=== PATIENT | female | born 1935 | race Caucasian/White ===

== ENCOUNTER → 2016-12-10 | Outpatient (REF) | payer MEDICARE ==
[2016-12-10 21:13] LABS: BACTERIA, URINE LARGE AMOUNT
[2016-12-10 21:14] LABS: RBC, URINE 0-1 /hpf (0-3); SQUAMOUS EPITHELIAL CELL URINE LARGE AMOUNT /hpf (SMALL AMT); TRANSITIONAL EPI CELLS, URINE SMALL AMOUNT /hpf
[2016-12-10 21:16] LABS: HYALINE CAST, URINE NONE SEEN /lpf (0-1); MICROSCOPIC EXAM PERFORMED
== END ==
LOC: M LAB REF 17:11
PROVIDERS: ATTEND Internal Medicine Nephrology
DX: N39.0 Urinary tract infection, site not specified (principal)

== ENCOUNTER 2018-12-02 11:07 | Emergency (ER) | payer MEDICARE ==
[~2018-12-02] VITALS: Ht 149.9 cm; Wt 66.4 kg
[2018-12-02] MEDS ORDERED: CENT1TAB PO (12:32)
[2018-12-02] MEDS ORDERED: FURO40TA2 PO (12:32)
[2018-12-02] MEDS ORDERED: PRESCAP PO (12:32)
[2018-12-02] MEDS ORDERED: ATEN100T PO (12:32)
[2018-12-02] MEDS ORDERED: AMLO10TA PO (12:32)
[2018-12-02] MEDS ORDERED: SIMV10TA2 PO (12:32)
[2018-12-02] MEDS ORDERED: WARF05TA PO (12:32)
[2018-12-02] MEDS ORDERED: WARF-58 PO (12:32)
[2018-12-02] MEDS ORDERED: ALEN35TA37 PO (12:32)
[2018-12-02] MEDS ORDERED: OMEP40CA2 PO (12:32)
[2018-12-02] MEDS ORDERED: ENAL20TA PO (12:32)
[2018-12-02] MEDS ORDERED: DIGO0.127 PO (12:32)
[2018-12-02] MEDS ORDERED: OMEG10002 PO (12:32)
[2018-12-02] MEDS ORDERED: VITA200028 PO (12:32)
[2018-12-02] MEDS ORDERED: GLIP10TA PO (12:32)
[2018-12-02] MEDS ORDERED: OXYB5TAB2 PO (12:32)
[2018-12-02 13:39] LABS: BASO % 0.6 % (0.0-1.0); EOS # 0.1 10^3/uL (0.0-0.50); EOS % 2.1 % (0.0-3.0); HEMATOCRIT 37.1 % (36.0-47.0); HEMOGLOBIN 12.2 g/dl (12.0-15.5); LYMPH # 1.5 10^3/uL (1.5-4.5); LYMPH % 23.1 % (24.0-44.0); MEAN CORPUSCULAR HEMOGLOBIN 29.9 pg (27.0-33.0); MEAN CORPUSCULAR HGB CONC 32.9 g/dl (32.0-36.5); MEAN CORPUSCULAR VOLUME 90.9 fl (80.0-96.0); MONO # 0.6 10^3/uL (0.0-0.8); MONO % 8.2 % (0.0-5.0); NEUTROPHILS # 4.4 10^3/uL (1.8-7.7); NEUTROPHILS % 65.6 % (36.0-66.0); PLATELET COUNT, AUTOMATED 245 10^3/uL (150-450); RED BLOOD COUNT 4.08 10^6/uL (4.00-5.40); WHITE BLOOD COUNT 6.7 10^3/uL (4.0-10.0)
[2018-12-02 14:20] VITALS: BP 152/70
--- NOTE | 2018-12-02 15:03 | REP ---
LUMBOSACRAL SPINE: Five views of the lumbosacral spine are performed. There is minor loss of height of L1 which is of indeterminate age. Remaining lumbar vertebral bodies are normal in height and are well aligned. There is mild to moderate diffuse spurring. There is mild to moderate diffuse disc space narrowing with subchondral sclerosis and vacuum phenomenon. Sclerosis and spurring is seen at the posterior facet joints. The posterior elements are intact. There is slight curvature of the lumbar spine convex to the left. IMPRESSION: Diffuse degenerative changes. Slight anterior loss of height of the L1 vertebral body is of indeterminate age. Electronically Signed by Domingo Das MD 12/02/2018 03:22 P
--- NOTE | 2018-12-02 15:04 | REP ---
LEFT KNEE SERIES: Five views of the left knee performed. There is no fracture or dislocation. There is moderate patellofemoral compartment narrowing with subchondral sclerosis and spurring. There is mild medial joint space narrowing with subchondral sclerosis and spurring. IMPRESSION: Degenerative changes without evidence of acute fracture or dislocation. Electronically Signed by Domingo Das MD 12/02/2018 03:23 P
== END 2018-12-02 15:00 | disposition home or self-care (01) ==
LOC: M ED 11:07
DX: M51.37 Other intervertebral disc degeneration, lumbosacral region (principal); S39.012A Strain of muscle, fascia and tendon of lower back, initial encounter; X58.XXXA Exposure to other specified factors, initial encounter; Y92.89 Other specified places as the place of occurrence of the external cause; M17.12 Unilateral primary osteoarthritis, left knee; E11.9 Type 2 diabetes mellitus without complications; I48.91 Unspecified atrial fibrillation; I10 Essential (primary) hypertension; E78.5 Hyperlipidemia, unspecified; H40.9 Unspecified glaucoma; M54.9 Dorsalgia, unspecified

== ENCOUNTER → 2019-10-04 | Outpatient (CLI) | payer MEDICARE ==
[~2019-10-04] MED LIST: ALEN35TA6 PO; AMLO10TA PO; ATEN100T PO; CENT1TAB PO; DIGO0.127 PO; ENAL20TA PO; FURO40TA2 PO; GLIP10TA PO; OMEG10002 PO; OMEP40CA97 PO; OXYB-54 PO; PRESCAP PO; SIMV10TA21 PO; VITA200028 PO; WARF-58 PO; WARF05TA PO
[2019-10-04 11:04] LABS: HEMATOCRIT 32.4 % (36.0-47.0); HEMOGLOBIN 10.2 g/dl (12.0-15.5); MEAN CORPUSCULAR HEMOGLOBIN 29.6 pg (27.0-33.0); MEAN CORPUSCULAR HGB CONC 31.5 g/dl (32.0-36.5); MEAN CORPUSCULAR VOLUME 93.9 fl (80.0-96.0); PLATELET COUNT, AUTOMATED 235 10^3/uL (150-450); RED BLOOD COUNT 3.45 10^6/uL (4.00-5.40); WHITE BLOOD COUNT 4.5 10^3/uL (4.0-10.0)
[2019-10-04 11:29] LABS: ALBUMIN 3.6 GM/DL (3.2-5.2); CALCIUM LEVEL 9.5 MG/DL (8.8-10.2); CREATININE FOR GFR 1.41 MG/DL (0.55-1.30); GLOMERULAR FILTRATION RATE 37.6 (>32); MAGNESIUM LEVEL 2.3 MG/DL (1.8-2.4); PHOSPHORUS LEVEL 3.3 MG/DL (2.5-4.9); POTASSIUM SERUM 4.3 MEQ/L (3.5-5.1); URIC ACID 8.8 MG/DL (2.6-6.0)
[2019-10-04 11:39] LABS: PTH INTACT 59.3 PG/ML (18.5-88.0)
[2019-10-05 13:53] LABS: PERCENT SATURATION 13.9 % (13.2-45.0)
== END ==
LOC: M WUC 08:34
PROVIDERS: ATTEND Nurse Practitioner Family
DX: N18.3 Chronic kidney disease, stage 3 (moderate) (principal); D63.1 Anemia in chronic kidney disease; N25.81 Secondary hyperparathyroidism of renal origin; M10.9 Gout, unspecified; E83.42 Hypomagnesemia

== ENCOUNTER → 2019-10-05 | Outpatient (REF) | payer MEDICARE ==
[2019-10-06 10:28] LABS: BACTERIA, URINE AUTO 3+ (NEGATIVE); BILIRUBIN, URINE AUTO NEGATIVE (NEGATIVE); BLOOD, URINE BLOOD NEGATIVE (NEGATIVE); COLOR, URINE YELLOW (YELLOW); GLUCOSE, URINE (UA) AUTO NEGATIVE (NEGATIVE); KETONE, URINE AUTO NEGATIVE (NEGATIVE); LEUKOCYTE ESTERASE, URINE AUTO 1+ (NEGATIVE); NITRITE, URINE AUTO NEGATIVE (NEGATIVE); PROTEIN, URINE AUTO NEGATIVE (NEGATIVE); RBC, URINE AUTO 1 /HPF (0-3); SPECIFIC GRAVITY URINE AUTO 1.012 (1.002-1.035); SQUAMOUS EPITHELIAL CELL UR AU 4 /HPF (0-6); UROBILINOGEN, URINE AUTO 0.2 mg/dL (0.0-2.0); WBC, URINE AUTO 10 /HPF (0-3)
[2019-10-07 06:36] LABS: APPEARANCE, URINE HAZY (CLEAR)
== END ==
LOC: M LAB REF 10:04
PROVIDERS: ATTEND Nurse Practitioner Family
DX: N39.0 Urinary tract infection, site not specified (principal)

== ENCOUNTER → 2019-11-11 | Outpatient (REF) | payer MEDICARE ==
[~2019-11-11] MED LIST changes: +ALEN35TA54 PO; -ALEN35TA6 PO; -ENAL20TA PO; +ENAL20TA11 PO
[2019-11-11 17:57] LABS: PERCENT SATURATION 17.3 % (13.2-45.0)
== END ==
LOC: M LAB REF 16:47
PROVIDERS: ATTEND Nurse Practitioner Family
DX: D50.9 Iron deficiency anemia, unspecified (principal)

== ENCOUNTER 2020-06-22 14:42 | Inpatient (IN) | payer MEDICARE ==
[~2020-06-22] VITALS: Ht 149.9 cm; Wt 60.0 kg
[2020-06-22 15:47] LABS: VENOUS BASE EXCESS -0.2 (-2.0-2.0); VENOUS HCO3 25.5 MEQ/L (23.0-27.0); VENOUS O2 SATURATION 87.6 % (60.0-80.0); VENOUS PARTIAL PRESSURE O2 55.9 mmHg (30.0-50.0); VENOUS PH 7.362 UNITS (7.330-7.430); VENOUS STANDARD HCO3 24.2 MEQ/L; VENOUS TOTAL CO2 26.9 MEQ/L (24.0-28.0)
[2020-06-22 15:53] LABS: BASO # 0.1 10^3/uL (0.0-0.2); BASO % 0.9 % (0.0-1.0); EOS # 0.1 10^3/uL (0.0-0.5); EOS % 1.3 % (0.0-3.0); HEMATOCRIT 33.5 % (36.0-47.0); HEMOGLOBIN 10.4 g/dl (12.0-15.5); LYMPH # 1.5 10^3/uL (1.5-5.0); LYMPH % 19.4 % (24.0-44.0); MEAN CORPUSCULAR HEMOGLOBIN 28.7 pg (27.0-33.0); MEAN CORPUSCULAR VOLUME 92.3 fl (80.0-96.0); MONO % 13.3 % (2.0-8.0); NEUTROPHILS # 4.8 10^3/uL (1.5-8.5); NEUTROPHILS % 63.8 % (36.0-66.0); PLATELET COUNT, AUTOMATED 350 10^3/uL (150-450); RED BLOOD COUNT 3.63 10^6/uL (4.00-5.40); WHITE BLOOD COUNT 7.5 10^3/uL (4.0-10.0)
--- OUTSIDE RECORDS SUMMARY | 2020-06-22 16:10 | CCD ---
Author Author [facility] Organization [facility] Address Unknown Phone Unavailable Care Team Providers Care Environmental Technology Professor Name Role Phone Belle Proctor MD Unavailable Unavailable Belle Proctor MD Unavailable Unavailable Belle Proctor MD Unavailable Unavailable Belle Proctor MD Unavailable Unavailable Belle Proctor MD Unavailable Unavailable Veronica Rosado Unavailable Unavailable BROWN, BLADIMIR KEVIN AUTOMOTIVE SERVICE TECHNICIAN Unavailable Unavailable BROWN, BLADIMIR KEVIN AUTOMOTIVE SERVICE TECHNICIAN Unavailable Unavailable BROWN, BLADIMIR KEVIN AUTOMOTIVE SERVICE TECHNICIAN Unavailable Unavailable BROWN, BLADIMIR KEVIN AUTOMOTIVE SERVICE TECHNICIAN Unavailable Unavailable BROWN, BLADIMIR KEVIN AUTOMOTIVE SERVICE TECHNICIAN Unavailable Unavailable BROWN, BLADIMIR KEVIN AUTOMOTIVE SERVICE TECHNICIAN Unavailable Unavailable BROWN, BLADIMIR KEVIN AUTOMOTIVE SERVICE TECHNICIAN Unavailable Unavailable BROWN, BLADIMIR KEVIN AUTOMOTIVE SERVICE TECHNICIAN Unavailable Unavailable BROWN, BLADIMIR KEVIN AUTOMOTIVE SERVICE TECHNICIAN Unavailable Unavailable BROWN, BLADIMIR KEVIN AUTOMOTIVE SERVICE TECHNICIAN Unavailable Unavailable BROWN, BLADIMIR KEVIN AUTOMOTIVE SERVICE TECHNICIAN Unavailable Unavailable BROWN, BLADIMIR KEVIN AUTOMOTIVE SERVICE TECHNICIAN Unavailable Unavailable BROWN, BLADIMIR KEVIN AUTOMOTIVE SERVICE TECHNICIAN Unavailable Unavailable BROWN, BLADIMIR KEVIN AUTOMOTIVE SERVICE TECHNICIAN Unavailable Unavailable BROWN, BLADIMIR KEVIN AUTOMOTIVE SERVICE TECHNICIAN Unavailable Unavailable BROWN, BLADIMIR KEVIN AUTOMOTIVE SERVICE TECHNICIAN Unavailable Unavailable BROWN, BLADIMIR KEVIN AUTOMOTIVE SERVICE TECHNICIAN Unavailable Unavailable BROWN, BLADIMIR KEVIN AUTOMOTIVE SERVICE TECHNICIAN Unavailable Unavailable BROWN, BLADIMIR KEVIN AUTOMOTIVE SERVICE TECHNICIAN Unavailable Unavailable BROWN, BLADIMIR KEVIN AUTOMOTIVE SERVICE TECHNICIAN Unavailable Unavailable BROWN, BLADIMIR KEVIN AUTOMOTIVE SERVICE TECHNICIAN Unavailable Unavailable BROWN, BLADIMIR KEVIN AUTOMOTIVE SERVICE TECHNICIAN Unavailable Unavailable BROWN, BLADIMIR KEVIN AUTOMOTIVE SERVICE TECHNICIAN Unavailable Unavailable BROWN, BLADIMIR KEVIN AUTOMOTIVE SERVICE TECHNICIAN Unavailable Unavailable BROWN, BLADIMIR KEVIN AUTOMOTIVE SERVICE TECHNICIAN Unavailable Unavailable BROWN, BLADIMIR KEVIN AUTOMOTIVE SERVICE TECHNICIAN Unavailable Unavailable BROWN, BLADIMIR KEVIN AUTOMOTIVE SERVICE TECHNICIAN Unavailable Unavailable BROWN, BLADIMIR KEVIN AUTOMOTIVE SERVICE TECHNICIAN Unavailable Unavailable BROWN, BLADIMIR KEVIN AUTOMOTIVE SERVICE TECHNICIAN Unavailable Unavailable BROWN, BLADIMIR KEVIN AUTOMOTIVE SERVICE TECHNICIAN Unavailable Unavailable BROWN, BLADIMIR KEVIN AUTOMOTIVE SERVICE TECHNICIAN Unavailable Unavailable BROWN, BLADIMIR KEVIN AUTOMOTIVE SERVICE TECHNICIAN Unavailable Unavailable BROWN, BLADIMIR KEVIN AUTOMOTIVE SERVICE TECHNICIAN Unavailable Unavailable BROWN, BLADIMIR KEVIN AUTOMOTIVE SERVICE TECHNICIAN Unavailable Unavailable BROWN, BLADIMIR KEVIN AUTOMOTIVE SERVICE TECHNICIAN Unavailable Unavailable BROWN, BLADIMIR KEVIN AUTOMOTIVE SERVICE TECHNICIAN Unavailable Unavailable BROWN, BLADIMIR KEVIN AUTOMOTIVE SERVICE TECHNICIAN Unavailable Unavailable BROWN, BLADIMIR KEVIN AUTOMOTIVE SERVICE TECHNICIAN Unavailable Unavailable BROWN, BLADIMIR KEVIN AUTOMOTIVE SERVICE TECHNICIAN Unavailable Unavailable YUDY, VERONICA PA Unavailable Unavailable YUDY, VERONICA PA Unavailable Unavailable YUDY, VERONICA PA Unavailable Unavailable YUDY, VERONICA PA Unavailable Unavailable YUDY, VERONICA PA Unavailable Unavailable YUDY, VERONICA PA Unavailable Unavailable YUDY, VERONICA PA Unavailable Unavailable Hadian, Ayo Unavailable Unavailable Hadian, Ayo Unavailable Unavailable Hadian, Ayo Unavailable Unavailable Hadian, Ayo Unavailable Unavailable Hadian, Ayo Unavailable Unavailable Hadian, Ayo Unavailable Unavailable Hadian, Ayo Unavailable Unavailable Hadian, Ayo Unavailable Unavailable Hadian, Ayo Unavailable Unavailable Hadian, Ayo Unavailable Unavailable Hadian, Ayo Unavailable Unavailable Hadian, Ayo Unavailable Unavailable Hadian, Ayo Unavailable Unavailable Hadian, Ayo Unavailable Unavailable Hadian, Ayo Unavailable Unavailable Hadian, Ayo Unavailable Unavailable Hadian, Ayo Unavailable Unavailable Hadian, Ayo Unavailable Unavailable Hadian, Ayo Unavailable Unavailable Hadian, Ayo Unavailable Unavailable Hadian, Ayo Unavailable Unavailable Hadian, Ayo Unavailable Unavailable Hadian, Ayo Unavailable Unavailable Hadian, Ayo Unavailable Unavailable Hadian, Ayo Unavailable Unavailable Hadian, Ayo Unavailable Unavailable Hadian, Ayo Unavailable Unavailable Hadian, Ayo Unavailable Unavailable Hadian, Ayo Unavailable Unavailable Hadian, Ayo Unavailable Unavailable Hadian, Ayo Unavailable Unavailable Hadian, Ayo Unavailable Unavailable Hadian, Ayo Unavailable Unavailable RYLEE, M MERARI PA Unavailable Unavailable RYLEE, M MERARI PA Unavailable Unavailable RYLEE, M MERARI PA Unavailable Unavailable RYLEE, M MERARI PA Unavailable Unavailable RYLEE, M MERARI PA Unavailable Unavailable RYLEE, M MERARI PA Unavailable Unavailable RYLEE, M MERARI PA Unavailable Unavailable RYLEE, M MERARI PA Unavailable Unavailable RYLEE, M MERARI PA Unavailable Unavailable RYLEE, M MERARI PA Unavailable Unavailable RYLEE, M MERARI PA Unavailable Unavailable RYLEE, M MERARI PA Unavailable Unavailable RYLEE, M MERARI PA Unavailable Unavailable RYLEE, M MERARI PA Unavailable Unavailable RYLEE, M MERARI PA Unavailable Unavailable RYLEE, M MERARI PA Unavailable Unavailable RYLEE, M MERARI PA Unavailable Unavailable RYLEE, M MERARI PA Unavailable Unavailable RYLEE, M MERARI PA Unavailable Unavailable RYLEE, M MERARI PA Unavailable Unavailable RYLEE, M MERARI PA Unavailable Unavailable RYLEE, M MERARI PA Unavailable Unavailable RYLEE, M MERARI PA Unavailable Unavailable RYLEE, M MERARI PA Unavailable Unavailable Birchenough, L Krupa SPECIAL EDUCATION TEACHER Unavailable Unavailable Birchenough, L Krupa SPECIAL EDUCATION TEACHER Unavailable Unavailable Birchenough, L Krupa SPECIAL EDUCATION TEACHER Unavailable Unavailable Birchenough, L Krupa SPECIAL EDUCATION TEACHER Unavailable Unavailable Birchenough, L Krupa SPECIAL EDUCATION TEACHER Unavailable Unavailable Birchenough, L Krupa SPECIAL EDUCATION TEACHER Unavailable Unavailable Birchenough, L Krupa SPECIAL EDUCATION TEACHER Unavailable Unavailable Birchenough, L Krupa SPECIAL EDUCATION TEACHER Unavailable Unavailable Birchenough, L Krupa SPECIAL EDUCATION TEACHER Unavailable Unavailable Birchenough, L Krupa SPECIAL EDUCATION TEACHER Unavailable Unavailable Birchenough, L Krupa SPECIAL EDUCATION TEACHER Unavailable Unavailable Birchenough, L Krupa SPECIAL EDUCATION TEACHER Unavailable Unavailable Birchenough, L Krupa SPECIAL EDUCATION TEACHER Unavailable Unavailable Birchenough, L Krupa SPECIAL EDUCATION TEACHER Unavailable Unavailable Birchenough, L Krupa SPECIAL EDUCATION TEACHER Unavailable Unavailable Birchenough, L Krupa SPECIAL EDUCATION TEACHER Unavailable Unavailable Birchenough, L Krupa SPECIAL EDUCATION TEACHER Unavailable Unavailable Birchenough, L Krupa SPECIAL EDUCATION TEACHER Unavailable Unavailable Birchenough, L Krupa SPECIAL EDUCATION TEACHER Unavailable Unavailable Birchenough, L Krupa SPECIAL EDUCATION TEACHER Unavailable Unavailable Birchenough, L Krupa SPECIAL EDUCATION TEACHER Unavailable Unavailable Birchenough, L Krupa SPECIAL EDUCATION TEACHER Unavailable Unavailable Birchenough, L Krupa SPECIAL EDUCATION TEACHER Unavailable Unavailable Birchenough, L Krupa SPECIAL EDUCATION TEACHER Unavailable Unavailable Birchenough, L Krupa SPECIAL EDUCATION TEACHER Unavailable Unavailable Birchenough, L Krupa SPECIAL EDUCATION TEACHER Unavailable Unavailable Birchenough, L Krupa SPECIAL EDUCATION TEACHER Unavailable Unavailable Birchenough, L Krupa SPECIAL EDUCATION TEACHER Unavailable Unavailable Birchenough, L Krupa SPECIAL EDUCATION TEACHER Unavailable Unavailable Birchenough, L Krupa SPECIAL EDUCATION TEACHER Unavailable Unavailable Birchenough, L Krupa SPECIAL EDUCATION TEACHER Unavailable Unavailable Birchenough, L Krupa SPECIAL EDUCATION TEACHER Unavailable Unavailable Birchenough, L Krupa SPECIAL EDUCATION TEACHER Unavailable Unavailable Birchenough, L Krupa SPECIAL EDUCATION TEACHER Unavailable Unavailable Belle Proctor MD Unavailable Unavailable KANDY, A JAGUAR PA Unavailable Unavailable KANDY, A JAGUAR PA Unavailable Unavailable KANDY, A JAGUAR PA Unavailable Unavailable KANDY, A JAGUAR PA Unavailable Unavailable KANDY, A JAGUAR PA Unavailable Unavailable KANDY, A JAGUAR PA Unavailable Unavailable KANDY, A JAGUAR PA Unavailable Unavailable KANDY, A JAGUAR PA Unavailable Unavailable KANDY, A JAGUAR PA Unavailable Unavailable KANDY, A JAGUAR PA Unavailable Unavailable KANDY, A JAGUAR PA Unavailable Unavailable KANDY, A JAGUAR PA Unavailable Unavailable KANDY, A JAGUAR PA Unavailable Unavailable COUCH, CAROLINE PA Unavailable Unavailable COUCH, CAROLINE PA Unavailable Unavailable COUCH, CAROLINE PA Unavailable Unavailable COUCH, CAROLINE PA Unavailable Unavailable MALGORZATA, RON ALCANTARA Unavailable Unavailable MALGORZATA, RON ALCANTARA Unavailable Unavailable MALGORZATA, RON ALCANTARA Unavailable Unavailable MALGORZATA, RON ALCANTARA Unavailable Unavailable MALGORZATA, RON ALCANTARA Unavailable Unavailable MALGORZATA, RON ALCANTARA Unavailable Unavailable MALGORZATA, RON ALCANTARA Unavailable Unavailable MALGORZATA, RON ALCANTARA Unavailable Unavailable MALGORZATA, RON ALCANTARA Unavailable Unavailable MALGORZATA, RON ALCANTARA Unavailable Unavailable MALGORZATA, RON ALCANTARA Unavailable Unavailable MALGORZATA, RON ALCANTARA Unavailable Unavailable MALGORZATA, RON ALCANTARA Unavailable Unavailable MALGORZATA, RON ALCANTARA Unavailable Unavailable MALGORZATA, RON ALCANTARA Unavailable Unavailable MALGORZATA, RON ALCANTARA Unavailable Unavailable MALGORZATA, RON ALCANTARA Unavailable Unavailable MALGORZATA, RON ALCANTARA Unavailable Unavailable MALGORZATA, RON ALCANTARA Unavailable Unavailable MALGORZATA, RON ALCANTARA Unavailable Unavailable MALGORZATA, RON ALCANTARA Unavailable Unavailable MALGORZATA, RON ALCANTARA Unavailable Unavailable MALGORZATA, RON ALCANTARA Unavailable Unavailable MALGORZATA, RON ALCANTARA Unavailable Unavailable MALGORZATA, RON ALCANTARA Unavailable Unavailable MALGORZATA, RON ALCANTARA Unavailable Unavailable MALGORZATA, RON ALCANTARA Unavailable Unavailable MALGORZATA, RON ALCANTARA Unavailable Unavailable MALGORZATA, RON ALCANTARA Unavailable Unavailable MALGORZATA, RON ALCANTARA Unavailable Unavailable MALGORZATA, RON ALCANTARA Unavailable Unavailable MALGORZATA, RON ALCANTARA Unavailable Unavailable MALGORZATA, RON ALCANTARA Unavailable Unavailable MALGORZATA, RON ALCANTARA Unavailable Unavailable MALGORZATA, RON ALCANTARA Unavailable Unavailable MALGORZATA, RON ALCANTARA Unavailable Unavailable MALGORZATA, RON ALCANTARA Unavailable Unavailable MALGORZATA, RON ALCANTARA Unavailable Unavailable MALGORZATA, RON ALCANTARA Unavailable Unavailable MALGORZATA, RON ALCANTARA Unavailable Unavailable MALGORZATA, RON ALCANTARA Unavailable Unavailable MALGORZATA, RON ALCANTARA Unavailable Unavailable MALGORZATA, RON ALCANTARA Unavailable Unavailable MALGORZATA, RON ALCANTARA Unavailable Unavailable MALGORZATA, RON ALCANTARA Unavailable Unavailable MALGORZATA, RON ALCANTARA Unavailable Unavailable MALGORZATA, RON ALCANTARA Unavailable Unavailable MALGORZATA, RON ALCANTARA Unavailable Unavailable MALGORZATA, RON ALCANTARA Unavailable Unavailable MALGORZATA, RON ALCANTARA Unavailable Unavailable MALGORZATA, RON ALCANTARA Unavailable Unavailable MALGORZATA, RON ALCANTARA Unavailable Unavailable MALGORZATA, RON ALCANTARA Unavailable Unavailable MALGORZATA, RON ALCANTARA Unavailable Unavailable WINSOME IV, L ARMEN HELPDESK MANAGER Unavailable Unavailable WINSOME IV, L ARMEN HELPDESK MANAGER Unavailable Unavailable WINSOME IV, L ARMEN HELPDESK MANAGER Unavailable Unavailable WINSOME IV, L ARMEN HELPDESK MANAGER Unavailable Unavailable WINSOME IV, L ARMEN HELPDESK MANAGER Unavailable Unavailable WINSOME IV, L ARMEN HELPDESK MANAGER Unavailable Unavailable WINSOME IV, L ARMEN HELPDESK MANAGER Unavailable Unavailable WINSOME IV, L ARMEN HELPDESK MANAGER Unavailable Unavailable WINSOME IV, L ARMEN HELPDESK MANAGER Unavailable Unavailable WINSOME IV, L ARMEN HELPDESK MANAGER Unavailable Unavailable WINSOME IV, L ARMEN HELPDESK MANAGER Unavailable Unavailable WINSOME IV, L ARMEN HELPDESK MANAGER Unavailable Unavailable WINSOME IV, L ARMEN HELPDESK MANAGER Unavailable Unavailable WINSOME IV, L ARMEN HELPDESK MANAGER Unavailable Unavailable WINSOME IV, L ARMEN HELPDESK MANAGER Unavailable Unavailable WINSOME IV, L ARMEN HELPDESK MANAGER Unavailable Unavailable WINSOME IV, L ARMEN HELPDESK MANAGER Unavailable Unavailable WINSOME IV, L ARMEN HELPDESK MANAGER Unavailable Unavailable WINSOME IV, L ARMEN HELPDESK MANAGER Unavailable Unavailable WINSOME IV, L ARMEN HELPDESK MANAGER Unavailable Unavailable WINSOME IV, L ARMEN HELPDESK MANAGER Unavailable Unavailable WINSOME IV, L ARMEN HELPDESK MANAGER Unavailable Unavailable WINSOME IV, L ARMEN HELPDESK MANAGER Unavailable Unavailable WINSOME IV, L ARMEN HELPDESK MANAGER Unavailable Unavailable WINSOME IV, L ARMEN HELPDESK MANAGER Unavailable Unavailable WINSOME IV, L ARMEN HELPDESK MANAGER Unavailable Unavailable WINSOME IV, L ARMEN HELPDESK MANAGER Unavailable Unavailable WINSOME IV, L ARMEN HELPDESK MANAGER Unavailable Unavailable WINSOME IV, L ARMEN HELPDESK MANAGER Unavailable Unavailable WINSOME IV, L ARMEN HELPDESK MANAGER Unavailable Unavailable WINSOME IV, L ARMEN HELPDESK MANAGER Unavailable Unavailable WINSOME IV, L ARMEN HELPDESK MANAGER Unavailable Unavailable BROUGHAL, C ENA PA Unavailable Unavailable BROUGHAL, C ENA PA Unavailable Unavailable BROUGHAL, C ENA PA Unavailable Unavailable BROUGHAL, C ENA PA Unavailable Unavailable BROUGHAL, C ENA PA Unavailable Unavailable BROUGHAL, C ENA PA Unavailable Unavailable Jes Paige MD Unavailable Unavailable Jes Paige MD Unavailable Unavailable Jes Paige MD Unavailable Unavailable Armen L Winsome, IV SPECIAL EDUCATION TEACHER Unavailable Unavailable Re-disclosure Warning The records that you are about to access may contain information from federally-assisted alcohol or drug abuse programs. If such information is present, then the following federally mandated warning applies: This information has been disclosed to you from records protected by federal confidentiality rules (42 CFR part 2). The federal rules prohibit you from making any further disclosure of this information unless further disclosure is expressly permitted by the written consent of the person to whom it pertains or as otherwise permitted by 42 CFR part 2. A general authorization for the release of medical or other information is NOT sufficient for this purpose. The Federal rules restrict any use of the information to criminally investigate or prosecute any alcohol or drug abuse patient.The records that you are about to access may contain highly sensitive health information, the redisclosure of which is protected by Article 27-F of the [facility] Public Health law. If you continue you may have access to information: Regarding HIV / AIDS; Provided by facilities licensed or operated by the [facility] Office of Mental Health; or Provided by the [facility] Office for People With Developmental Disabilities. If such information is present, then the following [facility] mandated warning applies: This information has been disclosed to you from confidential records which are protected by state law. State law prohibits you from making any further disclosure of this information without the specific written consent of the person to whom it pertains, or as otherwise permitted by law. Any unauthorized further disclosure in violation of state law may result in a fine or usp sentence or both. A general authorization for the release of medical or other information is NOT sufficient authorization for further disc losure. Allergies and Adverse Reactions Type Description Substance Reaction Status Data Source(s ) Drug allergy Drug allergy No Known Allergies [facility] Drug allergy Drug allergy nut - unspecified [facility] Drug allergy Drug allergy iodine [place] [facility] Drug allergy Drug allergy Iodinated Contrast Media (IVP DYE) [facility] Encounters Encounter Providers Location Date Indications Data Source(s ) Outpatient Attender: Krupa Echols [facility] ED-IMAG 06/22/2020 08:57:00 AM EST [id number] [facility] J069 Outpatient Attender: ARMEN MERAZ IV ED-HCCEDWPCP 2020 11:32:00 AM EST - 05/29/2020 11:33:00 AM [facility] Patient discharged. Inpatient Attender: Twila Proctor MDAttender: Twila Proctor MDAttender: Thee Paige MDAdmitter: Twila Proctor MDConsultant: CAROLINE COUCH PAConsultant: ENA CERVANTES CPSCAORT-MSU2 05/10/2020 05:4 6:00 PM EST - 05/22/2020 12:19:00 PM EST COVID [facility] COVID Patient discharged. Outpatient Attender: RON MCGARRY MD [email or web address].GVR 05/10/2020 12:00:00 AM EST [facility] Outpatient Attender: Ayo Horne ED-LABPNP 10:45:00 AM EST - 05/09/2020 10:46:00 AM EST WORRIED WELL [facility] WORRIED WELL Patient discharged. [facility]2020 02:53:00 PM EST [facility] Emergency Attender: JAGUAR CERVANTES ED-ED 05/03 11:13:00 AM EST - 05/03/2020 01:24:00 PM EST ABDOMINAL AND BACK PAIN [facility] ABDOMINAL AND BACK PAIN Patient discharged. Outpatient Attender: RHIANNON Meraz RNPAttender: ARMEN MCDOWELL ED-LABEDW 04/30/2020 08:32:00 AM EST - 04/30/2020 08:33:00 AM [facility] Patient discharged. Outpatient Attender: ARMEN MERAZ IVAttender: RHIANNON lizama [facility] ED-LABEDW 03/21/2020 07:00:00 AM EST - 03/21/2020 07:01:00 AM [facility] Patient discharged. Outpatient Attender: RHIANNON Meraz RNPAttender: ARMEN MCDOWELL ED-LABEDW 03/15/2020 10:54:00 AM EST - 03/15/2020 10:55:00 AM [facility] Patient discharged. Outpatient Attender: ARMEN MERAZ IV ED-HCCEDWPCP 2019 01:23:00 PM EST - 03/09/2020 01:24:00 PM [facility] Patient discharged. Outpatient Attender: ARMEN MERAZ IV ED-LABEDW 02/20/2020 10:45:00 A M [facility] Outpatient Attender: IV Armen Meraz RNPAttender: ARMEN MCDOWELL IV ED-LABEDW 02/20/2020 10:43:00 AM EDT - 02/20/2020 10:44:00 AM EDT [facility] Patient discharged. Outpatient Attender: ARMEN MERAZ IV ED-HCCEDWPCP 2019 10:48:00 AM EDT - 02/17/2020 10:49:00 AM EDT [facility] Patient discharged. Outpatient Attender: IV Armen Meraz RNPAttender: ARMEN MCDOWELL IV ED-LABEDW 02/07/2020 08:01:00 AM EDT - 02/07/2020 08:02:00 AM EDT [facility] Patient discharged. Outpatient Attender: IV Armen Meraz RNPAttender: ARMEN MCDOWELL IV ED-LABEDW 01/03/2020 09:46:00 AM EDT - 01/03/2020 09:47:00 AM EDT [facility] Patient [facility]/08/2019 03:17:00 PM EDT [facility] Outpatient Attender: IV Armen Meraz RNPAttender: ARMEN MERAZ IV ED-HCCEDWPCP 11/08/2019 09:35:00 AM EDT - 11/08/2019 09:36:00 AM EDT [facility] Patient discharged. Outpatient Attender: RON MCGARRY MD [email or web address].[id number] 0 12:00:00 AM EDT - 10/27/2019 12:06:15 PM EDT [facility] Outpatient Attender: ARMEN MERAZ IV ED-HCCEDWPCP 2019 08:50:00 AM EDT - 09/13/2019 08:51:00 AM EDT [facility] Patient discharged. Outpatient Attender: IV Armen Meraz RNPAttender: ARMEN MCDOWELL IV ED-LAB 09/08/2019 08:21:00 AM EDT - 09/08/2019 08:22:00 AM EDT [id number] [facility] [id number] Patient discharged. Outpatient Attender: IV Armen Meraz RNPAttender: ARMEN MCDOWELL IV ED-LABEDW 07/12/2019 07:15:00 AM EDT - 07/12/2019 07:16:00 AM EDT [facility] Patient discharged. Outpatient Attender: MERARI CERVANTES Physical Therapy 06/2019 12:00:00 PM EST [facility] ([facility]) Outpatient CPSCAORT-LABEJN 06/21/2019 07:11:00 PM EST [facility] Outpatient Attender: RHIANNON Meraz RNPAttender: ARMEN MERAZ ED-HCCEDWPC 06/21/2019 06:44:00 AM EST - 06/21/2019 06:45:00 AM EST [facility] Patient discharged. Outpatient Attender: ARMEN MERAZ IV ED-IMAGH 2019 09:50:00 AM EST - 06/17/2019 09:51:00 AM EST [id number] [facility] [id number] Patient discharged. Outpatient Attender: ARMEN MERAZ ED-HCCEDWPC 2019 08:03:00 AM EST - 06/17/2019 08:04:00 AM EST [facility] Patient discharged. Emergency Attender: JAGUAR Moe tender: Veronica Ponceender: VERONICA CERVANTES ED-ED 06/13/2019 06:23:00 AM EST - 06/13/2019 09:07:00 AM EST fall [facility] fall Patient discharged. Outpatient Attender: KEVIN STOCKTON NP ED-IMAGH 2019 09:32:00 AM EST - 06/10/2019 09:33:00 AM EST RT BREAST MAMMO [facility] RT BREAST MAMMO Patient discharged. Outpatient Attender: KEVIN STOCKTON NP CPSCAORT-CPSGNOBG 05/28 09:19:00 AM EST - [facility] Attender: RHIANNON Meraz RNPAttender: ARMEN MCDOWELL IV ED-LABEDW 06/06/2019 08:28:00 AM EST - 06/06/2019 08:29:00 AM EST [facility] Patient discharged. Outpatient Attender: ARMEN MERAZ IV ED-HCCEDWPCP 2019 07:00:00 AM EST - 05/19/2019 07:01:00 AM [facility] Patient discharged. Outpatient Attender: IV Armen Meraz RNPAttender: ARMEN MCDOWELL IV ED-LABEDW 05/05/2019 08:01:00 AM EST - 05/05/2019 08:02:00 AM [facility] Patient discharged. Outpatient Attender: IV Armen Meraz RNPAttender: ARMEN MCDOWELL IV ED-LABEDW 03/22/2019 07:57:00 AM EST - 03/22/2019 07:58:00 AM [facility] Patient discharged. Outpatient Attender: IV Armen Meraz RNPAttender: ARMEN MCDOWELL IV ED-LABEDW 03/18/2019 07:49:00 AM EST - 03/18/2019 07:50:00 AM [facility] Patient discharged. Medications Medication Brand Name Start Date Product Form Dose Route Admi nistrative Instructions Pharmacy Instructions Status Indications Reaction Description Data Source(s) 10 mg 05/09/2020 12:00:00 AM EST tablet 90 TAKE ONE TABLET BY MOUTH EVERY DAY TAKE ONE TABLET BY MOUTH EVERY DAY SOLD: 05/09/2020 [facility] 100 mg 05/09/2020 12:00:00 AM EST tablet 30 TAKE ONE TABLET BY MOUTH EVERY DAY TAKE ONE TABLET BY MOUTH EVERY DAY SOLD: 05/09/2020 [facility] 100 mg 05/03/2020 12:00:00 AM EST capsule 14 TAKE ONE CAPSULE BY MOUTH TWICE A DAY TAKE ONE CAPSULE BY MOUTH TWICE A DAY SOLD: 05/03/2020 [facility] BLOOD SUGAR DIAGNOSTIC 04/29/2020 12:00:00 AM EST strip 50 USE TO TEST ONCE DAILY USE TO TEST ONCE DAILY SOLD: 04/30/2020 [facility] Digoxin 0.125 MG Oral Tablet 125 mcg (0.125 mg) DIGOXIN 04/21/2020 12:00:00 AM EST tablet 45 TAKE ONE TABLET BY MOUTH GIAN RY OTHER DAY TAKE ONE TABLET BY MOUTH EVERY OTHER DAY SOLD: 04/22/2020 [facility] 20 mg 04/11/2020 12:00:00 AM EST tablet 180 TAKE ONE TABLET BY MOUTH TWICE A DAY TAKE ONE TABLET BY MOUTH TWICE A DAY SOLD: 04/11/2020 [facility] 40 mg 04/02/2020 12:00:00 AM EST capsule,delayed release (DR/EC) 90 TAKE ONE CAPSULE BY MOUTH EVERY DAY TAKE ONE CAPSULE BY MOUTH EVERY DAY SOLD: 04/04/2020 [facility] 10 mg 03/29/2020 12:00:00 AM EST tablet 180 TAKE ONE TABLET BY MOUTH TWICE A DAY TAKE ONE TABLET BY MOUTH TWICE A DAY SOLD: 04/01/2020 [facility] 1 mg 03/27/2020 12:00:00 AM EST tablet 60 TAKE TWO TABLETS BY MOUTH EVERY DAY TAKE TWO TABLETS BY MOUTH EVERY DAY SOLD: 04/25/2020 [facility] Warfarin Sodium 1 MG Oral Tablet WARFARIN SODIUM 03/27/2020 12:0 0:00 AM EST tablet 60 TAKE TWO TABLETS BY MOUTH EVERY DAY TAKE TWO TABLETS BY MOUTH EVERY DAY SOLD: 03/28/2020 [facility] 100 mg 02/29/2020 12:00:00 AM EST capsule 90 TAKE ONE CAPSULE BY MOUTH THREE TIMES A DAY TAKE ONE CAPSULE BY MOUTH THREE TIMES A DAY SOLD: 03/28/2020 [facility] 35 mg 02/03/2020 12:00:00 AM EDT tablet 4 TAKE ONE TABLET BY MOUTH EVERY WEEK TAKE ONE TABLET BY MOUTH EVERY WEEK SOLD: 03/04/2020 [facility] 35 mg 02/03/2020 12:00:00 AM EDT tablet 4 TAKE ONE TABLET BY MOUTH EVERY WEEK TAKE ONE TABLET BY MOUTH EVERY WEEK SOLD: 04/01/2020 [facility] 35 mg 02/03/2020 12:00:00 AM EDT tablet 4 TAKE ONE TABLET BY MOUTH EVERY WEEK TAKE ONE TABLET BY MOUTH EVERY WEEK SOLD: 04/28/2020 [facility] 35 mg 02/03/2020 12:00:00 AM EDT tablet 4 TAKE ONE TABLET BY MOUTH EVERY WEEK TAKE ONE TABLET BY MOUTH EVERY WEEK SOLD: 02/05/2020 [facility] 100 mg 01/03/2020 12:00:00 AM EDT capsule 90 TAKE ONE CAPSULE BY MOUTH THREE TIMES A DAY TAKE ONE CAPSULE BY MOUTH THREE TIMES A DAY SOLD: 02/01/2020 [facility] 100 mg 01/03/2020 12:00:00 AM EDT capsule 90 TAKE ONE CAPSULE BY MOUTH THREE TIMES A DAY TAKE ONE CAPSULE BY MOUTH THREE TIMES A DAY SOLD: 01/04/2020 [facility] 0.005 % 12/27/2019 12:00:00 AM EDT drops 7 INSTILL ONE DROP IN EACH EYE ONCE DAILY AT BEDTIME INSTILL ONE DROP IN EACH EYE ONCE DAILY AT BEDTIME MARJAN [facility] 0.005 % 12/27/2019 12:00:00 AM EDT drops 7 INSTILL ONE DROP IN EACH EYE ONCE DAILY AT BEDTIME INSTILL ONE DROP IN EACH EYE ONCE DAILY AT BEDTIME MARJAN [facility] 0.005 % 12/27/2019 12:00:00 AM EDT drops 7 INSTILL ONE DROP IN EACH EYE ONCE DAILY AT BEDTIME INSTILL ONE DROP IN EACH EYE ONCE DAILY AT BEDTIME MARJAN [facility] Atenolol 100 MG Oral Tablet ATENOLOL 12/20/2019 12:00:00 AM EDT table t 30 TAKE ONE TABLET BY MOUTH EVERY DAY TAKE ONE TABLET BY MOUTH EVERY DAY SOLD: 02/15/2020 [facility] 100 mg 12/20/2019 12:00:00 AM EDT tablet 30 TAKE ONE TABLET BY MOUTH EVERY DAY TAKE ONE TABLET BY MOUTH EVERY DAY SOLD: 12/21/2019 [facility] 100 mg 12/20/2019 12:00:00 AM EDT tablet 30 TAKE ONE TABLET BY MOUTH EVERY DAY TAKE ONE TABLET BY MOUTH EVERY DAY SOLD: 03/13/2020 [facility] Atenolol 100 MG Oral Tablet ATENOLOL 12/20/2019 12:00:00 AM EDT table t 30 TAKE ONE TABLET BY MOUTH EVERY DAY TAKE ONE TABLET BY MOUTH EVERY DAY SOLD: 01/18/2020 [facility] 100 mg 12/20/2019 12:00:00 AM EDT tablet 30 TAKE ONE TABLET BY MOUTH EVERY DAY TAKE ONE TABLET BY MOUTH EVERY DAY SOLD: 04/11/2020 [facility] 100 mg 11/09/2019 12:00:00 AM EDT capsule 90 TAKE ONE CAPSULE BY MOUTH THREE TIMES A DAY TAKE ONE CAPSULE BY MOUTH THREE TIMES A DAY SOLD: 12/07/2019 [facility] 100 mg 11/09/2019 12:00:00 AM EDT capsule 90 TAKE ONE CAPSULE BY MOUTH THREE TIMES A DAY TAKE ONE CAPSULE BY MOUTH THREE TIMES A DAY SOLD: 11/09/2019 [facility] 2 ML Sodium Hyaluronate 10 MG/ML Prefilled Syringe [Euflexxa ] Euflexxa 11/03/2019 12:00:00 AM EDT active [facility] ([facility] ) BLOOD SUGAR DIAGNOSTIC 10/16/2019 12:00:00 AM EDT strip 50 TEST ONCE DAILY TEST ONCE DAILY SOLD: 03/11/2020 [facility] BLOOD SUGAR DIAGNOSTIC 10/16/2019 12:00:00 AM EDT strip 50 TEST ONCE DAILY TEST ONCE DAILY SOLD: 10/16/2019 [facility] BLOOD SUGAR DIAGNOSTIC 10/16/2019 12:00:00 AM EDT strip 50 TEST ONCE DAILY TEST ONCE DAILY SOLD: 12/04/2019 [facility] BLOOD SUGAR DIAGNOSTIC 10/16/2019 12:00:00 AM EDT strip 50 TEST ONCE DAILY TEST ONCE DAILY SOLD: 01/22/2020 [facility] 100 mg 10/10/2019 12:00:00 AM EDT capsule 14 TAKE ONE CAPSULE BY MOUTH TWICE A DAY FOR 7 DAYS TAKE ONE CAPSULE BY MOUTH TWICE A DAY FOR 7 DAYS SOLD: 10/12/2019 [facility] 40 mg 10/07/2019 12:00:00 AM EDT capsule,delayed release (DR/EC) 90 TAKE ONE CAPSULE BY MOUTH EVERY DAY TAKE ONE CAPSULE BY MOUTH EVERY DAY SOLD: 01/04/2020 [facility] 40 mg 10/07/2019 12:00:00 AM EDT capsule,delayed release (DR/EC) 90 TAKE ONE CAPSULE BY MOUTH EVERY DAY TAKE ONE CAPSULE BY MOUTH EVERY DAY SOLD: 10/09/2019 [facility] Warfarin Sodium 1 MG Oral Tablet WARFARIN SODIUM 09/13/2019 12:0 0:00 AM EDT tablet 60 TAKE TWO TABLETS BY MOUTH EVERY DAY TAKE TWO TABLETS BY MOUTH EVERY DAY SOLD: 01/04/2020 [facility] 1 mg 09/13/2019 12:00:00 AM EDT tablet 60 TAKE TWO TABLETS BY MOUTH EVERY DAY TAKE TWO TABLETS BY MOUTH EVERY DAY SOLD: 02/01/2020 [facility] 1 mg 09/13/2019 12:00:00 AM EDT tablet 60 TAKE TWO TABLETS BY MOUTH EVERY DAY TAKE TWO TABLETS BY MOUTH EVERY DAY SOLD: 10/12/2019 [facility] Warfarin Sodium 1 MG Oral Tablet WARFARIN SODIUM 09/13/2019 12:0 0:00 AM EDT tablet 60 TAKE TWO TABLETS BY MOUTH EVERY DAY TAKE TWO TABLETS BY MOUTH EVERY DAY SOLD: 12/07/2019 [facility] 1 mg 09/13/2019 12:00:00 AM EDT tablet 60 TAKE TWO TABLETS BY MOUTH EVERY DAY TAKE TWO TABLETS BY MOUTH EVERY DAY SOLD: 09/14/2019 [facility] 1 mg 09/13/2019 12:00:00 AM EDT tablet 60 TAKE TWO TABLETS BY MOUTH EVERY DAY TAKE TWO TABLETS BY MOUTH EVERY DAY SOLD: 11/09/2019 [facility] 100 mg 09/12/2019 12:00:00 AM EDT capsule 90 TAKE ONE CAPSULE BY MOUTH THREE TIMES A DAY TAKE ONE CAPSULE BY MOUTH THREE TIMES A DAY SOLD: 09/14/2019 [facility] 100 mg 09/12/2019 12:00:00 AM EDT capsule 90 TAKE ONE CAPSULE BY MOUTH THREE TIMES A DAY TAKE ONE CAPSULE BY MOUTH THREE TIMES A DAY SOLD: 10/12/2019 [facility] 10 mg 09/06/2019 12:00:00 AM EDT tablet 90 TAKE ONE TABLET BY MOUTH EVERY EVENING TAKE ONE TABLET BY MOUTH EVERY EVENING SOLD: 12/04/2019 [facility] 10 mg 09/06/2019 12:00:00 AM EDT tablet 90 TAKE ONE TABLET BY MOUTH EVERY EVENING TAKE ONE TABLET BY MOUTH EVERY EVENING SOLD: 03/04/2020 [facility] 40 mg 09/06/2019 12:00:00 AM EDT tablet 90 TAKE ONE TABLET BY MOUTH EVERY DAY TAKE ONE TABLET BY MOUTH EVERY DAY SOLD: 03/04/2020 [facility] 40 mg 09/06/2019 12:00:00 AM EDT tablet 90 TAKE ONE TABLET BY MOUTH EVERY DAY TAKE ONE TABLET BY MOUTH EVERY DAY SOLD: 09/07/2019 [facility] 3 mg 09/06/2019 12:00:00 AM EDT tablet 90 TAKE ONE TABLET BY MOUTH EVERY DAY TAKE ONE TABLET BY MOUTH EVERY DAY SOLD: 12/04/2019 [facility] 3 mg 09/06/2019 12:00:00 AM EDT tablet 90 TAKE ONE TABLET BY MOUTH EVERY DAY TAKE ONE TABLET BY MOUTH EVERY DAY SOLD: 09/07/2019 [facility] 10 mg 09/06/2019 12:00:00 AM EDT tablet 90 TAKE ONE TABLET BY MOUTH EVERY EVENING TAKE ONE TABLET BY MOUTH EVERY EVENING SOLD: 09/07/2019 [facility] 40 mg 09/06/2019 12:00:00 AM EDT tablet 90 TAKE ONE TABLET BY MOUTH EVERY DAY TAKE ONE TABLET BY MOUTH EVERY DAY SOLD: 12/04/2019 [facility] 125 mcg (0.125 mg) 07/28/2019 12:00:00 AM EDT tablet 45 TAKE ONE TABLET BY MOUTH EVERY OTHER DAY TAKE ONE TABLET BY MOUTH EVERY OTHER DAY SOLD: 07/30/2019 [facility] 125 mcg (0.125 mg) 07/28/2019 12:00:00 AM EDT tablet 45 TAKE ONE TABLET BY MOUTH EVERY OTHER DAY TAKE ONE TABLET BY MOUTH EVERY OTHER DAY SOLD: 10/26/2019 [facility] 125 mcg (0.125 mg) 07/28/2019 12:00:00 AM EDT tablet 45 TAKE ONE TABLET BY MOUTH EVERY OTHER DAY TAKE ONE TABLET BY MOUTH EVERY OTHER DAY SOLD: 01/22/2020 [facility] 100 mg 07/01/2019 12:00:00 AM EST tablet 30 TAKE ONE TABLET BY MOUTH EVERY DAY TAKE ONE TABLET BY MOUTH EVERY DAY SOLD: 08/27/2019 [facility] 100 mg 07/01/2019 12:00:00 AM EST tablet 30 TAKE ONE TABLET BY MOUTH EVERY DAY TAKE ONE TABLET BY MOUTH EVERY DAY SOLD: 09/24/2019 [facility] 100 mg 07/01/2019 12:00:00 AM EST tablet 30 TAKE ONE TABLET BY MOUTH EVERY DAY TAKE ONE TABLET BY MOUTH EVERY DAY SOLD: 10/23/2019 [facility] 100 mg 07/01/2019 12:00:00 AM EST tablet 30 TAKE ONE TABLET BY MOUTH EVERY DAY TAKE ONE TABLET BY MOUTH EVERY DAY SOLD: 11/20/2019 [facility] 100 mg 07/01/2019 12:00:00 AM EST tablet 30 TAKE ONE TABLET BY MOUTH EVERY DAY TAKE ONE TABLET BY MOUTH EVERY DAY SOLD: 07/30/2019 [facility] 100 mg 07/01/2019 12:00:00 AM EST tablet 30 TAKE ONE TABLET BY MOUTH EVERY DAY TAKE ONE TABLET BY MOUTH EVERY DAY SOLD: 07/03/2019 [facility] 100 mg 06/29/2019 12:00:00 AM EST capsule 90 TAKE ONE CAPSULE BY MOUTH THREE TIMES A DAY TAKE ONE CAPSULE BY MOUTH THREE TIMES A DAY SOLD: 07/03/2019 [facility] 100 mg 06/29/2019 12:00:00 AM EST capsule 90 TAKE ONE CAPSULE BY MOUTH THREE TIMES A DAY TAKE ONE CAPSULE BY MOUTH THREE TIMES A DAY SOLD: 07/30/2019 [facility] BLOOD SUGAR DIAGNOSTIC 06/21/2019 12:00:00 AM EST strip 50 TEST ONCE DAILY TEST ONCE DAILY SOLD: 10/16/2019 [facility] BLOOD SUGAR DIAGNOSTIC 06/21/2019 12:00:00 AM EST strip 50 TEST ONCE DAILY TEST ONCE DAILY SOLD: 07/23/2019 [facility] BLOOD SUGAR DIAGNOSTIC 06/21/2019 12:00:00 AM EST strip 50 TEST ONCE DAILY TEST ONCE DAILY SOLD: 08/21/2019 [facility] BLOOD SUGAR DIAGNOSTIC 06/21/2019 12:00:00 AM EST strip 50 TEST ONCE DAILY TEST ONCE DAILY SOLD: 06/26/2019 [facility] 10 mg 05/24/2019 12:00:00 AM EST tablet 90 TAKE ONE TABLET BY MOUTH EVERY DAY TAKE ONE TABLET BY MOUTH EVERY DAY SOLD: 11/16/2019 [facility] 10 mg 05/24/2019 12:00:00 AM EST tablet 90 TAKE ONE TABLET BY MOUTH EVERY DAY TAKE ONE TABLET BY MOUTH EVERY DAY SOLD: 02/12/2020 [facility] 10 mg 05/24/2019 12:00:00 AM EST tablet 90 TAKE ONE TABLET BY MOUTH EVERY DAY TAKE ONE TABLET BY MOUTH EVERY DAY SOLD: 08/21/2019 [facility] 10 mg 05/24/2019 12:00:00 AM EST tablet 90 TAKE ONE TABLET BY MOUTH EVERY DAY TAKE ONE TABLET BY MOUTH EVERY DAY SOLD: 05/25/2019 [facility] 20 mg 04/22/2019 12:00:00 AM EST tablet 180 TAKE ONE TABLET BY MOUTH TWICE A DAY TAKE ONE TABLET BY MOUTH TWICE A DAY SOLD: 10/16/2019 [facility] 20 mg 04/22/2019 12:00:00 AM EST tablet 180 TAKE ONE TABLET BY MOUTH TWICE A DAY TAKE ONE TABLET BY MOUTH TWICE A DAY SOLD: 07/20/2019 [facility] 20 mg 04/22/2019 12:00:00 AM EST tablet 180 TAKE ONE TABLET BY MOUTH TWICE A DAY TAKE ONE TABLET BY MOUTH TWICE A DAY SOLD: 04/24/2019 [facility] 20 mg 04/22/2019 12:00:00 AM EST tablet 180 TAKE ONE TABLET BY MOUTH TWICE A DAY TAKE ONE TABLET BY MOUTH TWICE A DAY SOLD: 01/15/2020 [facility] 40 mg 04/12/2019 12:00:00 AM EST capsule,delayed release (DR/EC) 90 TAKE ONE CAPSULE BY MOUTH EVERY DAY TAKE ONE CAPSULE BY MOUTH EVERY DAY SOLD: 07/10/2019 [facility] 10 mg 04/12/2019 12:00:00 AM EST tablet 180 TAKE ONE TABLET BY MOUTH TWICE A DAY TAKE ONE TABLET BY MOUTH TWICE A DAY SOLD: 10/05/2019 [facility] 10 mg 04/12/2019 12:00:00 AM EST tablet 180 TAKE ONE TABLET BY MOUTH TWICE A DAY TAKE ONE TABLET BY MOUTH TWICE A DAY SOLD: 01/02/2020 [facility] 10 mg 04/12/2019 12:00:00 AM EST tablet 180 TAKE ONE TABLET BY MOUTH TWICE A DAY TAKE ONE TABLET BY MOUTH TWICE A DAY SOLD: 07/10/2019 [facility] 0.005 % 03/29/2019 12:00:00 AM EST drops 7 INSTILL ONE DROP IN EACH EYE ONCE DAILY AT BEDTIME INSTILL ONE DROP IN EACH EYE ONCE DAILY AT BEDTIME MARJAN [facility] 0.005 % 03/29/2019 12:00:00 AM EST drops 7 INSTILL ONE DROP IN EACH EYE ONCE DAILY AT BEDTIME INSTILL ONE DROP IN EACH EYE ONCE DAILY AT BEDTIME MARJAN [facility] 0.005 % 03/29/2019 12:00:00 AM EST drops 7 INSTILL ONE DROP IN EACH EYE ONCE DAILY AT BEDTIME INSTILL ONE DROP IN EACH EYE ONCE DAILY AT BEDTIME MARJAN [facility] 3 mg 03/22/2019 12:00:00 AM EST tablet 90 TAKE ONE TABLET BY MOUTH EVERY DAY TAKE ONE TABLET BY MOUTH EVERY DAY SOLD: 06/19/2019 [facility] 3 mg 03/22/2019 12:00:00 AM EST tablet 90 TAKE ONE TABLET BY MOUTH EVERY DAY TAKE ONE TABLET BY MOUTH EVERY DAY SOLD: 09/19/2019 [facility] 10 mg 02/16/2019 12:00:00 AM EDT tablet 90 TAKE ONE TABLET BY MOUTH EVERY DAY TAKE ONE TABLET BY MOUTH EVERY DAY SOLD: 06/10/2019 [facility] 10 mg 02/16/2019 12:00:00 AM EDT tablet 90 TAKE ONE TABLET BY MOUTH EVERY DAY TAKE ONE TABLET BY MOUTH EVERY DAY SOLD: 09/07/2019 [facility] 100 mg 01/14/2019 12:00:00 AM EDT tablet 30 TAKE ONE TABLET BY MOUTH EVERY DAY TAKE ONE TABLET BY MOUTH EVERY DAY SOLD: 06/05/2019 [facility] 100 mg 01/14/2019 12:00:00 AM EDT tablet 30 TAKE ONE TABLET BY MOUTH EVERY DAY TAKE ONE TABLET BY MOUTH EVERY DAY SOLD: 05/08/2019 [facility] 125 mcg (0.125 mg) 10/29/2018 12:00:00 AM EDT tablet 45 TAKE ONE TABLET BY MOUTH EVERY OTHER DAY TAKE ONE TABLET BY MOUTH EVERY OTHER DAY SOLD: 05/01/2019 [facility] Insurance Providers Payer name Policy type / Coverage type Policy ID Covered republican ID Covered republican's relationship to stack Policy Stack Plan Information MEDICARE COMPLETE [id number] SP [id number] [facility] MEDICARE [id number] Retired [id number] [facility] MEDICARE [id number] S [id number] SELF PAY S [facility] MEDICARE [id number] Trice [id number] MEDICARE C [id number] S [id number] A MEDICARE COMPLETE-[facility] O [id number] O [id number] MEDICARE COMPLETE [id number] SP [id number] [facility] [id number] undefined [id number] [facility] [id number] undefin ed [id number] [facility] [id number] undefined [id number] [facility] O [id number] S [id number] [facility] [id number] 18 [id number] [facility] [id number] 18 [id number] [facility] [id number] 18 [id number] [facility] [id number] 18 [id number] [facility] [id number] 18 [id number] Problems, Conditions, and Diagnoses Code Display Name Description Problem Type Effective Dates Data Source(s) 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 Diagnosis 05/03/2020 11:13:00 AM [facility] I48.91 Unspecified atrial fibrillation UNSPECIFIED ATRI AL FIBRILLATION Diagnosis 05/03/2020 11:13:00 AM [facility] E11.9 Type 2 diabetes mellitus without complic ations TYPE 2 DIABETES MELLITUS WITHOUT COMPLICATIONS Diagnosis 05/03/2020 11:13:00 AM [facility] Z87.440 Personal history of urinary (tract) infe ctions PERSONAL HISTORY OF URINARY (TRACT) INFECTIONS Diagnosis 05/03/2020 11:13:00 AM [facility] N39.0 Urinary tract infection, site not specif ied URINARY TRACT INFECTION, SITE NOT SPECIFIED Diagnosis 05/03/2020 11:13:00 AM [facility] adrienneguillermo Z23 Encounter for immunization ENCOUNTER FOR IMMUNIZATION Diagnosis 02/17/2020 10:48:00 AM EDT [facility] I48.92 Unspecified atrial flutter UNSPECIFIED ATRIAL FLUTTER Diagnosis 02/07/2020 08:01:00 AM EDT [facility] I38 Endocarditis, valve unspecified Endocarditis, valve un specified Diagnosis 10/27/2019 10:51:02 AM EDT [facility] H40.9 Unspecified glaucoma Unspecified glaucoma Diagnosis 10/27/2019 10:51:02 AM EDT [facility] K21.9 Gastro-esophageal reflux disease without esophagitis Gastro-esophageal reflux disease without Diagnosis 10/27/2019 10:51:02 AM EDT [facility] E11.9 Type 2 diabetes mellitus without complic ations Type 2 diabetes mellitus without complic Diagnosis 10/27/2019 10:51:02 AM EDT [facility] N18.9 Chronic kidney disease, unspecified Chronic kidn ey disease, unspecified Diagnosis 10/27/2019 10:51:02 AM EDT [facility] I10 Essential (primary) hypertension Essential (primary) h ypertension Diagnosis 10/27/2019 10:51:02 AM EDT [facility] M19.90 Unspecified osteoarthritis, unspecified site Unspecified osteoarthritis, unspecified Diagnosis 10/27/2019 10:51:02 AM EDT [facility] E78.5 Hyperlipidemia, unspecified Hyperlipidemia, unspecifie d Diagnosis 10/27/2019 10:51:02 AM EDT [facility] I48.91 Unspecified atrial fibrillation Unspecified atri al fibrillation Diagnosis 10/27/2019 10:51:02 AM EDT [facility] I48.20 CHRONIC ATRIAL FIBRILLATION, UNSPECIFIED CHRONIC ATRIAL FIBRILLATION, UNSPECIFIED Diagnosis 07/12/2019 07:15:00 AM EDT [facility] eusebio Z51.81 Encounter for therapeutic drug level mon itoring ENCOUNTER FOR THERAPEUTIC DRUG LEVEL MONITORING Diagnosis 07/12/2019 07:15:00 AM EDT [facility] I10 Essential (primary) hypertension ESSENTIAL (PRIMARY) H YPERTENSION Diagnosis 06/21/2019 06:44:00 AM [facility] Y99.8 Other external cause status OTHER EXTERNAL CAUSE STATU S Diagnosis 06/17/2019 08:03:00 AM [facility] Y92.[address] or not applicable UNSPECIFIED PLACE OR NOT APPLICABLE Diagnosis 06/17/2019 08:03:00 AM [facility] W19.XXXA Unspecified fall, initial encounter UNSP ECIFIED FALL, INITIAL ENCOUNTER Diagnosis 06/17/2019 08:03:00 AM [facility] S80.01XA Contusion of right knee, initial encount er CONTUSION OF RIGHT KNEE, INITIAL ENCOUNTER Diagnosis 06/17/2019 08:03[facility] S[facility].01[facility] Contusion of right hip, initial encounte r CONTUSION OF RIGHT HIP, INITIAL ENCOUNTER Diagnosis 06/17/2019 08:03:00 AM [facility] S01.111A Laceration without foreign b vanesa of right eyelid and periocular area, initial encounter LACERATION W/O FB OF RIGHT EYELID AND PERIOCULAR AREA, INIT Diagnosis 06/17/2019 08:03:00 AM [facility] Y92.012 Bathroom of single-family (p rivate) house as the place of occurrence of the external cause BATHROOM OF SINGLE-FAMILY (PRIVATE) HOUSE PLACE Diagnosis 06/13/2019 06:23:00 AM [facility] W01.198A Fall on same level from slip ping, tripping and stumbling with subsequent striking against other object, initial encounter FALL SAME LEV FROM SLIP/TRIP W STRIKE AGNST OTH OBJECT, INIT Diagnosis 06/13/2019 06:23:0 0 AM [facility] Z12.31 Encounter for screening mammogram for ma lignant neoplasm of breast ENCNTR SCREEN MAMMOGRAM FOR MALIGNANT NEOPLASM OF BREAST Diagnosis 09:32:00 AM [facility] Surgeries/Procedures Procedure Description Date Indications Data Source(s) CUL BACT AEROBIC ADDL METHS DEFINITIVE EA ISOL CULTURE AEROB IC IDENTIFY 05/03/2020 12:00:00 AM [facility] SUSCEPTIBLTY STDY ANTIMICRBIAL MICRO/AGAR DILUTJ MICROBE SANKET CEPTIBLE JOSEFA 05/03/2020 12:00:00 AM [facility] URNLS DIP STICK/TABLET REAGENT AUTO MICROSCOPY URINALYSIS AU TO W/SCOPE 05/03/2020 12:00:00 AM [facility] BLOOD COUNT COMPLETE AUTO&AUTO DIFRNTL WBC COUNT COMPLETE CB C W/AUTO DIFF WBC 05/03/2020 12:00:00 AM [facility] AMYLASE ASSAY OF AMYLASE 05/03/2020 12:00:00 AM [facility] LIPASE ASSAY OF LIPASE 05/03/2020 12:00:00 AM [facility] COMPREHENSIVE METABOLIC PANEL COMPREHEN METABOLIC PANEL 10/2020 12:00:00 AM [facility] EMERGENCY DEPARTMENT VISIT MODERATE SEVERITY EMERGENCY DEPT VISIT 05/03/2020 12:00:00 AM [facility] PROTHROMBIN TIME PROTHROMBIN TIME 03/15/2020 12:00:00 AM [facility] 00714 IIV4 VACC NO PRSV 0.5 ML IM 02/17/2020 12:00:00 AM [facility] ARTHROCENTESIS ASPIR&/INJECTION MAJOR JT/BURSA 12:00:00 AM [facility] ) ARTHROCENTESIS ASPIR&/INJECTION MAJOR JT/BURSA 12:00:00 AM [facility] ) ARTHROCENTESIS ASPIR&/INJECTION MAJOR JT/BURSA 020 12:00:00 AM [facility] ) COLLECTION VENOUS BLOOD VENIPUNCTURE ROUTINE VENIPUNCTURE 12:00:00 AM [facility] X-Ray Spine Lumbosacral Complete Inc Bending Views Min Of 6 06/28/2019 12:00:00 AM [facility] ) X-Ray Hip Unilateral With Pelvis 2-3 Views 06/28/2019 12:00:00 AM [facility] ) [facility] outpatient clinic visit for assessment and ma nagement of a patient Hospital Outpatient Clinic Visit 06/21/2019 12:00:00 AM [facility] SEDIMENTATION RATE RBC NON-AUTOMATED RBC SED RATE NONAUTOMAT ED 06/21/2019 12:00:00 AM [facility] C-REACTIVE PROTEIN HIGH SENSITIVITY C-REACTIVE PROTEIN HS 12:00:00 AM [facility] [address] X-RAY EXAM HIPS BI 5/> VIEWS 06/17/2019 12:00:00 AM [facility] RADEX SPINE LUMBOSACRAL 2/3 VIEWS X-RAY EXAM L-S SPINE 2/3 V WS 06/17/2019 12:00:00 AM [facility] RADEX SPINE THORACIC 2 VIEWS X-RAY EXAM THORAC SPINE 2VWS 12:00:00 AM [facility] RADEX SPINE CERVICAL 2/3 VIEWS X-RAY EXAM NECK SPINE 2-3 VW 06/17/2019 12:00:00 AM [facility] RADIOLOGIC EXAMINATION KNEE 1/2 VIEWS X-RAY EXAM OF KNEE 1 O R 2 06/17/2019 12:00:[address] [facility] [address] CERVICAL SPINE W/O CONTRAST MATERIAL CT NECK SPINE W/O DY E 06/13/2019 12:00:[address] AM [facility] [address] ORBIT SELLA/POST FOSSA/EAR W/O CONTRAST MATRL CT ORBIT/EA R/FOSSA W/O DYE 06/13/2019 12:00:[address] AM [facility] [address] HEAD/BRAIN W/O CONTRAST MATERIAL CT HEAD/BRAIN W/O DYE 12:00:00 AM [facility] ECG ROUTINE ECG W/LEAST 12 LDS TRCG ONLY W/O I&R ELECTROCARD IOGRAM TRACING 06/13/2019 12:00:00 AM [facility] TROPONIN QUANTITATIVE ASSAY OF TROPONIN QUANT 06/13/2019 12:00:00 A M [facility] TDAP VACCINE 7/> YR IM TDAP VACCINE 7 YRS/> IM 06/13/2019 12:00:00 AM [facility] Non-covered item or service 06/13/2019 12:00:00 AM [facility] SIMPLE REPAIR F/E/E/N/L/M 2.6CM-5.0CM RPR F/E/E/N/L/M 2.6-5. 0 CM 06/13/2019 12:00:00 AM [facility] IMADM PRQ ID SUBQ/IM NJXS 1 VACCINE IMMUNIZATION ADMIN 05/28 12:00:00 AM [facility] EMERGENCY DEPARTMENT VISIT HIGH/URGENT SEVERITY EMERGENCY DE PT VISIT 06/13/2019 12:00:00 AM [facility] Results ID Date Data Source [id number] 05/22/2020 08:04:00 AM [facility] Name Value Range Interpretation Code Description Data Keturah rce(s) Supporting Document(s) LAB Glucose,Fingerstick 118 mg/dL 70-110 Above high normal [facility] ID Date Data Source [id number] 05/22/2020 12:49:00 PM [facility] Name Value Range Interpretation Code Description Data Keturah rce(s) Supporting Document(s) White Blood Count 4.8-10.8 Normal (applies to non-numeri c results) [facility] Red Blood Count 3.68-5.22 Normal (applies to non-numeric results) [facility] Hemoglobin 11.2-15.7 Normal (applies to non-numeric resul ts) [facility] Hematocrit 34.1-44.9 Normal (applies to non-numeric resul ts) [facility] Mean Corpuscular Volume 81-99 Normal (applies to non- numeric results) [facility] Mean Corpuscular Hemoglobin 27.0-33.0 Normal (appli es to non-numeric results) [facility] Mean Corpuscular HGB Conc 32.0-36.0 Normal (applies to no n-numeric results) [facility] Red Cell Distribution Width 11.5-14.5 Normal (appli es to non-numeric results) [facility] Platelet Count 208 X10 3/uL 130-450 Normal (applies to non-numeric results) [facility] Mean Platelet Volume 9.5-12.7 Normal (applies to non-num dusty results) [facility] Total Cells Counted 100 0-100 Normal (applies to non-nume cee results) [facility] Neutrophils % (manual) 88 % 40-75 Above high normal [facility] Lymphocytes % (manual) 6 % 21-46 Below low normal [facility] Monocytes % (manual) 3 % 5-12 Below low [facility] ([facility]) 0 % 1-5 Below low normal [facility] Basophils % (manual) 0 % 0-1 Normal (applies to non-num dusty results) [facility] Myelocytes % (manual) 2 % 0-0 Above high normal [facility] Band Neutrophils% (manual) 1 % 0-5 Normal (applies to n on-numeric results) [facility] Atypical Lymph% (manual) 0 % 0-5 Normal (applies to non -numeric results) [facility] Myelocytes # (Manual) 0-0 Above high normal [facility] Neutrophils # (Manual) 1.5-8.1 Normal (applies to non-n umeric results) [facility] Lymphocytes # (Manual) 1.0-3.1 Below low normal [facility] Monocytes # (Manual) 0.2-1.3 Normal (applies to non-num dusty results) [facility] Eosinophils# (Manual) 0.0-0.5 Normal (applies to non-nu meric results) [facility] Basophils # (Manual) 0.0-0.1 Normal (applies to non-num dusty results) [facility] Platelet Estimate Adequate Normal (applies to non-numeri c results) [facility] Estimate agrees with automated count Slide Reviewed By Normal (applies to non-numeri c results) [facility] Slide has been reviewed and findings con firmed by a technologist/veterinary laboratory technician. ID Date Data Source [id number] 05/22/2020 10:56:00 AM EST [facility] Name Value Range Interpretation Code Description Data Keturah rce(s) Supporting Document(s) PT 9.4-12.5 Above high normal [facility] INR Normal (applies to non-numeric results) [facility] The use of the INR is restricted to mindy ents on stable oral anticoagulant. Therapeutic Range: 2.0-3.0 High Risk Values: 2.5-3.5 ID Date Data Source [id number] 05/22/2020 10:57:00 AM [facility] Name Value Range Interpretation Code Description Data Keturah rce(s) Supporting Document(s) D-Dimer Quant 71179 ng/mLFEU <500 PH [facility] MINISTERIO LU read back critical inform ation 05/22/20 0652 LAB.COLDE Positive for D-Dimer. DVT/PE or DIC may be present. D-Dimer is an exclusionary test and is used in conjunction with a clinical pretest probability (PTP) assessment model to exclude DVT and PE. Consider further diagnostic studies to confirm diagnosis. ID Date Data Source [id number] 05/22/2020 10:55:00 AM [facility] Value Range Interpretation Code Description Data Keturah rce(s) Supporting Document(s) BUN 54 mg/dL 7-17 Above high normal [facility] ID Date Data Source [id number] 05/22/2020 10:55:00 AM [facility] Value Range Interpretation Code Description Data Keturah rce(s) Supporting Document(s) Creatinine 0.70-1.20 Normal (applies to non-numeric resul ts) [facility] ID Date Data Source [id number] 05/22/2020 10:56:00 AM [facility] Value Range Interpretation Code Description Data Keturah rce(s) Supporting Document(s) Ferritin 939 ng/mL 11.1-264.0 Above high normal [facility] ID Date Data Source [id number] 05/22/2020 10:56:00 AM [facility] Value Range Interpretation Code Description Data Keturah rce(s) Supporting Document(s) LDH 349 U/L 84-246 Above high normal [facility] ID Date Data Source [id number] 05/22/2020 10:56:00 AM [facility] Value Range Interpretation Code Description Data Keturah rce(s) Supporting Document(s) C-Reactive Protein,Wide Range <3.00 Above high normal [facility] ID Date Data Source [id number] 05/22/2020 10:56:00 AM [facility] Name Value Range Interpretation Code Description Data Keturah rce(s) Supporting Document(s) B-Type Natriuretic Peptide BNP 2014 pg/mL <450 Above high ty l [facility] NT-proBNP values less than 300 pg/mL hav e a 99% negative predictive value for excluding acute congestive heart failure. A diagnostic NT-proBNP cutoff of 900 pg/mL has been suggested in adults over 50 years of age in the absence of renal failure. A cutoff of 1200 pg/mL for patients with GFR <60 yields a diagnostic sensitivity and specificity of 89% and 72% for acute congestive failure. ID Date Data Source [id number] 05/22/2020 02:46:00 AM [facility] Value Range Interpretation Code Description Data Keturah rce(s) Supporting Document(s) LAB Glucose,Fingerstick 250 mg/dL 70-110 Above high normal [facility] ID Date Data Source [id number] 05/21/2020 06:16:00 PM [facility] Value Range Interpretation Code Description Data Keturah rce(s) Supporting Document(s) LAB Glucose,Fingerstick 212 mg/dL 70-110 Above high normal [facility] ID Date Data Source [id number] 05/21/2020 12:17:00 PM [facility] Value Range Interpretation Code Description Data Keturah rce(s) Supporting Document(s) LAB Glucose,Fingerstick 167 mg/dL 70-110 Above high normal [facility] ID Date Data Source [id number] 05/21/2020 08:22:00 AM [facility] Value Range Interpretation Code Description Data Keturah rce(s) Supporting Document(s) LAB Glucose,Fingerstick 123 mg/dL 70-110 Above high normal [facility] ID Date Data Source [id number] 05/21/2020 07:31:00 AM EST [facility] Name Value Range Interpretation Code Description Data Keturah rce(s) Supporting Document(s) White Blood Count 4.8-10.8 Above high normal [facility] Red Blood Count 3.68-5.22 Normal (applies to non-numeric results) [facility] Hemoglobin 11.2-15.7 Normal (applies to non-numeric resul ts) [facility] Hematocrit 34.1-44.9 Normal (applies to non-numeric resul ts) [facility] Mean Corpuscular Volume 81-99 Normal (applies to non- numeric results) [facility] Mean Corpuscular Hemoglobin 27.0-33.0 Normal (appli es to non-numeric results) [facility] Mean Corpuscular HGB Conc 32.0-36.0 Normal (applies to no n-numeric results) [facility] Red Cell Distribution Width 11.5-14.5 Normal (appli es to non-numeric results) [facility] Platelet Count 203 X10 3/uL 130-450 Normal (applies to non-numeric results) [facility] Mean Platelet Volume 9.5-12.7 Normal (applies to non-num dusty results) [facility] Imm Grans% (AUTO) 5 % 0-2 Above high normal [facility] Neutrophils % (AUTO) 85 % 40-75 Above high normal [facility] Lymphocytes % (AUTO) 6 % 21-46 Below low normal [facility] Monocytes % (AUTO) 4 % 5-12 Below low normal [facility] Eosinophils % (AUTO) 0 % 1-5 Below low normal [facility] Basophils % (AUTO) 1 % 0-1 Normal (applies to non-numer ic results) [facility] Imm Grans# (AUTO) 0.0-0.5 Normal (applies to non-numeri c results) [facility] Neutrophils # (AUTO) 1.5-8.1 Above high normal [facility] Lymphocytes # (AUTO) 1.0-3.1 Below low normal [facility] Monocytes # (AUTO) 0.2-1.3 Normal (applies to non-numer ic results) [facility] Eosinophils# (AUTO) 0.0-0.5 Normal (applies to non-nume cee results) [facility] Basophils # (AUTO) 0.0-0.1 Normal (applies to non-numer ic results) [facility] Slide Reviewed By Normal (applies to non-numeri c results) [facility] Slide has been reviewed and findings con firmed by a technologist/veterinary laboratory technician. ID Date Data Source [id number] 05/21/2020 06:27:00 AM EST [facility] Name Value Range Interpretation Code Description Data Keturah rce(s) Supporting Document(s) Sodium 137 mmol/L 137-145 Normal (applies to non-numeric resul ts) [facility] Potassium 3.5-5.1 Normal (applies to non-numeric resul ts) [facility] Chloride 105 mmol/L 98-112 Normal (applies to non-numeric resul ts) [facility] Carbon Dioxide CO2 22.0-33.0 Normal (applies to non-numer ic results) [facility] Anion Gap 4.0-11.0 Normal (applies to non-numeric resul ts) [facility] BUN 68 mg/dL 7-17 Above high normal [facility] Creatinine 0.70-1.20 Above high normal [facility] GFR 41 mL/min >60 Below low normal [facility] Result based on MDRD formula. Glucose Level 140 mg/dL 74-99 Above high normal [facility] The reference range is only applicable w hen fasting. Calcium-Uncorrected 8.4-10.2 Normal (applies to non-nume cee results) [facility] Corrected Calcium 8.4-10.2 Normal (applies to non-numeri c results) [facility] Bilirubin,Total 0.2-1.3 Normal (applies to non-numeric results) [facility] SGOT(AST) 15 U/L 14-36 Normal (applies to non-numeric resul ts) [facility] SGPT(ALT) 28 U/L 9-52 Normal (applies to non-numeric resul ts) [facility] Alkaline Phosphatase 84 U/L 38-126 Normal (applies to non-num dusty results) [facility] can increase Alkaline Phosp le vels up to 2 times the normal adult value. Normal values for children and adolescents are 2 to 3 times the normal adult value. Total Protein 6.3-8.2 Below low normal [facility] Albumin 3.5-5.0 Below low normal [facility] ID Date Data Source [id number] 05/21/2020 06:27:00 AM [facility] Name Value Range Interpretation Code Description Data Keturah rce(s) Supporting Document(s) Ferritin 897 ng/mL 11.1-264.0 Above high normal [facility] ID Date Data Source [id number] 05/21/2020 06:28:00 AM [facility] Value Range Interpretation Code Description Data Keturah rce(s) Supporting Document(s) C-Reactive Protein,Wide Range <3.00 Above high normal [facility] ID Date Data Source [id number] 05/21/2020 06:27:00 AM [facility] Value Range Interpretation Code Description Data Keturah rce(s) Supporting Document(s) LDH 392 U/L 84-246 Above high normal [facility] ID Date Data Source [id number] 05/21/2020 06:21:00 AM [facility] Value Range Interpretation Code Description Data Keturah rce(s) Supporting Document(s) D-Dimer Quant 69755 ng/mLFEU <500 PH [facility] read back critical informat ion 05/21/20 0620 LAB.BOVAL Positive for D-Dimer. DVT/PE or DIC may be present. D-Dimer is an exclusionary test and is used in conjunction with a clinical pretest probability (PTP) assessment model to exclude DVT and PE. Consider further diagnostic studies to confirm diagnosis. ID Date Data Source [id number] 05/20/2020 09:08:00 PM [facility] Value Range Interpretation Code Description Data Keturah rce(s) Supporting Document(s) LAB Glucose,Fingerstick 192 mg/dL 70-110 Above high normal [facility] ID Date Data Source [id number] 05/20/2020 05:18:00 PM EST [facility] Name Value Range Interpretation Code Description Data Keturah rce(s) Supporting Document(s) LAB Glucose,Fingerstick 248 mg/dL 70-110 Above high normal [facility] ID Date Data Source [id number] 05/20/2020 12:29:00 PM [facility] Name Value Range Interpretation Code Description Data Keturah rce(s) Supporting Document(s) LAB Glucose,Fingerstick 118 mg/dL 70-110 Above high normal [facility] ID Date Data Source [id number] 05/20/2020 08:50:00 AM [facility] Name Value Range Interpretation Code Description Data Keturah rce(s) Supporting Document(s) LAB Glucose,Fingerstick 124 mg/dL 70-110 Above high normal [facility] ID Date Data Source [id number] 05/20/2020 02:32:00 PM [facility] Name Value Range Interpretation Code Description Data Keturah rce(s) Supporting Document(s) White Blood Count 4.8-10.8 Above high normal [facility] Red Blood Count 3.68-5.22 Normal (applies to non-numeric results) [facility] Hemoglobin 11.2-15.7 Normal (applies to non-numeric resul ts) [facility] Hematocrit 34.1-44.9 Normal (applies to non-numeric resul ts) [facility] Mean Corpuscular Volume 81-99 Normal (applies to non- numeric results) [facility] Mean Corpuscular Hemoglobin 27.0-33.0 Normal (appli es to non-numeric results) [facility] Mean Corpuscular HGB Conc 32.0-36.0 Normal (applies to no n-numeric results) [facility] Red Cell Distribution Width 11.5-14.5 Normal (appli es to non-numeric results) [facility] Platelet Count 197 X10 3/uL 130-450 Normal (applies to non-numeric results) [facility] Mean Platelet Volume 9.5-12.7 Normal (applies to non-num dusty results) [facility] Imm Grans% (AUTO) 5 % 0-2 Above high normal [facility] Neutrophils % (AUTO) 84 % 40-75 Above high normal [facility] Lymphocytes % (AUTO) 5 % 21-46 Below low normal [facility] Monocytes % (AUTO) 5 % 5-12 Normal (applies to non-numer ic results) [facility] Eosinophils % (AUTO) 0 % 1-5 Below low normal [facility] Basophils % (AUTO) 1 % 0-1 Normal (applies to non-numer ic results) [facility] Imm Grans# (AUTO) 0.0-0.5 Above high normal [facility] Neutrophils # (AUTO) 1.5-8.1 Above high normal [facility] Lymphocytes # (AUTO) 1.0-3.1 Below low normal [facility] Monocytes # (AUTO) 0.2-1.3 Normal (applies to non-numer ic results) [facility] Eosinophils# (AUTO) 0.0-0.5 Normal (applies to non-nume cee results) [facility] Basophils # (AUTO) 0.0-0.1 Normal (applies to non-numer ic results) [facility] Slide Reviewed By Normal (applies to non-numeri c results) [facility] Slide has been reviewed and findings con firmed by a technologist/veterinary laboratory technician. ID Date Data Source [id number] 05/20/2020 07:42:00 AM EST [facility] Name Value Range Interpretation Code Description Data Keturah rce(s) Supporting Document(s) Sodium 137 mmol/L 137-145 Normal (applies to non-numeric resul ts) [facility] Potassium 3.5-5.1 Normal (applies to non-numeric resul ts) [facility] Chloride 103 mmol/L 98-112 Normal (applies to non-numeric resul ts) [facility] Carbon Dioxide CO2 22.0-33.0 Normal (applies to non-numer ic results) [facility] Anion Gap 4.0-11.0 Normal (applies to non-numeric resul ts) [facility] BUN 88 mg/dL 7-17 PH [facility] guillermo GUSTAFSON read back critical inform ation 05/20/20 0717 LAB.SAUCH Creatinine 0.70-1.20 Above high normal [facility] GFR 28 mL/min >60 Below low normal [facility] Result based on MDRD formula. Glucose Level 134 mg/dL 74-99 Above high normal [facility] The reference range is only applicable w hen fasting. Calcium-Uncorrected 8.4-10.2 Normal (applies to non-nume cee results) [facility] Corrected Calcium 8.4-10.2 Normal (applies to non-numeri c results) [facility] Bilirubin,Total 0.2-1.3 Normal (applies to non-numeric results) [facility] SGOT(AST) 12 U/L 14-36 Below low normal [facility] SGPT(ALT) 26 U/L 9-52 Normal (applies to non-numeric resul ts) [facility] Alkaline Phosphatase 89 U/L 38-126 Normal (applies to non-num dusty results) [facility] can increase Alkaline Phosp le vels up to 2 times the normal adult value. Normal values for children and adolescents are 2 to 3 times the normal adult value. Total Protein 6.3-8.2 Below low normal [facility] Albumin 3.5-5.0 Below low normal [facility] ID Date Data Source [id number] 05/20/2020 07:42:00 AM [facility] Name Value Range Interpretation Code Description Data Keturah rce(s) Supporting Document(s) Ferritin 835 ng/mL 11.1-264.0 Above high normal [facility] ID Date Data Source [id number] 05/20/2020 07:42:00 AM [facility] Name Value Range Interpretation Code Description Data Keturah rce(s) Supporting Document(s) LDH 397 U/L 84-246 Above high normal [facility] ID Date Data Source [id number] 05/20/2020 07:42:00 AM [facility] Name Value Range Interpretation Code Description Data Keturah rce(s) Supporting Document(s) C-Reactive Protein,Wide Range <3.00 Above high normal [facility] ID Date Data Source [id number] 05/20/2020 07:23:00 AM [facility] Name Value Range Interpretation Code Description Data Keturah rce(s) Supporting Document(s) D-Dimer Quant 48703 ng/mLFEU <500 PH [facility] WATSON SANDOVAL read back critical informati on 05/20/20 0721 LAB.BOVAL Positive for D-Dimer. DVT/PE or DIC may be present. D-Dimer is an exclusionary test and is used in conjunction with a clinical pretest probability (PTP) assessment model to exclude DVT and PE. Consider further diagnostic studies to confirm diagnosis. ID Date Data Source [id number] 05/20/2020 12:51:00 AM [facility] Name Value Range Interpretation Code Description Data Keturah rce(s) Supporting Document(s) LAB Glucose,Fingerstick 209 mg/dL 70-110 Above high normal [facility] ID Date Data Source [id number] 05/19/2020 05:24:00 PM [facility] Name Value Range Interpretation Code Description Data Keturah rce(s) Supporting Document(s) LAB Glucose,Fingerstick 163 mg/dL 70-110 Above high normal [facility] ID Date Data Source [id number] 05/19/2020 12:11:00 PM [facility] Name Value Range Interpretation Code Description Data Keturah rce(s) Supporting Document(s) LAB Glucose,Fingerstick 203 mg/dL 70-110 Above high normal [facility] ID Date Data Source [id number] 05/19/2020 08:16:00 AM [facility] Name Value Range Interpretation Code Description Data Keturah rce(s) Supporting Document(s) LAB Glucose,Fingerstick 137 mg/dL 70-110 Above high normal [facility] ID Date Data Source [id number] 05/19/2020 05:41:00 PM [facility] Name Value Range Interpretation Code Description Data Keturah rce(s) Supporting Document(s) White Blood Count 4.8-10.8 Above high normal [facility] Red Blood Count 3.68-5.22 Normal (applies to non-numeric results) [facility] Hemoglobin 11.2-15.7 Normal (applies to non-numeric resul ts) [facility] Hematocrit 34.1-44.9 Normal (applies to non-numeric resul ts) [facility] Mean Corpuscular Volume 81-99 Normal (applies to non- numeric results) [facility] Mean Corpuscular Hemoglobin 27.0-33.0 Normal (appli es to non-numeric results) [facility] Mean Corpuscular HGB Conc 32.0-36.0 Normal (applies to no n-numeric results) [facility] Red Cell Distribution Width 11.5-14.5 Normal (appli es to non-numeric results) [facility] Platelet Count 198 X10 3/uL 130-450 Normal (applies to non-numeric results) [facility] Mean Platelet Volume 9.5-12.7 Normal (applies to non-num dusty results) [facility] Total Cells Counted 100 0-100 Normal (applies to non-nume cee results) [facility] Neutrophils % (manual) 90 % 40-75 Above high normal [facility] Lymphocytes % (manual) 1 % 21-46 Below low normal [facility] Monocytes % (manual) 4 % 5-12 Below low normal [facility] Eosinophils % (manual) 0 % 1-5 Below low normal [facility] Basophils % (manual) 0 % 0-1 Normal (applies to non-num dusty results) [facility] Metamyelocytes % (manual) 1 % 0-0 Above high normal [facility] Myelocytes % (manual) 3 % 0-0 Above high normal [facility] Band Neutrophils% (manual) 1 % 0-5 Normal (applies to n on-numeric results) [facility] Atypical Lymph% (manual) 0 % 0-5 Normal (applies to non -numeric results) [facility] Metamyelocytes # (Manual) 0-0 Above high normal [facility] Myelocytes # (Manual) 0-0 Above high normal [facility] Neutrophils # (Manual) 1.5-8.1 Above high normal [facility] Lymphocytes # (Manual) 1.0-3.1 Below low normal [facility] Monocytes # (Manual) 0.2-1.3 Normal (applies to non-num dusty results) [facility] Eosinophils# (Manual) 0.0-0.5 Normal (applies to non-nu meric results) [facility] Basophils # (Manual) 0.0-0.1 Normal (applies to non-num dusty results) [facility] Platelet Estimate Adequate Normal (applies to non-numeri c results) [facility] Estimate agrees with automated count Slide Reviewed By Normal (applies to non-numeri c results) [facility] Slide has been reviewed and findings con firmed by a technologist/veterinary laboratory technician. ID Date Data Source [id number] 05/19/2020 02:19:00 PM EST [facility] Name Value Range Interpretation Code Description Data Keturah rce(s) Supporting Document(s) Sodium 140 mmol/L 137-145 Normal (applies to non-numeric resul ts) [facility] Potassium 3.5-5.1 Normal (applies to non-numeric resul ts) [facility] Chloride 107 mmol/L 98-112 Normal (applies to non-numeric resul ts) [facility] Carbon Dioxide CO2 22.0-33.0 Normal (applies to non-numer ic results) [facility] Anion Gap 4.0-11.0 Normal (applies to non-numeric resul ts) [facility] BUN 63 mg/dL 7-17 Above high normal [facility] Creatinine 0.70-1.20 Above high normal [facility] GFR 41 mL/min >60 Below low normal [facility] Result based on MDRD formula. Glucose Level 165 mg/dL 74-99 Above high normal [facility] The reference range is only applicable w hen fasting. Calcium-Uncorrected 8.4-10.2 Normal (applies to non-nume cee results) [facility] Corrected Calcium 8.4-10.2 Normal (applies to non-numeri c results) [facility] Bilirubin,Total 0.2-1.3 Normal (applies to non-numeric results) [facility] SGOT(AST) 14 U/L 14-36 Normal (applies to non-numeric resul ts) [facility] SGPT(ALT) 30 U/L 9-52 Normal (applies to non-numeric resul ts) [facility] Alkaline Phosphatase 102 U/L 38-126 Normal (applies to non-num dusty results) [facility] can increase Alkaline Phosp le vels up to 2 times the normal adult value. Normal values for children and adolescents are 2 to 3 times the normal adult value. Total Protein 6.3-8.2 Below low normal [facility] Albumin 3.5-5.0 Below low normal [facility] ID Date Data Source [id number] 05/19/2020 02:19:00 PM [facility] Name Value Range Interpretation Code Description Data Keturah rce(s) Supporting Document(s) Ferritin 818 ng/mL 11.1-264.0 Above high normal [facility] ID Date Data Source [id number] 05/19/2020 02:19:00 PM [facility] Value Range Interpretation Code Description Data Keturah rce(s) Supporting Document(s) LDH 456 U/L 84-246 Above high normal [facility] ID Date Data Source [id number] 05/19/2020 02:19:00 PM [facility] Value Range Interpretation Code Description Data Keturah rce(s) Supporting Document(s) Digoxin Level 0.80-2.00 Normal (applies to non-numeric re sults) [facility] ID Date Data Source [id number] 05/19/2020 08:45:00 AM [facility] Value Range Interpretation Code Description Data Keturah rce(s) Supporting Document(s) PT 9.4-12.5 Above high normal [facility] INR Normal (applies to non-numeric results) [facility] The use of the INR is restricted to mindy ents on stable oral anticoagulant. Therapeutic Range: 2.0-3.0 High Risk Values: 2.5-3.5 ID Date Data Source [id number] 05/19/2020 08:45:00 AM [facility] Value Range Interpretation Code Description Data Keturah rce(s) Supporting Document(s) D-Dimer Quant 10265 ng/mLFEU <500 PH [facility] ONEL BARRAZA read back critical informat ion 05/19/20 0844 LAB.DISAN Positive for D-Dimer. DVT/PE or DIC may be present. D-Dimer is an exclusionary test and is used in conjunction with a clinical pretest probability (PTP) assessment model to exclude DVT and PE. Consider further diagnostic studies to confirm diagnosis. ID Date Data Source [id number] 05/18/2020 09:22:00 PM [facility] Name Value Range Interpretation Code Description Data Keturah rce(s) Supporting Document(s) LAB Glucose,Fingerstick 251 mg/dL 70-110 Above high normal [facility] ID Date Data Source [id number] 05/18/2020 09:22:00 PM [facility] Name Value Range Interpretation Code Description Data Keturah rce(s) Supporting Document(s) LAB Glucose,Fingerstick 176 mg/dL 70-110 Above high normal [facility] ID Date Data Source [id number] 05/18/2020 12:14:00 PM [facility] Name Value Range Interpretation Code Description Data Keturah rce(s) Supporting Document(s) LAB Glucose,Fingerstick 200 mg/dL 70-110 Above high normal [facility] ID Date Data Source [id number] 05/18/2020 05:48:00 PM [facility] Hospital Name: DIEGO ALBERT : 1935 Age /Sex: 84F Ordering Provider: HELEN Boyer Med Rec #: [id number] Reg Status: ADM IN Room #: 207-1 Date of Service: 05/18/20 Report Number: [id number] cc:Armen Meraz, IV, SPECIAL EDUCATION TEACHER; HELEN Boyer Send Report To: [id number] US/US Duplex Lower Ext Vein Bilat Reason for exam: increased hypoxia and d-dimer Technique: Ultrasound imaging performed using color flow and spectral Doppler interrogation. FINDINGS: There is normal compressibility of the bilateral deep venous system from the external iliacs through the popliteal veins with normal augmentation identified. IMPRESSION: NO EVIDENCE FOR ANY UNDERLYING DVT. REPORT SIGNATURE ON FILE Reported By: Jaguar Orr MD <Electronically signed by Sylvie Orr MD> 05/21/20 1005 Dictation Date/Time: 05/18/20 1253 Transcribed Date/Time: 05/18/20 9668 Feed Research Aide: JONATHON Name Value Range Interpretation Code Description Data Keturah rce(s) Supporting Document(s) ID Date Data Source [id number] 05/18/2020 10:30:00 AM [facility] Name Value Range Interpretation Code Description Data Keturah rce(s) Supporting Document(s) LAB Glucose,Fingerstick 143 mg/dL 70-110 Above high normal [facility] ID Date Data Source [id number] 05/18/2020 04:10:00 PM [facility] Name Value Range Interpretation Code Description Data Keturah rce(s) Supporting Document(s) Sodium 138 mmol/L 137-145 Normal (applies to non-numeric resul ts) [facility] Potassium 3.5-5.1 Normal (applies to non-numeric resul ts) [facility] Chloride 105 mmol/L 98-112 Normal (applies to non-numeric resul ts) [facility] Carbon Dioxide CO2 22.0-33.0 Normal (applies to non-numer ic results) [facility] Anion Gap 4.0-11.0 Normal (applies to non-numeric resul ts) [facility] BUN 57 mg/dL 7-17 Above high normal [facility] Creatinine 0.70-1.20 Above high normal [facility] GFR 42 mL/min >60 Below low normal [facility] Result based on MDRD formula. Glucose Level 191 mg/dL 74-99 Above high normal [facility] The reference range is only applicable w hen fasting. Calcium-Uncorrected 8.4-10.2 Normal (applies to non-nume cee results) [facility] Corrected Calcium 8.4-10.2 Normal (applies to non-numeri c results) [facility] Bilirubin,Total 0.2-1.3 Normal (applies to non-numeric results) [facility] SGOT(AST) 17 U/L 14-36 Normal (applies to non-numeric resul ts) [facility] SGPT(ALT) 28 U/L 9-52 Normal (applies to non-numeric resul ts) [facility] Alkaline Phosphatase 104 U/L 38-126 Normal (applies to non-num dusty results) [facility] can increase Alkaline Phosp le vels up to 2 times the normal adult value. Normal values for children and adolescents are 2 to 3 times the normal adult value. Total Protein 6.3-8.2 Below low normal [facility] Albumin 3.5-5.0 Below low normal [facility] ID Date Data Source [id number] 05/18/2020 04:10:00 PM [facility] Name Value Range Interpretation Code Description Data Keturah rce(s) Supporting Document(s) Ferritin 724 ng/mL 11.1-264.0 Above high normal [facility] ID Date Data Source [id number] 05/18/2020 04:10:00 PM [facility] Name Value Range Interpretation Code Description Data Keturah rce(s) Supporting Document(s) LDH 462 U/L 84-246 Above high normal [facility] Hospital ID Date Data Source [id number] 05/18/2020 04:10:00 PM [facility] Name Value Range Interpretation Code Description Data Keturah rce(s) Supporting Document(s) B-Type Natriuretic Peptide BNP 1624 pg/mL <450 Above high ty l [facility] NT-proBNP values less than 300 pg/mL hav e a 99% negative predictive value for excluding acute congestive heart failure. A diagnostic NT-proBNP cutoff of 900 pg/mL has been suggested in adults over 50 years of age in the absence of renal failure. A cutoff of 1200 pg/mL for patients with GFR <60 yields a diagnostic sensitivity and specificity of 89% and 72% for acute congestive failure. ID Date Data Source [id number] 05/18/2020 05:49:00 AM EST [facility] Name Value Range Interpretation Code Description Data Keturah rce(s) Supporting Document(s) White Blood Count 4.8-10.8 Above high normal [facility] Red Blood Count 3.68-5.22 Normal (applies to non-numeric results) [facility] Hemoglobin 11.2-15.7 Normal (applies to non-numeric resul ts) [facility] Hematocrit 34.1-44.9 Normal (applies to non-numeric resul ts) [facility] Mean Corpuscular Volume 81-99 Normal (applies to non- numeric results) [facility] Mean Corpuscular Hemoglobin 27.0-33.0 Normal (appli es to non-numeric results) [facility] Mean Corpuscular HGB Conc 32.0-36.0 Normal (applies to no n-numeric results) [facility] Red Cell Distribution Width 11.5-14.5 Normal (appli es to non-numeric results) [facility] Platelet Count 197 X10 3/uL 130-450 Normal (applies to non-numeric results) [facility] Mean Platelet Volume 9.5-12.7 Normal (applies to non-num dusty results) [facility] Total Cells Counted 100 0-100 Normal (applies to non-nume cee results) [facility] Neutrophils % (manual) 73 % 40-75 Normal (applies to non-n umeric results) [facility] Lymphocytes % (manual) 12 % 21-46 Below low normal [facility] Monocytes % (manual) 8 % 5-12 Normal (applies to non-num dusty results) [facility] Eosinophils % (manual) 0 % 1-5 Below low normal [facility] Basophils % (manual) 0 % 0-1 Normal (applies to non-num dusty results) [facility] Metamyelocytes % (manual) 3 % 0-0 Above high normal [facility] Myelocytes % (manual) 1 % 0-0 Above high normal [facility] Band Neutrophils% (manual) 1 % 0-5 Normal (applies to n on-numeric results) [facility] Atypical Lymph% (manual) 2 % 0-5 Normal (applies to non -numeric results) [facility] Metamyelocytes # (Manual) 0-0 Above high normal [facility] Myelocytes # (Manual) 0-0 Above high normal [facility] Neutrophils # (Manual) 1.5-8.1 Above high normal [facility] Lymphocytes # (Manual) 1.0-3.1 Normal (applies to non-n umeric results) [facility] Monocytes # (Manual) 0.2-1.3 Normal (applies to non-num dusty results) [facility] Eosinophils# (Manual) 0.0-0.5 Normal (applies to non-nu meric results) [facility] Basophils # (Manual) 0.0-0.1 Normal (applies to non-num dusty results) [facility] Platelet Estimate Adequate Normal (applies to non-numeri c results) [facility] Estimate agrees with automated count Slide Reviewed By Normal (applies to non-numeri c results) [facility] Slide has been reviewed and findings con firmed by a technologist/veterinary laboratory technician. ID Date Data Source [id number] 05/18/2020 05:35:00 AM [facility] Name Value Range Interpretation Code Description Data Keturah rce(s) Supporting Document(s) PT 9.4-12.5 Above high normal [facility] INR Normal (applies to non-numeric results) [facility] The use of the INR is restricted to mindy ents on stable oral anticoagulant. Therapeutic Range: 2.0-3.0 High Risk Values: 2.5-3.5 ID Date Data Source [id number] 05/18/2020 05:35:00 AM [facility] Name Value Range Interpretation Code Description Data Keturah rce(s) Supporting Document(s) D-Dimer Quant 78579 ng/mLFEU <500 PH [facility] MARIA FERNANDA JENKINS read back critical informa tion 05/18/20 0534 LAB.BOVAL Positive for D-Dimer. DVT/PE or DIC may be present. D-Dimer is an exclusionary test and is used in conjunction with a clinical pretest probability (PTP) assessment model to exclude DVT and PE. Consider further diagnostic studies to confirm diagnosis. ID Date Data Source [id number] 05/18/2020 12:40:00 AM [facility] Name Value Range Interpretation Code Description Data Keturah rce(s) Supporting Document(s) LAB Glucose,Fingerstick 252 mg/dL 70-110 Above high normal [facility] ID Date Data Source [id number] 05/18/2020 12:40:00 AM [facility] Name Value Range Interpretation Code Description Data Keturah rce(s) Supporting Document(s) LAB Glucose,Fingerstick 183 mg/dL 70-110 Above high normal [facility] ID Date Data Source [id number] 05/18/2020 05:09:00 AM [facility] Hospital Name: DIEGO ALBERT : 1935 Age /Sex: 84F Ordering Provider: HELEN Boyer Med Rec #: [id number] Reg Status: ADM IN Room #: 207-1 Date of Service: 05/17/20 Report Number: [id number] cc:Armen Meraz, RHIANNON, SPECIAL EDUCATION TEACHER; HELEN Boyer Send Report To: [id number] CT/CT Chest for PE with Contrast Reason for exam: worsening hypoxia and increased Ddimer Comparison: 05/10/20. FINDINGS: There is no evidence for pulmonary embolus. There is worsening diffuse focal areas of ground glass attenuation and worseningbilateral lower lobe infiltrates. The findings are compatible with COVID. The heart is enlarged. Pulmonary vascularity is within normal limits. IMPRESSION: Worsening bilateral diffuse ground glass opacities with worsening bilateral lower lobe infiltrates compatible with COVID. Cardiomegaly. No evidence for pulmonary embolus. While performing the above CT exam, the following dose reduction techniques wereused: *Automated exposure control *Adjustment of the mA and/or kV according to patient size *Use of iterative reconstruction technique CT Dose in mSv: 2.5 Contrast Agent in ml: Isovue 370 50 Method of Administration: Intraveneous REPORT SIGNATURE ON FILE Reported By: Jaguar Franco MD <Electronically signed by Jaguar Franco MD> 05/18/20 0957 Dictation Date/Time: 05/17/20 3167 Transcribed Date/Time: 05/18/20 7912 Feed Research Aide: KATARINA Name Value Range Interpretation Code Description Data Keturah rce(s) Supporting Document(s) ID Date Data Source [id number] 05/17/2020 04:27:00 PM [facility] Name Value Range Interpretation Code Description Data Keturah rce(s) Supporting Document(s) LAB Glucose,Fingerstick 207 mg/dL 70-110 Above high normal [facility] ID Date Data Source [id number] 05/17/2020 04:27:00 PM [facility] Name Value Range Interpretation Code Description Data Keturah rce(s) Supporting Document(s) LAB Glucose,Fingerstick 132 mg/dL 70-110 Above high normal [facility] ID Date Data Source [id number] 05/17/2020 09:14:00 AM [facility] Value Range Interpretation Code Description Data Keturah rce(s) Supporting Document(s) White Blood Count 4.8-10.8 Normal (applies to non-numeri c results) [facility] Red Blood Count 3.68-5.22 Normal (applies to non-numeric results) [facility] Hemoglobin 11.2-15.7 Normal (applies to non-numeric resul ts) [facility] Hematocrit 34.1-44.9 Below low normal [facility] Mean Corpuscular Volume 81-99 Normal (applies to non- numeric results) [facility] Mean Corpuscular Hemoglobin 27.0-33.0 Normal (appli es to non-numeric results) [facility] Mean Corpuscular HGB Conc 32.0-36.0 Normal (applies to no n-numeric results) [facility] Red Cell Distribution Width 11.5-14.5 Normal (appli es to non-numeric results) [facility] Platelet Count 231 X10 3/uL 130-450 Normal (applies to non-numeric results) [facility] Mean Platelet Volume 9.5-12.7 Normal (applies to non-num dusty results) [facility] Total Cells Counted 100 0-100 Normal (applies to non-nume cee results) [facility] Neutrophils % (manual) 88 % 40-75 Above high normal [facility] Lymphocytes % (manual) 4 % 21-46 Below low normal [facility] Monocytes % (manual) 8 % 5-12 Normal (applies to non-num dusty results) [facility] Eosinophils % (manual) 0 % 1-5 Below low normal [facility] Basophils % (manual) 0 % 0-1 Normal (applies to non-num dusty results) [facility] Band Neutrophils% (manual) 0 % 0-5 Normal (applies to n on-numeric results) [facility] Atypical Lymph% (manual) 0 % 0-5 Normal (applies to non -numeric results) [facility] Neutrophils # (Manual) 1.5-8.1 Above high normal [facility] Lymphocytes # (Manual) 1.0-3.1 Below low normal [facility] Monocytes # (Manual) 0.2-1.3 Normal (applies to non-num dusty results) [facility] Eosinophils# (Manual) 0.0-0.5 Normal (applies to non-nu meric results) [facility] Basophils # (Manual) 0.0-0.1 Normal (applies to non-num dusty results) [facility] Platelet Estimate Adequate Normal (applies to non-numeri c results) [facility] Estimate agrees with automated count Slide Reviewed By Normal (applies to non-numeri c results) [facility] Slide has been reviewed and findings con firmed by a technologist/veterinary laboratory technician. ID Date Data Source [id number] 05/17/2020 08:25:00 AM [facility] Name Value Range Interpretation Code Description Data Keturah rce(s) Supporting Document(s) PTT 25.1-36.5 Normal (applies to non-numeric resul ts) [facility] ID Date Data Source [id number] 05/17/2020 08:25:00 AM [facility] Name Value Range Interpretation Code Description Data Keturah rce(s) Supporting Document(s) PT 9.4-12.5 Above high normal [facility] INR Normal (applies to non-numeric results) [facility] The use of the INR is restricted to mindy ents on stable oral anticoagulant. Therapeutic Range: 2.0-3.0 High Risk Values: 2.5-3.5 ID Date Data Source [id number] 05/17/2020 08:25:00 AM [facility] Name Value Range Interpretation Code Description Data Keturah rce(s) Supporting Document(s) D-Dimer Quant 18992 ng/mLFEU <500 PH [facility] ALEXIA VENEGAS read back critical informatio n 05/17/20 0825 LAB.DAVSA Positive for D-Dimer. DVT/PE or DIC may be present. D-Dimer is an exclusionary test and is used in conjunction with a clinical pretest probability (PTP) assessment model to exclude DVT and PE. Consider further diagnostic studies to confirm diagnosis. ID Date Data Source [id number] 05/17/2020 07:48:00 AM [facility] Name Value Range Interpretation Code Description Data Keturah rce(s) Supporting Document(s) Sodium 138 mmol/L 137-145 Normal (applies to non-numeric resul ts) [facility] Potassium 3.5-5.1 Normal (applies to non-numeric resul ts) [facility] Chloride 107 mmol/L 98-112 Normal (applies to non-numeric resul ts) [facility] Carbon Dioxide CO2 22.0-33.0 Normal (applies to non-numer ic results) [facility] Anion Gap 4.0-11.0 Normal (applies to non-numeric resul ts) [facility] BUN 50 mg/dL 7-17 Above high normal [facility] Creatinine 0.70-1.20 Normal (applies to non-numeric resul ts) [facility] GFR 56 mL/min >60 Below low normal [facility] Result based on MDRD formula. Glucose Level 156 mg/dL 74-99 Above high normal [facility] The reference range is only applicable w hen fasting. Calcium-Uncorrected 8.4-10.2 Normal (applies to non-nume cee results) [facility] Corrected Calcium 8.4-10.2 Normal (applies to non-numeri c results) [facility] Bilirubin,Total 0.2-1.3 Normal (applies to non-numeric results) [facility] SGOT(AST) 18 U/L 14-36 Normal (applies to non-numeric resul ts) [facility] SGPT(ALT) 28 U/L 9-52 Normal (applies to non-numeric resul ts) [facility] Alkaline Phosphatase 99 U/L 38-126 Normal (applies to non-num dusty results) [facility] can increase Alkaline Phosp le vels up to 2 times the normal adult value. Normal values for children and adolescents are 2 to 3 times the normal adult value. Total Protein 6.3-8.2 Below low normal [facility] Albumin 3.5-5.0 Below low normal [facility] ID Date Data Source [id number] 05/17/2020 07:48:00 AM [facility] Name Value Range Interpretation Code Description Data Keturah rce(s) Supporting Document(s) Ferritin 590 ng/mL 11.1-264.0 Above high normal [facility] ID Date Data Source [id number] 05/17/2020 07:48:00 AM [facility] Name Value Range Interpretation Code Description Data Keturah rce(s) Supporting Document(s) LDH 429 U/L 84-246 Above high normal [facility] ID Date Data Source [id number] 05/17/2020 07:48:00 AM [facility] Name Value Range Interpretation Code Description Data Keturah rce(s) Supporting Document(s) C-Reactive Protein,Wide Range <3.00 Above high normal [facility] ID Date Data Source [id number] 05/17/2020 07:43:00 AM [facility] Name Value Range Interpretation Code Description Data Keturah rce(s) Supporting Document(s) Troponin I 0.000-0.045 Normal (applies to non-numeric resu lts) [facility] ID Date Data Source [id number] 05/16/2020 11:09:00 PM [facility] Name Value Range Interpretation Code Description Data Keturah rce(s) Supporting Document(s) LAB Glucose,Fingerstick 204 mg/dL 70-110 Above high normal [facility] ID Date Data Source [id number] 05/16/2020 11:10:00 PM [facility] Name Value Range Interpretation Code Description Data Keturah rce(s) Supporting Document(s) LAB Glucose,Fingerstick 206 mg/dL 70-110 Above high normal [facility] ID Date Data Source [id number] 05/16/2020 11:57:00 AM [facility] Name Value Range Interpretation Code Description Data Keturah rce(s) Supporting Document(s) LAB Glucose,Fingerstick 183 mg/dL 70-110 Above high normal [facility] ID Date Data Source [id number] 05/16/2020 09:16:00 AM [facility] Name Value Range Interpretation Code Description Data Keturah rce(s) Supporting Document(s) LAB Glucose,Fingerstick 134 mg/dL 70-110 Above high normal [facility] ID Date Data Source [id number] 05/16/2020 08:24:00 AM [facility] Name Value Range Interpretation Code Description Data Keturah rce(s) Supporting Document(s) White Blood Count 4.8-10.8 Normal (applies to non-numeri c results) [facility] Red Blood Count 3.68-5.22 Normal (applies to non-numeric results) [facility] Hemoglobin 11.2-15.7 Below low normal [facility] Hematocrit 34.1-44.9 Below low normal [facility] Mean Corpuscular Volume 81-99 Normal (applies to non- numeric results) [facility] Mean Corpuscular Hemoglobin 27.0-33.0 Normal (appli es to non-numeric results) [facility] Mean Corpuscular HGB Conc 32.0-36.0 Normal (applies to no n-numeric results) [facility] Red Cell Distribution Width 11.5-14.5 Normal (appli es to non-numeric results) [facility] Platelet Count 267 X10 3/uL 130-450 Normal (applies to non-numeric results) [facility] Mean Platelet Volume 9.5-12.7 Normal (applies to non-num dusty results) [facility] Imm Grans% (AUTO) 4 % 0-2 Above high normal [facility] Neutrophils % (AUTO) 81 % 40-75 Above high normal [facility] Lymphocytes % (AUTO) 9 % 21-46 Below low normal [facility] Monocytes % (AUTO) 6 % 5-12 Normal (applies to non-numer ic results) [facility] Eosinophils % (AUTO) 0 % 1-5 Below low normal [facility] Basophils % (AUTO) 0 % 0-1 Normal (applies to non-numer ic results) [facility] Imm Grans# (AUTO) 0.0-0.5 Normal (applies to non-numeri c results) [facility] Neutrophils # (AUTO) 1.5-8.1 Normal (applies to non-num dusty results) [facility] Lymphocytes # (AUTO) 1.0-3.1 Below low normal [facility] Monocytes # (AUTO) 0.2-1.3 Normal (applies to non-numer ic results) [facility] Eosinophils# (AUTO) 0.0-0.5 Normal (applies to non-nume cee results) [facility] Basophils # (AUTO) 0.0-0.1 Normal (applies to non-numer ic results) [facility] Slide Reviewed By Normal (applies to non-numeri c results) [facility] Slide has been reviewed and findings con firmed by a technologist/veterinary laboratory technician. ID Date Data Source [id number] 05/16/2020 08:00:00 AM EST [facility] Name Value Range Interpretation Code Description Data Keturah rce(s) Supporting Document(s) Sodium 141 mmol/L 137-145 Normal (applies to non-numeric resul ts) [facility] Potassium 3.5-5.1 Normal (applies to non-numeric resul ts) [facility] Chloride 110 mmol/L 98-112 Normal (applies to non-numeric resul ts) [facility] Carbon Dioxide CO2 22.0-33.0 Normal (applies to non-numer ic results) [facility] Anion Gap 4.0-11.0 Normal (applies to non-numeric resul ts) [facility] BUN 52 mg/dL 7-17 Above high normal [facility] Creatinine 0.70-1.20 Normal (applies to non-numeric resul ts) [facility] GFR 49 mL/min >60 Below low normal [facility] Result based on MDRD formula. Glucose Level 145 mg/dL 74-99 Above high normal [facility] The reference range is only applicable w hen fasting. Calcium-Uncorrected 8.4-10.2 Normal (applies to non-nume cee results) [facility] Corrected Calcium 8.4-10.2 Normal (applies to non-numeri c results) [facility] Bilirubin,Total 0.2-1.3 Normal (applies to non-numeric results) [facility] SGOT(AST) 13 U/L 14-36 Below low normal [facility] SGPT(ALT) 27 U/L 9-52 Normal (applies to non-numeric resul ts) [facility] Alkaline Phosphatase 98 U/L 38-126 Normal (applies to non-num dusty results) [facility] can increase Alkaline Phosp le vels up to 2 times the normal adult value. Normal values for children and adolescents are 2 to 3 times the normal adult value. Total Protein 6.3-8.2 Below low normal [facility] Albumin 3.5-5.0 Below low normal [facility] ID Date Data Source [id number] 05/16/2020 08:00:00 AM EST [facility] Name Value Range Interpretation Code Description Data Keturah rce(s) Supporting Document(s) Ferritin 549 ng/mL 11.1-264.0 Above high normal [facility] ID Date Data Source [id number] 05/16/2020 08:00:00 AM [facility] Name Value Range Interpretation Code Description Data Keturah rce(s) Supporting Document(s) LDH 383 U/L 84-246 Above high normal [facility] ID Date Data Source [id number] 05/16/2020 08:00:00 AM [facility] Value Range Interpretation Code Description Data Keturah rce(s) Supporting Document(s) C-Reactive Protein,Wide Range <3.00 Above high normal [facility] ID Date Data Source [id number] 05/16/2020 08:00:00 AM [facility] Name Value Range Interpretation Code Description Data Keturah rce(s) Supporting Document(s) B-Type Natriuretic Peptide BNP 2008 pg/mL <450 Above high ty l [facility] NT-proBNP values less than 300 pg/mL hav e a 99% negative predictive value for excluding acute congestive heart failure. A diagnostic NT-proBNP cutoff of 900 pg/mL has been suggested in adults over 50 years of age in the absence of renal failure. A cutoff of 1200 pg/mL for patients with GFR <60 yields a diagnostic sensitivity and specificity of 89% and 72% for acute congestive failure. ID Date Data Source [id number] 05/16/2020 08:00:00 AM [facility] Name Value Range Interpretation Code Description Data Keturah rce(s) Supporting Document(s) PT 9.4-12.5 Above high normal [facility] INR Normal (applies to non-numeric results) [facility] The use of the INR is restricted to mindy ents on stable oral anticoagulant. Therapeutic Range: 2.0-3.0 High Risk Values: 2.5-3.5 ID Date Data Source [id number] 05/16/2020 08:00:00 AM [facility] Name Value Range Interpretation Code Description Data Keturah rce(s) Supporting Document(s) PTT 25.1-36.5 Normal (applies to non-numeric resul ts) [facility] ID Date Data Source [id number] 05/16/2020 08:00:00 AM [facility] Value Range Interpretation Code Description Data Keturah rce(s) Supporting Document(s) D-Dimer Quant 6458 ng/mLFEU <500 PH [facility] ELVIRA BRIDGES read back critical informa tion 05/16/20 0759 LAB.DAVSA Positive for D-Dimer. DVT/PE or DIC may be present. D-Dimer is an exclusionary test and is used in conjunction with a clinical pretest probability (PTP) assessment model to exclude DVT and PE. Consider further diagnostic studies to confirm diagnosis. ID Date Data Source [id number] 05/15/2020 09:39:00 PM [facility] Value Range Interpretation Code Description Data Keturah rce(s) Supporting Document(s) LAB Glucose,Fingerstick 223 mg/dL 70-110 Above high normal [facility] ID Date Data Source [id number] 05/15/2020 09:39:00 PM [facility] Value Range Interpretation Code Description Data Keturah rce(s) Supporting Document(s) LAB Glucose,Fingerstick 194 mg/dL 70-110 Above high normal [facility] ID Date Data Source [id number] 05/15/2020 04:29:00 PM [facility] Value Range Interpretation Code Description Data Keturah rce(s) Supporting Document(s) LAB Glucose,Fingerstick 176 mg/dL 70-110 Above high normal [facility] ID Date Data Source [id number] 05/15/2020 09:52:00 AM [facility] Value Range Interpretation Code Description Data Keturah rce(s) Supporting Document(s) LAB Glucose,Fingerstick 151 mg/dL 70-110 Above high normal [facility] ID Date Data Source [id number] 05/15/2020 11:03:00 AM [facility] Value Range Interpretation Code Description Data Keturah rce(s) Supporting Document(s) Sodium 143 mmol/L 137-145 Normal (applies to non-numeric resul ts) [facility] Potassium 3.5-5.1 Normal (applies to non-numeric resul ts) [facility] Chloride 115 mmol/L 98-112 Above high normal [facility] Carbon Dioxide CO2 22.0-33.0 Normal (applies to non-numer ic results) [facility] Anion Gap 4.0-11.0 Normal (applies to non-numeric resul ts) [facility] BUN 50 mg/dL 7-17 Above high normal [facility] Creatinine 0.70-1.20 Normal (applies to non-numeric resul ts) [facility] GFR 49 mL/min >60 Below low normal [facility] Result based on MDRD formula. Glucose Level 162 mg/dL 74-99 Above high normal [facility] The reference range is only applicable w hen fasting. Calcium-Uncorrected 8.4-10.2 Normal (applies to non-nume cee results) [facility] Corrected Calcium 8.4-10.2 Normal (applies to non-numeri c results) [facility] Bilirubin,Total 0.2-1.3 Normal (applies to non-numeric results) [facility] SGOT(AST) 15 U/L 14-36 Normal (applies to non-numeric resul ts) [facility] SGPT(ALT) 25 U/L 9-52 Normal (applies to non-numeric resul ts) [facility] Alkaline Phosphatase 96 U/L 38-126 Normal (applies to non-num dusty results) [facility] can increase Alkaline Phosp le vels up to 2 times the normal adult value. Normal values for children and adolescents are 2 to 3 times the normal adult value. Total Protein 6.3-8.2 Below low normal [facility] Albumin 3.5-5.0 Below low normal [facility] ID Date Data Source [id number] 05/15/2020 11:03:00 AM EST [facility] Name Value Range Interpretation Code Description Data Keturah rce(s) Supporting Document(s) Ferritin 534 ng/mL 11.1-264.0 Above high normal [facility] ID Date Data Source [id number] 05/15/2020 11:03:00 AM [facility] Name Value Range Interpretation Code Description Data Keturah rce(s) Supporting Document(s) LDH 365 U/L 84-246 Above high normal [facility] ID Date Data Source [id number] 05/15/2020 11:03:00 AM [facility] Name Value Range Interpretation Code Description Data Keturah rce(s) Supporting Document(s) C-Reactive Protein,Wide Range <3.00 Above high normal [facility] ID Date Data Source [id number] 05/15/2020 11:03:00 AM [facility] Name Value Range Interpretation Code Description Data Keturah rce(s) Supporting Document(s) B-Type Natriuretic Peptide BNP 2426 pg/mL <450 Above high ty l [facility] NT-proBNP values less than 300 pg/mL hav e a 99% negative predictive value for excluding acute congestive heart failure. A diagnostic NT-proBNP cutoff of 900 pg/mL has been suggested in adults over 50 years of age in the absence of renal failure. A cutoff of 1200 pg/mL for patients with GFR <60 yields a diagnostic sensitivity and specificity of 89% and 72% for acute congestive failure. ID Date Data Source [id number] 05/15/2020 10:41:00 AM [facility] Name Value Range Interpretation Code Description Data Keturah rce(s) Supporting Document(s) PT 9.4-12.5 Above high normal [facility] INR Normal (applies to non-numeric results) [facility] The use of the INR is restricted to mindy ents on stable oral anticoagulant. Therapeutic Range: 2.0-3.0 High Risk Values: 2.5-3.5 ID Date Data Source [id number] 05/15/2020 10:41:00 AM [facility] Name Value Range Interpretation Code Description Data Keturah rce(s) Supporting Document(s) D-Dimer Quant 6895 ng/mLFEU <500 PH [facility] SILVANAJADA CANSECO read back critical in formation 05/15/20 0658 LAB.DISAN Positive for D-Dimer. DVT/PE or DIC may be present. D-Dimer is an exclusionary test and is used in conjunction with a clinical pretest probability (PTP) assessment model to exclude DVT and PE. Consider further diagnostic studies to confirm diagnosis. ID Date Data Source [id number] 05/15/2020 10:41:00 AM EST [facility] Name Value Range Interpretation Code Description Data Keturah rce(s) Supporting Document(s) PTT 25.1-36.5 Above high normal [facility] ID Date Data Source [id number] 05/15/2020 10:41:00 AM EST [facility] Name Value Range Interpretation Code Description Data Keturah rce(s) Supporting Document(s) White Blood Count 4.8-10.8 Normal (applies to non-numeri c results) [facility] Red Blood Count 3.68-5.22 Normal (applies to non-numeric results) [facility] Hemoglobin 11.2-15.7 Below low normal [facility] Hematocrit 34.1-44.9 Below low normal [facility] Mean Corpuscular Volume 81-99 Normal (applies to non- numeric results) [facility] Mean Corpuscular Hemoglobin 27.0-33.0 Normal (appli es to non-numeric results) [facility] Mean Corpuscular HGB Conc 32.0-36.0 Normal (applies to no n-numeric results) [facility] Red Cell Distribution Width 11.5-14.5 Normal (appli es to non-numeric results) [facility] Platelet Count 248 X10 3/uL 130-450 Normal (applies to non-numeric results) [facility] Mean Platelet Volume 9.5-12.7 Normal (applies to non-num dusty results) [facility] Imm Grans% (AUTO) 4 % 0-2 Above high normal [facility] Neutrophils % (AUTO) 81 % 40-75 Above high normal [facility] Lymphocytes % (AUTO) 9 % 21-46 Below low normal [facility] Monocytes % (AUTO) 6 % 5-12 Normal (applies to non-numer ic results) [facility] Eosinophils % (AUTO) 0 % 1-5 Below low normal [facility] Basophils % (AUTO) 0 % 0-1 Normal (applies to non-numer ic results) [facility] Imm Grans# (AUTO) 0.0-0.5 Normal (applies to non-numeri c results) [facility] Neutrophils # (AUTO) 1.5-8.1 Normal (applies to non-num dusty results) [facility] Lymphocytes # (AUTO) 1.0-3.1 Below low normal [facility] Monocytes # (AUTO) 0.2-1.3 Normal (applies to non-numer ic results) [facility] Eosinophils# (AUTO) 0.0-0.5 Normal (applies to non-nume cee results) [facility] Basophils # (AUTO) 0.0-0.1 Normal (applies to non-numer ic results) [facility] Slide Reviewed By Normal (applies to non-numeri c results) [facility] Slide has been reviewed and findings con firmed by a technologist/veterinary laboratory technician. ID Date Data Source [id number] 05/14/2020 05:57:00 PM [facility] Name Value Range Interpretation Code Description Data Keturah rce(s) Supporting Document(s) LAB Glucose,Fingerstick 239 mg/dL 70-110 Above high normal [facility] ID Date Data Source [id number] 05/14/2020 02:50:00 PM [facility] Name Value Range Interpretation Code Description Data Keturah rce(s) Supporting Document(s) LAB Glucose,Fingerstick 218 mg/dL 70-110 Above high normal [facility] ID Date Data Source [id number] 05/11/2020 02:59:00 PM [facility] Hospital Name: DIEGO ALBERT : 1935 Age /Sex: 84F Attending Physician: Twila Polo MD Med Rec #: [id number] Admission Date: 05/10/20 Room #: 210-2 Admitting Physician: Twila Proctor MD Report Number: [id number] _ cc: Send Report To: Report Status - Signed CONSULTATION DATE OF CONSULTATION: May 11, 2020 REQUESTING PROVIDER: HELEN Kee of the hospitalist service and Domingo Alvarado MD of the IDservice. REASON FOR CONSULTATION: This 84-year-old woman presented to the emergency room yesterday with three to four days of malaise and three days of dry cough and mild dyspnea on exertion. She tested positive for COVID and has been admitt ed to the [facility]. VITALS: Temperature 98, afebrile overnight, pulse 58, BP 121/67, respiratory rate 17, 02sat 94% on two liters. LABS AND STUDIES: White blood cell count, hgb. and platelets all normal. Absolute lymphocyte countslightly low at 700. Absolute eosinophil count 0. INR 2.55 in this patient who is on Warfarin therapy for atrial fibrillation. PT 29, PTT 39, fibrinogen 472, which is mildly elevated yesterday. D-dimer 528 yesterday, 479 today. Creatinine1.1 today, it was 1.31 yesterday. Glucose 128. Ferritin 441, it was 389 yesterday. Normal transaminases. Normal alkaline phosphatase. LDL mildly elevated at 302. CRP 69 today, it was 37 yesterday. BNP 2,400. Albumin 3.1 today. Procalcitonin normal yesterday. Flu swab negative. Blood and urine cultures are pending. IMAGING STUDIES: Calcification of the aorta. Pulmonary trunk is right around the same diameter asthe ascending aorta. She has a 15 cm diameter liver and an 8 cm diameter spleen,both of which are normal in size. She has multifocal bilateral mixed ground glass and consolidative rounded opacities, most of which are peripheral in location consistent with COVID pneumonia. IMPRESSION: COVID19 PLAN: She will be screened for the activ-1 trial. She is on dexamethasone 6 mg a day. She is on prophylactic dose Lovenox. If she qualifies for the study she will get Remdesivir as part of that study. Ifnot she will get Remdesivir through our hospital supply. Ongoing management of this patient continues per the hospitalist service. The patient was not personally seen or examined. Consultation was based on chart review and multidisciplinary care team discussion involving the rheumatology, pulmonology, ID and hospitalist services. TIME SPENT: 31 minutes spent in consultation with less than 50% of that time spent on documentation. REPORT SIGNATURE ON FILE Dictated By: Colby Joseph MD <Electronically signed by Colby Joseph MD> 05/14/20 0808 Dictation Date/Time: 05/11/20 1358 Transcribed Date/Time: 05/11/20 1459/JACQUI Name Value Range Interpretation Code Description Data Keturah rce(s) Supporting Document(s) ID Date Data Source [id number] 05/14/2020 10:30:00 AM [facility] Name Value Range Interpretation Code Description Data Keturah rce(s) Supporting Document(s) LAB Glucose,Fingerstick 132 mg/dL 70-110 Above high normal [facility] ID Date Data Source [id number] 05/14/2020 09:14:00 AM [facility] Name Value Range Interpretation Code Description Data Keturah rce(s) Supporting Document(s) White Blood Count 4.8-10.8 Normal (applies to non-numeri c results) [facility] Red Blood Count 3.68-5.22 Normal (applies to non-numeric results) [facility] Hemoglobin 11.2-15.7 Normal (applies to non-numeric resul ts) [facility] Hematocrit 34.1-44.9 Normal (applies to non-numeric resul ts) [facility] Mean Corpuscular Volume 81-99 Normal (applies to non- numeric results) [facility] Mean Corpuscular Hemoglobin 27.0-33.0 Normal (appli es to non-numeric results) [facility] Mean Corpuscular HGB Conc 32.0-36.0 Normal (applies to no n-numeric results) [facility] Red Cell Distribution Width 11.5-14.5 Normal (appli es to non-numeric results) [facility] Platelet Count 300 X10 3/uL 130-450 Normal (applies to non-numeric results) [facility] Mean Platelet Volume 9.5-12.7 Normal (applies to non-num dusty results) [facility] Imm Grans% (AUTO) 3 % 0-2 Above high normal [facility] Neutrophils % (AUTO) 83 % 40-75 Above high normal [facility] Lymphocytes % (AUTO) 8 % 21-46 Below low normal [facility] Monocytes % (AUTO) 6 % 5-12 Normal (applies to non-numer ic results) [facility] Eosinophils % (AUTO) 0 % 1-5 Below low normal [facility] Basophils % (AUTO) 0 % 0-1 Normal (applies to non-numer ic results) [facility] Imm Grans# (AUTO) 0.0-0.5 Normal (applies to non-numeri c results) [facility] Neutrophils # (AUTO) 1.5-8.1 Normal (applies to non-num dusty results) [facility] Lymphocytes # (AUTO) 1.0-3.1 Below low normal [facility] Monocytes # (AUTO) 0.2-1.3 Normal (applies to non-numer ic results) [facility] Eosinophils# (AUTO) 0.0-0.5 Normal (applies to non-nume cee results) [facility] Basophils # (AUTO) 0.0-0.1 Normal (applies to non-numer ic results) [facility] Slide Reviewed By Normal (applies to non-numeri c results) [facility] Slide has been reviewed and findings con firmed by a technologist/veterinary laboratory technician. ID Date Data Source [id number] 05/14/2020 08:12:00 AM [facility] Name Value Range Interpretation Code Description Data Keturah rce(s) Supporting Document(s) PT 9.4-12.5 Above high normal [facility] INR Normal (applies to non-numeric results) [facility] The use of the INR is restricted to mindy ents on stable oral anticoagulant. Therapeutic Range: 2.0-3.0 High Risk Values: 2.5-3.5 ID Date Data Source [id number] 05/14/2020 08:12:00 AM [facility] Name Value Range Interpretation Code Description Data Keturah rce(s) Supporting Document(s) PTT 25.1-36.5 Normal (applies to non-numeric resul ts) [facility] ID Date Data Source [id number] 05/14/2020 08:12:00 AM EST [facility] Name Value Range Interpretation Code Description Data Keturah rce(s) Supporting Document(s) D-Dimer Quant 3555 ng/mLFEU <500 PH [facility] ELISABETH SINGH read back critical informat ion 05/14/20 0811 LAB.DAVSA Positive for D-Dimer. DVT/PE or DIC may be present. D-Dimer is an exclusionary test and is used in conjunction with a clinical pretest probability (PTP) assessment model to exclude DVT and PE. Consider further diagnostic studies to confirm diagnosis. ID Date Data Source [id number] 05/14/2020 07:51:00 AM [facility] Name Value Range Interpretation Code Description Data Keturah rce(s) Supporting Document(s) Sodium 142 mmol/L 137-145 Normal (applies to non-numeric resul ts) [facility] Potassium 3.5-5.1 Normal (applies to non-numeric resul ts) [facility] Chloride 111 mmol/L 98-112 Normal (applies to non-numeric resul ts) [facility] Carbon Dioxide CO2 22.0-33.0 Normal (applies to non-numer ic results) [facility] Anion Gap 4.0-11.0 Normal (applies to non-numeric resul ts) [facility] BUN 47 mg/dL 7-17 Above high normal [facility] Creatinine 0.70-1.20 Normal (applies to non-numeric resul ts) [facility] GFR 46 mL/min >60 Below low normal [facility] Result based on MDRD formula. Glucose Level 150 mg/dL 74-99 Above high normal [facility] The reference range is only applicable w hen fasting. Calcium-Uncorrected 8.4-10.2 Normal (applies to non-nume cee results) [facility] Corrected Calcium 8.4-10.2 Normal (applies to non-numeri c results) [facility] Bilirubin,Total 0.2-1.3 Normal (applies to non-numeric results) [facility] SGOT(AST) 22 U/L 14-36 Normal (applies to non-numeric resul ts) [facility] SGPT(ALT) 28 U/L 9-52 Normal (applies to non-numeric resul ts) [facility] Alkaline Phosphatase 111 U/L 38-126 Normal (applies to non-num dusty results) [facility] can increase Alkaline Phosp le vels up to 2 times the normal adult value. Normal values for children and adolescents are 2 to 3 times the normal adult value. Total Protein 6.3-8.2 Normal (applies to non-numeric re sults) [facility] Albumin 3.5-5.0 Below low normal [facility] ID Date Data Source [id number] 05/14/2020 07:51:00 AM [facility] Name Value Range Interpretation Code Description Data Keturah rce(s) Supporting Document(s) Ferritin 684 ng/mL 11.1-264.0 Above high normal [facility] ID Date Data Source [id number] 05/14/2020 07:51:00 AM [facility] Value Range Interpretation Code Description Data Keturah rce(s) Supporting Document(s) LDH 434 U/L 84-246 Above high normal [facility] ID Date Data Source [id number] 05/14/2020 07:51:00 AM [facility] Value Range Interpretation Code Description Data Keturah rce(s) Supporting Document(s) C-Reactive Protein,Wide Range <3.00 Above high normal [facility] ID Date Data Source [id number] 05/13/2020 09:13:00 PM [facility] Value Range Interpretation Code Description Data Keturah rce(s) Supporting Document(s) LAB Glucose,Fingerstick 255 mg/dL 70-110 Above high normal [facility] ID Date Data Source [id number] 05/13/2020 06:17:00 PM [facility] Value Range Interpretation Code Description Data Keturah rce(s) Supporting Document(s) LAB Glucose,Fingerstick 118 mg/dL 70-110 Above high normal [facility] ID Date Data Source [id number] 05/13/2020 12:49:00 PM [facility] Name Value Range Interpretation Code Description Data Keturah rce(s) Supporting Document(s) LAB Glucose,Fingerstick 109 mg/dL 70-110 Normal ( applies to non-numeric results) [facility] ID Date Data Source [id number] 05/13/2020 12:44:00 PM EST [facility] Name Value Range Interpretation Code Description Data Keturah rce(s) Supporting Document(s) LAB Glucose,Fingerstick 72 mg/dL 70-110 Normal (applies t o non-numeric results) [facility] ID Date Data Source [id number] 05/13/2020 07:47:00 AM [facility] Name Value Range Interpretation Code Description Data Keturah rce(s) Supporting Document(s) Sodium 146 mmol/L 137-145 Above high normal [facility] Potassium 3.5-5.1 Normal (applies to non-numeric resul ts) [facility] Chloride 114 mmol/L 98-112 Above high normal [facility] Carbon Dioxide CO2 22.0-33.0 Normal (applies to non-numer ic results) [facility] Anion Gap 4.0-11.0 Normal (applies to non-numeric resul ts) [facility] BUN 52 mg/dL 7-17 Above high normal [facility] Creatinine 0.70-1.20 Above high normal [facility] GFR 42 mL/min >60 Below low normal [facility] Result based on MDRD formula. Glucose Level 66 mg/dL 74-99 Below low normal [facility] The reference range is only applicable w hen fasting. Calcium-Uncorrected 8.4-10.2 Normal (applies to non-nume cee results) [facility] Corrected Calcium 8.4-10.2 Normal (applies to non-numeri c results) [facility] Bilirubin,Total 0.2-1.3 Normal (applies to non-numeric results) [facility] SGOT(AST) 24 U/L 14-36 Normal (applies to non-numeric resul ts) [facility] SGPT(ALT) 27 U/L 9-52 Normal (applies to non-numeric resul ts) [facility] Alkaline Phosphatase 92 U/L 38-126 Normal (applies to non-num dusty results) [facility] can increase Alkaline Phosp le vels up to 2 times the normal adult value. Normal values for children and adolescents are 2 to 3 times the normal adult value. Total Protein 6.3-8.2 Normal (applies to non-numeric re sults) [facility] Albumin 3.5-5.0 Below low normal [facility] ID Date Data Source [id number] 05/13/2020 07:47:00 AM [facility] Value Range Interpretation Code Description Data Keturah rce(s) Supporting Document(s) Ferritin 561 ng/mL 11.1-264.0 Above high normal [facility] ID Date Data Source [id number] 05/13/2020 07:47:00 AM [facility] Value Range Interpretation Code Description Data Keturah rce(s) Supporting Document(s) LDH 383 U/L 84-246 Above high normal [facility] ID Date Data Source [id number] 05/13/2020 07:48:00 AM [facility] Value Range Interpretation Code Description Data Keturah rce(s) Supporting Document(s) C-Reactive Protein,Wide Range <3.00 Above high normal [facility] ID Date Data Source [id number] 05/13/2020 07:47:00 AM [facility] Value Range Interpretation Code Description Data Keturah rce(s) Supporting Document(s) PT 9.4-12.5 Above high normal [facility] INR Normal (applies to non-numeric results) [facility] The use of the INR is restricted to mindy ents on stable oral anticoagulant. Therapeutic Range: 2.0-3.0 High Risk Values: 2.5-3.5 ID Date Data Source [id number] 05/13/2020 07:47:00 AM [facility] Name Value Range Interpretation Code Description Data Keturah rce(s) Supporting Document(s) PTT 25.1-36.5 Normal (applies to non-numeric resul ts) [facility] ID Date Data Source [id number] 05/13/2020 07:47:00 AM [facility] Name Value Range Interpretation Code Description Data Keturah rce(s) Supporting Document(s) D-Dimer Quant 1112 ng/mLFEU <500 PH [facility] TESS SANCHEZ read back critical informat ion 05/13/20 0741 LAB.HUCTR Positive for D-Dimer. DVT/PE or DIC may be present. D-Dimer is an exclusionary test and is used in conjunction with a clinical pretest probability (PTP) assessment model to exclude DVT and PE. Consider further diagnostic studies to confirm diagnosis. ID Date Data Source [id number] 05/13/2020 06:57:00 AM [facility] Name Value Range Interpretation Code Description Data Keturah rce(s) Supporting Document(s) White Blood Count 4.8-10.8 Above high normal [facility] Red Blood Count 3.68-5.22 Normal (applies to non-numeric results) [facility] Hemoglobin 11.2-15.7 Normal (applies to non-numeric resul ts) [facility] Hematocrit 34.1-44.9 Normal (applies to non-numeric resul ts) [facility] Mean Corpuscular Volume 81-99 Normal (applies to non- numeric results) [facility] Mean Corpuscular Hemoglobin 27.0-33.0 Normal (appli es to non-numeric results) [facility] Mean Corpuscular HGB Conc 32.0-36.0 Normal (applies to no n-numeric results) [facility] Red Cell Distribution Width 11.5-14.5 Normal (appli es to non-numeric results) [facility] Platelet Count 254 X10 3/uL 130-450 Normal (applies to non-numeric results) [facility] Mean Platelet Volume 9.5-12.7 Normal (applies to non-num dusty results) [facility] Imm Grans% (AUTO) 1 % 0-2 Normal (applies to non-numeri c results) [facility] Neutrophils % (AUTO) 84 % 40-75 Above high normal [facility] Lymphocytes % (AUTO) 6 % 21-46 Below low normal [facility] Monocytes % (AUTO) 9 % 5-12 Normal (applies to non-numer ic results) [facility] Eosinophils % (AUTO) 0 % 1-5 Below low normal [facility] Basophils % (AUTO) 0 % 0-1 Normal (applies to non-numer ic results) [facility] Imm Grans# (AUTO) 0.0-0.5 Normal (applies to non-numeri c results) [facility] Neutrophils # (AUTO) 1.5-8.1 Above high normal [facility] Lymphocytes # (AUTO) 1.0-3.1 Below low normal [facility] Monocytes # (AUTO) 0.2-1.3 Normal (applies to non-numer ic results) [facility] Eosinophils# (AUTO) 0.0-0.5 Normal (applies to non-nume cee results) [facility] Basophils # (AUTO) 0.0-0.1 Normal (applies to non-numer ic results) [facility] ID Date Data Source [id number] 05/12/2020 09:09:00 PM EST [facility] Name Value Range Interpretation Code Description Data Keturah rce(s) Supporting Document(s) LAB Glucose,Fingerstick 123 mg/dL 70-110 Above high normal [facility] ID Date Data Source [id number] 05/12/2020 09:49:00 PM [facility] Name Value Range Interpretation Code Description Data Keturah rce(s) Supporting Document(s) LAB Glucose,Fingerstick 73 mg/dL 70-110 Normal (applies t o non-numeric results) [facility] ID Date Data Source [id number] 05/12/2020 01:53:00 PM [facility] Name Value Range Interpretation Code Description Data Keturah rce(s) Supporting Document(s) LAB Glucose,Fingerstick 180 mg/dL 70-110 Above high normal [facility] ID Date Data Source [id number] 05/12/2020 01:53:00 PM [facility] Name Value Range Interpretation Code Description Data Keturah rce(s) Supporting Document(s) LAB Glucose,Fingerstick 121 mg/dL 70-110 Above high normal [facility] ID Date Data Source [id number] 05/12/2020 06:25:00 AM [facility] Name Value Range Interpretation Code Description Data Keturah rce(s) Supporting Document(s) PT 9.4-12.5 Above high normal [facility] INR Normal (applies to non-numeric results) [facility] The use of the INR is restricted to mindy ents on stable oral anticoagulant. Therapeutic Range: 2.0-3.0 High Risk Values: 2.5-3.5 ID Date Data Source [id number] 05/12/2020 06:25:00 AM [facility] Name Value Range Interpretation Code Description Data Keturah rce(s) Supporting Document(s) PTT 25.1-36.5 Above high normal [facility] ID Date Data Source [id number] 05/12/2020 06:25:00 AM [facility] Name Value Range Interpretation Code Description Data Keturah rce(s) Supporting Document(s) D-Dimer Quant 468 ng/mLFEU <500 Normal (applies to non-numeric results) [facility] Negative for D-Dimer. This test has f ull FDA exclusion claim at a Negative cutoff value of 500 ng/mL FEU. When the d-dimer value is used in conjunction with the clinical pretest probability (PTP) assessment model to exclude DVT and PE, results less than 500 ng/mL are negative for DVT/PE. ID Date Data Source [id number] 05/12/2020 06:23:00 AM [facility] Name Value Range Interpretation Code Description Data Keturah rce(s) Supporting Document(s) Sodium 143 mmol/L 137-145 Normal (applies to non-numeric resul ts) [facility] Potassium 3.5-5.1 Normal (applies to non-numeric resul ts) [facility] Chloride 112 mmol/L 98-112 Normal (applies to non-numeric resul ts) [facility] Carbon Dioxide CO2 22.0-33.0 Normal (applies to non-numer ic results) [facility] Anion Gap 4.0-11.0 Normal (applies to non-numeric resul ts) [facility] BUN 46 mg/dL 7-17 Above high normal [facility] Creatinine 0.70-1.20 Above high normal [facility] GFR 40 mL/min >60 Below low normal [facility] Result based on MDRD formula. Glucose Level 122 mg/dL 74-99 Above high normal [facility] The reference range is only applicable w hen fasting. Calcium-Uncorrected 8.4-10.2 Normal (applies to non-nume cee results) [facility] Corrected Calcium 8.4-10.2 Normal (applies to non-numeri c results) [facility] Bilirubin,Total 0.2-1.3 Normal (applies to non-numeric results) [facility] SGOT(AST) 20 U/L 14-36 Normal (applies to non-numeric resul ts) [facility] SGPT(ALT) 22 U/L 9-52 Normal (applies to non-numeric resul ts) [facility] Alkaline Phosphatase 84 U/L 38-126 Normal (applies to non-num dusty results) [facility] can increase Alkaline Phosp le vels up to 2 times the normal adult value. Normal values for children and adolescents are 2 to 3 times the normal adult value. Total Protein 6.3-8.2 Normal (applies to non-numeric re sults) [facility] Albumin 3.5-5.0 Below low normal [facility] ID Date Data Source [id number] 05/12/2020 06:23:00 AM EST [facility] Name Value Range Interpretation Code Description Data Keturah rce(s) Supporting Document(s) Ferritin 478 ng/mL 11.1-264.0 Above high normal [facility] ID Date Data Source [id number] 05/12/2020 06:23:00 AM EST [facility] Name Value Range Interpretation Code Description Data Keturah rce(s) Supporting Document(s) LDH 314 U/L 84-246 Above high normal [facility] Hospital ID Date Data Source [id number] 05/12/2020 06:23:00 AM EST [facility] Name Value Range Interpretation Code Description Data Keturah rce(s) Supporting Document(s) C-Reactive Protein,Wide Range <3.00 Above high normal [facility] ID Date Data Source [id number] 05/12/2020 06:07:00 AM EST [facility] Name Value Range Interpretation Code Description Data Keturah rce(s) Supporting Document(s) White Blood Count 4.8-10.8 Normal (applies to non-numeri c results) [facility] Red Blood Count 3.68-5.22 Normal (applies to non-numeric results) [facility] Hemoglobin 11.2-15.7 Normal (applies to non-numeric resul ts) [facility] Hematocrit 34.1-44.9 Normal (applies to non-numeric resul ts) [facility] Mean Corpuscular Volume 81-99 Normal (applies to non- numeric results) [facility] Mean Corpuscular Hemoglobin 27.0-33.0 Normal (appli es to non-numeric results) [facility] Mean Corpuscular HGB Conc 32.0-36.0 Normal (applies to no n-numeric results) [facility] Red Cell Distribution Width 11.5-14.5 Normal (appli es to non-numeric results) [facility] Platelet Count 247 X10 3/uL 130-450 Normal (applies to non-numeric results) [facility] Mean Platelet Volume 9.5-12.7 Normal (applies to non-num dusty results) [facility] Imm Grans% (AUTO) 1 % 0-2 Normal (applies to non-numeri c results) [facility] Neutrophils % (AUTO) 81 % 40-75 Above high normal [facility] Lymphocytes % (AUTO) 9 % 21-46 Below low normal [facility] Monocytes % (AUTO) 9 % 5-12 Normal (applies to non-numer ic results) [facility] Eosinophils % (AUTO) 0 % 1-5 Below low normal [facility] Basophils % (AUTO) 0 % 0-1 Normal (applies to non-numer ic results) [facility] Imm Grans# (AUTO) 0.0-0.5 Normal (applies to non-numeri c results) [facility] Neutrophils # (AUTO) 1.5-8.1 Normal (applies to non-num dusty results) [facility] Lymphocytes # (AUTO) 1.0-3.1 Below low normal [facility] Monocytes # (AUTO) 0.2-1.3 Normal (applies to non-numer ic results) [facility] Eosinophils# (AUTO) 0.0-0.5 Normal (applies to non-nume cee results) [facility] Basophils # (AUTO) 0.0-0.1 Normal (applies to non-numer ic results) [facility] ID Date Data Source [id number] 05/11/2020 11:10:00 PM EST [facility] Name Value Range Interpretation Code Description Data Keturah rce(s) Supporting Document(s) LAB Glucose,Fingerstick 179 mg/dL 70-110 Above high normal [facility] ID Date Data Source [id number] 05/10/2020 01:30:00 PM [facility] Hospital Name: [facility] Rec #: [id number] : 1935 Age/Sex: 84F Date of Service: 05/10/20 DISPOSITION SUMMARY Discharge Summary [facility] Name:[facility] Age:84 yrs Sex:Female :1935 Arrival:05/10/2020 13:30 Departure Date05/10/2020 Departure Time20:08 Private MD:Armen Gonzales Outcome: Hospitalize Location: Med- Surg 2 Condition: Chief Complaint: Cough - covid positive, Back Pain, Abdominal Pain Diagnosis: - Covid Prescriptions: Custom Notes: Attending Physician: Thee Paige MD Private MD: Armen Gonzales Mid Level Provider: Rikc Roberts RNP Hospitalizing Provider: Caroline Couch PA Orders: Lactic Acid, Urinalysis w/o Microscopy, Blood Culture-Venous, C-Reactive Protein,Wide Range, CBC with Auto Differential, Comprehensive Metabolic Pnl, XR Chest Xray Portable, D-Dimer Quant, Ferritin, LDH, Procalcitonin, Troponin I, Urinalysis Auto w/Microscopy, Urine Culture, Electrocardiogram, CT Chest - No Contrast, Ct Abdo & Pelvis without Contrast, Admit to Inpatient Discharge Instruction: Medication Reconciliation, SBAR Name Value Range Interpretation Code Description Data Keturah rce(s) Supporting Document(s) ID Date Data Source [id number] 05/10/2020 01:30:00 PM [facility] Name: [facility]IE[facility] Rec #: [id number] : 1935 Age/Sex: 84F Date of Service: 05/10/20 NURSE CHART Nurse's Notes [facility] Name: Diego Albert Age: 84 yrs Sex: Female : 1935 Arrival Date: 05/10/2020 Time: 13:30 Bed EDRU-1 Private MD: Armen Gonzales Diagnosis: Covid Presentation: 05/10 13:39 Transition of care: patient was not received from another [facility] setting of care. Presenting complaint: Patient states - Tested positive for covid yesterday. States she still has a cough and also having low back and abdominal pain. States she is currently on abx for UTI. Have you travelled in the last 30 days? No. Have you had contact with an individual with a confirmed diagnosis of Ebola or COVID-19? Yes, COVID-19: fever OR Cough OR SOB present. 13:39 Method Of Arrival: Wheelchair dcb 13:39 Acuity: Urgent - 3 [facility] Triage Assessment: 13:40 SEPSIS SCREEN: A Confirmed or Suspected Infection is meb Unknown, their temperature is not <96.8 or >100.9, their heart rate is not >90, their RR is not >20, it is unknown if their WBC is <4 or >12, the patient does not have new or unexplained altered mental status. SIRS or Sepsis criteria is not present. Suicide Screening: Have you had thoughts of harming yourself or others? No. The patient appears to have no apparent distress, The patient is behaving appropriately according to age. The patient complains of pain in low back, lower abdomen. 19:51 Musculoskeletal: jlj - Med Reconciliation:: Yellow Alert: The patient's home medication list is partly complete. However, additional information is required to complete list. Medications reviewed, completed by nurse verbally from patient/family. - Immunization history: All immunizations are up to date. Flu vaccine is up to date. - Advance directive: There is no existing advanced directive. Information offered. - Family History:: mother : unknown medical history. Father : unknown medical histor y. - Social History: Smoking status (Tobacco): Patient states he/she has never smoked tobacco. Preferred Language: [place] No barriers to communication noted, The patient speaks fluent [place], Speaks appropriately for age. Screenin:41 AUDIT 1. How often do you have a drink containing alcohol? meb Never (0 points). Drug Abuse Screening Test: 1. Have you used drugs other than those required for medical reasons? No (0 points), screen is complete, no risk. Abuse screen: Denies threats or abuse. Denies injuries from another. Nutritional screening: No deficits noted. 20:07 Pt uses a walker to ambulate (15 pts) Patient's gait is jlj weak (10 points). The patient is at HIGH RISK for falls (Canales Scale = >45 pts). Fall prevention measures have been instituted. Side rails are up, patient is being reassessed frequently, Patient and Family have been educated on fall prevention program and strategies. Vital Signs: 13:40 BP 119 / 76; Pulse 63; Resp 16; Temp 97.8(TE); Pulse Ox 94% meb on R/A; Weight 61.23 kg (R); Height 4 ft. 11 in. (149.86 cm) (R); Pain 6/10; 14:51 BP 123 / 69; Pulse 78; Resp 14; Pulse Ox 96% on R/A; tp1 17:15 BP 123 / 69; Pulse 65; Resp 18; Temp 97.3(TE); Pulse Ox 90% meb on R/A; 18:11 Pulse Ox 96% on 2 lpm NC; meb 19:50 BP 146 / 59; Pulse 75; Resp 16; Temp 98.5; Pulse Ox 96% on jlj 2 lpm NC; 13:40 Body Mass Index 27.27 (61.23 kg, 149.86 cm) meb ED Course: 13:30 Patient arrived in ED. maddy 13:37 Lorena Stockton, HEATHER is Primary Nurse. meb 13:38 Armen Gonzales is Private Physician. meb 13:39 Rcik Roberts RNP is PHCP. wn 13:39 Thee Paige MD is Attending Physician. wn 13:40 Triage completed. meb 14:50 Bed in low position. Call light in reach. Side rails up X 1.tp1 14:54 Radiology: a portable X-ray was completed at 14:00. tp1 15:39 Urine collected. Clean catch specimen. meb 16:58 Radiology: The patient went to get his/her CT at 16:58. meb 16:58 Ct Abdo & Pelvis without Contrast Sent. meb 16:58 CT Chest - No Contrast Sent. meb 16:58 Electrocardiogram Sent. meb 17:24 Caroline Couch PA is Hospitalizing Provider. wn 18:28 Inserted saline lock: 22 gauge in right antecubital area. meb 19:36 No procedures ordered. meb 19:50 Arm band placed on right wrist. jlj Administered Medications: No medications were administered Outcome: 17:25 Decision to Hospitalize by Provider. wn 19:13 A copy of the SBAR document has been sent to the receiving meb department. 19:33 Patient verbalized understanding of disposition meb instructions. Patient has no functional deficits. Patient awake and alert. Oriented to person, place and time. 19:33 Patient admitted to Med/Surg, accompanied by tech, via wheelchair, with oxygen, with chart. 19:33 Condition: stable 19:33 Discharge instructions given to patient, Patient was instructed on purpose of admission . Not Applicable. 19:33 Report given to Anna ROMERO, APU 19:50 Vitals are Complete in accordance with Emergency Department jl Policy. 20:08 Patient left the ED. [facility] Signatures: Rick Roberts RNP RNP wn Palmer, Ted, RN RN Miya Burns Mikayla RN RN Eryn Merritt RN RN tristen Name Value Range Interpretation Code Description Data Keturah rce(s) Supporting Document(s) ID Date Data Source [id number] 05/10/2020 01:30:00 PM [facility] Name: DIE[facility] Rec #: [id number] : 1935 Age/Sex: 84F Date of Service: 05/10/20 PHYSICIAN CHART Physician Documentation [facility] Name: Diego Albert Age: 84 yrs Sex: Female : 1935 Arrival Date: 05/10/2020 Time: 13:30 Bed EDRU-1 Private MD: Armen Gonzales ED Physician Thee Paige Disposition: 05/10 17:35 Attestation: I discussed the plan of care with [facility] Provider and agree with what they have documented. HPI: 15:26 This 84 yrs old Female presents to ER via Wheelchair with complaints of Cough - covid positive, Back Pain, Abdominal Pain. 15:26 Patient is an 84-year-old female who presents to the emergency room with positive Covid test. She is complaining of lower abdominal pain, back pain and a cough. Patient has recently been treated for a urinary tract infection. States that her appetite is off but denies any change in her her sense of taste. Denies significant shortness of breath.. - Med Reconciliation:: Yellow Alert: The patient's home medication list is partly complete. However, additional information is required to complete list. Medications reviewed, completed by nurse verbally from patient/family. - Immunization history: All immunizations are up to date. Flu vaccine is up to date. - Advance directive: There is no existing advanced directive. Information offered. - Family History:: mother : unknown medical history. Father : unknown medical history. - Social History: Smoking status (Tobacco): Patient states he/she has never smoked tobacco. Preferred Language: [place]an No barriers to communication noted, The patient speaks fluent [place], Speaks appropriately for age. ROS: 15:27 Constitutional: Negative for fever. Respiratory: Pos itive wn for cough, with no reported sputum, Negative for shortness of breath. Abdomen/GI: Positive for abdominal pain. Back: Positive for pain at rest. Exam: 15:28 Constitutional: This is a well developed, well nourished patient who is awake, alert, afebrile and in no acute distress. Head/Face: Normocephalic, atraumatic. Cardiovascular: Regular rate and rhythm Respiratory: Easy respiratory effort, lungs are clear to auscultation Abdomen/GI: soft, non- tender throughout, no guarding or rebound tenderness. Back: No spinal tenderness. No costovertebral tenderness. Full range of motion. Vital Signs: 13:40 BP 119 / 76; Pulse 63; Resp 16; Temp 97.8(TE); Pulse Ox 94% meb on R/A; Weight 61.23 kg (R); Height 4 ft. 11 in. (149.86 cm) (R); Pain 6/10; 14:51 BP 123 / 69; Pulse 78; Resp 14; Pulse Ox 96% on R/A; tp1 17:15 BP 123 / 69; Pulse 65; Resp 18; Temp 97.3(TE); Pulse Ox 90% meb on R/A; 18:11 Pulse Ox 96% on 2 lpm NC; meb 19:50 BP 146 / 59; Pulse 75; Resp 16; Temp 98.5; Pulse Ox 96% on jlj 2 lpm NC; 13:40 Body Mass Index 27.27 (61.23 kg, 149.86 cm) meb MDM: 13:39 Patient medically screened. wn 17:22 Data reviewed: vital signs, nurses notes. ED course: To wn summarize this is an 84-year-old female who tested positive for COVID-19 who presents to the emergency room with shortness of breath, nausea, vomiting and weakness. She initially was satting 96% on room air but has desatted to 90%. She does not demonstrate respiratory distress at this time. Her labs are reassuring with an elevated ferritin only at 389. Her lactic acid is 291. Procalcitonin was normal. Lactic acid was 1.1. C-reactive protein 37.1. Chest x-ray was consistent with Covid 19 with groundglass opacities as was her CT of the chest. I spoke with the hospitalist who agrees with admission. I did speak with the patient's family and advised of her condition and need for admission.. 17:25 Case presented to: Dr. Thee Paige. wn 14:20 Order name: Lactic Acid EDMS 05/10 14:20 Order name: Urinalysis w/o Microscopy EDMS 05/10 14:20 Order name: Blood Culture- Venous EDMS 05/10 14:20 Order name: C-Reactive Protein,Wide Range EDMS 05/10 14:20 Order name: CBC with Auto Differential EDMS 05/10 14:20 Order name: Comprehensive Metabolic Pnl EDMS 05/10 14:19 Order name: XR Chest Xray Portable EDMS 05/10 14:20 Order name: D-Dimer Quant EDMS 05/10 14:20 Order name: Ferritin EDMS 05/10 14:20 Order name: LDH EDMS 05/10 14:20 Order name: Procalcitonin EDMS 05/10 14:20 Order name: Troponin I EDIA 05/10 16:24 Order name: Urinalysis Auto w/Microscopy EDMS 05/10 16:24 Order name: Urine Culture EDMS 05/10 14:20 Order name: Electrocardiogram EDMS 05/10 16:37 Order name: CT Chest - No Contrast wn 05/10 16:37 Order name: Ct Abdo & Pelvis without Contrast wn 05/10 17:47 Order name: Admit to Inpatient EDMS Dispensed Medications: No medications were administered Disposition Summary: 05/10/20 17:25 Hospitalization Ordered Hospitalization Status: Inpatient Admission wn Provider: Caroline Couch Location: Med-Surg [facility] Room Assignment: [id number](05/10/20 18:42) sf2 Diagnosis - Covid wn Additional Information - Patient Status Inpatient. wn Forms: - Medication Reconciliation wn - SBAR wn Signatures: Dispatcher [employer] EDIA Rick Roberts RNP SPECIAL EDUCATION TEACHER wn Thee Paige MD MD jam2 Tressa Cruz sf2 Lorena Stockton RN RN meb Johnson, Jessica, RN RN jlj Corrections: (The following items were deleted from the chart) 18:42 17:25 wn sf2 Name Value Range Interpretation Code Description Data Keturah rce(s) Supporting Document(s) ID Date Data Source [id number] 05/11/2020 05:54:00 PM [facility] Name Value Range Interpretation Code Description Data Keturah rce(s) Supporting Document(s) LAB Glucose,Fingerstick 220 mg/dL 70-110 Above high normal [facility] ID Date Data Source [id number] 05/11/2020 05:54:00 PM [facility] Name Value Range Interpretation Code Description Data Keturah rce(s) Supporting Document(s) LAB Glucose,Fingerstick 184 mg/dL 70-110 Above high normal [facility] ID Date Data Source [id number] 05/11/2020 05:41:00 PM [facility] Name: DIEGO ALBERT : 1935 Age /Sex: 84F Ordering Provider: VICTORINA Diallo Med Rec #: [id number] Reg Status:ADM IN Room #: 210-2 Date of Service: 05/11/20 Report Number: [id number] cc: Twila Proctor MD; Armen Meraz IV, RNP; VICTORINA Diallo Send Report To: Reason for exam: Shortness of Breath ATRIAL FIBRILLATION INTRAVENTRICULAR CONDUCTION DELAY ABNORMAL ECG NO OLD EKG AVAILABLE FOR COMPARISON Physician Crop Roller: Leland Ryder M.D. ECG HEART RATE: 63 /min ECG RR INTERVAL: 946 ms ECG P DURATION: ms ECG QRS DURATION: 141 ms ECG IN INTERVAL: ms ECG QT INTERVAL: 388 ms ECG QTC INTERVAL: 393 ms Q-T dispersion: ms ECG P AXIS: deg ECG QRS AXIS: 76 deg ECG T AXIS: 87 deg REPORT SIGNATURE ON FILE 05/11/201740 Reported By: Leland Ryder MD, [facility] <<Signature on File>> Exam Date/Time: 05/11/20 0948 Order #: [id number] Dictation Date/Time: 05/11/201740 Transcribed Date/Time: 05/11/201740 Feed Research Aide: TOYA Name Value Range Interpretation Code Description Data Keturah rce(s) Supporting Document(s) ID Date Data Source [id number] 05/11/2020 09:00:00 AM [facility] Name Value Range Interpretation Code Description Data Keturah rce(s) Supporting Document(s) LAB Glucose,Fingerstick 138 mg/dL 70-110 Above high normal [facility] ID Date Data Source [id number] 05/11/2020 07:59:00 AM EST [facility] Name Value Range Interpretation Code Description Data Keturah rce(s) Supporting Document(s) Sodium 145 mmol/L 137-145 Normal (applies to non-numeric resul ts) [facility] Potassium 3.5-5.1 Normal (applies to non-numeric resul ts) [facility] [facility] Chloride 112 mmol/L 98-112 Normal (applies to non-numeric resul ts) [facility] Carbon Dioxide CO2 22.0-33.0 Normal (applies to non-numer ic results) [facility] Anion Gap 4.0-11.0 Normal (applies to non-numeric resul ts) [facility] BUN 31 mg/dL 7-17 Above high normal [facility] Creatinine 0.70-1.20 Normal (applies to non-numeric resul ts) [facility] GFR 47 mL/min >60 Below low normal [facility] Result based on MDRD formula. Glucose Level 128 mg/dL 74-99 Above high normal [facility] The reference range is only applicable w hen fasting. Calcium-Uncorrected 8.4-10.2 Normal (applies to non-nume cee results) [facility] Corrected Calcium 8.4-10.2 Normal (applies to non-numeri c results) [facility] Bilirubin,Total 0.2-1.3 Normal (applies to non-numeric results) [facility] SGOT(AST) 18 U/L 14-36 Normal (applies to non-numeric resul ts) [facility] SGPT(ALT) 20 U/L 9-52 Normal (applies to non-numeric resul ts) [facility] Alkaline Phosphatase 82 U/L 38-126 Normal (applies to non-num dusty results) [facility] can increase Alkaline Phosp le vels up to 2 times the normal adult value. Normal values for children and adolescents are 2 to 3 times the normal adult value. Total Protein 6.3-8.2 Normal (applies to non-numeric re sults) [facility] Albumin 3.5-5.0 Below low normal [facility] Hospital ID Date Data Source [id number] 05/11/2020 07:59:00 AM [facility] Name Value Range Interpretation Code Description Data Keturah rce(s) Supporting Document(s) Ferritin 441 ng/mL 11.1-264.0 Above high normal [facility] Hospital ID Date Data Source [id number] 05/11/2020 07:59:00 AM [facility] Value Range Interpretation Code Description Data Keturah rce(s) Supporting Document(s) LDH 302 U/L 84-246 Above high normal [facility] Hospital ID Date Data Source [id number] 05/11/2020 07:59:00 AM [facility] Value Range Interpretation Code Description Data Keturah rce(s) Supporting Document(s) C-Reactive Protein,Wide Range <3.00 Above high normal [facility] ID Date Data Source [id number] 05/11/2020 07:58:00 AM [facility] Value Range Interpretation Code Description Data Keturah rce(s) Supporting Document(s) PT 9.4-12.5 Above high normal [facility] INR Normal (applies to non-numeric results) [facility] The use of the INR is restricted to mindy ents on stable oral anticoagulant. Therapeutic Range: 2.0-3.0 High Risk Values: 2.5-3.5 ID Date Data Source [id number] 05/11/2020 07:58:00 AM [facility] Value Range Interpretation Code Description Data Keturah rce(s) Supporting Document(s) PTT 25.1-36.5 Above high normal [facility] Hospital ID Date Data Source [id number] 05/11/2020 07:58:00 AM [facility] Value Range Interpretation Code Description Data Keturah rce(s) Supporting Document(s) D-Dimer Quant 479 ng/mLFEU <500 Normal (applies to non-numeric results) [facility] Negative for D-Dimer. This test has f ull FDA exclusion claim at a Negative cutoff value of 500 ng/mL FEU. When the d-dimer value is used in conjunction with the clinical pretest probability (PTP) assessment model to exclude DVT and PE, results less than 500 ng/mL are negative for DVT/PE. ID Date Data Source [id number] 05/11/2020 07:40:00 AM EST [facility] Name Value Range Interpretation Code Description Data Keturah rce(s) Supporting Document(s) White Blood Count 4.8-10.8 Normal (applies to non-numeri c results) [facility] Red Blood Count 3.68-5.22 Normal (applies to non-numeric results) [facility] Hemoglobin 11.2-15.7 Normal (applies to non-numeric resul ts) [facility] Hematocrit 34.1-44.9 Below low normal [facility] Mean Corpuscular Volume 81-99 Normal (applies to non- numeric results) [facility] Mean Corpuscular Hemoglobin 27.0-33.0 Normal (appli es to non-numeric results) [facility] Mean Corpuscular HGB Conc 32.0-36.0 Normal (applies to no n-numeric results) [facility] Red Cell Distribution Width 11.5-14.5 Normal (appli es to non-numeric results) [facility] Platelet Count 207 X10 3/uL 130-450 Normal (applies to non-numeric results) [facility] Mean Platelet Volume 9.5-12.7 Normal (applies to non-num dusty results) [facility] Imm Grans% (AUTO) 1 % 0-2 Normal (applies to non-numeri c results) [facility] Neutrophils % (AUTO) 82 % 40-75 Above high normal [facility] Lymphocytes % (AUTO) 8 % 21-46 Below low normal [facility] Monocytes % (AUTO) 10 % 5-12 Normal (applies to non-numer ic results) [facility] Eosinophils % (AUTO) 0 % 1-5 Below low normal [facility] Basophils % (AUTO) 0 % 0-1 Normal (applies to non-numer ic results) [facility] Imm Grans# (AUTO) 0.0-0.5 Normal (applies to non-numeri c results) [facility] Neutrophils # (AUTO) 1.5-8.1 Normal (applies to non-num dusty results) [facility] Lymphocytes # (AUTO) 1.0-3.1 Below low normal [facility] Monocytes # (AUTO) 0.2-1.3 Normal (applies to non-numer ic results) [facility] Eosinophils# (AUTO) 0.0-0.5 Normal (applies to non-nume cee results) [facility] Basophils # (AUTO) 0.0-0.1 Normal (applies to non-numer ic results) [facility] ID Date Data Source [id number] 05/11/2020 02:05:00 AM [facility] Methodology: Isothermal Nucleic Aci d Amplification Reference value: Influenza A and B viral RNA not detected This result does not rule out co- infections with other pathogens or identify any specific influenza A or B virus subtype/lineage. Negative results do not preclude infection with influenza virus and should not be the sole basis of a patient treatment decision.Not detectedNot detected Name Value Range Interpretation Code Description Data Keturah rce(s) Supporting Document(s) ID Date Data Source [id number] 05/10/2020 10:19:00 PM [facility] Name Value Range Interpretation Code Description Data Keturah rce(s) Supporting Document(s) LAB Glucose,Fingerstick 90 mg/dL 70-110 Normal (applies t o non-numeric results) [facility] ID Date Data Source [id number] 05/15/2020 10:08:00 PM [facility] Name Value Range Interpretation Code Description Data Keturah rce(s) Supporting Document(s) Blood Culture-Venous [facility] ID Date Data Source [id number] 05/11/2020 02:06:00 AM [facility] Name Value Range Interpretation Code Description Data Keturah rce(s) Supporting Document(s) BLOOD TYPE PATIENT O Positive Normal (applies to non-numer ic results) [facility] ANTIBODY SCREEN NEGATIVE Normal (applies to non-numeric results) [facility] ID Date Data Source [id number] 05/10/2020 11:05:00 PM [facility] Name Value Range Interpretation Code Description Data Keturah rce(s) Supporting Document(s) Procalcitonin 0.00-0.24 Normal (applies to non-numeric re sults) [facility] 1.Risk of Progression to severe sepsis a nd septic shock: < 0.50 ng/mL Low Risk of severe sepsis and/or septic shock > 2.00 ng/mL High Risk of severe sepsis and/or septic shock 2.Decision on antibiotic discontinuation for suspected or confirmed septic patients: Antibiotic therapy may be discontinued if the current PCT is <0.50 ng/mL or if there is an 80% decrease in PCT. 3.Decision for antibiotic therapy for patients with suspected or confirmed Lower Respiratory Tract Infection (LRTI): >0.25 ng/mL - Antibiotic therapy encouraged 4.Decision on antibiotic discontinuation for patients with suspected or confirmed LRTI: Antibiotic therapy may be discontinued if the current PCT is <0.25 ng/mL or if there is an 80% decrease in PCT. NOTE: Antibiotic therapy should be considered regardless of PCT result if the patient is clinically unstable, is at high risk for adverse outcome, has strong evidence of bacterial pathogen or the clinical context indicates antibiotic therapy is warranted. ID Date Data Source [id number] 05/10/2020 10:37:00 PM [facility] Name Value Range Interpretation Code Description Data Keturah rce(s) Supporting Document(s) Troponin I 0.000-0.045 Normal (applies to non-numeric resu lts) [facility] ID Date Data Source [id number] 05/10/2020 06:43:00 PM [facility] Hospital Name: DIEGO ALBERT : 1935 Age /Sex: 84F Ordering Provider: VICTORINA Diallo Rec #: [id number] Reg Status: ADM IN Room #: 210-2 Date of Service: 05/10/20 Report Number: [id number] cc:Armen Meraz IV, VICTORINA; VICTORINA Diallo Send Report To: [id number] CT/CT Abdomen & Pelvis No Contras Reason for exam: COVID, ABD/BACK PAIN FINDINGS: Bibasilar lung disease consistent with COVID pneumonia. The liver and spleen appear normal. The adrenals appear normal. Cyst off the right kidney measuring 1.6 cm. Cyst off the lateral border of the left kidney measuring 2.6 cm. Hyperdensity off the latera border of the left kidney measuring 9 mm with another one off the lower pole region measuring 7 mm, likely hyperdense proteinaceous cyst. The pancreas and gallbladder appear normal. No focal inflammation. Bowel loops within normal limits, except for diverticulosis of thesigmoid colon. The bladder appears normal. No other significant findings identified. IMPRESSION: Bibasilar COVID pneumonia. Diverticulosis. No other significant findings. Fluoroscopy time in seconds: Number of Exposures: Time Portable Image Performed: Contrast Agent in ml: Method of Administration: REPORT SIGNATURE ON FILE Reported By: Jaguar Orr MD <Electronically signed by Sylvie Orr MD> 05/11/20 0946 Dictation Date/Time: 05/10/201754 Transcribed Date/Time: 05/10/20 184 [employer] Aide: JACQUI Name Value Range Interpretation Code Description Data Keturah rce(s) Supporting Document(s) ID Date Data Source [id number] 05/10/2020 06:40:00 PM [facility] Name: DIEGO ALBERT : 1935 Age /Sex: 84F Ordering Provider: VICTORINA Diallo Med Rec #: [id number] Reg Status: ADM IN Room #: 210-2 Date of Service: 05/10/20 Report Number: [id number] cc:Armen Meraz IV, SPECIAL EDUCATION TEACHER; VICTORINA Diallo Send Report To: [id number] CT/CT Chest No Contrast Reason for exam: COVID FINDINGS: Atherosclerotic changes in the aorta. Cardiomegaly noted. Upper abdomen demonstrates cyst in the right kidney measuring 1.4 cm. There is patchy bilateral air space disease identified consistent with COVID pneumonia. No other significant findings noted. IMPRESSION: Cardiomegaly. Bilateral COVID pneumonia. Fluoroscopy time in seconds: Number of Exposures: Time Portable Image Performed: Contrast Agent in ml: Method of Administration: REPORT SIGNATURE ON FILE Reported By: Jaguar Orr MD <Electronically signed by Sylvie Orr MD> 05/11/20 0946 Dictation Date/Time: 05/10/201754 Transcribed Date/Time: 05/10/201839 [employer] Aide: JACQUI Name Value Range Interpretation Code Description Data Keturah rce(s) Supporting Document(s) ID Date Data Source [id number] 05/12/2020 09:58:00 AM [facility] Name Value Range Interpretation Code Description Data Keturah rce(s) Supporting Document(s) Urine Culture Normal (applies to non-numeric re sults) [facility] ID Date Data Source [id number] 05/10/2020 04:46:00 PM [facility] Name Value Range Interpretation Code Description Data Keturah rce(s) Supporting Document(s) Color,Urine Yellow Normal (applies to non-numeric resu lts) [facility] Clarity,Urine Clear Normal (applies to non-numeric re sults) [facility] Specific Moro,Urine 1.001-1.030 Normal (applies to non- numeric results) [facility] PH,Urine 5.0-8.0 Normal (applies to non-numeric resul ts) [facility] Protein,Urine Negative [facility] Glucose,Urine (UA) Negative Normal (applies to non-numer ic results) [facility] Ketones,Urine Negative [facility] Blood,Urine Negative Normal (applies to non-numeric resu lts) [facility] Bilirubin,Urine Negative Normal (applies to non-numeric results) [facility] Urobilinogen,Urine Norm 0.2-1 Normal (applies to non-numer ic results) [facility] Leukocyte Esterase,Urine Negative [facility] Nitrite,Urine Negative Normal (applies to non-numeric re sults) [facility] ID Date Data Source [id number] 05/10/2020 04:47:00 PM EST [facility] Name Value Range Interpretation Code Description Data Keturah rce(s) Supporting Document(s) WBC,URINE 0-10 Normal (applies to non-numeric resul ts) [facility] RBC,Urine 0-2 Normal (applies to non-numeric resul ts) [facility] Hyaline Casts,Ur None Seen Normal (applies to non-numeric results) [facility] Bacteria,Urine None Seen Normal (applies to non-numeric r esults) [facility] Epithelial Cell,Ur None-Few [facility] ID Date Data Source [id number] 05/15/2020 03:50:00 PM [facility] Name Value Range Interpretation Code Description Data Keturah rce(s) Supporting Document(s) Blood Culture-Venous [facility] ID Date Data Source [id number] 05/10/2020 07:24:00 PM [facility] MB if CPK is elevated? Y MB if CPK is elevated? Y Name Value Range Interpretation Code Description Data Keturah rce(s) Supporting Document(s) CPK 34 U/L 26-192 Normal (applies to non-numeric resul ts) [facility] ID Date Data Source [id number] 05/10/2020 07:24:00 PM [facility] MB if CPK is elevated? Y MB if CPK is elevated? Y Name Value Range Interpretation Code Description Data Keturah rce(s) Supporting Document(s) B-Type Natriuretic Peptide BNP 2379 pg/mL <450 Above high ty l [facility] NT-proBNP values less than 300 pg/mL hav e a 99% negative predictive value for excluding acute congestive heart failure. A diagnostic NT-proBNP cutoff of 900 pg/mL has been suggested in adults over 50 years of age in the absence of renal failure. A cutoff of 1200 pg/mL for patients with GFR <60 yields a diagnostic sensitivity and specificity of 89% and 72% for acute congestive failure. ID Date Data Source [id number] 05/10/2020 07:03:00 PM [facility] Name Value Range Interpretation Code Description Data Keturah rce(s) Supporting Document(s) Fibrinogen 472 mg/dL 173-454 Above high normal [facility] ID Date Data Source [id number] 05/10/2020 05:06:00 PM [facility] Name Value Range Interpretation Code Description Data Keturah rce(s) Supporting Document(s) Procalcitonin 0.00-0.24 Normal (applies to non-numeric re sults) [facility] 1.Risk of Progression to severe sepsis a nd septic shock: < 0.50 ng/mL Low Risk of severe sepsis and/or septic shock > 2.00 ng/mL High Risk of severe sepsis and/or septic shock 2.Decision on antibiotic discontinuation for suspected or confirmed septic patients: Antibiotic therapy may be discontinued if the current PCT is <0.50 ng/mL or if there is an 80% decrease in PCT. 3.Decision for antibiotic therapy for patients with suspected or confirmed Lower Respiratory Tract Infection (LRTI): >0.25 ng/mL - Antibiotic therapy encouraged 4.Decision on antibiotic discontinuation for patients with suspected or confirmed LRTI: Antibiotic therapy may be discontinued if the current PCT is <0.25 ng/mL or if there is an 80% decrease in PCT. NOTE: Antibiotic therapy should be considered regardless of PCT result if the patient is clinically unstable, is at high risk for adverse outcome, has strong evidence of bacterial pathogen or the clinical context indicates antibiotic therapy is warranted. ID Date Data Source [id number] 05/10/2020 04:34:00 PM [facility] Name Value Range Interpretation Code Description Data Keturah rce(s) Supporting Document(s) Troponin I 0.000-0.045 Normal (applies to non-numeric resu lts) [facility] ID Date Data Source [id number] 05/10/2020 04:32:00 PM EST [facility] Name Value Range Interpretation Code Description Data Keturah rce(s) Supporting Document(s) Sodium 141 mmol/L 137-145 Normal (applies to non-numeric resul ts) [facility] Potassium 3.5-5.1 Normal (applies to non-numeric resul ts) [facility] Chloride 109 mmol/L 98-112 Normal (applies to non-numeric resul ts) [facility] Carbon Dioxide CO2 22.0-33.0 Normal (applies to non-numer ic results) [facility] Anion Gap 4.0-11.0 Normal (applies to non-numeric resul ts) [facility] BUN 36 mg/dL 7-17 Above high normal [facility] Creatinine 0.70-1.20 Above high normal [facility] GFR 38 mL/min >60 Below low normal [facility] Result based on MDRD formula. Glucose Level 143 mg/dL 74-99 Above high normal [facility] The reference range is only applicable w hen fasting. Calcium-Uncorrected 8.4-10.2 Normal (applies to non-nume cee results) [facility] Corrected Calcium 8.4-10.2 Normal (applies to non-numeri c results) [facility] Bilirubin,Total 0.2-1.3 Normal (applies to non-numeric results) [facility] SGOT(AST) 21 U/L 14-36 Normal (applies to non-numeric resul ts) [facility] SGPT(ALT) 23 U/L 9-52 Normal (applies to non-numeric resul ts) [facility] Alkaline Phosphatase 83 U/L 38-126 Normal (applies to non-num dusty results) [facility] can increase Alkaline Phosp le vels up to 2 times the normal adult value. Normal values for children and adolescents are 2 to 3 times the normal adult value. Total Protein 6.3-8.2 Normal (applies to non-numeric re sults) [facility] Albumin 3.5-5.0 Below low normal [facility] ID Date Data Source [id number] 05/10/2020 04:32:00 PM [facility] Name Value Range Interpretation Code Description Data Keturah rce(s) Supporting Document(s) Ferritin 389 ng/mL 11.1-264.0 Above high normal [facility] ID Date Data Source [id number] 05/10/2020 04:32:00 PM [facility] Name Value Range Interpretation Code Description Data Keturah rce(s) Supporting Document(s) LDH 291 U/L 84-246 Above high normal [facility] ID Date Data Source [id number] 05/10/2020 04:32:00 PM [facility] Name Value Range Interpretation Code Description Data Keturah rce(s) Supporting Document(s) C-Reactive Protein,Wide Range <3.00 Above high normal [facility] ID Date Data Source [id number] 05/10/2020 04:14:00 PM [facility] Name Value Range Interpretation Code Description Data Keturha rce(s) Supporting Document(s) D-Dimer Quant 528 ng/mLFEU <500 PH [facility] BILL NOSTROM read back critical informat ion 05/10/20 1613 LAB.MCCAL Positive for D-Dimer. DVT/PE or DIC may be present. D-Dimer is an exclusionary test and is used in conjunction with a clinical pretest probability (PTP) assessment model to exclude DVT and PE. Consider further diagnostic studies to confirm diagnosis. ID Date Data Source [id number] 05/10/2020 04:04:00 PM [facility] Name Value Range Interpretation Code Description Data Keturah rce(s) Supporting Document(s) White Blood Count 4.8-10.8 Normal (applies to non-numeri c results) [facility] Red Blood Count 3.68-5.22 Normal (applies to non-numeric results) [facility] Hemoglobin 11.2-15.7 Normal (applies to non-numeric resul ts) [facility] Hematocrit 34.1-44.9 Normal (applies to non-numeric resul ts) [facility] Mean Corpuscular Volume 81-99 Normal (applies to non- numeric results) [facility] Mean Corpuscular Hemoglobin 27.0-33.0 Normal (appli es to non-numeric results) [facility] Mean Corpuscular HGB Conc 32.0-36.0 Normal (applies to no n-numeric results) [facility] Red Cell Distribution Width 11.5-14.5 Normal (appli es to non-numeric results) [facility] Platelet Count 202 X10 3/uL 130-450 Normal (applies to non-numeric results) [facility] Mean Platelet Volume 9.5-12.7 Normal (applies to non-num dusty results) [facility] Imm Grans% (AUTO) 1 % 0-2 Normal (applies to non-numeri c results) [facility] Neutrophils % (AUTO) 82 % 40-75 Above high normal [facility] Lymphocytes % (AUTO) 8 % 21-46 Below low normal [facility] Monocytes % (AUTO) 10 % 5-12 Normal (applies to non-numer ic results) [facility] Eosinophils % (AUTO) 0 % 1-5 Below low normal [facility] Basophils % (AUTO) 0 % 0-1 Normal (applies to non-numer ic results) [facility] Imm Grans# (AUTO) 0.0-0.5 Normal (applies to non-numeri c results) [facility] Neutrophils # (AUTO) 1.5-8.1 Normal (applies to non-num dusty results) [facility] Lymphocytes # (AUTO) 1.0-3.1 Below low normal [facility] Monocytes # (AUTO) 0.2-1.3 Normal (applies to non-numer ic results) [facility] Eosinophils# (AUTO) 0.0-0.5 Normal (applies to non-nume cee results) [facility] Basophils # (AUTO) 0.0-0.1 Normal (applies to non-numer ic results) [facility] ID Date Data Source [id number] 05/10/2020 03:58:00 PM EST [facility] 3 hour post Lactic if elevated? Y Name Value Range Interpretation Code Description Data Keturah rce(s) Supporting Document(s) Lactic Acid 0.4-2.0 Normal (applies to non-numeric resu lts) [facility] ID Date Data Source [id number] 05/11/2020 08:55:00 AM EST [facility] Name: DIEGO ALBERT : 1935 Age /Sex: 84F Ordering Provider: VICTORINA Diallo Med Rec #: [id number] Reg Status: ADM IN Room #: 210-2 Date of Service: 05/10/20 Report Number: [id number] cc:Armen Meraz IV, SPECIAL EDUCATION TEACHER; VICTORINA Diallo Send Report To: [id number] XRP/XR Chest Xray Portable Reason for exam: sob FINDINGS: Cardiomegaly noted. Left axillary clips noted. There are changes consistent with CHF with no other definite abnormalities otherwise noted. IMPRESSION: Changes of CHF noted. Fluoroscopy time in seconds: Number of Exposures: Time Portable Image Performed: 1400 Contrast Agent in ml: Method of Administration: REPORT SIGNATURE ON FILE Reported By: Jaguar Orr MD <Electronically signed by Sylvie Orr MD> 05/11/20 0946 Dictation Date/Time: 05/10/20 1423 Transcribed Date/Time: 05/11/20 0855 [employer] Research Aide: KATHY Name Value Range Interpretation Code Description Data Keturah rce(s) Supporting Document(s) ID Date Data Source [id number] 05/10/2020 09:21:00 AM EST [facility] Name Value Range Interpretation Code Description Data Keturah rce(s) Supporting Document(s) Respiratory specimen severe acute respir atory syndrome coronavirus 2 (SARS-CoV-2) RNA Positive (qualifier value) [facility] This lab was ordered by Wilfred[facility] and reported by . ID Date Data Source [id number] 05/10/2020 08:23:00 AM [facility] Name Value Range Interpretation Code Description Data Keturah rce(s) Supporting Document(s) SARS-CoV-2 RNA INHOUSE Negative [facility] THIS IS A [facility] REPORTABLE COMMUNICABLE DISEASE. Results called 05/10/20 0822,MOHAN/ANIKET BEDOYA read back information to LAB.[email or web address] Testing was performed using the [employer] COVID-19 MDx Assay. This test has been authorized by FDA under an (Emergency Use Authorization) EUA for use by authorized laboratories for individuals who are suspected of COVID-19 by their healthcare provider. This test is only authorized for the duration of the declaration that circumstances exist justifying the authorization of emergency use of in vitro diagnostic tests for detection and/or diagnosis of SARS-CoV-2. Methodology: Endpoint RT-PCR. Fact sheets for this EUA assay can be found at the following links: Providers: https://www.fda.gov/media/009835/download Patients : https://www.fda.gov/media/055850/download THIS IS A [facility] REPORTABLE COMMUNICABLE DISEASE Positive results are indicative of the presence of [id number]; clinical correlation with patient history and other diagnostic information is necessary to determine patient infection status. The agent detected may not be the definite cause of disease. Positive results do not rule out bacterial infection or co-infection with other viruses. ID Date Data Source [id number] 05/05/2020 10:33:00 AM [facility] spital Procedure Performed By: [facility] [address] [place] [address] Director: Keena Lewis MD Procedure Performed By: [facility] [address] [place] [address] Director: Keena Lewis MD QUANTITY: >100,000/mL {ESCHERICHIA COLI} ESCHERICHIA COLISCT Name Value Range Interpretation Code Description Data Keturah rce(s) Supporting Document(s) ID Date Data Source [id number] 05/05/2020 10:33:00 AM EST [facility] Procedure Performed By: [facility] [address] [place] [address] Director: Keena Lewis MD Procedure Performed By: [facility] [address] [place] [address] Director: Keena Lewis MD QUANTITY: >100,000/mL {ESCHERICHIA COLI} ESCHERICHIA COLISCT Name Value Range Interpretation Code Description Data Keturah rce(s) Supporting Document(s) Amoxicillin/Clavulanic Acid Susc eptible. Indicates for microbiology susceptibilities only. [facility] Ampicillin 4 Susceptible. Indicates for m icrobiology susceptibilities only. [facility] Cefazolin Susceptible. Indicates for microbiol ogy susceptibilities only. [facility] Cefepime Susceptible. Indicates for microbiol ogy susceptibilities only. [facility] ESBL - [facility] Ceftriaxone Susceptible. Indicates for m icrobiology susceptibilities only. [facility] Ciprofloxacin Susceptible. Ind icates for microbiology susceptibilities only. [facility] Ertapenem Susceptible. Indicates for microbiol ogy susceptibilities only. [facility] Gentamicin Susceptible. Indicates for microbiol ogy susceptibilities only. [facility] Imipenem Susceptible. Indicates for microbiol ogy susceptibilities only. [facility] Meropenem Susceptible. Indicates for microbiol ogy susceptibilities only. [facility] Levofloxacin Susceptible. Indicates for m icrobiology susceptibilities only. [facility] Nitrofurantoin Susceptible. Ind icates for microbiology susceptibilities only. [facility] Pipercillin/Tazobactam Susceptib le. Indicates for microbiology susceptibilities only. [facility] Trimeth/Sulfamethoxazole Suscept ible. Indicates for microbiology susceptibilities only. [facility] ID Date Data Source [id number] 05/05/2020 10:32:00 AM EST [facility] Procedure Performed By: [facility] [address] [place] [address] Director: Keena Lewis MD Name Value Range Interpretation Code Description Data Keturah rce(s) Supporting Document(s) Urine Culture [facility] ospital ID Date Data Source [id number] 05/05/2020 10:32:00 AM EST [facility] Procedure Performed By: [facility] [address] [place] [address] Director: Keena Lewis MD Name Value Range Interpretation Code Description Data Keturah rce(s) Supporting Document(s) Amoxicillin/Clavulanic Acid Susc eptible. Indicates for microbiology susceptibilities only. [facility] Ampicillin 4 Susceptible. Indicates for m icrobiology susceptibilities only. [facility] Cefazolin Susceptible. Indicates for microbiol ogy susceptibilities only. [facility] Cefepime Susceptible. Indicates for microbiol ogy susceptibilities only. [facility] Ceftri[facility] Susceptible. Indicates for m icrobiology susceptibilities only. [facility] Ciprofloxacin Susceptible. Ind icates for microbiology susceptibilities only. [facility] Ertapenem Susceptible. Indicates for microbiol ogy susceptibilities only. [facility] Gentamicin Susceptible. Indicates for microbiol ogy susceptibilities only. [facility] Imipenem Susceptible. Indicates for microbiol ogy susceptibilities only. [facility] Meropenem Susceptible. Indicates for microbiol ogy susceptibilities only. [facility] Levofloxacin Susceptible. Indicates for m icrobiology susceptibilities only. [facility] Nitrofurantoin Susceptible. Ind icates for microbiology susceptibilities only. [facility] Pipercillin/Tazobactam Susceptib le. Indicates for microbiology susceptibilities only. [facility] Trimeth/Sulfamethoxazole Suscept ible. Indicates for microbiology susceptibilities only. [facility] ID Date Data Source [id number] 05/03/2020 12:49:00 PM [facility] Name Value Range Interpretation Code Description Data Keturah rce(s) Supporting Document(s) Amylase 92 U/L 25-115 Normal (applies to non-numeric resul ts) [facility] ID Date Data Source [id number] 05/03/2020 12:49:00 PM [facility] Name Value Range Interpretation Code Description Data Keturah rce(s) Supporting Document(s) Lipase 232 U/L 73-393 Normal (applies to non-numeric resul ts) [facility] ID Date Data Source [id number] 05/03/2020 12:49:00 PM [facility] Name Value Range Interpretation Code Description Data Keturah rce(s) Supporting Document(s) Sodium 140 mmol/L 136-145 Normal (applies to non-numeric resul ts) [facility] Potassium 3.5-5.1 Normal (applies to non-numeric resul ts) [facility] Chloride 102 mmol/L 98-107 Normal (applies to non-numeric resul ts) [facility] Carbon Dioxide CO2 21-32 Normal (applies to non-numer ic results) [facility] Anion Gap 5.0-16.0 Normal (applies to non-numeric resul ts) [facility] BUN 32 mg/dL 7-[address] [facility] ospital Creatinine,Serum 0.7-1.2 Above high normal [facility] GFR 38 mL/min >60 Below low normal [facility] spital Glucose Level 142 mg/dL 60-99 Above high normal [facility] Reference range is only applicable when patient is fasting Note the following drug interference: Sulfasalazine Sulfapyridine Can see falsely depressed Can see falsely elevated result with up to 17% results with up to 11% decrease in measurement increase in measurement Recommend patients be collected for this test prior to administration of either drug. Calcium 8.5-10.1 Normal (applies to non-numeric resul ts) [facility] Bilirubin,Total 0.1-1.9 Normal (applies to non-numeric results) [facility] SGOT(AST) 23 U/L 15-37 Normal (applies to non-numeric resul ts) [facility] Note the following drug interference: Sulfasalazine Sulfapyridine Can see falsely depressed Can see falsely elevated result with up to 10% results with up to 10% decrease in measurement increase in measurement Recommend patients be collected for this test prior to administration of either drug. SGPT(ALT) 32 U/L 12-78 Normal (applies to non-numeric resul ts) [facility] Note the following drug interference: Sulfasalazine Sulfapyridine Can see falsely depressed Can see falsely elevated result with up to 29% results with up to 10% decrease in measurement increase in measurement Recommend patients be collected for this test prior to administration of either drug. Alkaline Phosphatase 67 U/L 38-126 Normal (applies to non-num dusty results) [facility] can increase Alkaline Phosp le vels up to 2 times the normal adult value. Normal values for children and adolescents are 2 to 3 times the normal adult value. Total Protein 6.0-8.2 Normal (applies to non-numeric re sults) [facility] Albumin Level 3.4-5.0 Normal (applies to non-numeric re sults) [facility] ID Date Data Source [id number] 05/03/2020 12:38:00 PM EST [facility] Name Value Range Interpretation Code Description Data Keturah rce(s) Supporting Document(s) White Blood Count 3.5-10.5 Normal (applies to non-numeri c results) [facility] Red Blood Count 3.90-5.00 Normal (applies to non-numeric results) [facility] Hemoglobin 12.0-15.[address] [facility]ital Hematocrit 34.9-44.5 Normal (applies to non-numeric resul ts) [facility] Mean Corpuscular Volume 81.2-95.1 Normal (applies to non- numeric results) [facility] Mean Corpuscular Hgb 25.6-32.2 Normal (applies to non-num dusty results) [facility] Mean Corpuscular Hgb Conc 32.0-36.0 Below low normal [facility] Red Cell Distribution Width 11.9-15.5 Normal (appli es to non-numeric results) [facility] Platelet Count 204 x10 3/uL 150-450 Normal (applies to non-numeric results) [facility] Mean Platelet Volume 9.4-12.4 Normal (applies to non-num dusty results) [facility] Neutrophils% (Auto) 31.0-71.0 Normal (applies to non-nume cee results) [facility] Lymphocytes% (Auto) 20.0-55.0 Below low normal [facility] Monocytes% (Auto) 4.0-12.0 Above high normal [facility] Eosinophils% (Auto) 1.0-8.0 Below low normal [facility] Basophils% (Auto) 0.0-2.0 Normal (applies to non-numeri c results) [facility] Immature Granulocytes% (Auto) 0.0-2.0 Normal (corinna lies to non-numeric results) [facility] Neutrophils# (Auto) 1.50-6.20 Normal (applies to non-nume cee results) [facility] Lymphocytes# (Auto) 1.20-4.00 Below low normal [facility] Monocytes# (Auto) 0.00-0.90 Normal (applies to non-numeri c results) [facility] Eosinophils# (Auto) 0.00-0.50 Normal (applies to non-nume cee results) [facility] Basophils# (Auto) 0.00-0.20 Normal (applies to non-numeri c results) [facility] Immature Granulocytes# (Auto) 0.00-7.00 No rmal (applies to non-numeric results) [facility] ID Date Data Source [id number] 05/03/2020 12:09:00 PM EST [facility] Collected By: Nurse Initials: ah Time Collected: 1135 Collected By: Nurse Initials: ah Time Collected: 1135 Name Value Range Interpretation Code Description Data Keturah rce(s) Supporting Document(s) Color,Urine Colorl-Dk Y Normal (applies to non-numeric res ults) [facility] Clarity,Urine Clear Normal (applies to non-numeric re sults) [facility] Specific Moro,Urine 1.005-1.030 Normal (applies to non- numeric results) [facility] pH,Urine 5.0-8.0 Normal (applies to non-numeric resul ts) [facility] Protein,Urine Negative [facility] Glucose,Urine Negative Normal (applies to non-numeric re sults) [facility] Ketones,Urine Negative Normal (applies to non-numeric re sults) [facility] Blood,Urine Negative Normal (applies to non-numeric resu lts) [facility] Bilirubin,Urine Negative Normal (applies to non-numeric results) [facility] Urobilinogen,Urine 0.2-1.0 Normal (applies to non-numer ic results) [facility] Leukocyte Esterase,Urine Negative [facility] Nitrite,Urine Negative Normal (applies to non-numeric re sults) [facility] ID Date Data Source [id number] 05/03/2020 12:09:00 PM [facility] Collected By: Nurse Initials: Time Collected: 1135 Collected By: Nurse Initials: Time Collected: 1135 Name Value Range Interpretation Code Description Data Keturah rce(s) Supporting Document(s) RBC,Urine None Seen Normal (applies to non-numeric resul ts) [facility] WBC,Urine None Seen [facility] Casts,Urine None Seen Normal (applies to non-numeric resu lts) [facility] Squamous Cells,Urine None Seen [facility] Transitional Cells,Ur None Seen [facility] Bacteria,Urine None Seen [facility] ital ID Date Data Source [id number] 04/30/2020 03:47:00 PM [facility] Name Value Range Interpretation Code Description Data Keturah rce(s) Supporting Document(s) PT 9.2-11.[address] [facility] ospital INR Normal (applies to non-numeric results) [facility] The use of INR is restricted to patients on stable oral anticoagulant. Therapeutic Range: 2.0 - 3.0 High Risk Range: 2.5 - 3.5 ID Date Data Source [id number] 03/21/2020 04:46:00 PM [facility] Name Value Range Interpretation Code Description Data Keturah rce(s) Supporting Document(s) PT 9.2-11.[address] [facility] o[facility]ital INR Normal (applies to non-numeric results) [facility] The use of INR is restricted to patients on stable oral anticoagulant. Therapeutic Range: 2.0 - 3.0 High Risk Range: 2.5 - 3.5 ID Date Data Source [id number] 03/15/2020 05:06:00 PM [facility] Name Value Range Interpretation Code Description Data Keturah rce(s) Supporting Document(s) PT 9.2-11.[address] [facility] o[facility]ital Unable to calculate INR. INR [facility] DESIREE read back critical information [id number] [email or web address] The use of INR is restricted to patients on stable oral anticoagulant. Therapeutic Range: 2.0 - 3.0 High Risk Range: 2.5 - 3.5 ID Date Data Source [id number] 02/20/2020 04:11:00 PM EDT [facility] Name Value Range Interpretation Code Description Data Keturah rce(s) Supporting Document(s) PT 9.2-11.[address] [facility] INR Normal (applies to non-numeric results) [facility] The use of INR is restricted to patients on stable oral anticoagulant. Therapeutic Range: 2.0 - 3.0 High Risk Range: 2.5 - 3.5 ID Date Data Source [id number] 02/07/2020 03:45:00 PM EDT [facility] Name Value Range Interpretation Code Description Data Keturah rce(s) Supporting Document(s) PT 9.2-11.[address] [facility] INR Normal (applies to non-numeric results) [facility] The use of INR is restricted to patients on stable oral anticoagulant. Therapeutic Range: 2.0 - 3.0 High Risk Range: 2.5 - 3.5 ID Date Data Source [id number] [facility] Interpretation Code Description Data Keturah rce(s) Supporting Document(s) PT 9.2-11.[address] [facility] INR Normal (applies to non-numeric results) [facility] The use of INR is restricted to patients on stable oral anticoagulant. Therapeutic Range: 2.0 - 3.0 High Risk Range: 2.5 - 3.5 ID Date Data Source [id number] 11/08/2019 07:58:00 PM EDT [facility] Name Value Range Interpretation Code Description Data Keturah rce(s) Supporting Document(s) Vitamin B12 result [id number] [facility] Test Performed By: [facility] [address] [place] [address] Director: Chika Lewis MD ID Date Data Source [id number] 11/08/2019 07:58:00 PM EDT [facility] Name Value Range Interpretation Code Description Data Keturah rce(s) Supporting Document(s) Folate result 2.76-20.0 [facility] Test Performed By: [facility] [address] [place] [address] Director: Chika Lewis MD ID Date Data Source [id number] 11/08/2019 07:58:00 PM EDT [facility] Name Value Range Interpretation Code Description Data Keturah rce(s) Supporting Document(s) T3 result 60.0-181.0 Normal (applies to non-numeric resul ts) [facility] Test Performed By: [facility] [address] [place] [address] Director: Chika Lewis MD ID Date Data Source [id number] 11/08/2019 07:58:00 PM EDT [facility] Name Value Range Interpretation Code Description Data Keturah rce(s) Supporting Document(s) [facility] Urine Creatinine result Normal (applies t o non-numeric results) [facility] Interpret with care as there is no estab lished reference range associated with this assay's methodology that pertains to this particular sex and/or age. [facility] Microalbumin,Ur result <1.7 [facility] Alb/Cre Ratio,Ur result Normal (applies t o non-numeric results) [facility] Test Performed By: [facility] [address] [place] [address] Director: Chika Lewis MD Reference Ranges for Microalbumin,spot: Normal <30 ug/mg creatinine Microalbuminuria 30-300 ug/mg creatinine Clinical Albuminuria >300 ug/mg creatinine ID Date Data Source [id number] 11/08/2019 06:17:00 PM EDT [facility] Name Value Range Interpretation Code Description Data Keturah rce(s) Supporting Document(s) Vitamin B12 [phone] Above high normal [facility] Test Performed By: [facility] [address] [place] [address] Director: Chika Lewis MD ID Date Data Source [id number] 11/08/2019 06:17:00 PM EDT [facility] Name Value Range Interpretation Code Description Data Keturah rce(s) Supporting Document(s) Folate 2.76-20.0 Above high normal [facility] Test Performed By: [facility] [address] [place] [address] Director: Chika Lewis MD ID Date Data Source [id number] 11/08/2019 06:12:00 PM EDT [facility] Name Value Range Interpretation Code Description Data Keturah rce(s) Supporting Document(s) T3 (Tri-Iodothyronine) 60.0-181.0 Normal (applies to non-n umeric results) [facility] Test Performed By: [facility] [address] [place] [address] Director: Chika Lewis MD ID Date Data Source [id number] 11/08/2019 05:59:00 PM EDT [facility] Name Value Range Interpretation Code Description Data Keturah rce(s) Supporting Document(s) Creatinine,Urine Normal (applies to non-numeric results) [facility] Interpret with care as there is no estab lished reference range associated with this assay's methodology that pertains to this particular sex and/or age. Microalbumin,Urine <1.7 Above high normal [facility] Albumin/Creatinine Ratio,Urine Normal (applies to non-numeric results) [facility] Test Performed By: [facility] [address] [place] [address] Director: Chika Lewis MD Reference Ranges for Microalbumin,spot: Normal <30 ug/mg creatinine Microalbuminuria 30-300 ug/mg creatinine Clinical Albuminuria >300 ug/mg creatinine ID Date Data Source [id number] 11/08/2019 03:36:00 PM EDT [facility] Name Value Range Interpretation Code Description Data Keturah rce(s) Supporting Document(s) Sodium 143 mmol/L 136-145 Normal (applies to non-numeric resul ts) [facility] Potassium 3.5-5.1 Normal (applies to non-numeric resul ts) [facility] Chloride 104 mmol/L 98-107 Normal (applies to non-numeric resul ts) [facility] Carbon Dioxide CO2 21-32 Normal (applies to non-numer ic results) [facility] Anion Gap 5.0-16.0 Normal (applies to non-numeric resul ts) [facility] BUN 51 mg/dL 7-18 PH [facility] Belinda read back critical information [id number] [email or web address].[email or web address] Creatinine,Serum 0.7-1.2 Above high normal [facility] GFR 30 mL/min >60 Below low normal [facility] spital Glucose Level 126 mg/dL 60-99 Above high normal [facility] Reference range is only applicable when patient is fasting Note the following drug interference: Sulfasalazine Sulfapyridine Can see falsely depressed Can see falsely elevated result with up to 17% results with up to 11% decrease in measurement increase in measurement Recommend patients be collected for this test prior to administration of either drug. Calcium 8.5-10.1 Normal (applies to non-numeric resul ts) [facility] Bilirubin,Total 0.1-1.9 Normal (applies to non-numeric results) [facility] SGOT(AST) 17 U/L 15-37 Normal (applies to non-numeric resul ts) [facility] Note the following drug interference: Sulfasalazine Sulfapyridine Can see falsely depressed Can see falsely elevated result with up to 10% results with up to 10% decrease in measurement increase in measurement Recommend patients be collected for this test prior to administration of either drug. SGPT(ALT) 30 U/L 12-78 Normal (applies to non-numeric resul ts) [facility] Note the following drug interference: Sulfasalazine Sulfapyridine Can see falsely depressed Can see falsely elevated result with up to 29% results with up to 10% decrease in measurement increase in measurement Recommend patients be collected for this test prior to administration of either drug. Alkaline Phosphatase 72 U/L 38-126 Normal (applies to non-num dusty results) [facility] can increase Alkaline Phosp le vels up to 2 times the normal adult value. Normal values for children and adolescents are 2 to 3 times the normal adult value. Total Protein 6.0-8.2 Normal (applies to non-numeric re sults) [facility] Albumin Level 3.4-5.0 Normal (applies to non-numeric re sults) [facility] ID Date Data Source [id number] 11/08/2019 03:36:00 PM EDT [facility] Name Value Range Interpretation Code Description Data Keturah rce(s) Supporting Document(s) Triglycerides 87 mg/dL <150 Normal (applies to non-numeric re sults) [facility] Cholesterol 135 mg/dL 100-200 Normal (applies to non-numeric resu lts) [facility] LDL Cholesterol Calculated 72 0-130 Normal (applies to n on-numeric results) [facility] HDL Cholesterol 46 mg/dL 40-60 Normal (applies to non-numeric results) [facility] Cholesterol/HDL Ratio 3.6-6.7 Below low normal [facility] ID Date Data Source [id number] 11/08/2019 03:36:00 PM T [facility] Name Value Range Interpretation Code Description Data Keturah rce(s) Supporting Document(s) Free T4 (Free Thyroxine) 0.76-1.46 Normal (applies to non -numeric results) [facility] ID Date Data Source [id number] 11/08/2019 03:36:00 PM EDT [facility] Name Value Range Interpretation Code Description Data Keturah rce(s) Supporting Document(s) Thyroid Stimulate Hormone TSH 0.358-3.74 No rmal (applies to non-numeric results) [facility] ID Date Data Source [id number] 11/08/2019 03:22:00 PM EDT [facility] Name Value Range Interpretation Code Description Data Keturah rce(s) Supporting Document(s) Hemoglobin A1c 4.4-6.2 Normal (applies to non-numeric r esults) [facility] Estimated Avg Glucose 120 mg/dL 126-240 Below low normal G [facility] ID Date Data Source [id number] 11/08/2019 03:11:00 PM EDT [facility] Name Value Range Interpretation Code Description Data Keturah rce(s) Supporting Document(s) PT 9.2-11.[address] [facility] INR Normal (applies to non-numeric results) [facility] The use of INR is restricted to patients on stable oral anticoagulant. Therapeutic Range: 2.0 - 3.0 High Risk Range: 2.5 - 3.5 ID Date Data Source [id number] 11/08/2019 02:58:00 PM EDT [facility] Name Value Range Interpretation Code Description Data Keturah rce(s) Supporting Document(s) White Blood Count 3.5-10.5 Normal (applies to non-numeri c results) [facility] Red Blood Count 3.90-5.00 Below low normal [facility] Hemoglobin 12.0-15.[address] [facility]ital Hematocrit 34.9-44.5 Normal (applies to non-numeric resul ts) [facility] Mean Corpuscular Volume 81.2-95.1 Normal (applies to non- numeric results) [facility] Mean Corpuscular Hgb 25.6-32.2 Normal (applies to non-num dusty results) [facility] Mean Corpuscular Hgb Conc 32.0-36.0 Normal (applies to no n-numeric results) [facility] Red Cell Distribution Width 11.9-15.5 Normal (appli es to non-numeric results) [facility] Platelet Count 290 x10 3/uL 150-450 Normal (applies to non-numeric results) [facility] Mean Platelet Volume 9.4-12.4 Normal (applies to non-num dusty results) [facility] Neutrophils% (Auto) 31.0-71.0 Normal (applies to non-nume cee results) [facility] Lymphocytes% (Auto) 20.0-55.0 Below low normal [facility] Monocytes% (Auto) 4.0-12.0 Normal (applies to non-numeri c results) [facility] Eosinophils% (Auto) 1.0-8.0 Normal (applies to non-nume cee results) [facility] Basophils% (Auto) 0.0-2.0 Normal (applies to non-numeri c results) [facility] Immature Granulocytes% (Auto) 0.0-2.0 Normal (corinna lies to non-numeric results) [facility] Neutrophils# (Auto) 1.50-6.20 Normal (applies to non-nume cee results) [facility] Lymphocytes# (Auto) 1.20-4.00 Normal (applies to non-nume cee results) [facility] Monocytes# (Auto) 0.00-0.90 Normal (applies to non-numeri c results) [facility] Eosinophils# (Auto) 0.00-0.50 Normal (applies to non-nume cee results) [facility] Basophils# (Auto) 0.00-0.20 Normal (applies to non-numeri c results) [facility] Immature Granulocytes# (Auto) 0.00-7.00 No rmal (applies to non-numeric results) [facility] ID Date Data Source [id number] 09/08/2019 09:23:00 AM EDT [facility] Name Value Range Interpretation Code Description Data Keturah rce(s) Supporting Document(s) PT 9.2-11.[address] [facility] INR Normal (applies to non-numeric results) [facility] The use of INR is restricted to patients on stable oral anticoagulant. Therapeutic Range: 2.0 - 3.0 High Risk Range: 2.5 - 3.5 ID Date Data Source [id number] 07/12/2019 04:29:00 PM EDT [facility] Name Value Range Interpretation Code Description Data Keturah rce(s) Supporting Document(s) PT 9.2-11.[address] [facility] INR Normal (applies to non-numeric results) [facility] The use of INR is restricted to patients on stable oral anticoagulant. Therapeutic Range: 2.0 - 3.0 High Risk Range: 2.5 - 3.5 ID Date Data Source [id number] 06/22/2019 05:23:00 AM [facility] Name Value Range Interpretation Code Description Data Keturah rce(s) Supporting Document(s) hsCRP result 0.00-3.00 Normal (applies to non-numeric res ults) [facility] Test Performed By: [facility] [address] [place] [address] Director: Chika Lewis MD ID Date Data Source [id number] 06/21/2019 09:32:00 PM [facility] Value Range Interpretation Code Description Data Keturah rce(s) Supporting Document(s) hsCRP CARDIAC 0.00-3.00 Normal (applies to non-numeric re sults) [facility] Test Performed By: [facility] [address] [place] [address] Director: Chika Lewis MD ID Date Data Source [id number] 06/21/2019 04:43:00 PM [facility] Value Range Interpretation Code Description Data Keturah rce(s) Supporting Document(s) Erythrocyte Sedimentation rate 13 mm/hr 0-20 N ormal (applies to non-numeric results) [facility] ID Date Data Source [id number] 06/21/2019 04:43:00 PM [facility] Name Value Range Interpretation Code Description Data Keturah rce(s) Supporting Document(s) White Blood Count 3.5-10.5 Normal (applies to non-numeri c results) [facility] Red Blood Count 3.90-5.00 Below low normal [facility] Hemoglobin 12.0-15.[address] [facility] Hematocrit 34.9-44.5 Normal (applies to non-numeric resul ts) [facility] Mean Corpuscular Volume 81.2-95.1 Normal (applies to non- numeric results) [facility] Mean Corpuscular Hgb 25.6-32.2 Normal (applies to non-num dusty results) [facility] Mean Corpuscular Hgb Conc 32.0-36.0 Below low normal [facility] Red Cell Distribution Width 11.9-15.5 Normal (appli es to non-numeric results) [facility] Platelet Count 232 x10 3/uL 150-450 Normal (applies to non-numeric results) [facility] Mean Platelet Volume 9.4-12.4 Normal (applies to non-num dusty results) [facility] Neutrophils% (Auto) 31.0-71.0 Normal (applies to non-nume cee results) [facility] Lymphocytes% (Auto) 20.0-55.0 Below low normal [facility] Monocytes% (Auto) 4.0-12.0 Normal (applies to non-numeri c results) [facility] Eosinophils% (Auto) 1.0-8.0 Normal (applies to non-nume cee results) [facility] Basophils% (Auto) 0.0-2.0 Normal (applies to non-numeri c results) [facility] Immature Granulocytes% (Auto) 0.0-2.0 Normal (corinna lies to non-numeric results) [facility] Neutrophils# (Auto) 1.50-6.20 Normal (applies to non-nume cee results) [facility] Lymphocytes# (Auto) 1.20-4.00 Normal (applies to non-nume cee results) [facility] Monocytes# (Auto) 0.00-0.90 Normal (applies to non-numeri c results) [facility] Eosinophils# (Auto) 0.00-0.50 Normal (applies to non-nume cee results) [facility] Basophils# (Auto) 0.00-0.20 Normal (applies to non-numeri c results) [facility] Immature Granulocytes# (Auto) 0.00-7.00 No rmal (applies to non-numeric results) [facility] ID Date Data Source [id number] 06/21/2019 04:28:00 PM EST [facility] Name Value Range Interpretation Code Description Data Keturah rce(s) Supporting Document(s) Sodium 145 mmol/L 136-145 Normal (applies to non-numeric resul ts) [facility] Potassium 3.5-5.1 Normal (applies to non-numeric resul ts) [facility] Chloride 106 mmol/L 98-107 Normal (applies to non-numeric resul ts) [facility] Carbon Dioxide CO2 21-32 Normal (applies to non-numer ic results) [facility] Anion Gap 5.0-16.0 Normal (applies to non-numeric resul ts) [facility] BUN 43 mg/dL 7-[address] [facility] Creatinine,Serum 0.7-1.2 Above high normal [facility] GFR 38 mL/min >60 Below low normal [facility] spital Glucose Level 128 mg/dL 60-99 Above high normal [facility] Reference range is only applicable when patient is fasting Note the following drug interference: Sulfasalazine Sulfapyridine Can see falsely depressed Can see falsely elevated result with up to 17% results with up to 11% decrease in measurement increase in measurement Recommend patients be collected for this test prior to administration of either drug. Calcium 8.5-10.1 Normal (applies to non-numeric resul ts) [facility] Bilirubin,Total 0.1-1.9 Normal (applies to non-numeric results) [facility] SGOT(AST) 19 U/L 15-37 Normal (applies to non-numeric resul ts) [facility] Note the following drug interference: Sulfasalazine Sulfapyridine Can see falsely depressed Can see falsely elevated result with up to 10% results with up to 10% decrease in measurement increase in measurement Recommend patients be collected for this test prior to administration of either drug. SGPT(ALT) 38 U/L 12-78 Normal (applies to non-numeric resul ts) [facility] Note the following drug interference: Sulfasalazine Sulfapyridine Can see falsely depressed Can see falsely elevated result with up to 29% results with up to 10% decrease in measurement increase in measurement Recommend patients be collected for this test prior to administration of either drug. Alkaline Phosphatase 69 U/L 38-126 Normal (applies to non-num dusty results) [facility] can increase Alkaline Phosp le vels up to 2 times the normal adult value. Normal values for children and adolescents are 2 to 3 times the normal adult value. Total Protein 6.0-8.2 Normal (applies to non-numeric re sults) [facility] Albumin Level 3.4-5.0 Normal (applies to non-numeric re sults) [facility] ID Date Data Source [id number] 06/21/2019 04:27:00 PM [facility] Name Value Range Interpretation Code Description Data Keturah rce(s) Supporting Document(s) PT 9.2-11.[address] [facility] INR Normal (applies to non-numeric results) [facility] The use of INR is restricted to patients on stable oral anticoagulant. Therapeutic Range: 2.0 - 3.0 High Risk Range: 2.5 - 3.5 ID Date Data Source [id number] 06/17/2019 02:04:00 PM [facility] Imaging Services Department Imaging Report [address] [place] [id number] %(RAD)RES..mtdd.print.filter("line") Name: DIEGO ALBERT : 1935 Age/Sex: 83F Ordering Provider: Armen Meraz IV, RNP Med Rec #: [id number] Reg Status: REG REF Room #: Date of Service: 06/17/19 Report Number: [id number] cc:Armen Meraz IV, RNP Send Report To: [id number] XRP/XR T Spine Ap/Lat [Dorsal] Reason for exam: CONTUSION FINDINGS: Diffuse degenerative changes are identified throughout the thoracic spine with disc space narrowing and osteophyte formation. There is no evidence of an acute fracture identified. Atherosclerotic disease is identified in the aorta. IMPRESSION: Diffuse degenerative changes. No acute findings are noted. REPORT DICTATED BY JAGUAR GAITAN, REVIEWED AND SIGNED BY DR. ORR Time portable performed: Fluoroscopy time in seconds: Number of Exposures: Contrast Agent in ml: Method of Administration: REPORT SIGNATURE ON FILE Reported By: Jaguar Orr MD <Electronically signed by Sylvie Orr MD> 06/17/19 1624 Dictation Date/Time: 06/17/19 1115 Transcribed Date/Time: 06/17/19 1404 Feed Research Aide: PATTI Name Value Range Interpretation Code Description Data Keturah rce(s) Supporting Document(s) ID Date Data Source [id number] 06/17/2019 01:59:00 PM [facility] Imaging Services Department Imaging Report [address] [address] %(RAD)RES..mtdd.print.filter("line") Name: DIEGO ALBERT : 1935 Age/Sex: 83F Ordering Provider: Armen Meraz IV, RNP Med Rec #: [id number] Reg Status: REG REF Room #: Date of Service: 06/17/19 Report Number: [id number] cc:Armen Meraz IV, RNP Send Report To: [id number] XRP/XR L Spine 2 views Ap & Lat Reason for exam: CONTUSION FINDINGS: There is diffuse intervertebral disc space narrowing and facet joint hypertrophy. No evidence of spondylolysis or spondylolisthesis is identified. Atherosclerotic disease is identified in the aorta. Bowel gas pattern is nonspecific. There is a large amount of stool in the ascending colon. IMPRESSION: Degenerative changes and no acute findings. REPORT DICTATED BY JAGUAR GAITAN, REVIEWED AND SIGNED BY DR. ORR Time portable performed: Fluoroscopy time in seconds: Number of Exposures: Contrast Agent in ml: Method of Administration: REPORT SIGNATURE ON FILE Reported By: Jaguar Orr MD <Electronically signed by Sylvie Orr MD> 06/17/19 1624 Dictation Date/Time: 06/17/19 1115 Transcribed Date/Time: 06/17/19 1359 Feed Research Aide: PATTI Name Value Range Interpretation Code Description Data Keturah rce(s) Supporting Document(s) ID Date Data Source [id number] 06/17/2019 01:49:00 PM [facility] Imaging Services Department Imaging Report [address] [place] [address] %(RAD)RES..mtdd.print.filter("line") Name: DIEGO ALBERT : 1935 Age/Sex: 83F Ordering Provider: Armen Meraz IV, RNP Med Rec #: [id number] Reg Status: REG REF Room #: Date of Service: 06/17/19 Report Number: [id number] cc:Armen Meraz IV, RNP Send Report To: [id number] XRP/XR C Spin Ap,Lat &/or Odontoid Reason for exam: CONCUSSION FINDINGS: There are diffuse degenerative changes. Disc space narrowing is present at C4-5, C5-6 and C6-7. Diffuse facet joint hypertrophy is identified. No clear evidence of spondylolysis or spondylolisthesis is noted. Prevertebral soft tissues are within normal limits. The atlantoaxial joint appears unremarkable. The odontoid is not well evaluated. Atherosclerotic disease of the aorta is identified. The visualized portions of the upper lung bruno are clear. IMPRESSION: Degenerative changes and no acute findings. REPORT DICTATED BY JAGUAR GAITAN, REVIEWED AND SIGNED BY DR. ORR Time portable performed: Fluoroscopy time in seconds: Number of Exposures: Contrast Agent in ml: Method of Administration: REPORT SIGNATURE ON FILE Reported By: Jaguar Orr MD <Electronically signed by Sylvie Orr MD> 06/17/19 1624 Dictation Date/Time: 06/17/19 1115 Transcribed Date/Time: 06/17/19 1349 Feed Research Aide: PATTI Name Value Range Interpretation Code Description Data Keturah rce(s) Supporting Document(s) ID Date Data Source [id number] 06/17/2019 01:56:00 PM [facility] Imaging Services Department Imaging Report [address] [place], [place] [address] %(RAD)RES..mtdd.print.filter("line") Name: DIEGO ALBERT : 1935 Age/Sex: 83F Ordering Provider: Armen Meraz IV, RNP Med Rec #: [id number] Reg Status: REG REF Room #: Date of Service: 06/17/19 Report Number: [id number] cc:Armen Meraz IV, RNP Send Report To: [id number] XRP/XR Knee Rt 2 views Reason for exam: CONTUSION FINDINGS: Medial and patellar joint space narrowing is identified. No clear evidence of an acute fracture is identified. Atherosclerotic disease is identified in the popliteal artery. There are calcified varicose veins. IMPRESSION: Degenerative changes and no acute findings. REPORT DICTATED BY JAGUAR GAITAN, REVIEWED AND SIGNED BY DR. ORR Time portable performed: Fluoroscopy time in seconds: Number of Exposures: Contrast Agent in ml: Method of Administration: REPORT SIGNATURE ON FILE Reported By: Jaguar Orr MD <Electronically signed by Sylvie Orr MD> 06/17/19 1624 Dictation Date/Time: 06/17/19 1115 Transcribed Date/Time: 06/17/19 1356 Feed Research Aide: PATTI Name Value Range Interpretation Code Description Data Keturah rce(s) Supporting Document(s) ID Date Data Source [id number] 06/17/2019 02:02:00 PM [facility] Imaging Services Department Imaging Report [address] [place], [place] [address] %(RAD)RES..mtdd.print.filter("line") Name: DIEGO ALBERT : 1935 Age/Sex: 83F Ordering Provider: Armen Meraz IV, RNP Med Rec #: [id number] Reg Status: REG REF Room #: Date of Service: 06/17/19 Report Number: [id number] cc:Armen Meraz IV, RNP Send Report To: [id number] XRP/XR Hips Benny w Pelvis min 5 vws Reason for exam: CONTUSION FINDINGS: There is no evidence of an acute fracture or dislocation identified. Degenerative changes are identified at the hips, SI joints, lower lumbar spine and symphysis pubis. Soft tissues appear unremarkable. IMPRESSION: Degenerative changes. No acute findings. REPORT DICTATED BY JAGUAR GAITAN, REVIEWED AND SIGNED BY DR. ORR Time portable performed: Fluoroscopy time in seconds: Number of Exposures: Contrast Agent in ml: Method of Administration: REPORT SIGNATURE ON FILE Reported By: Jaguar Orr MD <Electronically signed by Sylvie Orr MD> 06/17/19 1624 Dictation Date/Time: 06/17/19 1115 Transcribed Date/Time: 06/17/19 1402 Feed Research Aide: PATTI Name Value Range Interpretation Code Description Data Keturah rce(s) Supporting Document(s) ID Date Data Source [id number] 06/13/2019 08:06:00 AM EST [facility] Name Value Range Interpretation Code Description Data Keturah rce(s) Supporting Document(s) Sodium 145 mmol/L 136-145 Normal (applies to non-numeric resul ts) [facility] Potassium 3.5-5.1 Normal (applies to non-numeric resul ts) [facility] Chloride 106 mmol/L 98-107 Normal (applies to non-numeric resul ts) [facility] Carbon Dioxide CO2 21-32 Normal (applies to non-numer ic results) [facility] Anion Gap 5.0-16.0 Normal (applies to non-numeric resul ts) [facility] BUN 34 mg/dL 7-[address] [facility] Creatinine,Serum 0.7-1.2 Above high normal [facility] GFR 38 mL/min >60 Below low normal [facility] spital Glucose Level 153 mg/dL 60-99 Above high normal [facility] Reference range is only applicable when patient is fasting Note the following drug interference: Sulfasalazine Sulfapyridine Can see falsely depressed Can see falsely elevated result with up to 17% results with up to 11% decrease in measurement increase in measurement Recommend patients be collected for this test prior to administration of either drug. Calcium 8.5-10.1 Normal (applies to non-numeric resul ts) [facility] Bilirubin,Total 0.1-1.9 Normal (applies to non-numeric results) [facility] SGOT(AST) 20 U/L 15-37 Normal (applies to non-numeric resul ts) [facility] Note the following drug interference: Sulfasalazine Sulfapyridine Can see falsely depressed Can see falsely elevated result with up to 10% results with up to 10% decrease in measurement increase in measurement Recommend patients be collected for this test prior to administration of either drug. SGPT(ALT) 42 U/L 12-78 Normal (applies to non-numeric resul ts) [facility] Note the following drug interference: Sulfasalazine Sulfapyridine Can see falsely depressed Can see falsely elevated result with up to 29% results with up to 10% decrease in measurement increase in measurement Recommend patients be collected for this test prior to administration of either drug. Alkaline Phosphatase 72 U/L 38-126 Normal (applies to non-num dusty results) [facility] can increase Alkaline Phosp le vels up to 2 times the normal adult value. Normal values for children and adolescents are 2 to 3 times the normal adult value. Total Protein 6.0-8.2 Normal (applies to non-numeric re sults) [facility] Albumin Level 3.4-5.0 Normal (applies to non-numeric re sults) [facility] ID Date Data Source [id number] 06/13/2019 08:06:00 AM EST [facility] Name Value Range Interpretation Code Description Data Keturah rce(s) Supporting Document(s) Troponin I 0.000-0.056 Normal (applies to non-numeric resu lts) [facility] ID Date Data Source [id number] 06/13/2019 07:45:00 AM [facility] Name Value Range Interpretation Code Description Data Keturah rce(s) Supporting Document(s) White Blood Count 3.5-10.5 Normal (applies to non-numeri c results) [facility] Red Blood Count 3.90-5.00 Normal (applies to non-numeric results) [facility] Hemoglobin 12.0-15.5 Normal (applies to non-numeric resul ts) [facility] Hematocrit 34.9-44.5 Normal (applies to non-numeric resul ts) [facility] Mean Corpuscular Volume 81.2-95.1 Normal (applies to non- numeric results) [facility] Mean Corpuscular Hgb 25.6-32.2 Normal (applies to non-num dusty results) [facility] Mean Corpuscular Hgb Conc 32.0-36.0 Normal (applies to no n-numeric results) [facility] Red Cell Distribution Width 11.9-15.5 Normal (appli es to non-numeric results) [facility] Platelet Count 235 x10 3/uL 150-450 Normal (applies to non-numeric results) [facility] Mean Platelet Volume 9.4-12.4 Normal (applies to non-num dusty results) [facility] Neutrophils% (Auto) 31.0-71.0 Above high normal [facility] Lymphocytes% (Auto) 20.0-55.0 Below low normal [facility] Monocytes% (Auto) 4.0-12.0 Normal (applies to non-numeri c results) [facility] Eosinophils% (Auto) 1.0-8.0 Normal (applies to non-nume cee results) [facility] Basophils% (Auto) 0.0-2.0 Normal (applies to non-numeri c results) [facility] Immature Granulocytes% (Auto) 0.0-2.0 Normal (corinna lies to non-numeric results) [facility] Neutrophils# (Auto) 1.50-6.20 Normal (applies to non-nume cee results) [facility] Lymphocytes# (Auto) 1.20-4.00 Normal (applies to non-nume cee results) [facility] Monocytes# (Auto) 0.00-0.90 Normal (applies to non-numeri c results) [facility] Eosinophils# (Auto) 0.00-0.50 Normal (applies to non-nume cee results) [facility] Basophils# (Auto) 0.00-0.20 Normal (applies to non-numeri c results) [facility] Immature Granulocytes# (Auto) 0.00-7.00 No rmal (applies to non-numeric results) [facility] ID Date Data Source [id number] 06/13/2019 08:46:00 AM EST [facility] Imaging Services Department Imaging Report [address] [place], [place] [address] %(RAD)RES..mtdd.print.filter("line") Name: DIEGO ALBERT : 1935 Age/Sex: 83F Ordering Provider: HELEN Roberts Med Rec #: [id number] Reg Status: [facility] ER Room #: Date of Service: 06/13/19 Report Number: [id number] cc:Armen Meraz IV, SPECIAL EDUCATION TEACHER Send Report To: [id number] CT/CT Cervical Spine No Contrast Reason for exam: cervical neck pain FINDINGS: Normal cervical lordosis. Disc height spondylosis at the C4/5, C5/6 and C6/7. Odontoid process unremarkable. Facet joints normally aligned. No fracture. No prevertebral soft tissue swelling. Lung apices are clear. IMPRESSION: No fracture cervical spine. Normal cervical lordosis. Multilevel degenerative change. While performing the above CT exam, the following dose reduction techniques wereused: *Automated exposure control *Adjustment of the mA and/or kV according to patient size *Use of iterative reconstruction technique CT Dose in mGy: Contrast Agent: Amount in ml: Method of Administration: REPORT SIGNATURE ON FILE Reported By: Anders Anglin DO <Electronically signed by Anders Anglin DO> 06/20/19 0853 Dictation Date/Time: 06/13/19 0742 Transcribed Date/Time: 06/13/19 0846 Feed Research Aide: TYRON Name Value Range Interpretation Code Description Data Keturah rce(s) Supporting Document(s) ID Date Data Source [id number] 06/13/2019 08:55:00 AM EST [facility] Imaging Services Department Imaging Report [address] [place], [place] [address] %(RAD)RES..mtdd.print.filter("line") Name: DIEGO ALBERT : 1935 Age/Sex: 83F Ordering Provider: HELEN Roberts Med Rec #: [id number] Reg Status: [facility] Room #: Date of Service: 06/13/19 Report Number: [id number] cc:Armen Meraz IV, VICTORINA Send Report To: [id number] CT/CT Orbits No Contrast Reason for exam: inferior orbital pain FINDINGS: There is mild right periorbital soft tissue swelling. No proptosis. No eye globe injury. No intracoronal or extracoronal abnormality other than the soft tissue swelling. No facial bone fracture. Paranasal sinuses are clear. The frontal sinuses are not pneumatized. IMPRESSION: Mild right paraorbital soft tissue swelling. No fracture. No orbitinjury. Sinuses are clear. While performing the above CT exam, the following dose reduction techniques wereused: *Automated exposure control *Adjustment of the mA and/or kV according to patient size *Use of iterative reconstruction technique CT Dose in mGy: Contrast Agent: Amount in ml: Method of Administration: REPORT SIGNATURE ON FILE Reported By: Anders Anglin DO <Electronically signed by Anders Anglin DO> 06/13/19 0930 Dictation Date/Time: 06/13/19 0742 Transcribed Date/Time: 06/13/19 0855 Feed Research Aide: TYRON Name Value Range Interpretation Code Description Data Keturah rce(s) Supporting Document(s) ID Date Data Source [id number] 06/13/2019 08:40:00 AM [facility] Imaging Services Department Imaging Report [address] [place], [place] [address] %(RAD)RES..mtdd.print.filter("line") Name: DIEGO ALBERT : 1935 Age/Sex: 83F Ordering Provider: HELEN Roberts Med Rec #: [id number] Reg Status: [facility] Room #: Date of Service: 06/13/19 Report Number: [id number] cc:Armen Meraz IV, SPECIAL EDUCATION TEACHER Send Report To: [id number] CT/CT Head No Contrast Reason for exam: lightheaded, presyncope FINDINGS: No intraaxial or extraaxial collection of fluid. Atrophy. Mild periventricular white matter low attenuated changes. No skull fracture. Visualized paranasal sinuses and mastoid air cells unremarkable. IMPRESSION: No acute intracranial process. Chronic involutional changes. While performing the above CT exam, the following dose reduction techniques wereused: *Automated exposure control *Adjustment of the mA and/or kV according to patient size *Use of iterative reconstruction technique CT Dose in mGy: Contrast Agent: Amount in ml: Method of Administration: REPORT SIGNATURE ON FILE Reported By: Anders Anglin DO <Electronically signed by Anders Anglin DO> 06/13/1932 Dictation Date/Time: 06/13/19741 Transcribed Date/Time: 06/13/19839 Feed Research Aide: TYRON Name Value Range Interpretation Code Description Data Keturah rce(s) Supporting Document(s) ID Date Data Source [id number] 06/11/2019 03:56:00 PM [facility] Imaging Services Department Imaging Report [address], [place] [address] Name: DIEGO ALBERT : 1935 Age/Sex: 83F Ordering Provider: NICOLAS Ugarte Med Rec #: [id number] Date of Service: 06/10/19 Report Number: [id number] cc: Armen Meraz, IV, SPECIAL EDUCATION TEACHER; NICOLAS Ugarte Send Report To: [id number] MAMMOSCR/Screening Digital Mammo Rt CAD Reason for Exam: SCREENING Patient States Last CBE: 06-06-19 Is this a follow up exam: Follow up to: Patient's Tessa Model Lifetime risk of developing breast cancer: lt breast ca hx In addition, there is a history of the sister developing breast carcinoma. FINDINGS: Routine craniocaudal medial oblique digital mammography of the right breast is obtained in this patient status post left sided mastectomy and compared to the only prior examinations available for comparisons are dated 03-25-12, 02-27-11, 02-13-10 and demonstrated a scattered fibroglandular breast parenchymal pattern. There is no discrete dominant mass or suspicious calcifications. IMPRESSION: No mammographic evidence of malignancy, suggest the patient undergo routine screening mammography as per [employer] and [employer]. OVERALL FINAL ASSESSMENT OF FINDINGS: BIRADS CLASSIFICATION: 2 DESCRIPTION: BENIGN. OVERALL FINAL ASSESSMENT OF BREAST COMPOSITION: BIRADS CLASSIFICATION: B DESCRIPTION: There are scattered areas of fibroglandular density. This mammogram was performed digitally and interpreted with the aid of ICAD, an FDA- approved, computer-aided detection system. REPORT SIGNATURE ON FILE 06/13/19 0823 Reported By: Jonnathan Tadeo MD <Electronically signed by Jonnathan Tadeo MD>06/13/19 0823 Dictation Date/Time: 06/10/19 1559 Transcribed Date/Time: 06/11/19 155 [employer] Aide: KATHY Name Value Range Interpretation Code Description Data Keturah rce(s) Supporting Document(s) ID Date Data Source [id number] 06/06/2019 04:25:00 PM [facility] Name Value Range Interpretation Code Description Data Keturah rce(s) Supporting Document(s) PT 9.2-11.[address] [facility] ospital INR Normal (applies to non-numeric results) [facility] The use of INR is restricted to patients on stable oral anticoagulant. Therapeutic Range: 2.0 - 3.0 High Risk Range: 2.5 - 3.5 ID Date Data Source [id number] 05/05/2019 05:19:00 PM [facility] Name Value Range Interpretation Code Description Data Keturah rce(s) Supporting Document(s) PT 9.2-11.[address] [facility] INR Normal (applies to non-numeric results) [facility] The use of INR is restricted to patients on stable oral anticoagulant. Therapeutic Range: 2.0 - 3.0 High Risk Range: 2.5 - 3.5 Procedure Vital Signs ID Date Data Source [id number] 05/31/2020 11:41:00 AM [facility] Name Value Range Interpretation Code Description Data Source(s) Weight Measurement Method 5 5 [facility] Weight (Calculated Kilograms) 61.23 61.23 [facility] Weight 2017.6 2017.6 [facility] Temperature Source 7 7 [facility] Temperature 98.1 98.1 [facility] Respiratory Effort 15 15 [facility] Respiratory Rate 16 16 [facility] Pulse Assessment Method 4 4 [facility] Pulse Rate 62 62 [facility] Height (Calculated Centimeters) 149.86 149. 86 [facility] Height 59 59 [facility] Blood Pressure 132/66 132/66 [facility] Body Mass Index (BMI) 27.2 27.2 [facility] Weight Measurement Method 5 5 [facility] Weight (Calculated Kilograms) 61.23 61.23 [facility] Weight 2017.6 2017.6 [facility] Temperature Source 7 7 [facility] Temperature 98.1 98.1 [facility] Respiratory Effort 15 15 [facility] Respiratory Rate 16 16 [facility] Pulse Assessment Method 4 4 [facility] Pulse Rate 62 62 [facility] Height (Calculated Centimeters) 149.86 149. 86 [facility] Height 59 59 [facility] Blood Pressure 132/66 132/66 [facility] Body Mass Index (BMI) 27.2 27.2 [facility] Weight Measurement Method 1 1 [facility] Weight (Calculated Kilograms) 61.23 61.23 [facility] Weight 2096 2096 [facility] Temperature Source 7 7 [facility] Temperature 98.6 98.6 [facility] Respiratory Effort 1 1 [facility] Respiratory Rate 18 18 [facility] Pulse Assessment Method 4 4 [facility] Pulse Rate 72 72 [facility] Height (Calculated Centimeters) 149.86 149. 86 [facility] Height 59 59 [facility] Blood Pressure 120/66 120/66 [facility] Body Mass Index (BMI) 27.2 27.2 [facility] Weight Measurement Method 5 5 [facility] Weight (Calculated Kilograms) 61.23 61.23 [facility] Weight 2176 2176 [facility] Temperature Source 7 7 [facility] Temperature 98 98 [facility] Respiratory Effort 1 1 [facility] Respiratory Rate 17 17 [facility] Pulse Assessment Method 4 4 [facility] Pulse Rate 58 58 [facility] Height (Calculated Centimeters) 149.86 149. 86 [facility] Height 59 59 [facility] Blood Pressure 121/67 121/67 [facility] Body Mass Index (BMI) 27.2 27.2 [facility] Weight Measurement Method 5 5 [facility] Weight (Calculated Kilograms) 61.23 61.23 [facility] Weight 2176 2176 [facility] Temperature Source 7 7 [facility] Temperature 98 98 [facility] Respiratory Effort 15 15 [facility] Respiratory Rate 18 18 [facility] Pulse Assessment Method 4 4 [facility] Pulse Rate 79 79 [facility] Height (Calculated Centimeters) 149.86 149. 86 [facility] Height 59 59 [facility] Blood Pressure 121/67 121/67 [facility] Body Mass Index (BMI) 27.2 27.2 [facility] Hospital ID Date Data Source [id number] 06/05/2020 08:24:00 AM EST [facility] Name Value Range Interpretation Code Description Data Source(s) Weight Measurement Method 8 8 [facility] Weight 2320 2320 [facility] pital Temperature Source 7 7 [facility] Temperature 97 97 [facility] spital Respiratory Rate 18 18 [facility] Pulse Assessment Method 4 4 G [facility] Weight Measurement Method 8 8 [facility] Weight 2320 2320 [facility] Temperature Source 7 7 [facility] Temperature 97 [facility] Res[facility] Rate 18 18 [facility] Pulse Rate 63 63 [facility] 59 [facility] 136/71 136/71 [facility] Weight Measurement Method 8 8 [facility] Weight 2320 2320 [facility] p[facility] Temperature Source 7 7 [facility] Temperature 97 97 [facility] spital Respiratory Rate 18 18 [facility] Pulse Rate 70 70 [facility] Height 59 59 [facility] 142/71 142/71 [facility] ID Date Data Source [id number] 07/25/2019 02:17:00 PM EDT [facility] Name Value Range Interpretation Code Description Data Source(s) Weight Measurement Method 8 8 [facility] Weight 2400 2400 [facility] pital Temperature Source 7 7 [facility] Temperature 97.2 97.[facility] Res[facility] 16 16 [facility] Pulse Assessment Method 4 4 [facility] Pulse Rate 72 72 [facility] pital Height [address] [facility] Blood Pressure 154/88 154/88 [facility] Weight Measurement Method 8 8 [facility] Weight 2400 2400 [facility] pital Temperature Source 7 7 [facility] Temperature 97.2 97.2 [facility] spital Respiratory Rate 16 16 [facility] Pulse Assessment Method 4 4 G [facility] Pulse Rate 72 72 [facility] Height [address] [facility] Blood Pressure 154/88 154/88 [facility] Weight Measurement Method 8 8 [facility] Weight 2400 2400 [facility] pital Temperature Source 7 7 [facility] Temperature 97.2 97.2 [facility] Respiratory Rate 17 17 [facility] Pulse Rate 65 65 [facility] pital Height 59 59 [facility] pital Blood Pressure 156/89 156/89 [facility] Weight Measurement Method 8 8 [facility] Weight 2400 2400 [facility] pital Temperature Source 7 7 [facility] Temperature 97.2 97.2 [facility] Respiratory Rate 18 18 [facility] Pulse Rate 65 65 [facility] Height [address] [facility] Blood Pressure 156/89 156/89 [facility]
[2020-06-22 16:24] LABS: BILIRUBIN,DIRECT 0.1 MG/DL (0.0-0.2); BILIRUBIN,TOTAL 0.2 MG/DL (0.2-1.0); C REACTIVE PROTEIN QUANTITATIV 0.85 MG/DL (0.00-0.30); MAGNESIUM LEVEL 1.7 MG/DL (1.8-2.4); THYROID STIMULATING HORMONE 1.47 uIU/ML (0.358-3.740); THYROXINE (T4) 8.8 UG/DL (4.5-12.0); TOTAL PROTEIN 6.7 GM/DL (6.4-8.2)
--- NOTE | 2020-06-22 16:25 | REP ---
INDICATION: DYSPNEA/COUGH. COMPARISON: Comparison right shoulder radiographs are from February 05, 2015. TECHNIQUE: Portable upright AP chest radiograph. FINDINGS: EKG monitoring electrodes and oxygen delivery tubing are seen. There are surgical clips in the left axillary soft tissues. There is moderate cardiac enlargement. There are extensive bilateral mixed interstitial and alveolar infiltrates in the lung bruno. There is no free pleural effusion visible. There is an area of pleural thickening on the right inferolaterally. The right lung was clear on 2015 shoulder radiographs. The thoracic aorta is calcific and tortuous. No acute bony abnormality is seen.. IMPRESSION: Moderate cardiomegaly. Extensive bilateral patchy interstitial and alveolar infiltrates consistent with pneumonia. Some pleural thickening on the right.. <Electronically signed by Thanh Wilson > 06/22/20 [id number]
--- NOTE | 2020-06-22 17:25 | ECGEPIP ---
[facility] - ED Test Date: 2020-06-22 Pat Name: DIEGO ALBERT Department: Room: - Gender: Female Mottler Operator: ISABEL : 1935 Requested By: Jennifer Reyes Order Number: [id number] Reading MD: Mustapha Sims Measurements Intervals [place] Rate: 61 P: TN: QRS: 33 QRSD: 110 T: -3 QT: 396 QTc: 398 Interpretive Statements Atrial fibrillation Minimal voltage criteria for LVH, may be normal variant Nonspecific T wave abnormality Comparison tracing not on file Electronically Signed on 06-22-2020 17:25:28 EST by Mustapha Sims
[2020-06-22] MEDS ORDERED: cefTRIAXone SOD 1 GM in D5W MINI-BAG PLUS 50 ML IV ONE (18:20)
[2020-06-22] MEDS ORDERED: AZITHROMYCIN INJ 500 MG, VIAL MATE ADAPTER 1 EACH in NS 250 ML IV ONE (18:20)
--- NOTE | 2020-06-22 18:46 | REPVR ---
PROCEDURE INFORMATION: Exam: CT Chest Without Contrast; Diagnostic Exam date and time: 06/22/2020 6:00 PM Age: 84 years old Clinical indication: Shortness of breath; Additional info: Shortness of breath- TECHNIQUE: Imaging protocol: Diagnostic computed tomography of the chest without contrast. 3D rendering (Not supervised by radiologist): MIP and/or 3D reconstructed images were created by the technologist. Radiation optimization: All CT scans at this facility use at least one of these dose optimization techniques: automated exposure control; mA and/or kV adjustment per patient size (includes targeted exams where dose is matched to clinical indication); or iterative reconstruction. COMPARISON: [place] PORTABLE CHEST X-RAY 06/22/2020 3:59 PM FINDINGS: Lungs: Scattered diffuse ground-glass but predominantly crazy paving opacities in both lungs with subsegmental atelectasis noted particularly in the lung bases. Pleural spaces: Very Small left pleural effusion. Heart: There is moderate to severe cardiomegaly. Mitral annular calcification. Aorta: Aortic valvular calcification. Lymph nodes: Unremarkable. No enlarged lymph nodes. Kidneys and ureters: 2 cm low-density lesion upper pole right kidney (1 H). 6 mm hyperdense lesion mid right kidney 75 H).9 mm hyperdense lesion upper pole left kidney (80 H). 2.9 cm low-density lesion mid left kidney (4 H) with a partially calcified rim. 2.4 cm hyperdense lesion mid kidney anteriorly (49 H). No hydronephrosis in either kidney. Stomach and bowel: There is a appears thickening of the gastric mucosa. The stomach is decompressed. Bones/joints: Mild anterior compression deformity L1 with 20% loss of. Calcification noted within the posterior paraspinal muscles on either side of the spinous processes Soft tissues: Unremarkable. IMPRESSION: 1. Diffuse pneumonia with a pattern most suggestive of stage COVID pneumonia 2. Cardiomegaly. 3. Bilateral indeterminate renal lesions. In particular, there is a 2.4 cm lesion left kidney anteriorly that could represent a renal cell carcinoma. Dedicated renal CT or MR suggested. 4. Thickening of the gastric mucosa could be related to under distension. Gastritis or other infiltrative disease excluded. 5. Mild anterior compression deformity of L1. COMMENTS: Consistent with the [employer]'s Incidental Findings Committee white paper (J Am Amy Radiol 2018): Any incidental renal lesion less than 1 cm or classified as too small to characterize, or any incidental cystic renal lesion characterized as simple-appearing, is likely benign. No follow-up imaging is recommended for these lesions per consensus recommendations based on imaging criteria. Electronically signed by: Laura Altman On 06/22/2020 18:47:19 PM
[2020-06-22] MEDS ORDERED: MAGNESIUM OXIDE 400MG TAB (MAG-OX) PO ONE (19:40)
[2020-06-22] MEDS ORDERED: AZIT-12 PO (19:50)
[2020-06-22] MEDS ORDERED: OCUVTAB4 PO (19:50)
[2020-06-22] MEDS ORDERED: LATA0.0015 OU (19:50)
[2020-06-22] MEDS ORDERED: D31000TA2 PO (19:50)
[2020-06-22] MEDS ORDERED: WARF4TAB52 PO (19:50)
--- OUTSIDE RECORDS SUMMARY | 2020-06-22 19:54 | CCD ---
Author Author [facility] Organization [facility] Address Unknown Phone Unavailable Care Team Providers Care Manager Client Support Name Role Phone Belle Proctor MD Unavailable Unavailable Belle Proctor MD Unavailable Unavailable Belle Proctor MD Unavailable Unavailable Belle Proctor MD Unavailable Unavailable Belle Proctor MD Unavailable Unavailable Veronica Rosado Unavailable Unavailable BROWN, BLADIMIR KEVIN ELECTRIC SPOT WELDER Unavailable Unavailable BROWN, BLADIMIR KEVIN ELECTRIC SPOT WELDER Unavailable Unavailable BROWN, BLADIMIR KEVIN ELECTRIC SPOT WELDER Unavailable Unavailable BROWN, BLADIMIR KEVIN ELECTRIC SPOT WELDER Unavailable Unavailable BROWN, BLADIMIR KEVIN ELECTRIC SPOT WELDER Unavailable Unavailable BROWN, BLADIMIR KEVIN ELECTRIC SPOT WELDER Unavailable Unavailable BROWN, BLADIMIR KEVIN ELECTRIC SPOT WELDER Unavailable Unavailable BROWN, BLADIMIR KEVIN ELECTRIC SPOT WELDER Unavailable Unavailable BROWN, BLADIMIR KEVIN ELECTRIC SPOT WELDER Unavailable Unavailable BROWN, BLADIMIR KEVIN ELECTRIC SPOT WELDER Unavailable Unavailable BROWN, BLADIMIR KEVIN ELECTRIC SPOT WELDER Unavailable Unavailable BROWN, BLADIMIR KEVIN ELECTRIC SPOT WELDER Unavailable Unavailable BROWN, BLADIMIR KEVIN ELECTRIC SPOT WELDER Unavailable Unavailable BROWN, BLADIMIR KEVIN ELECTRIC SPOT WELDER Unavailable Unavailable BROWN, BLADIMIR KEVIN ELECTRIC SPOT WELDER Unavailable Unavailable BROWN, BLADIMIR KEVIN ELECTRIC SPOT WELDER Unavailable Unavailable BROWN, BLADIMIR KEVIN ELECTRIC SPOT WELDER Unavailable Unavailable BROWN, BLADIMIR KEVIN ELECTRIC SPOT WELDER Unavailable Unavailable BROWN, BLADIMIR KEVIN ELECTRIC SPOT WELDER Unavailable Unavailable BROWN, BLADIMIR KEVIN ELECTRIC SPOT WELDER Unavailable Unavailable BROWN, BLADIMIR KEVIN ELECTRIC SPOT WELDER Unavailable Unavailable BROWN, BLADIMIR KEVIN ELECTRIC SPOT WELDER Unavailable Unavailable BROWN, BLADIMIR KEVIN ELECTRIC SPOT WELDER Unavailable Unavailable BROWN, BLADIMIR KEVIN ELECTRIC SPOT WELDER Unavailable Unavailable BROWN, BLADIMIR KEVIN ELECTRIC SPOT WELDER Unavailable Unavailable BROWN, BLADIMIR KEVIN ELECTRIC SPOT WELDER Unavailable Unavailable BROWN, BLADIMIR KEVIN ELECTRIC SPOT WELDER Unavailable Unavailable BROWN, BLADIMIR KEVIN ELECTRIC SPOT WELDER Unavailable Unavailable BROWN, BLADIMIR KEVIN ELECTRIC SPOT WELDER Unavailable Unavailable BROWN, BLADIMIR KEVIN ELECTRIC SPOT WELDER Unavailable Unavailable BROWN, BLADIMIR KEVIN ELECTRIC SPOT WELDER Unavailable Unavailable BROWN, BLADIMIR KEVIN ELECTRIC SPOT WELDER Unavailable Unavailable BROWN, BLADIMIR KEVIN ELECTRIC SPOT WELDER Unavailable Unavailable BROWN, BLADIMIR KEVIN ELECTRIC SPOT WELDER Unavailable Unavailable BROWN, BLADIMIR KEVIN ELECTRIC SPOT WELDER Unavailable Unavailable BROWN, BLADIMIR KEVIN ELECTRIC SPOT WELDER Unavailable Unavailable BROWN, BLADIMIR KEVIN ELECTRIC SPOT WELDER Unavailable Unavailable BROWN, BLADIMIR KEVIN ELECTRIC SPOT WELDER Unavailable Unavailable BROWN, BLADIMIR KEVIN ELECTRIC SPOT WELDER Unavailable Unavailable YUDY, VERONICA PA Unavailable Unavailable [...] MERARI PA Unavailable Unavailable Birchenough, L Krupa REGISTRATION SPECIALIST Unavailable Unavailable Birchenough, L Krupa REGISTRATION SPECIALIST Unavailable Unavailable Birchenough, L Krupa REGISTRATION SPECIALIST Unavailable Unavailable Birchenough, L Krupa REGISTRATION SPECIALIST Unavailable Unavailable Birchenough, L Krupa REGISTRATION SPECIALIST Unavailable Unavailable Birchenough, L Krupa REGISTRATION SPECIALIST Unavailable Unavailable Birchenough, L Krupa REGISTRATION SPECIALIST Unavailable Unavailable Birchenough, L Krupa REGISTRATION SPECIALIST Unavailable Unavailable Birchenough, L Krupa REGISTRATION SPECIALIST Unavailable Unavailable Birchenough, L Krupa REGISTRATION SPECIALIST Unavailable Unavailable Birchenough, L Krupa REGISTRATION SPECIALIST Unavailable Unavailable Birchenough, L Krupa REGISTRATION SPECIALIST Unavailable Unavailable Birchenough, L Krupa REGISTRATION SPECIALIST Unavailable Unavailable Birchenough, L Krupa REGISTRATION SPECIALIST Unavailable Unavailable Birchenough, L Krupa REGISTRATION SPECIALIST Unavailable Unavailable Birchenough, L Krupa REGISTRATION SPECIALIST Unavailable Unavailable Birchenough, L Krupa REGISTRATION SPECIALIST Unavailable Unavailable Birchenough, L Krupa REGISTRATION SPECIALIST Unavailable Unavailable Birchenough, L Krupa REGISTRATION SPECIALIST Unavailable Unavailable Birchenough, L Krupa REGISTRATION SPECIALIST Unavailable Unavailable Birchenough, L Krupa REGISTRATION SPECIALIST Unavailable Unavailable Birchenough, L Krupa REGISTRATION SPECIALIST Unavailable Unavailable Birchenough, L Krupa REGISTRATION SPECIALIST Unavailable Unavailable Birchenough, L Krupa REGISTRATION SPECIALIST Unavailable Unavailable Birchenough, L Krupa REGISTRATION SPECIALIST Unavailable Unavailable Birchenough, L Krupa REGISTRATION SPECIALIST Unavailable Unavailable Birchenough, L Krupa REGISTRATION SPECIALIST Unavailable Unavailable Birchenough, L Krupa REGISTRATION SPECIALIST Unavailable Unavailable Birchenough, L Krupa REGISTRATION SPECIALIST Unavailable Unavailable Birchenough, L Krupa REGISTRATION SPECIALIST Unavailable Unavailable Birchenough, L Krupa REGISTRATION SPECIALIST Unavailable Unavailable Birchenough, L Krupa REGISTRATION SPECIALIST Unavailable Unavailable Birchenough, L Krupa REGISTRATION SPECIALIST Unavailable Unavailable Birchenough, L Krupa REGISTRATION SPECIALIST Unavailable Unavailable Belle Proctor MD Unavailable Unavailable [...] A JAGUAR PA Unavailable Unavailable KANDY, A JAGAUR PA Unavailable Unavailable COUCH, CAROLINE PA Unavailable [...] Unavailable Unavailable MALGORZATA, RON ALCANTARA Unavailable Unavailable MALGORZTAA, RON ALCANTARA Unavailable Unavailable MALGORZATA, RON ALCANTARA [...] ALCANTARA Unavailable Unavailable WINSOME IV, L ARMEN CONTACT CENTER ANALYST Unavailable Unavailable WINSOME IV, L ARMEN CONTACT CENTER ANALYST Unavailable Unavailable WINSOME IV, L ARMEN CONTACT CENTER ANALYST Unavailable Unavailable WINSOME IV, L ARMEN CONTACT CENTER ANALYST Unavailable Unavailable WINSOME IV, L ARMEN CONTACT CENTER ANALYST Unavailable Unavailable WINSOME IV, L ARMEN CONTACT CENTER ANALYST Unavailable Unavailable WINSOME IV, L ARMEN CONTACT CENTER ANALYST Unavailable Unavailable WINSOME IV, L ARMEN CONTACT CENTER ANALYST Unavailable Unavailable WINSOME IV, L ARMEN CONTACT CENTER ANALYST Unavailable Unavailable WINSOME IV, L ARMEN CONTACT CENTER ANALYST Unavailable Unavailable WINSOME IV, L ARMEN CONTACT CENTER ANALYST Unavailable Unavailable WINSOME IV, L ARMEN CONTACT CENTER ANALYST Unavailable Unavailable WINSOME IV, L ARMEN CONTACT CENTER ANALYST Unavailable Unavailable WINSOME IV, L ARMEN CONTACT CENTER ANALYST Unavailable Unavailable WINSOME IV, L ARMEN CONTACT CENTER ANALYST Unavailable Unavailable WINSOME IV, L ARMEN CONTACT CENTER ANALYST Unavailable Unavailable WINSOME IV, L ARMEN CONTACT CENTER ANALYST Unavailable Unavailable WINSOME IV, L ARMEN CONTACT CENTER ANALYST Unavailable Unavailable WINSOME IV, L ARMEN CONTACT CENTER ANALYST Unavailable Unavailable WINSOME IV, L ARMEN CONTACT CENTER ANALYST Unavailable Unavailable WINSOME IV, L ARMEN CONTACT CENTER ANALYST Unavailable Unavailable WINSOME IV, L ARMEN CONTACT CENTER ANALYST Unavailable Unavailable WINSOME IV, L ARMEN CONTACT CENTER ANALYST Unavailable Unavailable WINSOME IV, L ARMEN CONTACT CENTER ANALYST Unavailable Unavailable WINSOME IV, L ARMEN CONTACT CENTER ANALYST Unavailable Unavailable WINSOME IV, L ARMEN CONTACT CENTER ANALYST Unavailable Unavailable WINSOME IV, L ARMEN CONTACT CENTER ANALYST Unavailable Unavailable WINSOME IV, L ARMEN CONTACT CENTER ANALYST Unavailable Unavailable WINSOME IV, L ARMEN CONTACT CENTER ANALYST Unavailable Unavailable WINSOME IV, L ARMEN CONTACT CENTER ANALYST Unavailable Unavailable WINSOME IV, L ARMEN CONTACT CENTER ANALYST Unavailable Unavailable WINSOME IV, L ARMEN CONTACT CENTER ANALYST Unavailable Unavailable BROUGHAL, C ENA PA Unavailable Unavailable BROUGHAL, C ENA PA Unavailable Unavailable BROUGHAL, C ENA PA Unavailable Unavailable BROUGHAL, C ENA PA Unavailable Unavailable BROUGHAL, C ENA PA Unavailable Unavailable BROUGHAL, C ENA PA Unavailable Unavailable Jes Paige MD Unavailable Unavailable Jes Paige MD Unavailable Unavailable Jes Paige MD Unavailable Unavailable Armen L Winsome, IV REGISTRATION SPECIALIST Unavailable Unavailable Re-disclosure Warning The records that [...] is protected by Article 27-F of the [facility] Public Health law. If you continue you may have access to information: Regarding HIV / AIDS; Provided by facilities licensed or operated by the [facility] Office of Mental Health; or Provided by the [facility] Office for People With Developmental Disabilities. If such information is present, then the following [facility] mandated warning applies: This information has [...] law may result in a fine or group home sentence or both. A general authorization for the release of medical or other information is NOT sufficient authorization for further disc losure. Allergies and Adverse Reactions Type Description Substance Reaction Status Data Source(s ) Drug allergy Drug allergy No Known Allergies [facility] Drug allergy Drug allergy nut - unspecified [place] [facility] Drug allergy Drug allergy iodine Flushing [facility] Drug allergy Drug allergy Iodinated Contrast Media (IVP DYE) [facility] Encounters Encounter Providers Location Date Indications Data Source(s ) Outpatient Attender: Krupa Echols [facility] ED-IMAG 06/22/2020 08:57:00 AM EST [id number] [facility] J069 Outpatient Attender: ARMEN MERAZ IV ED-HCCEDWPCP 2020 11:32:00 AM EST - 05/29/2020 11:33:00 AM [facility] Patient discharged. Inpatient Attender: Twila Proctor MDAttender: Twila Proctor MDAttender: Thee Paige MDAdmitter: Twila Proctor MDConsultant: CAROLINE COUCH PAConsultant: ENA CERVANTES CPSCAORT-MSU2 05/10/2020 05:4 6:00 PM EST - 05/22/2020 12:19:00 PM EST COVID [facility] COVID Patient discharged. Outpatient Attender: RON MCGARRY MD SJP-[id number].GVR 05/10/2020 12:00:[address] [facility] Outpatient Attender: Ayo Horne ED-LABPNP 10:45:00 AM EST - 05/09/2020 10:46:00 AM EST WORRIED WELL [facility] WORRIED WELL Patient discharged. [facility] 05/03/2020 02:53:00 PM EST [facility] Emergency Attender: JAGUAR CERVANTES ED-ED 05/03 11:13:00 AM EST - 05/03/2020 01:24:00 PM EST ABDOMINAL AND BACK PAIN [facility] ABDOMINAL AND BACK PAIN Patient discharged. Outpatient Attender: RHIANNON Meraz RNPAttender: ARMEN MCDOWELL ED-LABEDW 04/30/2020 08:32:00 AM EST - 04/30/2020 08:33:00 AM [facility] Patient discharged. Outpatient Attender: ARMEN MERAZ IVAttender: RHIANNON lizama [facility] ED-LABEDW 03/21/2020 07:00:00 AM EST - 03/21/2020 07:01:00 AM [facility] Patient discharged. Outpatient Attender: RHIANNON Meraz RNPAttender: ARMEN MCDOWELL ED-LABEDW 03/15/2020 10:54:00 AM EST - 03/15/2020 10:55:00 AM [facility] Patient discharged. Outpatient Attender: ARMEN MERAZ IV ED-HCCEDWPCP 2019 01:23:00 PM EST - 03/09/2020 01:24:00 PM [facility] Patient discharged. Outpatient Attender: ARMEN MERAZ IV ED-LABEDW 02/20/2020 10:45:00 A M [facility] Outpatient Attender: IV Armen Meraz RNPAttender: ARMEN MCDOWELL IV ED-LABEDW 02/20/2020 10:43:00 AM EDT - 02/20/2020 10:44:00 AM EDT [facility] Patient discharged. Outpatient Attender: ARMEN MERAZ IV ED-HCCEDWPCP 2019 10:48:00 AM EDT - 02/17/2020 10:49:00 AM EDT [facility] Patient discharged. Outpatient Attender: IV Armen Meraz RNPAttender: ARMEN MCDOWELL IV ED-LABEDW 02/07/2020 08:01:00 AM EDT - 02/07/2020 08:02:00 AM EDT [facility] Patient discharged. Outpatient Attender: IV Armen Meraz RNPAttender: ARMEN MCDOWELL IV ED-LABEDW 01/03/2020 09:46:00 AM EDT - 01/03/2020 09:47:00 AM EDT [facility] Patient discharged. [facility] 11/08/2019 03:17:00 PM EDT [facility] Outpatient Attender: IV Armen Meraz RNPAttender: ARMEN MERAZ IV ED-HCCEDWPCP 11/08/2019 09:35:00 AM EDT - 11/08/2019 09:36:00 AM EDT [facility] Patient discharged. Outpatient Attender: RON MCGARRY MD SJP-SJP.GVR 0 12:00:00 AM EDT - 10/27/2019 12:06:15 PM EDT [facility] Outpatient Attender: ARMEN MERAZ IV ED-HCCEDWPCP 2019 08:50:00 AM EDT - 09/13/2019 08:51:00 AM EDT [facility] Patient discharged. Outpatient Attender: IV Armen Meraz RNPAttender: ARMEN MCDOWELL IV ED-LAB 09/08/2019 08:21:00 AM EDT - 09/08/2019 08:22:00 AM EDT [id number] [facility] [id number] Patient discharged. Outpatient Attender: IV Armen Meraz RNPAttender: ARMEN MCDOWELL IV ED-LABEDW 07/12/2019 07:15:00 AM EDT - 07/12/2019 07:16:00 AM EDT [facility] Patient discharged. Outpatient Attender: MERARI CERVANTES Physical Therapy 06/2019 12:00:00 PM EST [facility] ([facility]) Outpatient CPSCAORT-LABEJN 06/21/2019 07:11:00 PM EST [facility] Outpatient Attender: RHIANNON Meraz RNPAttender: ARMEN MERAZ ED-HCCEDWPC 06/21/2019 06:44:00 AM EST - 06/21/2019 06:45:00 AM EST [facility] Patient discharged. Outpatient Attender: ARMEN MERAZ IV ED-IMAGH 2019 09:50:00 AM EST - 06/17/2019 09:51:00 AM EST [id number] [facility] [id number] Patient discharged. Outpatient Attender: ARMEN MERAZ ED-HCCEDWPC 2019 08:03:00 AM EST - 06/17/2019 08:04:00 AM EST [facility] Patient discharged. Emergency Attender: JAGUAR Moe tender: Veronica Ponceender: VERONICA CERVANTES ED-ED 06/13/2019 06:23:00 AM EST - 06/13/2019 09:07:00 AM EST fall [facility] fall Patient discharged. Outpatient Attender: KEVIN STOCKTON NP ED-IMAGH 2019 09:32:00 AM EST - 06/10/2019 09:33:00 AM EST RT BREAST MAMMO [facility] RT BREAST MAMMO Patient discharged. Outpatient Attender: KEVIN STOCKTON NP CPSCAORT-CPSGNOBG 05/28 09:19:00 AM EST - 06[facility]08/2019 [facility] Attender: RHIANNON Meraz RNPAttender: ARMEN MCDOWELL IV ED-LABEDW 06/06/2019 08:28:00 AM EST - 06/06/2019 08:29:00 AM EST [facility] Patient discharged. Outpatient Attender: ARMEN MERAZ IV ED-HCCEDWPCP 2019 07:00:00 AM EST - 05/19/2019 07:01:00 AM [facility] Patient discharged. Outpatient Attender: IV Armen Meraz RNPAttender: ARMEN MCDOWELL IV ED-LABEDW 05/05/2019 08:01:00 AM EST - 05/05/2019 08:02:00 AM [facility] Patient discharged. Outpatient Attender: IV Armen Meraz RNPAttender: ARMEN MCDOWELL IV ED-LABEDW 03/22/2019 07:57:00 AM EST - 03/22/2019 07:58:00 AM [facility] Patient discharged. Outpatient Attender: IV Armen Meraz RNPAttender: ARMEN MCDOWELL IV ED-LABEDW 03/18/2019 07:49:00 AM EST - 03/18/2019 07:50:00 AM [facility] Patient discharged. Medications Medication Brand Name Start Date Product Form Dose Route Admi nistrative Instructions Pharmacy Instructions Status Indications Reaction Description Data Source(s) 10 mg 05/09/2020 12:00:00 AM EST tablet 90 TAKE ONE TABLET BY MOUTH EVERY DAY TAKE ONE TABLET BY MOUTH EVERY DAY SOLD: 05/09/2020 [facility] 100 mg 05/09/2020 12:00:00 AM EST [...] TABLETS BY MOUTH EVERY DAY SOLD: 03/28/2020 [facility] 100 mg 02/29/2020 12:00:00 AM [...] ONCE DAILY TEST ONCE DAILY SOLD: 12/04/2019 [facility] BLOOD SUGAR DIAGNOSTIC 10/16/2019 12:00:00 [...] BY MOUTH TWICE A DAY SOLD: 01/02/2020 [facility] 10 mg 04/12/2019 12:00:00 AM EST [...] type / Coverage type Policy ID Covered green party ID Covered green party's relationship to stack Policy Stack Plan Information MEDICARE COMPLETE [id number] SP [id number] [facility] MEDICARE [id number] Retired [id number] [facility] MEDICARE [id number] S [id number] SELF PAY S [facility] MEDICARE [id number] Trice [id number] MEDICARE C [id number] S [id number] A MEDICARE COMPLETE-[facility] O [id number] O [id number] MEDICARE COMPLETE [id number] SP [id number] [facility] [id number] undefined [id number] [facility] [id number] undefin ed [id number] [facility] [id number] undefined [id number] [facility] O [id number] S [id number] [facility] [id number] 18 [id number] [facility] [id number] 18 [id number] [facility] [id number] 18 [id number] [facility] [id number] 18 [id number] [facility] [id number] 18 [id number] Problems, Conditions, and Diagnoses Code Display Name Description Problem Type Effective Dates Data Source(s) Z79.01 snf (current) use of anticoagulant s CLAIM ATTORNEY (CURRENT) USE OF ANTICOAGULANTS Diagnosis 05/03/2020 11:13:00 AM [facility] spital I48.91 Unspecified atrial fibrillation UNSPECIFIED ATRI AL FIBRILLATION Diagnosis 05/03/2020 11:13:00 AM [facility] E11.9 Type 2 diabetes mellitus without complic ations TYPE 2 DIABETES MELLITUS WITHOUT COMPLICATIONS Diagnosis 05/03/2020 11:13:00 AM [facility] Z87.440 Personal history of urinary (tract) infe ctions PERSONAL HISTORY OF URINARY (TRACT) INFECTIONS Diagnosis 05/03/2020 11:13:00 AM [facility] N39.0 Urinary tract infection, site not specif ied URINARY TRACT INFECTION, SITE NOT SPECIFIED Diagnosis 05/03/2020 11:13:00 AM [facility] adrienneguillermo Z23 Encounter for immunization ENCOUNTER FOR IMMUNIZATION Diagnosis 02/17/2020 10:48:00 AM EDT [facility] I48.92 Unspecified atrial flutter UNSPECIFIED ATRIAL FLUTTER Diagnosis 02/07/2020 08:01:00 AM EDT [facility] I38 Endocarditis, valve unspecified Endocarditis, valve un specified Diagnosis 10/27/2019 10:51:[address] [facility] H40.9 Unspecified glaucoma Unspecified glaucoma Diagnosis 10/27/2019 10:51:[address] [facility] K21.9 Gastro-esophageal reflux disease without esophagitis Gastro-esophageal reflux disease without Diagnosis 10/27/2019 10:51:02 AM EDT [facility] E11.9 Type 2 diabetes mellitus without complic ations Type 2 diabetes mellitus without complic Diagnosis 10/27/2019 10:51:[address] [facility] N18.9 Chronic kidney disease, unspecified Chronic kidn ey disease, unspecified Diagnosis 10/27/2019 10:51:02 AM EDT [facility] I10 Essential (primary) hypertension Essential (primary) h ypertension Diagnosis 10/27/2019 10:51:[address] [facility] M19.90 Unspecified osteoarthritis, unspecified site Unspecified osteoarthritis, unspecified Diagnosis 10/27/2019 10:51:[address] [facility] E78.5 Hyperlipidemia, unspecified Hyperlipidemia, unspecifie d Diagnosis 10/27/2019 10:51:[address] [facility] I48.91 Unspecified atrial fibrillation Unspecified atri al fibrillation Diagnosis 10/27/2019 10:51:02 AM EDT [facility] I48.20 CHRONIC ATRIAL FIBRILLATION, UNSPECIFIED CHRONIC ATRIAL FIBRILLATION, UNSPECIFIED Diagnosis 07/12/2019 07:15:00 AM EDT [facility] eusebio Z51.81 Encounter for therapeutic drug level mon itoring ENCOUNTER FOR THERAPEUTIC DRUG LEVEL MONITORING Diagnosis 07/12/2019 07:15:00 AM EDT [facility] I10 Essential (primary) hypertension ESSENTIAL (PRIMARY) H YPERTENSION Diagnosis 06/21/2019 06:44:00 AM [facility] Y99.8 Other external cause status OTHER EXTERNAL CAUSE STATU S Diagnosis 06/17/2019 08:03:00 AM [facility] Y92.[address] or not applicable UNSPECIFIED PLACE OR NOT APPLICABLE Diagnosis 06/17/2019 08:03:00 AM [facility] W19.XXXA Unspecified fall, initial encounter UNSP ECIFIED FALL, INITIAL ENCOUNTER Diagnosis 06/17/2019 08:03:00 AM [facility] spital S80.01XA Contusion of right knee, initial encount er CONTUSION OF RIGHT KNEE, INITIAL ENCOUNTER Diagnosis 06/17/2019 [facility] S[facility]usion of right hip, initial encounte r CONTUSION OF RIGHT HIP, INITIAL ENCOUNTER Diagnosis 06/17/2019 08:03:00 AM [facility] spital S01.111A Laceration without foreign b vanesa of right eyelid and periocular area, initial encounter LACERATION W/O FB OF RIGHT EYELID AND PERIOCULAR AREA, INIT Diagnosis 06/17/2019 08:03:00 AM [facility] Y92.012 Bathroom of single-family (p rivate) house as the place of occurrence of the external cause BATHROOM OF SINGLE-FAMILY (PRIVATE) HOUSE PLACE Diagnosis 06/13/2019 06:23:00 AM [facility] W01.198A Fall on same level from slip ping, tripping and stumbling with subsequent striking against other object, initial encounter FALL SAME LEV FROM SLIP/TRIP W STRIKE AGNST OTH OBJECT, INIT Diagnosis 06/13/2019 06:23:0 0 AM [facility] Z12.31 Encounter for screening mammogram for ma lignant neoplasm of breast ENCNTR SCREEN MAMMOGRAM FOR MALIGNANT NEOPLASM OF BREAST Diagnosis 09:32:00 AM [facility] Surgeries/Procedures Procedure Description Date Indications Data Source(s) CUL BACT AEROBIC ADDL METHS DEFINITIVE EA ISOL CULTURE AEROB IC IDENTIFY 05/03/2020 12:00:00 AM [facility] SUSCEPTIBLTY STDY ANTIMICRBIAL MICRO/AGAR DILUTJ MICROBE SANKET CEPTIBLE JOSEFA 05/03/2020 12:00:00 AM [facility] URNLS DIP STICK/TABLET REAGENT AUTO MICROSCOPY URINALYSIS AU TO W/SCOPE 05/03/2020 12:00:00 AM [facility] BLOOD COUNT COMPLETE AUTO&AUTO DIFRNTL WBC COUNT COMPLETE CB C W/AUTO DIFF WBC 05/03/2020 12:00:00 AM [facility] AMYLASE ASSAY OF AMYLASE 05/03/2020 12:00:00 AM [facility] LIPASE ASSAY OF LIPASE 05/03/2020 12:00:00 AM [facility] COMPREHENSIVE METABOLIC PANEL COMPREHEN METABOLIC PANEL 10/2020 12:00:00 AM [facility] EMERGENCY DEPARTMENT VISIT MODERATE SEVERITY EMERGENCY DEPT VISIT 05/03/2020 12:00:00 AM [facility] PROTHROMBIN TIME PROTHROMBIN TIME 03/15/2020 12:00:00 AM [facility] 24649 IIV4 VACC NO PRSV 0.5 ML IM 02/17/2020 12:00:00 AM [facility] ARTHROCENTESIS ASPIR&/INJECTION MAJOR JT/BURSA 12:00:00 AM [facility] ) ARTHROCENTESIS ASPIR&/INJECTION MAJOR JT/BURSA 12:00:00 AM [facility] ) ARTHROCENTESIS ASPIR&/INJECTION MAJOR JT/BURSA 020 12:00:00 AM [facility] ) COLLECTION VENOUS BLOOD VENIPUNCTURE ROUTINE VENIPUNCTURE 12:00:00 AM [facility] X-Ray Spine Lumbosacral Complete Inc Bending Views Min Of 6 06/28/2019 12:00:00 AM [facility] ([facility] X-Ray Hip Unilateral With Pelvis 2-3 Views 06/28/2019 12:00:00 AM [facility] ) [facility] outpatient clinic visit for assessment and ma nagement of a patient Hospital Outpatient Clinic Visit 06/21/2019 12:00:00 AM [facility] SEDIMENTATION RATE RBC NON-AUTOMATED RBC SED RATE NONAUTOMAT ED 06/21/2019 12:00:00 AM [facility] C-REACTIVE PROTEIN HIGH SENSITIVITY C-REACTIVE PROTEIN HS 12:00:00 AM [facility] [address]998 X-RAY EXAM HIPS BI 5/> VIEWS 06/17/2019 12:00:00 AM [facility] RADEX SPINE LUMBOSACRAL 2/3 VIEWS X-RAY EXAM L-S SPINE 2/3 V WS 06/17/2019 12:00:00 AM [facility] RADEX SPINE THORACIC 2 VIEWS X-RAY EXAM THORAC SPINE 2VWS 12:00:00 AM [facility] RADEX SPINE CERVICAL 2/3 VIEWS X-RAY EXAM NECK SPINE 2-3 VW 06/17/2019 12:00:00 AM [facility] RADIOLOGIC EXAMINATION KNEE 1/2 VIEWS X-RAY EXAM OF KNEE 1 O R 2 06/17/2019 12:00:00 AM [facility] CT CERVICAL SPINE W/O CONTRAST MATERIAL CT NECK SPINE W/O DY E 06/13/2019 12:00:00 AM [facility] CT ORBIT SELLA/POST FOSSA/EAR W/O CONTRAST MATRL CT ORBIT/EA R/FOSSA W/O DYE 06/13/2019 12:00:00 AM [facility] CT HEAD/BRAIN W/O CONTRAST MATERIAL CT HEAD/BRAIN W/O DYE 12:00:00 AM [facility] ECG ROUTINE ECG W/LEAST 12 LDS TRCG ONLY W/O I&R ELECTROCARD IOGRAM TRACING 06/13/2019 12:00:00 AM [facility] TROPONIN QUANTITATIVE ASSAY OF TROPONIN QUANT 06/13/2019 12:00:00 A M [facility] TDAP VACCINE 7/> YR IM TDAP VACCINE 7 YRS/> IM 06/13/2019 12:00:00 AM [facility] Non-covered item or service 06/13/2019 12:00:00 AM [facility] SIMPLE REPAIR F/E/E/N/L/M 2.6CM-5.0CM RPR F/E/E/N/L/M 2.6-5. 0 CM 06/13/2019 12:00:00 AM [facility] IMADM PRQ ID SUBQ/IM NJXS 1 VACCINE IMMUNIZATION ADMIN 05/28 12:00:00 AM [facility] EMERGENCY DEPARTMENT VISIT HIGH/URGENT SEVERITY EMERGENCY DE PT VISIT 06/13/2019 12:00:00 AM [facility] Results ID Date Data Source [id number] 05/22/2020 08:04:00 AM [facility] Name Value Range Interpretation Code Description Data Keturah rce(s) Supporting Document(s) LAB Glucose,Fingerstick 118 mg/dL 70-110 Above high normal [facility] ID Date Data Source [id number] 05/22/2020 12:49:00 PM [facility] Name Value Range Interpretation Code Description Data Keturah rce(s) Supporting Document(s) White Blood Count 4.8-10.8 Normal (applies to non-numeri c results) [facility] Red Blood Count 3.68-5.22 Normal (applies to non-numeric results) [facility] Hemoglobin 11.2-15.7 Normal (applies to non-numeric resul ts) [facility] Hematocrit 34.1-44.9 Normal (applies to non-numeric resul ts) [facility] Mean Corpuscular Volume 81-99 Normal (applies to non- numeric results) [facility] Mean Corpuscular Hemoglobin 27.0-33.0 Normal (appli es to non-numeric results) [facility] Mean Corpuscular HGB Conc 32.0-36.0 Normal (applies to no n-numeric results) [facility] Red Cell Distribution Width 11.5-14.5 Normal (appli es to non-numeric results) [facility] Platelet Count 208 X10 3/uL 130-450 Normal (applies to non-numeric results) [facility] Mean Platelet Volume 9.5-12.7 Normal (applies to non-num dusty results) [facility] Total Cells Counted 100 0-100 Normal (applies to non-nume cee results) [facility] Neutrophils % (manual) 88 % 40-75 Above high normal [facility] Lymphocytes % (manual) 6 % 21-46 Below low normal [facility] Monocytes % (manual) 3 % 5-12 [facility] Eosinophils % (manual) 0 % 1-5 Below low normal [facility] Basophils % (manual) 0 % 0-1 Normal (applies to non-num dusty results) [facility] Myelocytes % (manual) 2 % 0-0 Above high normal [facility] Band Neutrophils% (manual) 1 % 0-5 Normal (applies to n on-numeric results) [facility] Atypical Lymph% (manual) 0 % 0-5 Normal (applies to non -numeric results) [facility] Myelocytes # (Manual) 0-0 Above high normal [facility] Neutrophils # (Manual) 1.5-8.1 Normal (applies to non-n umeric results) [facility] Lymphocytes # (Manual) 1.0-3.1 Below low normal [facility] Monocytes # (Manual) 0.2-1.3 Normal (applies to non-num dusty results) [facility] Eosinophils# (Manual) 0.0-0.5 Normal (applies to non-nu meric results) [facility] Basophils # (Manual) 0.0-0.1 Normal (applies to non-num dusty results) [facility] Platelet Estimate Adequate Normal (applies to non-numeri c results) [facility] Estimate agrees with automated count Slide Reviewed By Normal (applies to non-numeri c results) [facility] Slide has been reviewed and findings con firmed by a technologist/news gathering technician. ID Date Data Source [id number] 05/22/2020 10:56:00 AM EST [facility] Name Value Range Interpretation Code Description Data Keturah rce(s) Supporting Document(s) PT 9.4-12.5 Above high normal [facility] INR Normal (applies to non-numeric results) [facility] The use of the INR is restricted to mindy ents on stable oral anticoagulant. Therapeutic Range: 2.0-3.0 High Risk Values: 2.5-3.5 ID Date Data Source [id number] 05/22/2020 10:57:00 AM [facility] Name Value Range Interpretation Code Description Data Keturah rce(s) Supporting Document(s) D-Dimer Quant 46096 ng/mLFEU <500 PH [facility] MINISTERIO LU read back critical inform ation 05/22/20 0652 LAB.COLDE Positive for D-Dimer. DVT/PE or DIC may be present. D-Dimer is an exclusionary test and is used in conjunction with a clinical pretest probability (PTP) assessment model to exclude DVT and PE. Consider further diagnostic studies to confirm diagnosis. ID Date Data Source [id number] 05/22/2020 10:55:[address] [facility] Value Range Interpretation Code Description Data Keturah rce(s) Supporting Document(s) BUN 54 mg/dL 7-17 Above high normal [facility] ID Date Data Source [id number] 05/22/2020 10:55:[address] [facility] Value Range Interpretation Code Description Data Keturah rce(s) Supporting Document(s) Creatinine 0.70-1.20 Normal (applies to non-numeric resul ts) [facility] ID Date Data Source [id number] 05/22/2020 10:56:[address] [facility] Value Range Interpretation Code Description Data Keturah rce(s) Supporting Document(s) Ferritin 939 ng/mL 11.1-264.0 Above high normal [facility] ID Date Data Source [id number] 05/22/2020 10:56:[address] [facility] Value Range Interpretation Code Description Data Keturah rce(s) Supporting Document(s) LDH 349 U/L 84-246 Above high normal [facility] ID Date Data Source [id number] 05/22/2020 10:56:[address] [facility] Value Range Interpretation Code Description Data Keturah rce(s) Supporting Document(s) C-Reactive Protein,Wide Range <3.00 Above high normal [facility] ID Date Data Source [id number] 05/22/2020 10:56:00 AM [facility] Name Value Range Interpretation Code Description Data Keturah rce(s) Supporting Document(s) B-Type Natriuretic Peptide BNP 2014 pg/mL <450 Above high ty l [facility] NT-proBNP values less than 300 pg/mL hav [...] acute congestive failure. ID Date Data Source [id number] 05/22/2020 02:46:[address] [facility] Value Range Interpretation Code Description Data Keturah rce(s) Supporting Document(s) LAB Glucose,Fingerstick 250 mg/dL 70-110 Above high normal [facility] ID Date Data Source [id number] 05/21/2020 06:16:[address] [facility] Value Range Interpretation Code Description Data Keturah rce(s) Supporting Document(s) LAB Glucose,Fingerstick 212 mg/dL 70-110 Above high normal [facility] ID Date Data Source [id number] 05/21/2020 12:17:[address] [facility] Value Range Interpretation Code Description Data Keturah rce(s) Supporting Document(s) LAB Glucose,Fingerstick 167 mg/dL 70-110 Above high normal [facility] ID Date Data Source [id number] 05/21/2020 08:22:[address] [facility] Value Range Interpretation Code Description Data Keturah rce(s) Supporting Document(s) LAB Glucose,Fingerstick 123 mg/dL 70-110 Above high normal [facility] ID Date Data Source [id number] 05/21/2020 07:31:00 AM EST [facility] Name Value Range Interpretation Code Description Data Keturah rce(s) Supporting Document(s) White Blood Count 4.8-10.8 Above high normal [facility] Red Blood Count 3.68-5.22 Normal (applies to non-numeric results) [facility] Hemoglobin 11.2-15.7 Normal (applies to non-numeric resul ts) [facility] Hematocrit 34.1-44.9 Normal (applies to non-numeric resul ts) [facility] Mean Corpuscular Volume 81-99 Normal (applies to non- numeric results) [facility] Mean Corpuscular Hemoglobin 27.0-33.0 Normal (appli es to non-numeric results) [facility] Mean Corpuscular HGB Conc 32.0-36.0 Normal (applies to no n-numeric results) [facility] Red Cell Distribution Width 11.5-14.5 Normal (appli es to non-numeric results) [facility] Platelet Count 203 X10 3/uL 130-450 Normal (applies to non-numeric results) [facility] Mean Platelet Volume 9.5-12.7 Normal (applies to non-num dusty results) [facility] Imm Grans% (AUTO) 5 % 0-2 Above high normal [facility] Neutrophils % (AUTO) 85 % 40-75 Above high normal [facility] Lymphocytes % (AUTO) 6 % 21-46 Below low normal Ca [facility] Monocytes % (AUTO) 4 % 5-12 Below low normal [facility] Eosinophils % (AUTO) 0 % 1-5 Below low normal Ca [facility] Basophils % (AUTO) 1 % 0-1 Normal (applies to non-numer ic results) [facility] Imm Grans# (AUTO) 0.0-0.5 Normal (applies to non-numeri c results) [facility] Neutrophils # (AUTO) 1.5-8.1 Above high normal [facility] Lymphocytes # (AUTO) 1.0-3.1 Below low normal Ca [facility] Monocytes # (AUTO) 0.2-1.3 Normal (applies to non-numer ic results) [facility] Eosinophils# (AUTO) 0.0-0.5 Normal (applies to non-nume cee results) [facility] Basophils # (AUTO) 0.0-0.1 Normal (applies to non-numer ic results) [facility] Slide Reviewed By Normal (applies to non-numeri c results) [facility] Slide has been reviewed and findings con firmed by a technologist/news gathering technician. ID Date Data Source [id number] 05/21/2020 06:27:00 AM EST [facility] Name Value Range Interpretation Code Description Data Keturah rce(s) Supporting Document(s) Sodium 137 mmol/L 137-145 Normal (applies to non-numeric resul ts) [facility] Potassium 3.5-5.1 Normal (applies to non-numeric resul ts) [facility] Chloride 105 mmol/L 98-112 Normal (applies to non-numeric resul ts) [facility] Carbon Dioxide CO2 22.0-33.0 Normal (applies to non-numer ic results) [facility] Anion Gap 4.0-11.0 Normal (applies to non-numeric resul ts) [facility] BUN 68 mg/dL 7-17 Above high normal [facility] Creatinine 0.70-1.20 Above high normal [facility] GFR 41 mL/min >60 Below low normal [facility] Result based on MDRD formula. Glucose Level 140 mg/dL 74-99 Above high normal [facility] The reference range is only applicable w hen fasting. Calcium-Uncorrected 8.4-10.2 Normal (applies to non-nume cee results) [facility] Corrected Calcium 8.4-10.2 Normal (applies to non-numeri c results) [facility] Bilirubin,Total 0.2-1.3 Normal (applies to non-numeric results) [facility] SGOT(AST) 15 U/L 14-36 Normal (applies to non-numeric resul ts) [facility] SGPT(ALT) 28 U/L 9-52 Normal (applies to non-numeric resul ts) [facility] Alkaline Phosphatase 84 U/L 38-126 Normal (applies to non-num dusty results) [facility] can increase Alkaline Phosp le vels up to 2 times the normal adult value. Normal values for children and adolescents are 2 to 3 times the normal adult value. Total Protein 6.3-8.2 Below low normal [facility] Albumin 3.5-5.0 Below low normal [facility] ID Date Data Source [id number] 05/21/2020 06:27:00 AM [facility] Name Value Range Interpretation Code Description Data Keturah rce(s) Supporting Document(s) Ferritin 897 ng/mL 11.1-264.0 Above high normal [facility] ID Date Data Source [id number] 05/21/2020 06:28:[address] [facility] Value Range Interpretation Code Description Data Keturah rce(s) Supporting Document(s) C-Reactive Protein,Wide Range <3.00 Above high normal [facility] ID Date Data Source [id number] 05/21/2020 06:27:[address] [facility] Value Range Interpretation Code Description Data Keturah rce(s) Supporting Document(s) LDH 392 U/L 84-246 Above high normal [facility] ID Date Data Source [id number] 05/21/2020 06:21:[address] [facility] Value Range Interpretation Code Description Data Keturah rce(s) Supporting Document(s) D-Dimer Quant 26653 ng/mLFEU <500 PH [facility] read back critical informat ion 05/21/20 0620 LAB.BOVAL Positive for D-Dimer. DVT/PE or DIC may be present. D-Dimer is an exclusionary test and is used in conjunction with a clinical pretest probability (PTP) assessment model to exclude DVT and PE. Consider further diagnostic studies to confirm diagnosis. ID Date Data Source [id number] 05/20/2020 09:08:[address] [facility] Value Range Interpretation Code Description Data Keturah rce(s) Supporting Document(s) LAB Glucose,Fingerstick 192 mg/dL 70-110 Above high normal [facility] ID Date Data Source [id number] 05/20/2020 05:18:00 PM EST [facility] Name Value Range Interpretation Code Description Data Keturah rce(s) Supporting Document(s) LAB Glucose,Fingerstick 248 mg/dL 70-110 Above high normal [facility] ID Date Data Source [id number] 05/20/2020 12:29:00 PM [facility] Name Value Range Interpretation Code Description Data Keturah rce(s) Supporting Document(s) LAB Glucose,Fingerstick 118 mg/dL 70-110 Above high normal [facility] ID Date Data Source [id number] 05/20/2020 08:50:00 AM [facility] Name Value Range Interpretation Code Description Data Keturah rce(s) Supporting Document(s) LAB Glucose,Fingerstick 124 mg/dL 70-110 Above high normal [facility] ID Date Data Source [id number] 05/20/2020 02:32:00 PM [facility] Name Value Range Interpretation Code Description Data Keturah rce(s) Supporting Document(s) White Blood Count 4.8-10.8 Above high normal [facility] Red Blood Count 3.68-5.22 Normal (applies to non-numeric results) [facility] Hemoglobin 11.2-15.7 Normal (applies to non-numeric resul ts) [facility] Hematocrit 34.1-44.9 Normal (applies to non-numeric resul ts) [facility] Mean Corpuscular Volume 81-99 Normal (applies to non- numeric results) [facility] Mean Corpuscular Hemoglobin 27.0-33.0 Normal (appli es to non-numeric results) [facility] Mean Corpuscular HGB Conc 32.0-36.0 Normal (applies to no n-numeric results) [facility] Red Cell Distribution Width 11.5-14.5 Normal (appli es to non-numeric results) [facility] Platelet Count 197 X10 3/uL 130-450 Normal (applies to non-numeric results) [facility] Mean Platelet Volume 9.5-12.7 Normal (applies to non-num dusty results) [facility] Imm Grans% (AUTO) 5 % 0-2 Above high normal [facility] Neutrophils % (AUTO) 84 % 40-75 Above high normal [facility] Lymphocytes % (AUTO) 5 % 21-46 Below low normal Ca [facility] Monocytes % (AUTO) 5 % 5-12 Normal (applies to non-numer ic results) [facility] Eosinophils % (AUTO) 0 % 1-5 Below low normal Ca [facility] Basophils % (AUTO) 1 % 0-1 Normal (applies to non-numer ic results) [facility] Imm Grans# (AUTO) 0.0-0.5 Above high normal [facility] Neutrophils # (AUTO) 1.5-8.1 Above high normal [facility] Lymphocytes # (AUTO) 1.0-3.1 Below low normal Ca [facility] Monocytes # (AUTO) 0.2-1.3 Normal (applies to non-numer ic results) [facility] Eosinophils# (AUTO) 0.0-0.5 Normal (applies to non-nume cee results) [facility] Basophils # (AUTO) 0.0-0.1 Normal (applies to non-numer ic results) [facility] Slide Reviewed By Normal (applies to non-numeri c results) [facility] Slide has been reviewed and findings con firmed by a technologist/news gathering technician. ID Date Data Source [id number] 05/20/2020 07:42:00 AM EST [facility] Name Value Range Interpretation Code Description Data Keturah rce(s) Supporting Document(s) Sodium 137 mmol/L 137-145 Normal (applies to non-numeric resul ts) [facility] Potassium 3.5-5.1 Normal (applies to non-numeric resul ts) [facility] Chloride 103 mmol/L 98-112 Normal (applies to non-numeric resul ts) [facility] Carbon Dioxide CO2 22.0-33.0 Normal (applies to non-numer ic results) [facility] Anion Gap 4.0-11.0 Normal (applies to non-numeric resul ts) [facility] BUN 88 mg/dL 7-17 PH [facility] guillermo GUSTAFSON read back critical inform ation 05/20/20 0734 LAB.SAUCH Creatinine 0.70-1.20 Above high normal [facility] GFR 28 mL/min >60 Below low normal [facility] Result based on MDRD formula. Glucose Level 134 mg/dL 74-99 Above high normal [facility] The reference range is only applicable w hen fasting. Calcium-Uncorrected 8.4-10.2 Normal (applies to non-nume cee results) [facility] Corrected Calcium 8.4-10.2 Normal (applies to non-numeri c results) [facility] Bilirubin,Total 0.2-1.3 Normal (applies to non-numeric results) [facility] SGOT(AST) 12 U/L 14-36 Below low normal [facility] SGPT(ALT) 26 U/L 9-52 Normal (applies to non-numeric resul ts) [facility] Alkaline Phosphatase 89 U/L 38-126 Normal (applies to non-num dusty results) [facility] can increase Alkaline Phosp le vels up to 2 times the normal adult value. Normal values for children and adolescents are 2 to 3 times the normal adult value. Total Protein 6.3-8.2 Below low normal [facility] Albumin 3.5-5.0 Below low normal [facility] ID Date Data Source [id number] 05/20/2020 07:42:00 AM [facility] Name Value Range Interpretation Code Description Data Keturah rce(s) Supporting Document(s) Ferritin 835 ng/mL 11.1-264.0 Above high normal [facility] ID Date Data Source [id number] 05/20/2020 07:42:00 AM [facility] Name Value Range Interpretation Code Description Data Keturah rce(s) Supporting Document(s) LDH 397 U/L 84-246 Above high normal [facility] ID Date Data Source [id number] 05/20/2020 07:42:00 AM [facility] Name Value Range Interpretation Code Description Data Keturah rce(s) Supporting Document(s) C-Reactive Protein,Wide Range <3.00 Above high normal [facility] ID Date Data Source [id number] 05/20/2020 07:23:00 AM [facility] Name Value Range Interpretation Code Description Data Keturah rce(s) Supporting Document(s) D-Dimer Quant 65216 ng/mLFEU <500 PH [facility] WATSON SANDOVAL read back critical informati on 05/20/20 0721 LAB.BOVAL Positive for D-Dimer. DVT/PE or DIC may be present. D-Dimer is an exclusionary test and is used in conjunction with a clinical pretest probability (PTP) assessment model to exclude DVT and PE. Consider further diagnostic studies to confirm diagnosis. ID Date Data Source [id number] 05/20/2020 12:51:00 AM [facility] Name Value Range Interpretation Code Description Data Keturah rce(s) Supporting Document(s) LAB Glucose,Fingerstick 209 mg/dL 70-110 Above high normal [facility] ID Date Data Source [id number] 05/19/2020 05:24:00 PM [facility] Name Value Range Interpretation Code Description Data Keturah rce(s) Supporting Document(s) LAB Glucose,Fingerstick 163 mg/dL 70-110 Above high normal [facility] ID Date Data Source [id number] 05/19/2020 12:11:00 PM [facility] Name Value Range Interpretation Code Description Data Keturah rce(s) Supporting Document(s) LAB Glucose,Fingerstick 203 mg/dL 70-110 Above high normal [facility] ID Date Data Source [id number] 05/19/2020 08:16:00 AM [facility] Name Value Range Interpretation Code Description Data Keturah rce(s) Supporting Document(s) LAB Glucose,Fingerstick 137 mg/dL 70-110 Above high normal [facility] ID Date Data Source [id number] 05/19/2020 05:41:00 PM [facility] Name Value Range Interpretation Code Description Data Keturah rce(s) Supporting Document(s) White Blood Count 4.8-10.8 Above high normal [facility] Red Blood Count 3.68-5.22 Normal (applies to non-numeric results) [facility] Hemoglobin 11.2-15.7 Normal (applies to non-numeric resul ts) [facility] Hematocrit 34.1-44.9 Normal (applies to non-numeric resul ts) [facility] Mean Corpuscular Volume 81-99 Normal (applies to non- numeric results) [facility] Mean Corpuscular Hemoglobin 27.0-33.0 Normal (appli es to non-numeric results) [facility] Mean Corpuscular HGB Conc 32.0-36.0 Normal (applies to no n-numeric results) [facility] Red Cell Distribution Width 11.5-14.5 Normal (appli es to non-numeric results) [facility] Platelet Count 198 X10 3/uL 130-450 Normal (applies to non-numeric results) [facility] Mean Platelet Volume 9.5-12.7 Normal (applies to non-num dusty results) [facility] Total Cells Counted 100 0-100 Normal (applies to non-nume cee results) [facility] Neutrophils % (manual) 90 % 40-75 Above high normal [facility] Lymphocytes % (manual) 1 % 21-46 Below low normal [facility] Monocytes % (manual) 4 % 5-12 Below low normal [facility] Eosinophils % (manual) 0 % 1-5 Below low normal [facility] [facility] Basophils % (manual) 0 % 0-1 Normal (applies to non-num dusty results) [facility] Metamyelocytes % (manual) 1 % 0-0 Above high normal [facility] Myelocytes % (manual) 3 % 0-0 Above high normal [facility] Band Neutrophils% (manual) 1 % 0-5 Normal (applies to n on-numeric results) [facility] Atypical Lymph% (manual) 0 % 0-5 Normal (applies to non -numeric results) [facility] Metamyelocytes # (Manual) 0-0 Above high normal [facility] Myelocytes # (Manual) 0-0 Above high normal [facility] Neutrophils # (Manual) 1.5-8.1 Above high normal [facility] Lymphocytes # (Manual) 1.0-3.1 Below low normal [facility] Monocytes # (Manual) 0.2-1.3 Normal (applies to non-num dusty results) [facility] Eosinophils# (Manual) 0.0-0.5 Normal (applies to non-nu meric results) [facility] Basophils # (Manual) 0.0-0.1 Normal (applies to non-num dusty results) [facility] Platelet Estimate Adequate Normal (applies to non-numeri c results) [facility] Estimate agrees with automated count Slide Reviewed By Normal (applies to non-numeri c results) [facility] Slide has been reviewed and findings con firmed by a technologist/news gathering technician. ID Date Data Source [id number] 05/19/2020 02:19:00 PM EST [facility] Name Value Range Interpretation Code Description Data Keturah rce(s) Supporting Document(s) Sodium 140 mmol/L 137-145 Normal (applies to non-numeric resul ts) [facility] Potassium 3.5-5.1 Normal (applies to non-numeric resul ts) [facility] Chloride 107 mmol/L 98-112 Normal (applies to non-numeric resul ts) [facility] Carbon Dioxide CO2 22.0-33.0 Normal (applies to non-numer ic results) [facility] Anion Gap 4.0-11.0 Normal (applies to non-numeric resul ts) [facility] BUN 63 mg/dL 7-17 Above high normal [facility] Creatinine 0.70-1.20 Above high normal [facility] GFR 41 mL/min >60 Below low normal [facility] Result based on MDRD formula. Glucose Level 165 mg/dL 74-99 Above high normal [facility] The reference range is only applicable w hen fasting. Calcium-Uncorrected 8.4-10.2 Normal (applies to non-nume cee results) [facility] Corrected Calcium 8.4-10.2 Normal (applies to non-numeri c results) [facility] Bilirubin,Total 0.2-1.3 Normal (applies to non-numeric results) [facility] SGOT(AST) 14 U/L 14-36 Normal (applies to non-numeric resul ts) [facility] SGPT(ALT) 30 U/L 9-52 Normal (applies to non-numeric resul ts) [facility] Alkaline Phosphatase 102 U/L 38-126 Normal (applies to non-num dusty results) [facility] can increase Alkaline Phosp le vels up to 2 times the normal adult value. Normal values for children and adolescents are 2 to 3 times the normal adult value. Total Protein 6.3-8.2 Below low normal [facility] Albumin 3.5-5.0 Below low normal [facility] ID Date Data Source [id number] 05/19/2020 02:19:00 PM [facility] Name Value Range Interpretation Code Description Data Keturah rce(s) Supporting Document(s) Ferritin 818 ng/mL 11.1-264.0 Above high normal [facility] ID Date Data Source [id number] 05/19/2020 02:19:[address] [facility] Value Range Interpretation Code Description Data Keturah rce(s) Supporting Document(s) LDH 456 U/L 84-246 Above high normal [facility] ID Date Data Source [id number] 05/19/2020 02:19:[address] [facility] Value Range Interpretation Code Description Data Keturah rce(s) Supporting Document(s) Digoxin Level 0.80-2.00 Normal (applies to non-numeric re sults) [facility] ID Date Data Source [id number] 05/19/2020 08:45:[address] [facility] Value Range Interpretation Code Description Data Keturah rce(s) Supporting Document(s) PT 9.4-12.5 Above high normal [facility] INR Normal (applies to non-numeric results) [facility] The use of the INR is restricted to mindy ents on stable oral anticoagulant. Therapeutic Range: 2.0-3.0 High Risk Values: 2.5-3.5 ID Date Data Source [id number] 05/19/2020 08:45:[address] [facility] Value Range Interpretation Code Description Data Keturah rce(s) Supporting Document(s) D-Dimer Quant 63467 ng/mLFEU <500 PH [facility] ONEL BARRAZA read back critical informat ion 05/19/20 0844 LAB.DISAN Positive for D-Dimer. DVT/PE or DIC may be present. D-Dimer is an exclusionary test and is used in conjunction with a clinical pretest probability (PTP) assessment model to exclude DVT and PE. Consider further diagnostic studies to confirm diagnosis. ID Date Data Source [id number] 05/18/2020 09:22:00 PM [facility] Name Value Range Interpretation Code Description Data Keturah rce(s) Supporting Document(s) LAB Glucose,Fingerstick 251 mg/dL 70-110 Above high normal [facility] ID Date Data Source [id number] 05/18/2020 09:22:00 PM [facility] Name Value Range Interpretation Code Description Data Keturah rce(s) Supporting Document(s) LAB Glucose,Fingerstick 176 mg/dL 70-110 Above high normal [facility] ID Date Data Source [id number] 05/18/2020 12:14:00 PM [facility] Name Value Range Interpretation Code Description Data Keturah rce(s) Supporting Document(s) LAB Glucose,Fingerstick 200 mg/dL 70-110 Above high normal [facility] ID Date Data Source [id number] 05/18/2020 05:48:00 PM [facility] Hospital Name: DIEGO ALBERT : 1935 Age /Sex: 84F Ordering Provider: HELEN Boyer Med Rec #: [id number] Reg Status: ADM IN Room #: 207-1 Date of Service: 05/18/20 Report Number: [id number] cc:Armen Meraz, IV, REGISTRATION SPECIALIST; HELEN Boyer Send Report To: [id number] US/US Duplex Lower Ext Vein Bilat Reason [...] Dictation Date/Time: 05/18/20 1253 Transcribed Date/Time: 05/18/20 5888 Financial Advisor: JONATHON Name Value Range Interpretation Code Description Data Keturah rce(s) Supporting Document(s) ID Date Data Source [id number] 05/18/2020 10:30:00 AM [facility] Name Value Range Interpretation Code Description Data Keturah rce(s) Supporting Document(s) LAB Glucose,Fingerstick 143 mg/dL 70-110 Above high normal [facility] ID Date Data Source [id number] 05/18/2020 04:10:00 PM [facility] Name Value Range Interpretation Code Description Data Keturah rce(s) Supporting Document(s) Sodium 138 mmol/L 137-145 Normal (applies to non-numeric resul ts) [facility] Potassium 3.5-5.1 Normal (applies to non-numeric resul ts) [facility] Chloride 105 mmol/L 98-112 Normal (applies to non-numeric resul ts) [facility] Carbon Dioxide CO2 22.0-33.0 Normal (applies to non-numer ic results) [facility] Anion Gap 4.0-11.0 Normal (applies to non-numeric resul ts) [facility] BUN 57 mg/dL 7-17 Above high normal [facility] Creatinine 0.70-1.20 Above high normal [facility] GFR 42 mL/min >60 Below low normal [facility] Result based on MDRD formula. Glucose Level 191 mg/dL 74-99 Above high normal [facility] The reference range is only applicable w hen fasting. Calcium-Uncorrected 8.4-10.2 Normal (applies to non-nume cee results) [facility] Corrected Calcium 8.4-10.2 Normal (applies to non-numeri c results) [facility] Bilirubin,Total 0.2-1.3 Normal (applies to non-numeric results) [facility] SGOT(AST) 17 U/L 14-36 Normal (applies to non-numeric resul ts) [facility] SGPT(ALT) 28 U/L 9-52 Normal (applies to non-numeric resul ts) [facility] Alkaline Phosphatase 104 U/L 38-126 Normal (applies to non-num dusty results) [facility] can increase Alkaline Phosp le vels up to 2 times the normal adult value. Normal values for children and adolescents are 2 to 3 times the normal adult value. Total Protein 6.3-8.2 Below low normal [facility] Albumin 3.5-5.0 Below low normal [facility] Hospital ID Date Data Source [id number] 05/18/2020 04:10:00 PM [facility] Name Value Range Interpretation Code Description Data Keturah rce(s) Supporting Document(s) Ferritin 724 ng/mL 11.1-264.0 Above high normal [facility] ID Date Data Source [id number] 05/18/2020 04:10:00 PM [facility] Name Value Range Interpretation Code Description Data Keturah rce(s) Supporting Document(s) LDH 462 U/L 84-246 Above high normal [facility] ID Date Data Source [id number] 05/18/2020 04:10:00 PM [facility] Name Value Range Interpretation Code Description Data Keturah rce(s) Supporting Document(s) B-Type Natriuretic Peptide BNP 1624 pg/mL <450 Above high ty l [facility] NT-proBNP values less than 300 pg/mL hav [...] acute congestive failure. ID Date Data Source [id number] 05/18/2020 05:49:00 AM EST [facility] Name Value Range Interpretation Code Description Data Keturah rce(s) Supporting Document(s) White Blood Count 4.8-10.8 Above high normal [facility] Red Blood Count 3.68-5.22 Normal (applies to non-numeric results) [facility] Hemoglobin 11.2-15.7 Normal (applies to non-numeric resul ts) [facility] Hematocrit 34.1-44.9 Normal (applies to non-numeric resul ts) [facility] Mean Corpuscular Volume 81-99 Normal (applies to non- numeric results) [facility] Mean Corpuscular Hemoglobin 27.0-33.0 Normal (appli es to non-numeric results) [facility] Mean Corpuscular HGB Conc 32.0-36.0 Normal (applies to no n-numeric results) [facility] Red Cell Distribution Width 11.5-14.5 Normal (appli es to non-numeric results) [facility] Platelet Count 197 X10 3/uL 130-450 Normal (applies to non-numeric results) [facility] Mean Platelet Volume 9.5-12.7 Normal (applies to non-num dusty results) [facility] Total Cells Counted 100 0-100 Normal (applies to non-nume cee results) [facility] Neutrophils % (manual) 73 % 40-75 Normal (applies to non-n umeric results) [facility] Lymphocytes % (manual) 12 % 21-46 Below low normal [facility] Monocytes % (manual) 8 % 5-12 Normal (applies to non-num dusty results) [facility] Eosinophils % (manual) 0 % 1-5 Below low normal [facility] Basophils % (manual) 0 % 0-1 Normal (applies to non-num dusty results) [facility] Metamyelocytes % (manual) 3 % 0-0 Above high normal [facility] Myelocytes % (manual) 1 % 0-0 Above high normal [facility] Band Neutrophils% (manual) 1 % 0-5 Normal (applies to n on-numeric results) [facility] Atypical Lymph% (manual) 2 % 0-5 Normal (applies to non -numeric results) [facility] Metamyelocytes # (Manual) 0-0 Above high normal [facility] Myelocytes # (Manual) 0-0 Above high normal [facility] Neutrophils # (Manual) 1.5-8.1 Above high normal [facility] Lymphocytes # (Manual) 1.0-3.1 Normal (applies to non-n umeric results) [facility] Monocytes # (Manual) 0.2-1.3 Normal (applies to non-num dusty results) [facility] Eosinophils# (Manual) 0.0-0.5 Normal (applies to non-nu meric results) [facility] Basophils # (Manual) 0.0-0.1 Normal (applies to non-num dusty results) [facility] Platelet Estimate Adequate Normal (applies to non-numeri c results) [facility] Estimate agrees with automated count Slide Reviewed By Normal (applies to non-numeri c results) [facility] Slide has been reviewed and findings con firmed by a technologist/news gathering technician. ID Date Data Source [id number] 05/18/2020 05:35:00 AM [facility] Name Value Range Interpretation Code Description Data Keturah rce(s) Supporting Document(s) PT 9.4-12.5 Above high normal [facility] INR Normal (applies to non-numeric results) [facility] The use of the INR is restricted to mindy ents on stable oral anticoagulant. Therapeutic Range: 2.0-3.0 High Risk Values: 2.5-3.5 ID Date Data Source [id number] 05/18/2020 05:35:00 AM [facility] Name Value Range Interpretation Code Description Data Keturah rce(s) Supporting Document(s) D-Dimer Quant 37900 ng/mLFEU <500 PH [facility] MARIA FERNANDA JENKINS read back critical informa tion 05/18/20 0534 LAB.BOVAL Positive for D-Dimer. DVT/PE or DIC may be present. D-Dimer is an exclusionary test and is used in conjunction with a clinical pretest probability (PTP) assessment model to exclude DVT and PE. Consider further diagnostic studies to confirm diagnosis. ID Date Data Source [id number] 05/18/2020 12:40:00 AM [facility] Name Value Range Interpretation Code Description Data Keturah rce(s) Supporting Document(s) LAB Glucose,Fingerstick 252 mg/dL 70-110 Above high normal [facility] ID Date Data Source [id number] 05/18/2020 12:40:00 AM [facility] Name Value Range Interpretation Code Description Data Keturah rce(s) Supporting Document(s) LAB Glucose,Fingerstick 183 mg/dL 70-110 Above high normal [facility] ID Date Data Source [id number] 05/18/2020 05:09:00 AM [facility] Hospital Name: DIEGO ALBERT : 1935 Age /Sex: 84F Ordering Provider: HELEN Boyer Med Rec #: [id number] Reg Status: ADM IN Room #: 207-1 Date of Service: 05/17/20 Report Number: [id number] cc:Armen Meraz, RHIANNON, REGISTRATION SPECIALIST; HELEN Boyer Send Report To: [id number] CT/CT Chest for PE with Contrast Reason [...] Franco MD> 05/18/20 0957 Dictation Date/Time: 05/17/20 0160 Transcribed Date/Time: 05/18/20 1652 Financial Advisor: KATARINA Name Value Range Interpretation Code Description Data Keturah rce(s) Supporting Document(s) ID Date Data Source [id number] 05/17/2020 04:27:00 PM [facility] Name Value Range Interpretation Code Description Data Keturah rce(s) Supporting Document(s) LAB Glucose,Fingerstick 207 mg/dL 70-110 Above high normal [facility] ID Date Data Source [id number] 05/17/2020 04:27:00 PM [facility] Name Value Range Interpretation Code Description Data Keturah rce(s) Supporting Document(s) LAB Glucose,Fingerstick 132 mg/dL 70-110 Above high normal [facility] ID Date Data Source [id number] 05/17/2020 09:14:[address] [facility] Value Range Interpretation Code Description Data Keturah rce(s) Supporting Document(s) White Blood Count 4.8-10.8 Normal (applies to non-numeri c results) [facility] Red Blood Count 3.68-5.22 Normal (applies to non-numeric results) [facility] Hemoglobin 11.2-15.7 Normal (applies to non-numeric resul ts) [facility] Hematocrit 34.1-44.9 Below low normal [facility] Mean Corpuscular Volume 81-99 Normal (applies to non- numeric results) [facility] Mean Corpuscular Hemoglobin 27.0-33.0 Normal (appli es to non-numeric results) [facility] Mean Corpuscular HGB Conc 32.0-36.0 Normal (applies to no n-numeric results) [facility] Red Cell Distribution Width 11.5-14.5 Normal (appli es to non-numeric results) [facility] Platelet Count 231 X10 3/uL 130-450 Normal (applies to non-numeric results) [facility] Mean Platelet Volume 9.5-12.7 Normal (applies to non-num dusty results) [facility] Total Cells Counted 100 0-100 Normal (applies to non-nume cee results) [facility] Neutrophils % (manual) 88 % 40-75 Above high normal [facility] Lymphocytes % (manual) 4 % 21-46 Below low normal [facility] Monocytes % (manual) 8 % 5-12 Normal (applies to non-num dusty results) [facility] Eosinophils % (manual) 0 % 1-5 Below low normal [facility] Basophils % (manual) 0 % 0-1 Normal (applies to non-num dusty results) [facility] Band Neutrophils% (manual) 0 % 0-5 Normal (applies to n on-numeric results) [facility] Atypical Lymph% (manual) 0 % 0-5 Normal (applies to non -numeric results) [facility] Neutrophils # (Manual) 1.5-8.1 Above high normal [facility] Lymphocytes # (Manual) 1.0-3.1 Below low normal [facility] Monocytes # (Manual) 0.2-1.3 Normal (applies to non-num dusty results) [facility] Eosinophils# (Manual) 0.0-0.5 Normal (applies to non-nu meric results) [facility] Basophils # (Manual) 0.0-0.1 Normal (applies to non-num dusty results) [facility] Platelet Estimate Adequate Normal (applies to non-numeri c results) [facility] Estimate agrees with automated count Slide Reviewed By Normal (applies to non-numeri c results) [facility] Slide has been reviewed and findings con firmed by a technologist/news gathering technician. ID Date Data Source [id number] 05/17/2020 08:25:00 AM [facility] Name Value Range Interpretation Code Description Data Keturah rce(s) Supporting Document(s) PTT 25.1-36.5 Normal (applies to non-numeric resul ts) [facility] ID Date Data Source [id number] 05/17/2020 08:25:00 AM [facility] Name Value Range Interpretation Code Description Data Keturah rce(s) Supporting Document(s) PT 9.4-12.5 Above high normal [facility] INR Normal (applies to non-numeric results) [facility] The use of the INR is restricted to mindy ents on stable oral anticoagulant. Therapeutic Range: 2.0-3.0 High Risk Values: 2.5-3.5 ID Date Data Source [id number] 05/17/2020 08:25:00 AM [facility] Name Value Range Interpretation Code Description Data Keturah rce(s) Supporting Document(s) D-Dimer Quant 67006 ng/mLFEU <500 PH [facility] ALEXIA VENEGAS read back critical informatio n 05/17/20 0825 LAB.DAVSA Positive for D-Dimer. DVT/PE or DIC may be present. D-Dimer is an exclusionary test and is used in conjunction with a clinical pretest probability (PTP) assessment model to exclude DVT and PE. Consider further diagnostic studies to confirm diagnosis. ID Date Data Source [id number] 05/17/2020 07:48:00 AM [facility] Name Value Range Interpretation Code Description Data Keturah rce(s) Supporting Document(s) Sodium 138 mmol/L 137-145 Normal (applies to non-numeric resul ts) [facility] Potassium 3.5-5.1 Normal (applies to non-numeric resul ts) [facility] Chloride 107 mmol/L 98-112 Normal (applies to non-numeric resul ts) [facility] Carbon Dioxide CO2 22.0-33.0 Normal (applies to non-numer ic results) [facility] Anion Gap 4.0-11.0 Normal (applies to non-numeric resul ts) [facility] BUN 50 mg/dL 7-17 Above high normal [facility] Creatinine 0.70-1.20 Normal (applies to non-numeric resul ts) [facility] GFR 56 mL/min >60 Below low normal [facility] Result based on MDRD formula. Glucose Level 156 mg/dL 74-99 Above high normal [facility] The reference range is only applicable w hen fasting. Calcium-Uncorrected 8.4-10.2 Normal (applies to non-nume cee results) [facility] Corrected Calcium 8.4-10.2 Normal (applies to non-numeri c results) [facility] Bilirubin,Total 0.2-1.3 Normal (applies to non-numeric results) [facility] SGOT(AST) 18 U/L 14-36 Normal (applies to non-numeric resul ts) [facility] SGPT(ALT) 28 U/L 9-52 Normal (applies to non-numeric resul ts) [facility] Alkaline Phosphatase 99 U/L 38-126 Normal (applies to non-num dusty results) [facility] can increase Alkaline Phosp le vels up to 2 times the normal adult value. Normal values for children and adolescents are 2 to 3 times the normal adult value. Total Protein 6.3-8.2 Below low normal [facility] Albumin 3.5-5.0 Below low normal [facility] ID Date Data Source [id number] 05/17/2020 07:48:00 AM [facility] Name Value Range Interpretation Code Description Data Keturah rce(s) Supporting Document(s) Ferritin 590 ng/mL 11.1-264.0 Above high normal [facility] ID Date Data Source [id number] 05/17/2020 07:48:00 AM [facility] Name Value Range Interpretation Code Description Data Keturah rce(s) Supporting Document(s) LDH 429 U/L 84-246 Above high normal [facility] ID Date Data Source [id number] 05/17/2020 07:48:00 AM [facility] Name Value Range Interpretation Code Description Data Keturah rce(s) Supporting Document(s) C-Reactive Protein,Wide Range <3.00 Above high normal [facility] ID Date Data Source [id number] 05/17/2020 07:43:00 AM [facility] Name Value Range Interpretation Code Description Data Keturah rce(s) Supporting Document(s) Troponin I 0.000-0.045 Normal (applies to non-numeric resu lts) [facility] ID Date Data Source [id number] 05/16/2020 11:09:00 PM [facility] Name Value Range Interpretation Code Description Data Keturah rce(s) Supporting Document(s) LAB Glucose,Fingerstick 204 mg/dL 70-110 Above high normal [facility] ID Date Data Source [id number] 05/16/2020 11:10:00 PM [facility] Name Value Range Interpretation Code Description Data Keturah rce(s) Supporting Document(s) LAB Glucose,Fingerstick 206 mg/dL 70-110 Above high normal [facility] ID Date Data Source [id number] 05/16/2020 11:57:00 AM [facility] Name Value Range Interpretation Code Description Data Keturah rce(s) Supporting Document(s) LAB Glucose,Fingerstick 183 mg/dL 70-110 Above high normal [facility] ID Date Data Source [id number] 05/16/2020 09:16:00 AM [facility] Name Value Range Interpretation Code Description Data Keturah rce(s) Supporting Document(s) LAB Glucose,Fingerstick 134 mg/dL 70-110 Above high normal [facility] ID Date Data Source [id number] 05/16/2020 08:24:00 AM [facility] Name Value Range Interpretation Code Description Data Keturha rce(s) Supporting Document(s) White Blood Count 4.8-10.8 Normal (applies to non-numeri c results) [facility] Red Blood Count 3.68-5.22 Normal (applies to non-numeric results) [facility] Hemoglobin 11.2-15.7 Below low normal [facility] Hematocrit 34.1-44.9 Below low normal [facility] Mean Corpuscular Volume 81-99 Normal (applies to non- numeric results) [facility] Mean Corpuscular Hemoglobin 27.0-33.0 Normal (appli es to non-numeric results) [facility] Mean Corpuscular HGB Conc 32.0-36.0 Normal (applies to no n-numeric results) [facility] Red Cell Distribution Width 11.5-14.5 Normal (appli es to non-numeric results) [facility] Platelet Count 267 X10 3/uL 130-450 Normal (applies to non-numeric results) [facility] Mean Platelet Volume 9.5-12.7 Normal (applies to non-num dusty results) [facility] Imm Grans% (AUTO) 4 % 0-2 Above high normal [facility] Neutrophils % (AUTO) 81 % 40-75 Above high normal [facility] Lymphocytes % (AUTO) 9 % 21-46 Below low normal [facility] Monocytes % (AUTO) 6 % 5-12 Normal (applies to non-numer ic results) [facility] Eosinophils % (AUTO) 0 % 1-5 Below low normal [facility] Basophils % (AUTO) 0 % 0-1 Normal (applies to non-numer ic results) [facility] Imm Grans# (AUTO) 0.0-0.5 Normal (applies to non-numeri c results) [facility] Neutrophils # (AUTO) 1.5-8.1 Normal (applies to non-num dusty results) [facility] Lymphocytes # (AUTO) 1.0-3.1 Below low normal [facility] Monocytes # (AUTO) 0.2-1.3 Normal (applies to non-numer ic results) [facility] Eosinophils# (AUTO) 0.0-0.5 Normal (applies to non-nume cee results) [facility] Basophils # (AUTO) 0.0-0.1 Normal (applies to non-numer ic results) [facility] Slide Reviewed By Normal (applies to non-numeri c results) [facility] Slide has been reviewed and findings con firmed by a technologist/news gathering technician. ID Date Data Source [id number] 05/16/2020 08:00:00 AM EST [facility] Name Value Range Interpretation Code Description Data Keturah rce(s) Supporting Document(s) Sodium 141 mmol/L 137-145 Normal (applies to non-numeric resul ts) [facility] Potassium 3.5-5.1 Normal (applies to non-numeric resul ts) [facility] Chloride 110 mmol/L 98-112 Normal (applies to non-numeric resul ts) [facility] Carbon Dioxide CO2 22.0-33.0 Normal (applies to non-numer ic results) [facility] Anion Gap 4.0-11.0 Normal (applies to non-numeric resul ts) [facility] BUN 52 mg/dL 7-17 Above high normal [facility] Creatinine 0.70-1.20 Normal (applies to non-numeric resul ts) [facility] GFR 49 mL/min >60 Below low normal [facility] Result based on MDRD formula. Glucose Level 145 mg/dL 74-99 Above high normal [facility] The reference range is only applicable w hen fasting. Calcium-Uncorrected 8.4-10.2 Normal (applies to non-nume cee results) [facility] Corrected Calcium 8.4-10.2 Normal (applies to non-numeri c results) [facility] Bilirubin,Total 0.2-1.3 Normal (applies to non-numeric results) [facility] SGOT(AST) 13 U/L 14-36 Below low normal [facility] SGPT(ALT) 27 U/L 9-52 Normal (applies to non-numeric resul ts) [facility] Alkaline Phosphatase 98 U/L 38-126 Normal (applies to non-num dusty results) [facility] can increase Alkaline Phosp le vels up to 2 times the normal adult value. Normal values for children and adolescents are 2 to 3 times the normal adult value. Total Protein 6.3-8.2 Below low normal [facility] Albumin 3.5-5.0 Below low normal [facility] ID Date Data Source [id number] 05/16/2020 08:00:00 AM EST [facility] Name Value Range Interpretation Code Description Data Keturah rce(s) Supporting Document(s) Ferritin 549 ng/mL 11.1-264.0 Above high normal [facility] ID Date Data Source [id number] 05/16/2020 08:00:00 AM [facility] Name Value Range Interpretation Code Description Data Keturah rce(s) Supporting Document(s) LDH 383 U/L 84-246 Above high normal [facility] ID Date Data Source [id number] 05/16/2020 08:00:[address] [facility] Value Range Interpretation Code Description Data Keturah rce(s) Supporting Document(s) C-Reactive Protein,Wide Range <3.00 Above high normal [facility] ID Date Data Source [id number] 05/16/2020 08:00:00 AM [facility] Name Value Range Interpretation Code Description Data Keturah rce(s) Supporting Document(s) B-Type Natriuretic Peptide BNP 2008 pg/mL <450 Above high ty l [facility] NT-proBNP values less than 300 pg/mL hav [...] acute congestive failure. ID Date Data Source [id number] 05/16/2020 08:00:00 AM [facility] Name Value Range Interpretation Code Description Data Keturah rce(s) Supporting Document(s) PT 9.4-12.5 Above high normal [facility] INR Normal (applies to non-numeric results) [facility] The use of the INR is restricted to mindy ents on stable oral anticoagulant. Therapeutic Range: 2.0-3.0 High Risk Values: 2.5-3.5 ID Date Data Source [id number] 05/16/2020 08:00:00 AM [facility] Name Value Range Interpretation Code Description Data Keturah rce(s) Supporting Document(s) PTT 25.1-36.5 Normal (applies to non-numeric resul ts) [facility] ID Date Data Source [id number] 05/16/2020 08:00:[address] [facility] Value Range Interpretation Code Description Data Keturah rce(s) Supporting Document(s) D-Dimer Quant 6458 ng/mLFEU <500 PH [facility] ELVIRA BRIDGES read back critical informa tion 05/16/20 0759 LAB.DAVSA Positive for D-Dimer. DVT/PE or DIC may be present. D-Dimer is an exclusionary test and is used in conjunction with a clinical pretest probability (PTP) assessment model to exclude DVT and PE. Consider further diagnostic studies to confirm diagnosis. ID Date Data Source [id number] 05/15/2020 09:39:[address] [facility] Value Range Interpretation Code Description Data Ketruah rce(s) Supporting Document(s) LAB Glucose,Fingerstick 223 mg/dL 70-110 Above high normal [facility] ID Date Data Source [id number] 05/15/2020 09:39:[address] [facility] Value Range Interpretation Code Description Data Keturah rce(s) Supporting Document(s) LAB Glucose,Fingerstick 194 mg/dL 70-110 Above high normal [facility] ID Date Data Source [id number] 05/15/2020 04:29:[address] [facility] Value Range Interpretation Code Description Data Keturah rce(s) Supporting Document(s) LAB Glucose,Fingerstick 176 mg/dL 70-110 Above high normal [facility] ID Date Data Source [id number] 05/15/2020 09:52:[address] [facility] Value Range Interpretation Code Description Data Keturah rce(s) Supporting Document(s) LAB Glucose,Fingerstick 151 mg/dL 70-110 Above high normal [facility] ID Date Data Source [id number] 05/15/2020 11:03:[address] [facility] Value Range Interpretation Code Description Data Keturah rce(s) Supporting Document(s) Sodium 143 mmol/L 137-145 Normal (applies to non-numeric resul ts) [facility] Potassium 3.5-5.1 Normal (applies to non-numeric resul ts) [facility] Chloride 115 mmol/L 98-112 Above high normal [facility] Carbon Dioxide CO2 22.0-33.0 Normal (applies to non-numer ic results) [facility] Anion Gap 4.0-11.0 Normal (applies to non-numeric resul ts) [facility] BUN 50 mg/dL 7-17 Above high normal [facility] Creatinine 0.70-1.20 Normal (applies to non-numeric resul ts) [facility] GFR 49 mL/min >60 Below low normal [facility] Result based on MDRD formula. Glucose Level 162 mg/dL 74-99 Above high normal [facility] The reference range is only applicable w hen fasting. Calcium-Uncorrected 8.4-10.2 Normal (applies to non-nume cee results) [facility] Corrected Calcium 8.4-10.2 Normal (applies to non-numeri c results) [facility] Bilirubin,Total 0.2-1.3 Normal (applies to non-numeric results) [facility] SGOT(AST) 15 U/L 14-36 Normal (applies to non-numeric resul ts) [facility] SGPT(ALT) 25 U/L 9-52 Normal (applies to non-numeric resul ts) [facility] Alkaline Phosphatase 96 U/L 38-126 Normal (applies to non-num dusty results) [facility] can increase Alkaline Phosp le vels up to 2 times the normal adult value. Normal values for children and adolescents are 2 to 3 times the normal adult value. Total Protein 6.3-8.2 Below low normal [facility] Albumin 3.5-5.0 Below low normal [facility] ID Date Data Source [id number] 05/15/2020 11:03:00 AM EST [facility] Name Value Range Interpretation Code Description Data Keturah rce(s) Supporting Document(s) Ferritin 534 ng/mL 11.1-264.0 Above high normal [facility] ID Date Data Source [id number] 05/15/2020 11:03:00 AM [facility] Name Value Range Interpretation Code Description Data Keturah rce(s) Supporting Document(s) LDH 365 U/L 84-246 Above high normal [facility] ID Date Data Source [id number] 05/15/2020 11:03:00 AM [facility] Name Value Range Interpretation Code Description Data Keturah rce(s) Supporting Document(s) C-Reactive Protein,Wide Range <3.00 Above high normal [facility] ID Date Data Source [id number] 05/15/2020 11:03:00 AM [facility] Name Value Range Interpretation Code Description Data Keturah rce(s) Supporting Document(s) B-Type Natriuretic Peptide BNP 2426 pg/mL <450 Above high ty l [facility] NT-proBNP values less than 300 pg/mL hav [...] acute congestive failure. ID Date Data Source [id number] 05/15/2020 10:41:00 AM [facility] Name Value Range Interpretation Code Description Data Keturah rce(s) Supporting Document(s) PT 9.4-12.5 Above high normal [facility] INR Normal (applies to non-numeric results) [facility] The use of the INR is restricted to mindy ents on stable oral anticoagulant. Therapeutic Range: 2.0-3.0 High Risk Values: 2.5-3.5 ID Date Data Source [id number] 05/15/2020 10:41:00 AM [facility] Name Value Range Interpretation Code Description Data Keturah rce(s) Supporting Document(s) D-Dimer Quant 6895 ng/mLFEU <500 PH [facility] SILVANAJADA CANSECO read back critical in formation 05/15/20 0658 LAB.DISAN Positive for D-Dimer. DVT/PE or DIC may be present. D-Dimer is an exclusionary test and is used in conjunction with a clinical pretest probability (PTP) assessment model to exclude DVT and PE. Consider further diagnostic studies to confirm diagnosis. ID Date Data Source [id number] 05/15/2020 10:41:00 AM EST [facility] Name Value Range Interpretation Code Description Data Keturah rce(s) Supporting Document(s) PTT 25.1-36.5 Above high normal [facility] ID Date Data Source [id number] 05/15/2020 10:41:00 AM EST [facility] Name Value Range Interpretation Code Description Data Keturah rce(s) Supporting Document(s) White Blood Count 4.8-10.8 Normal (applies to non-numeri c results) [facility] Red Blood Count 3.68-5.22 Normal (applies to non-numeric results) [facility] Hemoglobin 11.2-15.7 Below low normal [facility] Hematocrit 34.1-44.9 Below low normal [facility] Mean Corpuscular Volume 81-99 Normal (applies to non- numeric results) [facility] Mean Corpuscular Hemoglobin 27.0-33.0 Normal (appli es to non-numeric results) [facility] Mean Corpuscular HGB Conc 32.0-36.0 Normal (applies to no n-numeric results) [facility] Red Cell Distribution Width 11.5-14.5 Normal (appli es to non-numeric results) [facility] Platelet Count 248 X10 3/uL 130-450 Normal (applies to non-numeric results) [facility] Mean Platelet Volume 9.5-12.7 Normal (applies to non-num dusty results) [facility] Imm Grans% (AUTO) 4 % 0-2 Above high normal [facility] Neutrophils % (AUTO) 81 % 40-75 Above high normal [facility] Lymphocytes % (AUTO) 9 % 21-46 Below low normal [facility] Monocytes % (AUTO) 6 % 5-12 Normal (applies to non-numer ic results) [facility] Eosinophils % (AUTO) 0 % 1-5 Below low normal [facility] Basophils % (AUTO) 0 % 0-1 Normal (applies to non-numer ic results) [facility] Imm Grans# (AUTO) 0.0-0.5 Normal (applies to non-numeri c results) [facility] Neutrophils # (AUTO) 1.5-8.1 Normal (applies to non-num dusty results) [facility] Lymphocytes # (AUTO) 1.0-3.1 Below low normal [facility] Monocytes # (AUTO) 0.2-1.3 Normal (applies to non-numer ic results) [facility] Eosinophils# (AUTO) 0.0-0.5 Normal (applies to non-nume cee results) [facility] Basophils # (AUTO) 0.0-0.1 Normal (applies to non-numer ic results) [facility] Slide Reviewed By Normal (applies to non-numeri c results) [facility] Slide has been reviewed and findings con firmed by a technologist/news gathering technician. ID Date Data Source [id number] 05/14/2020 05:57:00 PM [facility] Name Value Range Interpretation Code Description Data Keturah rce(s) Supporting Document(s) LAB Glucose,Fingerstick 239 mg/dL 70-110 Above high normal [facility] ID Date Data Source [id number] 05/14/2020 02:50:00 PM [facility] Name Value Range Interpretation Code Description Data Keturah rce(s) Supporting Document(s) LAB Glucose,Fingerstick 218 mg/dL 70-110 Above high normal [facility] ID Date Data Source [id number] 05/11/2020 02:59:00 PM [facility] Hospital Name: DIEGO ALBERT : 1935 Age /Sex: 84F Attending Physician: Twila Polo MD Med Rec #: [id number] Admission Date: 05/10/20 Room #: 210-2 Admitting Physician: Twila Proctor MD Report Number: [id number] _ cc: Send Report To: Report Status [...] rce(s) Supporting Document(s) ID Date Data Source [id number] 05/14/2020 10:30:00 AM [facility] Name Value Range Interpretation Code Description Data Keturah rce(s) Supporting Document(s) LAB Glucose,Fingerstick 132 mg/dL 70-110 Above high normal [facility] ID Date Data Source [id number] 05/14/2020 09:14:00 AM [facility] Name Value Range Interpretation Code Description Data Keturah rce(s) Supporting Document(s) White Blood Count 4.8-10.8 Normal (applies to non-numeri c results) [facility] Red Blood Count 3.68-5.22 Normal (applies to non-numeric results) [facility] Hemoglobin 11.2-15.7 Normal (applies to non-numeric resul ts) [facility] Hematocrit 34.1-44.9 Normal (applies to non-numeric resul ts) [facility] Mean Corpuscular Volume 81-99 Normal (applies to non- numeric results) [facility] Mean Corpuscular Hemoglobin 27.0-33.0 Normal (appli es to non-numeric results) [facility] Mean Corpuscular HGB Conc 32.0-36.0 Normal (applies to no n-numeric results) [facility] Red Cell Distribution Width 11.5-14.5 Normal (appli es to non-numeric results) [facility] Platelet Count 300 X10 3/uL 130-450 Normal (applies to non-numeric results) [facility] Mean Platelet Volume 9.5-12.7 Normal (applies to non-num dusty results) [facility] Imm Grans% (AUTO) 3 % 0-2 Above high normal [facility] Neutrophils % (AUTO) 83 % 40-75 Above high normal [facility] Lymphocytes % (AUTO) 8 % 21-46 Below low normal [facility] Monocytes % (AUTO) 6 % 5-12 Normal (applies to non-numer ic results) [facility] Eosinophils % (AUTO) 0 % 1-5 Below low normal [facility] Basophils % (AUTO) 0 % 0-1 Normal (applies to non-numer ic results) [facility] Imm Grans# (AUTO) 0.0-0.5 Normal (applies to non-numeri c results) [facility] Neutrophils # (AUTO) 1.5-8.1 Normal (applies to non-num dusty results) [facility] Lymphocytes # (AUTO) 1.0-3.1 Below low normal [facility] Monocytes # (AUTO) 0.2-1.3 Normal (applies to non-numer ic results) [facility] Eosinophils# (AUTO) 0.0-0.5 Normal (applies to non-nume cee results) [facility] Basophils # (AUTO) 0.0-0.1 Normal (applies to non-numer ic results) [facility] Slide Reviewed By Normal (applies to non-numeri c results) [facility] Slide has been reviewed and findings con firmed by a technologist/news gathering technician. ID Date Data Source [id number] 05/14/2020 08:12:00 AM [facility] Name Value Range Interpretation Code Description Data Keturah rce(s) Supporting Document(s) PT 9.4-12.5 Above high normal [facility] INR Normal (applies to non-numeric results) [facility] The use of the INR is restricted to mindy ents on stable oral anticoagulant. Therapeutic Range: 2.0-3.0 High Risk Values: 2.5-3.5 ID Date Data Source [id number] 05/14/2020 08:12:00 AM [facility] Name Value Range Interpretation Code Description Data Keturah rce(s) Supporting Document(s) PTT 25.1-36.5 Normal (applies to non-numeric resul ts) [facility] ID Date Data Source [id number] 05/14/2020 08:12:00 AM EST [facility] Name Value Range Interpretation Code Description Data Keturah rce(s) Supporting Document(s) D-Dimer Quant 3555 ng/mLFEU <500 PH [facility] ELISABETH SINGH read back critical informat ion 05/14/20 0811 LAB.DAVSA Positive for D-Dimer. DVT/PE or DIC may be present. D-Dimer is an exclusionary test and is used in conjunction with a clinical pretest probability (PTP) assessment model to exclude DVT and PE. Consider further diagnostic studies to confirm diagnosis. ID Date Data Source [id number] 05/14/2020 07:51:00 AM [facility] Name Value Range Interpretation Code Description Data Keturah rce(s) Supporting Document(s) Sodium 142 mmol/L 137-145 Normal (applies to non-numeric resul ts) [facility] Potassium 3.5-5.1 Normal (applies to non-numeric resul ts) [facility] Chloride 111 mmol/L 98-112 Normal (applies to non-numeric resul ts) [facility] Carbon Dioxide CO2 22.0-33.0 Normal (applies to non-numer ic results) [facility] Anion Gap 4.0-11.0 Normal (applies to non-numeric resul ts) [facility] BUN 47 mg/dL 7-17 Above high normal [facility] Creatinine 0.70-1.20 Normal (applies to non-numeric resul ts) [facility] GFR 46 mL/min >60 Below low normal [facility] Result based on MDRD formula. Glucose Level 150 mg/dL 74-99 Above high normal [facility] The reference range is only applicable w hen fasting. Calcium-Uncorrected 8.4-10.2 Normal (applies to non-nume cee results) [facility] Corrected Calcium 8.4-10.2 Normal (applies to non-numeri c results) [facility] Bilirubin,Total 0.2-1.3 Normal (applies to non-numeric results) [facility] SGOT(AST) 22 U/L 14-36 Normal (applies to non-numeric resul ts) [facility] SGPT(ALT) 28 U/L 9-52 Normal (applies to non-numeric resul ts) [facility] Alkaline Phosphatase 111 U/L 38-126 Normal (applies to non-num dusty results) [facility] can increase Alkaline Phosp le vels up to 2 times the normal adult value. Normal values for children and adolescents are 2 to 3 times the normal adult value. Total Protein 6.3-8.2 Normal (applies to non-numeric re sults) [facility] Albumin 3.5-5.0 Below low normal [facility] ID Date Data Source [id number] 05/14/2020 07:51:00 AM [facility] Name Value Range Interpretation Code Description Data Keturah rce(s) Supporting Document(s) Ferritin 684 ng/mL 11.1-264.0 Above high normal [facility] ID Date Data Source [id number] 05/14/2020 07:51:[address] [facility] Value Range Interpretation Code Description Data Keturah rce(s) Supporting Document(s) LDH 434 U/L 84-246 Above high normal [facility] ID Date Data Source [id number] 05/14/2020 07:51:[address] [facility] Value Range Interpretation Code Description Data Keturah rce(s) Supporting Document(s) C-Reactive Protein,Wide Range <3.00 Above high normal [facility] ID Date Data Source [id number] 05/13/2020 09:13:[address] [facility] Value Range Interpretation Code Description Data Keturah rce(s) Supporting Document(s) LAB Glucose,Fingerstick 255 mg/dL 70-110 Above high normal [facility] ID Date Data Source [id number] 05/13/2020 06:17:[address] [facility] Value Range Interpretation Code Description Data Keturah rce(s) Supporting Document(s) LAB Glucose,Fingerstick 118 mg/dL 70-110 Above high normal [facility] ID Date Data Source [id number] 05/13/2020 12:49:00 PM [facility] Name Value Range Interpretation Code Description Data Keturah rce(s) Supporting Document(s) LAB Glucose,Fingerstick 109 mg/dL 70-110 Normal ( applies to non-numeric results) [facility] ID Date Data Source [id number] 05/13/2020 12:44:00 PM EST [facility] Name Value Range Interpretation Code Description Data Keturah rce(s) Supporting Document(s) LAB Glucose,Fingerstick 72 mg/dL 70-110 Normal (applies t o non-numeric results) [facility] ID Date Data Source [id number] 05/13/2020 07:47:00 AM [facility] Name Value Range Interpretation Code Description Data Keturah rce(s) Supporting Document(s) Sodium 146 mmol/L 137-145 Above high normal [facility] Potassium 3.5-5.1 Normal (applies to non-numeric resul ts) [facility] Chloride 114 mmol/L 98-112 Above high normal [facility] Carbon Dioxide CO2 22.0-33.0 Normal (applies to non-numer ic results) [facility] Anion Gap 4.0-11.0 Normal (applies to non-numeric resul ts) [facility] BUN 52 mg/dL 7-17 Above high normal [facility] Creatinine 0.70-1.20 Above high normal [facility] GFR 42 mL/min >60 Below low normal [facility] Result based on MDRD formula. Glucose Level 66 mg/dL 74-99 Below low normal [facility] The reference range is only applicable w hen fasting. Calcium-Uncorrected 8.4-10.2 Normal (applies to non-nume cee results) [facility] Corrected Calcium 8.4-10.2 Normal (applies to non-numeri c results) [facility] Bilirubin,Total 0.2-1.3 Normal (applies to non-numeric results) [facility] SGOT(AST) 24 U/L 14-36 Normal (applies to non-numeric resul ts) [facility] SGPT(ALT) 27 U/L 9-52 Normal (applies to non-numeric resul ts) [facility] Alkaline Phosphatase 92 U/L 38-126 Normal (applies to non-num dusty results) [facility] can increase Alkaline Phosp le vels up to 2 times the normal adult value. Normal values for children and adolescents are 2 to 3 times the normal adult value. Total Protein 6.3-8.2 Normal (applies to non-numeric re sults) [facility] Albumin 3.5-5.0 Below low normal [facility] ID Date Data Source [id number] 05/13/2020 07:47:[address] [facility] Value Range Interpretation Code Description Data Keturah rce(s) Supporting Document(s) Ferritin 561 ng/mL 11.1-264.0 Above high normal [facility] ID Date Data Source [id number] 05/13/2020 07:47:[address] [facility] Value Range Interpretation Code Description Data Keturah rce(s) Supporting Document(s) LDH 383 U/L 84-246 Above high normal [facility] ID Date Data Source [id number] 05/13/2020 07:48:[address] [facility] Value Range Interpretation Code Description Data Keturah rce(s) Supporting Document(s) C-Reactive Protein,Wide Range <3.00 Above high normal [facility] ID Date Data Source [id number] 05/13/2020 07:47:[address] [facility] Value Range Interpretation Code Description Data Keturah rce(s) Supporting Document(s) PT 9.4-12.5 Above high normal [facility] INR Normal (applies to non-numeric results) [facility] The use of the INR is restricted to mindy ents on stable oral anticoagulant. Therapeutic Range: 2.0-3.0 High Risk Values: 2.5-3.5 ID Date Data Source [id number] 05/13/2020 07:47:00 AM [facility] Name Value Range Interpretation Code Description Data Keturah rce(s) Supporting Document(s) PTT 25.1-36.5 Normal (applies to non-numeric resul ts) [facility] ID Date Data Source [id number] 05/13/2020 07:47:00 AM [facility] Name Value Range Interpretation Code Description Data Keturah rce(s) Supporting Document(s) D-Dimer Quant 1112 ng/mLFEU <500 PH [facility] TESS SANCHEZ read back critical informat ion 05/13/20 0741 LAB.HUCTR Positive for D-Dimer. DVT/PE or DIC may be present. D-Dimer is an exclusionary test and is used in conjunction with a clinical pretest probability (PTP) assessment model to exclude DVT and PE. Consider further diagnostic studies to confirm diagnosis. ID Date Data Source [id number] 05/13/2020 06:57:00 AM [facility] Name Value Range Interpretation Code Description Data Keturah rce(s) Supporting Document(s) White Blood Count 4.8-10.8 Above high normal [facility] Red Blood Count 3.68-5.22 Normal (applies to non-numeric results) [facility] Hemoglobin 11.2-15.7 Normal (applies to non-numeric resul ts) [facility] Hematocrit 34.1-44.9 Normal (applies to non-numeric resul ts) [facility] Mean Corpuscular Volume 81-99 Normal (applies to non- numeric results) [facility] Mean Corpuscular Hemoglobin 27.0-33.0 Normal (appli es to non-numeric results) [facility] Mean Corpuscular HGB Conc 32.0-36.0 Normal (applies to no n-numeric results) [facility] Red Cell Distribution Width 11.5-14.5 Normal (appli es to non-numeric results) [facility] Platelet Count 254 X10 3/uL 130-450 Normal (applies to non-numeric results) [facility] Mean Platelet Volume 9.5-12.7 Normal (applies to non-num dusty results) [facility] Imm Grans% (AUTO) 1 % 0-2 Normal (applies to non-numeri c results) [facility] Neutrophils % (AUTO) 84 % 40-75 Above high normal [facility] Lymphocytes % (AUTO) 6 % 21-46 Below low normal Ca [facility] Monocytes % (AUTO) 9 % 5-12 Normal (applies to non-numer ic results) [facility] Eosinophils % (AUTO) 0 % 1-5 Below low normal [facility] Basophils % (AUTO) 0 % 0-1 Normal (applies to non-numer ic results) [facility] Imm Grans# (AUTO) 0.0-0.5 Normal (applies to non-numeri c results) [facility] Neutrophils # (AUTO) 1.5-8.1 Above high normal [facility] Lymphocytes # (AUTO) 1.0-3.1 Below low normal [facility] Monocytes # (AUTO) 0.2-1.3 Normal (applies to non-numer ic results) [facility] Eosinophils# (AUTO) 0.0-0.5 Normal (applies to non-nume cee results) [facility] Basophils # (AUTO) 0.0-0.1 Normal (applies to non-numer ic results) [facility] ID Date Data Source [id number] 05/12/2020 09:09:00 PM EST [facility] Name Value Range Interpretation Code Description Data Keturah rce(s) Supporting Document(s) LAB Glucose,Fingerstick 123 mg/dL 70-110 Above high normal [facility] ID Date Data Source [id number] 05/12/2020 09:49:00 PM [facility] Name Value Range Interpretation Code Description Data Ketuarh rce(s) Supporting Document(s) LAB Glucose,Fingerstick 73 mg/dL 70-110 Normal (applies t o non-numeric results) [facility] ID Date Data Source [id number] 05/12/2020 01:53:00 PM [facility] Name Value Range Interpretation Code Description Data Keturah rce(s) Supporting Document(s) LAB Glucose,Fingerstick 180 mg/dL 70-110 Above high normal [facility] ID Date Data Source [id number] 05/12/2020 01:53:00 PM [facility] Name Value Range Interpretation Code Description Data Keturah rce(s) Supporting Document(s) LAB Glucose,Fingerstick 121 mg/dL 70-110 Above high normal [facility] ID Date Data Source [id number] 05/12/2020 06:25:00 AM [facility] Name Value Range Interpretation Code Description Data Keturah rce(s) Supporting Document(s) PT 9.4-12.5 Above high normal [facility] INR Normal (applies to non-numeric results) [facility] The use of the INR is restricted to mindy ents on stable oral anticoagulant. Therapeutic Range: 2.0-3.0 High Risk Values: 2.5-3.5 ID Date Data Source [id number] 05/12/2020 06:25:00 AM [facility] Name Value Range Interpretation Code Description Data Keturah rce(s) Supporting Document(s) PTT 25.1-36.5 Above high normal [facility] ID Date Data Source [id number] 05/12/2020 06:25:00 AM [facility] Name Value Range Interpretation Code Description Data Keturah rce(s) Supporting Document(s) D-Dimer Quant 468 ng/mLFEU <500 Normal (applies to non-numeric results) [facility] Negative for D-Dimer. This test has f ull FDA exclusion claim at a Negative cutoff value of 500 ng/mL FEU. When the d-dimer value is used in conjunction with the clinical pretest probability (PTP) assessment model to exclude DVT and PE, results less than 500 ng/mL are negative for DVT/PE. ID Date Data Source [id number] 05/12/2020 06:23:00 AM [facility] Name Value Range Interpretation Code Description Data Keturah rce(s) Supporting Document(s) Sodium 143 mmol/L 137-145 Normal (applies to non-numeric resul ts) [facility] Potassium 3.5-5.1 Normal (applies to non-numeric resul ts) [facility] Chloride 112 mmol/L 98-112 Normal (applies to non-numeric resul ts) [facility] Carbon Dioxide CO2 22.0-33.0 Normal (applies to non-numer ic results) [facility] Anion Gap 4.0-11.0 Normal (applies to non-numeric resul ts) [facility] BUN 46 mg/dL 7-17 Above high normal [facility] Creatinine 0.70-1.20 Above high normal [facility] GFR 40 mL/min >60 Below low normal [facility] Result based on MDRD formula. Glucose Level 122 mg/dL 74-99 Above high normal [facility] The reference range is only applicable w hen fasting. Calcium-Uncorrected 8.4-10.2 Normal (applies to non-nume cee results) [facility] Corrected Calcium 8.4-10.2 Normal (applies to non-numeri c results) [facility] Bilirubin,Total 0.2-1.3 Normal (applies to non-numeric results) [facility] SGOT(AST) 20 U/L 14-36 Normal (applies to non-numeric resul ts) [facility] SGPT(ALT) 22 U/L 9-52 Normal (applies to non-numeric resul ts) [facility] Alkaline Phosphatase 84 U/L 38-126 Normal (applies to non-num dusty results) [facility] can increase Alkaline Phosp le vels up to 2 times the normal adult value. Normal values for children and adolescents are 2 to 3 times the normal adult value. Total Protein 6.3-8.2 Normal (applies to non-numeric re sults) [facility] Albumin 3.5-5.0 Below low normal [facility] ID Date Data Source [id number] 05/12/2020 06:23:00 AM EST [facility] Name Value Range Interpretation Code Description Data Keturah rce(s) Supporting Document(s) Ferritin 478 ng/mL 11.1-264.0 Above high normal [facility] ID Date Data Source [id number] 05/12/2020 06:23:00 AM EST [facility] Name Value Range Interpretation Code Description Data Keturah rce(s) Supporting Document(s) LDH 314 U/L 84-246 Above high normal [facility] ID Date Data Source [id number] 05/12/2020 06:23:00 AM EST [facility] Name Value Range Interpretation Code Description Data Keturah rce(s) Supporting Document(s) C-Reactive Protein,Wide Range <3.00 Above high normal [facility] ID Date Data Source [id number] 05/12/2020 06:07:00 AM EST [facility] Name Value Range Interpretation Code Description Data Keturah rce(s) Supporting Document(s) White Blood Count 4.8-10.8 Normal (applies to non-numeri c results) [facility] Red Blood Count 3.68-5.22 Normal (applies to non-numeric results) [facility] Hemoglobin 11.2-15.7 Normal (applies to non-numeric resul ts) [facility] Hematocrit 34.1-44.9 Normal (applies to non-numeric resul ts) [facility] Mean Corpuscular Volume 81-99 Normal (applies to non- numeric results) [facility] Mean Corpuscular Hemoglobin 27.0-33.0 Normal (appli es to non-numeric results) [facility] Mean Corpuscular HGB Conc 32.0-36.0 Normal (applies to no n-numeric results) [facility] Red Cell Distribution Width 11.5-14.5 Normal (appli es to non-numeric results) [facility] Platelet Count 247 X10 3/uL 130-450 Normal (applies to non-numeric results) [facility] Mean Platelet Volume 9.5-12.7 Normal (applies to non-num dusty results) [facility] Imm Grans% (AUTO) 1 % 0-2 Normal (applies to non-numeri c results) [facility] Neutrophils % (AUTO) 81 % 40-75 Above high normal [facility] Lymphocytes % (AUTO) 9 % 21-46 Below low normal [facility] Monocytes % (AUTO) 9 % 5-12 Normal (applies to non-numer ic results) [facility] Eosinophils % (AUTO) 0 % 1-5 Below low normal [facility] Basophils % (AUTO) 0 % 0-1 Normal (applies to non-numer ic results) [facility] Imm Grans# (AUTO) 0.0-0.5 Normal (applies to non-numeri c results) [facility] Neutrophils # (AUTO) 1.5-8.1 Normal (applies to non-num dusty results) [facility] Lymphocytes # (AUTO) 1.0-3.1 Below low normal [facility] Monocytes # (AUTO) 0.2-1.3 Normal (applies to non-numer ic results) [facility] Eosinophils# (AUTO) 0.0-0.5 Normal (applies to non-nume cee results) [facility] Basophils # (AUTO) 0.0-0.1 Normal (applies to non-numer ic results) [facility] ID Date Data Source [id number] 05/11/2020 11:10:00 PM EST [facility] Name Value Range Interpretation Code Description Data Keturah rce(s) Supporting Document(s) LAB Glucose,Fingerstick 179 mg/dL 70-110 Above high normal [facility] ID Date Data Source [id number] 05/10/2020 01:30:00 PM [facility] Hospital Name: DIEGO AL[facility] Rec #: [id number] : 1935 Age/Sex: 84F Date of Service: 05/10/20 DISPOSITION SUMMARY Discharge Summary [facility] Name:[facility]go [facility] Age:84 yrs Sex:Female :1935 Arrival:05/10/2020 13:30 Departure Date05/10/2020 Departure Time20:08 Private MD:Armen Gonzales Outcome: Hospitalize Location: Med- Surg 2 Condition: Chief Complaint: Cough - covid positive, Back Pain, Abdominal Pain Diagnosis: - Covid Prescriptions: Custom Notes: Attending Physician: Thee Paige MD Private MD: Armen Gonzales Mid Level Provider: Rick Roberts RNP Hospitalizing Provider: Caroline Couch PA [...] rce(s) Supporting Document(s) ID Date Data Source [id number] 05/10/2020 01:30:00 PM [facility] Name: DIEGO ALBERT [facility] Rec #: [id number] : 1935 Age/Sex: 84F Date of Service: 05/10/20 NURSE CHART Nurse's Notes [facility] Name: Diego Albert Age: 84 yrs Sex: Female : 1935 Arrival Date: 05/10/2020 Time: 13:30 Bed EDRU-1 Private MD: Armen Gonzales Diagnosis: Covid Presentation: 05/10 13:39 Transition of care: patient was not received from another [facility] setting of care. Presenting complaint: Patient states [...] SOB present. 13:39 Method Of Arrival: Wheelchair okb 13:39 Acuity: Urgent - 3 [facility] Triage Assessment: 13:40 SEPSIS SCREEN: A Confirmed [...] he/she has never smoked tobacco. Preferred Language: Cambodian No barriers to communication noted, The patient speaks fluent Cambodian, Speaks appropriately for age. Screenin:41 AUDIT 1. [...] Armen Gonzales is Private Physician. meb 13:39 Rick Roberts RNP is PHCP. wn 13:39 Thee [...] jl Policy. 20:08 Patient left the ED. [facility] Signatures: Rick Roberts RNP RNP wn Palmer, Ted, RN RN Miya Burns Mikayla RN RN Eryn Merritt RN RN tristen Name Value Range Interpretation Code Description Data Keturah rce(s) Supporting Document(s) ID Date Data Source [id number] 05/10/2020 01:30:00 PM [facility] Name: DIEGO ALBERT [facility] Rec #: [id number] : 1935 Age/Sex: 84F Date of Service: 05/10/20 PHYSICIAN CHART Physician Documentation [facility] Name: Diego Albert Age: 84 yrs Sex: Female : 1935 Arrival Date: 05/10/2020 Time: 13:30 Bed EDRU-1 Private MD: Armen Gonzales ED Physician Thee Paige Disposition: 05/10 17:35 Attestation: I discussed the plan of care with [facility] Practice Provider and agree with what they [...] he/she has never smoked tobacco. Preferred Language: Cambodian No barriers to communication noted, The patient speaks fluent Cambodian, Speaks appropriately for age. ROS: 15:27 Constitutional: [...] EDMS 05/10 14:20 Order name: Troponin I EDKS 05/10 16:24 Order name: Urinalysis Auto w/Microscopy [...] Admission wn Provider: Caroline Couch Location: Med-Surg [facility] Room Assignment: [id number](05/10/20 18:42) sf2 Diagnosis - Covid wn Additional Information - Patient Status Inpatient. wn Forms: - Medication Reconciliation wn - SBAR wn Signatures: Dispatcher [employer] EDKS Rick Roberts RNP REGISTRATION SPECIALIST wn Thee Paige MD MD jam2 Tressa Cruz sf2 Lorena Stockton RN RN meb Johnson, Jessica, RN RN jlj Corrections: (The following items were deleted from the chart) 18:42 17:25 wn sf2 Name Value Range Interpretation Code Description Data Keturah rce(s) Supporting Document(s) ID Date Data Source [id number] 05/11/2020 05:54:00 PM [facility] Name Value Range Interpretation Code Description Data Keturah rce(s) Supporting Document(s) LAB Glucose,Fingerstick 220 mg/dL 70-110 Above high normal [facility] ID Date Data Source [id number] 05/11/2020 05:54:00 PM [facility] Name Value Range Interpretation Code Description Data Keturah rce(s) Supporting Document(s) LAB Glucose,Fingerstick 184 mg/dL 70-110 Above high normal [facility] ID Date Data Source [id number] 05/11/2020 05:41:00 PM [facility] Hospital Name: DIEGO ALBERT : 1935 Age /Sex: 84F Ordering Provider: VICTORINA Diallo Med Rec #: [id number] Reg Status:ADM IN Room #: 210-2 Date of Service: 05/11/20 Report Number: [id number] cc: Twila Proctor MD; Armen Meraz IV, RNP; VICTORINA Diallo Send Report To: Reason for exam: Shortness of Breath ATRIAL FIBRILLATION INTRAVENTRICULAR CONDUCTION DELAY ABNORMAL ECG NO OLD EKG AVAILABLE FOR COMPARISON Physician Cardiopulmonary Technician: Leland Ryder M.D. ECG HEART RATE: 63 /min ECG RR INTERVAL: 946 ms ECG P DURATION: ms ECG QRS DURATION: 141 ms ECG UT INTERVAL: ms ECG QT INTERVAL: 388 ms ECG QTC INTERVAL: 393 ms Q-T dispersion: ms ECG P AXIS: deg ECG QRS AXIS: 76 deg ECG T AXIS: 87 deg REPORT SIGNATURE ON FILE 05/11/201740 Reported By: Leland Ryder MD, [facility] <<Signature on File>> Exam Date/Time: 05/11/20 0948 Order #: [id number] Dictation Date/Time: 05/11/201740 Transcribed Date/Time: 05/11/201740 Financial Advisor: TOYA Name Value Range Interpretation Code Description Data Keturah rce(s) Supporting Document(s) ID Date Data Source [id number] 05/11/2020 09:00:00 AM [facility] Name Value Range Interpretation Code Description Data Keturah rce(s) Supporting Document(s) LAB Glucose,Fingerstick 138 mg/dL 70-110 Above high normal [facility] ID Date Data Source [id number] 05/11/2020 07:59:00 AM EST [facility] Name Value Range Interpretation Code Description Data Keturah rce(s) Supporting Document(s) Sodium 145 mmol/L 137-145 Normal (applies to non-numeric resul ts) [facility] Potassium 3.5-5.1 Normal (applies to non-numeric resul ts) [facility] Chloride 112 mmol/L 98-112 Normal (applies to non-numeric resul ts) [facility] Carbon Dioxide CO2 22.0-33.0 Normal (applies to non-numer ic results) [facility] Anion Gap 4.0-11.0 Normal (applies to non-numeric resul ts) [facility] BUN 31 mg/dL 7-17 Above high normal [facility] Creatinine 0.70-1.20 Normal (applies to non-numeric resul ts) [facility] GFR 47 mL/min >60 Below low normal [facility] Result based on MDRD formula. Glucose Level 128 mg/dL 74-99 Above high normal [facility] The reference range is only applicable w hen fasting. Calcium-Uncorrected 8.4-10.2 Normal (applies to non-nume cee results) [facility] Corrected Calcium 8.4-10.2 Normal (applies to non-numeri c results) [facility] Bilirubin,Total 0.2-1.3 Normal (applies to non-numeric results) [facility] SGOT(AST) 18 U/L 14-36 Normal (applies to non-numeric resul ts) [facility] SGPT(ALT) 20 U/L 9-52 Normal (applies to non-numeric resul ts) [facility] Alkaline Phosphatase 82 U/L 38-126 Normal (applies to non-num dusty results) [facility] can increase Alkaline Phosp le vels up to 2 times the normal adult value. Normal values for children and adolescents are 2 to 3 times the normal adult value. Total Protein 6.3-8.2 Normal (applies to non-numeric re sults) [facility] Albumin 3.5-5.0 Below low normal [facility] Hospital ID Date Data Source [id number] 05/11/2020 07:59:00 AM [facility] Name Value Range Interpretation Code Description Data Keturah rce(s) Supporting Document(s) Ferritin 441 ng/mL 11.1-264.0 Above high normal [facility] Hospital ID Date Data Source [id number] 05/11/2020 07:59:[address] [facility] Value Range Interpretation Code Description Data Keturah rce(s) Supporting Document(s) LDH 302 U/L 84-246 Above high normal [facility] ID Date Data Source [id number] 05/11/2020 07:59:[address] [facility] Value Range Interpretation Code Description Data Keturah rce(s) Supporting Document(s) C-Reactive Protein,Wide Range <3.00 Above high normal [facility] ID Date Data Source [id number] 05/11/2020 07:58:[address] [facility] Value Range Interpretation Code Description Data Keturah rce(s) Supporting Document(s) PT 9.4-12.5 Above high normal [facility] INR Normal (applies to non-numeric results) [facility] The use of the INR is restricted to mindy ents on stable oral anticoagulant. Therapeutic Range: 2.0-3.0 High Risk Values: 2.5-3.5 ID Date Data Source [id number] 05/11/2020 07:58:[address] [facility] Value Range Interpretation Code Description Data Keturah rce(s) Supporting Document(s) PTT 25.1-36.5 Above high normal [facility] ID Date Data Source [id number] 05/11/2020 07:58:[address] [facility] Value Range Interpretation Code Description Data Keturah rce(s) Supporting Document(s) D-Dimer Quant 479 ng/mLFEU <500 Normal (applies to non-numeric results) [facility] Negative for D-Dimer. This test has f ull FDA exclusion claim at a Negative cutoff value of 500 ng/mL FEU. When the d-dimer value is used in conjunction with the clinical pretest probability (PTP) assessment model to exclude DVT and PE, results less than 500 ng/mL are negative for DVT/PE. ID Date Data Source [id number] 05/11/2020 07:40:00 AM EST [facility] Name Value Range Interpretation Code Description Data Keturah rce(s) Supporting Document(s) White Blood Count 4.8-10.8 Normal (applies to non-numeri c results) [facility] Red Blood Count 3.68-5.22 Normal (applies to non-numeric results) [facility] Hemoglobin 11.2-15.7 Normal (applies to non-numeric resul ts) [facility] Hematocrit 34.1-44.9 Below low normal [facility] Mean Corpuscular Volume 81-99 Normal (applies to non- numeric results) [facility] Mean Corpuscular Hemoglobin 27.0-33.0 Normal (appli es to non-numeric results) [facility] Mean Corpuscular HGB Conc 32.0-36.0 Normal (applies to no n-numeric results) [facility] Red Cell Distribution Width 11.5-14.5 Normal (appli es to non-numeric results) [facility] Platelet Count 207 X10 3/uL 130-450 Normal (applies to non-numeric results) [facility] Mean Platelet Volume 9.5-12.7 Normal (applies to non-num dusty results) [facility] Imm Grans% (AUTO) 1 % 0-2 Normal (applies to non-numeri c results) [facility] Neutrophils % (AUTO) 82 % 40-75 Above high normal C [facility] Lymphocytes % (AUTO) 8 % 21-46 Below low normal Ca [facility] Monocytes % (AUTO) 10 % 5-12 Normal (applies to non-numer ic results) [facility] Eosinophils % (AUTO) 0 % 1-5 Below low normal Ca [facility] Basophils % (AUTO) 0 % 0-1 Normal (applies to non-numer ic results) [facility] Imm Grans# (AUTO) 0.0-0.5 Normal (applies to non-numeri c results) [facility] Neutrophils # (AUTO) 1.5-8.1 Normal (applies to non-num udsty results) [facility] Lymphocytes # (AUTO) 1.0-3.1 Below low normal Ca [facility] Monocytes # (AUTO) 0.2-1.3 Normal (applies to non-numer ic results) [facility] Eosinophils# (AUTO) 0.0-0.5 Normal (applies to non-nume cee results) [facility] Basophils # (AUTO) 0.0-0.1 Normal (applies to non-numer ic results) [facility] ID Date Data Source [id number] 05/11/2020 02:05:00 AM [facility] Methodology: Isothermal Nucleic Aci d Amplification Reference [...] rce(s) Supporting Document(s) ID Date Data Source [id number] 05/10/2020 10:19:00 PM [facility] Name Value Range Interpretation Code Description Data Keturah rce(s) Supporting Document(s) LAB Glucose,Fingerstick 90 mg/dL 70-110 Normal (applies t o non-numeric results) [facility] ID Date Data Source [id number] 05/15/2020 10:08:00 PM [facility] Name Value Range Interpretation Code Description Data Keturah rce(s) Supporting Document(s) Blood Culture-Venous [facility] ID Date Data Source [id number] 05/11/2020 02:06:00 AM [facility] Name Value Range Interpretation Code Description Data Keturah rce(s) Supporting Document(s) BLOOD TYPE PATIENT O Positive Normal (applies to non-numer ic results) [facility] ANTIBODY SCREEN NEGATIVE Normal (applies to non-numeric results) [facility] ID Date Data Source [id number] 05/10/2020 11:05:00 PM [facility] Name Value Range Interpretation Code Description Data Keturah rce(s) Supporting Document(s) Procalcitonin 0.00-0.24 Normal (applies to non-numeric re sults) [facility] 1.Risk of Progression to severe sepsis a [...] therapy is warranted. ID Date Data Source [id number] 05/10/2020 10:37:00 PM [facility] Name Value Range Interpretation Code Description Data Keturah rce(s) Supporting Document(s) Troponin I 0.000-0.045 Normal (applies to non-numeric resu lts) [facility] ID Date Data Source [id number] 05/10/2020 06:43:00 PM [facility] Hospital Name: DIEGO ALBERT : 1935 Age /Sex: 84F Ordering Provider: VICTORINA Diallo Rec #: [id number] Reg Status: ADM IN Room #: 210-2 Date of Service: 05/10/20 Report Number: [id number] cc:Armen Meraz IV, VICTORINA; VICTORINA Diallo Send Report To: [id number] CT/CT Abdomen & Pelvis No Contras Reason [...] Dictation Date/Time: 05/10/201754 Transcribed Date/Time: 05/10/20 184 Financial Advisor: JACQUI Name Value Range Interpretation Code Description Data Keturah rce(s) Supporting Document(s) ID Date Data Source [id number] 05/10/2020 06:40:00 PM [facility] Name: DIEGO ALBERT : 1935 Age /Sex: 84F Ordering Provider: VICTORINA Diallo Med Rec #: [id number] Reg Status: ADM IN Room #: 210-2 Date of Service: 05/10/20 Report Number: [id number] cc:Armen Meraz IV, REGISTRATION SPECIALIST; VICTORINA Diallo Send Report To: [id number] CT/CT Chest No Contrast Reason for exam: [...] 0946 Dictation Date/Time: 05/10/201754 Transcribed Date/Time: 05/10/201839 Financial Advisor: JACQUI Name Value Range Interpretation Code Description Data Keturah rce(s) Supporting Document(s) ID Date Data Source [id number] 05/12/2020 09:58:00 AM [facility] Name Value Range Interpretation Code Description Data Keturah rce(s) Supporting Document(s) Urine Culture Normal (applies to non-numeric re sults) [facility] ID Date Data Source [id number] 05/10/2020 04:46:00 PM [facility] Name Value Range Interpretation Code Description Data Keturah rce(s) Supporting Document(s) Color,Urine Yellow Normal (applies to non-numeric resu lts) [facility] Clarity,Urine Clear Normal (applies to non-numeric re sults) [facility] Specific [place],Urine 1.001-1.030 Normal (applies to non- numeric results) [facility] PH,Urine 5.0-8.0 Normal (applies to non-numeric resul ts) [facility] Protein,Urine Negative [facility] Glucose,Urine (UA) Negative Normal (applies to non-numer ic results) [facility] Ketones,Urine Negative [facility] Blood,Urine Negative Normal (applies to non-numeric resu lts) [facility] Bilirubin,Urine Negative Normal (applies to non-numeric results) [facility] Urobilinogen,Urine Norm 0.2-1 Normal (applies to non-numer ic results) [facility] Leukocyte Esterase,Urine Negative [facility] Nitrite,Urine Negative Normal (applies to non-numeric re sults) [facility] ID Date Data Source [id number] 05/10/2020 04:47:00 PM EST [facility] Name Value Range Interpretation Code Description Data Keturah rce(s) Supporting Document(s) WBC,URINE 0-10 Normal (applies to non-numeric resul ts) [facility] RBC,Urine 0-2 Normal (applies to non-numeric resul ts) [facility] Hyaline Casts,Ur None Seen Normal (applies to non-numeric results) [facility] Bacteria,Urine None Seen Normal (applies to non-numeric r esults) [facility] Epithelial Cell,Ur None-Few [facility] ID Date Data Source [id number] 05/15/2020 03:50:00 PM [facility] Name Value Range Interpretation Code Description Data Keturah rce(s) Supporting Document(s) Blood Culture-Venous [facility] ID Date Data Source [id number] 05/10/2020 07:24:00 PM [facility] MB if CPK is elevated? Y MB if CPK is elevated? Y Name Value Range Interpretation Code Description Data Keturah rce(s) Supporting Document(s) CPK 34 U/L 26-192 Normal (applies to non-numeric resul ts) [facility] ID Date Data Source [id number] 05/10/2020 07:24:00 PM [facility] MB if CPK is elevated? Y MB if CPK is elevated? Y Name Value Range Interpretation Code Description Data Keturah rce(s) Supporting Document(s) B-Type Natriuretic Peptide BNP 2379 pg/mL <450 Above high ty l [facility] NT-proBNP values less than 300 pg/mL hav [...] acute congestive failure. ID Date Data Source [id number] 05/10/2020 07:03:00 PM [facility] Name Value Range Interpretation Code Description Data Keturah rce(s) Supporting Document(s) Fibrinogen 472 mg/dL 173-454 Above high normal [facility] ID Date Data Source [id number] 05/10/2020 05:06:00 PM [facility] Name Value Range Interpretation Code Description Data Keturah rce(s) Supporting Document(s) Procalcitonin 0.00-0.24 Normal (applies to non-numeric re sults) [facility] 1.Risk of Progression to severe sepsis a [...] therapy is warranted. ID Date Data Source [id number] 05/10/2020 04:34:00 PM [facility] Name Value Range Interpretation Code Description Data Keturah rce(s) Supporting Document(s) Troponin I 0.000-0.045 Normal (applies to non-numeric resu lts) [facility] ID Date Data Source [id number] 05/10/2020 04:32:00 PM EST [facility] Name Value Range Interpretation Code Description Data Keturah rce(s) Supporting Document(s) Sodium 141 mmol/L 137-145 Normal (applies to non-numeric resul ts) [facility] Potassium 3.5-5.1 Normal (applies to non-numeric resul ts) [facility] Chloride 109 mmol/L 98-112 Normal (applies to non-numeric resul ts) [facility] Carbon Dioxide CO2 22.0-33.0 Normal (applies to non-numer ic results) [facility] Anion Gap 4.0-11.0 Normal (applies to non-numeric resul ts) [facility] BUN 36 mg/dL 7-17 Above high normal [facility] Creatinine 0.70-1.20 Above high normal [facility] GFR 38 mL/min >60 Below low normal [facility] Result based on MDRD formula. Glucose Level 143 mg/dL 74-99 Above high normal [facility] The reference range is only applicable w hen fasting. Calcium-Uncorrected 8.4-10.2 Normal (applies to non-nume cee results) [facility] Corrected Calcium 8.4-10.2 Normal (applies to non-numeri c results) [facility] Bilirubin,Total 0.2-1.3 Normal (applies to non-numeric results) [facility] SGOT(AST) 21 U/L 14-36 Normal (applies to non-numeric resul ts) [facility] SGPT(ALT) 23 U/L 9-52 Normal (applies to non-numeric resul ts) [facility] Alkaline Phosphatase 83 U/L 38-126 Normal (applies to non-num dusty results) [facility] can increase Alkaline Phosp le vels up to 2 times the normal adult value. Normal values for children and adolescents are 2 to 3 times the normal adult value. Total Protein 6.3-8.2 Normal (applies to non-numeric re sults) [facility] Albumin 3.5-5.0 Below low normal [facility] ID Date Data Source [id number] 05/10/2020 04:32:00 PM [facility] Name Value Range Interpretation Code Description Data Keturah rce(s) Supporting Document(s) Ferritin 389 ng/mL 11.1-264.0 Above high normal [facility] ID Date Data Source [id number] 05/10/2020 04:32:00 PM [facility] Name Value Range Interpretation Code Description Data Keturah rce(s) Supporting Document(s) LDH 291 U/L 84-246 Above high normal [facility] ID Date Data Source [id number] 05/10/2020 04:32:00 PM [facility] Name Value Range Interpretation Code Description Data Keturah rce(s) Supporting Document(s) C-Reactive Protein,Wide Range <3.00 Above high normal [facility] ID Date Data Source [id number] 05/10/2020 04:14:00 PM [facility] Name Value Range Interpretation Code Description Data Keturah rce(s) Supporting Document(s) D-Dimer Quant 528 ng/mLFEU <500 PH [facility] BILL NOSTROM read back critical informat ion 05/10/20 1613 LAB.MCCAL Positive for D-Dimer. DVT/PE or DIC may be present. D-Dimer is an exclusionary test and is used in conjunction with a clinical pretest probability (PTP) assessment model to exclude DVT and PE. Consider further diagnostic studies to confirm diagnosis. ID Date Data Source [id number] 05/10/2020 04:04:00 PM [facility] Name Value Range Interpretation Code Description Data Keturah rce(s) Supporting Document(s) White Blood Count 4.8-10.8 Normal (applies to non-numeri c results) [facility] Red Blood Count 3.68-5.22 Normal (applies to non-numeric results) [facility] Hemoglobin 11.2-15.7 Normal (applies to non-numeric resul ts) [facility] Hematocrit 34.1-44.9 Normal (applies to non-numeric resul ts) [facility] Mean Corpuscular Volume 81-99 Normal (applies to non- numeric results) [facility] Mean Corpuscular Hemoglobin 27.0-33.0 Normal (appli es to non-numeric results) [facility] Mean Corpuscular HGB Conc 32.0-36.0 Normal (applies to no n-numeric results) [facility] Red Cell Distribution Width 11.5-14.5 Normal (appli es to non-numeric results) [facility] Platelet Count 202 X10 3/uL 130-450 Normal (applies to non-numeric results) [facility] Mean Platelet Volume 9.5-12.7 Normal (applies to non-num dusty results) [facility] Imm Grans% (AUTO) 1 % 0-2 Normal (applies to non-numeri c results) [facility] Neutrophils % (AUTO) 82 % 40-75 Above high normal C [facility] Lymphocytes % (AUTO) 8 % 21-46 Below low normal Ca [facility] Monocytes % (AUTO) 10 % 5-12 Normal (applies to non-numer ic results) [facility] Eosinophils % (AUTO) 0 % 1-5 Below low normal Ca [facility] Basophils % (AUTO) 0 % 0-1 Normal (applies to non-numer ic results) [facility] Imm Grans# (AUTO) 0.0-0.5 Normal (applies to non-numeri c results) [facility] Neutrophils # (AUTO) 1.5-8.1 Normal (applies to non-num dusty results) [facility] Lymphocytes # (AUTO) 1.0-3.1 Below low normal Ca [facility] Monocytes # (AUTO) 0.2-1.3 Normal (applies to non-numer ic results) [facility] Eosinophils# (AUTO) 0.0-0.5 Normal (applies to non-nume cee results) [facility] Basophils # (AUTO) 0.0-0.1 Normal (applies to non-numer ic results) [facility] ID Date Data Source [id number] 05/10/2020 03:58:00 PM EST [facility] 3 hour post Lactic if elevated? Y Name Value Range Interpretation Code Description Data Keturah rce(s) Supporting Document(s) Lactic Acid 0.4-2.0 Normal (applies to non-numeric resu lts) [facility] ID Date Data Source [id number] 05/11/2020 08:55:00 AM EST [facility] Hospital Name: DIEGO ALBERT : 1935 Age /Sex: 84F Ordering Provider: VICTORINA Diallo Med Rec #: [id number] Reg Status: ADM IN Room #: 210-2 Date of Service: 05/10/20 Report Number: [id number] cc:Armen Meraz IV, REGISTRATION SPECIALIST; VICTORINA Diallo Send Report To: [id number] XRP/XR Chest Xray Portable Reason for exam: [...] Date/Time: 05/10/20 1423 Transcribed Date/Time: 05/11/20 0855 Financial Advisor: KATHY Name Value Range Interpretation Code Description Data Keturah rce(s) Supporting Document(s) ID Date Data Source [id number] 05/10/2020 09:21:00 AM EST [facility] Name Value Range Interpretation Code Description Data Keturah rce(s) Supporting Document(s) Respiratory specimen severe acute respir atory syndrome coronavirus 2 (SARS-CoV-2) RNA Positive (qualifier value) [facility] This [facility] and reported by . ID Date Data Source [id number] 05/10/2020 08:23:00 AM [facility] Name Value Range Interpretation Code Description Data Keturah rce(s) Supporting Document(s) SARS-CoV-2 RNA INHOUSE Negative [facility] THIS IS A [facility] REPORTABLE COMMUNICABLE DISEASE. Results called 05/10/20 0822,MOHAN/ANIKET BEDOYA read back information to LAB.YULY Testing was performed using the VSHORE COVID-19 MDx Assay. This test has been [...] be found at the following links: Providers: https://www.fda.gov/media/848006/download Patients : https://www.fda.gov/media/231768/download THIS IS A [facility] REPORTABLE COMMUNICABLE DISEASE Positive results are indicative of the presence of BVKA-SbR-GON; clinical correlation with patient history and other diagnostic information is necessary to determine patient infection status. The agent detected may not be the definite cause of disease. Positive results do not rule out bacterial infection or co-infection with other viruses. ID Date Data Source [id number] 05/05/2020 10:33:00 AM [facility] spital Procedure Performed By: [facility] [address] [place] [address] Director: Keena Lewis MD Procedure Performed By: [facility] [address] [place] [address] Director: Keena Lewis MD QUANTITY: >100,000/mL {ESCHERICHIA COLI} ESCHERICHIA COLISCT Name Value Range Interpretation Code Description Data Keturah rce(s) Supporting Document(s) ID Date Data Source [id number] 05/05/2020 10:33:00 AM EST [facility] Procedure Performed By: [facility] [address] [place] [address] Director: Keena Lewis MD Procedure Performed By: [facility] [address] [place] [address] Director: Keena Lewis MD QUANTITY: >100,000/mL {ESCHERICHIA COLI} ESCHERICHIA COLISCT Name Value Range Interpretation Code Description Data Keturah rce(s) Supporting Document(s) Amoxicillin/Clavulanic Acid Susc eptible. Indicates for microbiology susceptibilities only. [facility] Ampicillin 4 Susceptible. Indicates for m icrobiology susceptibilities only. [facility] Cefazolin Susceptible. Indicates for microbiol ogy susceptibilities only. [facility] Cefepime Susceptible. Indicates for microbiol ogy susceptibilities only. [facility] ESBL - [facility] Ceftriaxone Susceptible. Indicates for m icrobiology susceptibilities only. [facility] Ciprofloxacin Susceptible. Ind icates for microbiology susceptibilities only. [facility] Ertapenem Susceptible. Indicates for microbiol ogy susceptibilities only. [facility] Gentamicin Susceptible. Indicates for microbiol ogy susceptibilities only. [facility] Imipenem Susceptible. Indicates for microbiol ogy susceptibilities only. [facility] Meropenem Susceptible. Indicates for microbiol ogy susceptibilities only. [facility] Levofloxacin Susceptible. Indicates for m icrobiology susceptibilities only. [facility] Nitrofurantoin Susceptible. Ind icates for microbiology susceptibilities only. [facility] Pipercillin/Tazobactam Susceptib le. Indicates for microbiology susceptibilities only. [facility] Trimeth/Sulfamethoxazole Suscept ible. Indicates for microbiology susceptibilities only. [facility] ID Date Data Source [id number] 05/05/2020 10:32:00 AM EST [facility] Procedure Performed By: [facility] [address] [place] [address] Director: Keena Lewis MD Name Value Range Interpretation Code Description Data Keturah rce(s) Supporting Document(s) Urine Culture [facility] ID Date Data Source [id number] 05/05/2020 10:32:00 AM EST [facility] Procedure Performed By: [facility] [address] [place] [address] Director: Keena Lewis MD Name Value Range Interpretation Code Description Data Keturah rce(s) Supporting Document(s) Amoxicillin/Clavulanic Acid Susc eptible. Indicates for microbiology susceptibilities only. [facility] Ampicillin 4 Susceptible. Indicates for m icrobiology susceptibilities only. [facility] Cefazolin Susceptible. Indicates for microbiol ogy susceptibilities only. [facility] Cefepime Susceptible. Indicates for microbiol ogy susceptibilities only. [facility] Ceftriaxone Susceptible. Indicates for m icrobiology susceptibilities only. [facility] Ciprofloxacin Susceptible. Ind icates for microbiology susceptibilities only. [facility] Ertapenem Susceptible. Indicates for microbiol ogy susceptibilities only. [facility] Gentamicin Susceptible. Indicates for microbiol ogy susceptibilities only. [facility] Imipenem Susceptible. Indicates for microbiol ogy susceptibilities only. [facility] Meropenem Susceptible. Indicates for microbiol ogy susceptibilities only. [facility] Levofloxacin Susceptible. Indicates for m icrobiology susceptibilities only. [facility] Nitrofurantoin Susceptible. Ind icates for microbiology susceptibilities only. [facility] Pipercillin/Tazobactam Susceptib le. Indicates for microbiology susceptibilities only. [facility] Trimeth/Sulfamethoxazole Suscept ible. Indicates for microbiology susceptibilities only. [facility] ID Date Data Source [id number] 05/03/2020 12:49:00 PM [facility] Name Value Range Interpretation Code Description Data Keturah rce(s) Supporting Document(s) Amylase 92 U/L 25-115 Normal (applies to non-numeric resul ts) [facility] ID Date Data Source [id number] 05/03/2020 12:49:00 PM [facility] Name Value Range Interpretation Code Description Data Keturah rce(s) Supporting Document(s) Lipase 232 U/L 73-393 Normal (applies to non-numeric resul ts) [facility] ID Date Data Source [id number] 05/03/2020 12:49:00 PM [facility] Name Value Range Interpretation Code Description Data Keturah rce(s) Supporting Document(s) Sodium 140 mmol/L 136-145 Normal (applies to non-numeric resul ts) [facility] Potassium 3.5-5.1 Normal (applies to non-numeric resul ts) [facility] Chloride 102 mmol/L 98-107 Normal (applies to non-numeric resul ts) [facility] Carbon Dioxide CO2 21-32 Normal (applies to non-numer ic results) [facility] Anion Gap 5.0-16.0 Normal (applies to non-numeric resul ts) [facility] BUN 32 mg/dL 7-18 Above high normal [facility] Creatinine,Serum 0.7-1.2 Above high normal [facility] GFR 38 mL/min >60 Below low normal [facility] spital Glucose Level 142 mg/dL 60-99 Above high normal [facility] Reference range is only applicable when patient is fasting Note the following drug interference: Sulfasalazine Sulfapyridine Can see falsely depressed Can see falsely elevated result with up to 17% results with up to 11% decrease in measurement increase in measurement Recommend patients be collected for this test prior to administration of either drug. Calcium 8.5-10.1 Normal (applies to non-numeric resul ts) [facility] Bilirubin,Total 0.1-1.9 Normal (applies to non-numeric results) [facility] SGOT(AST) 23 U/L 15-37 Normal (applies to non-numeric resul ts) [facility] Note the following drug interference: Sulfasalazine Sulfapyridine Can see falsely depressed Can see falsely elevated result with up to 10% results with up to 10% decrease in measurement increase in measurement Recommend patients be collected for this test prior to administration of either drug. SGPT(ALT) 32 U/L 12-78 Normal (applies to non-numeric resul ts) [facility] Note the following drug interference: Sulfasalazine Sulfapyridine Can see falsely depressed Can see falsely elevated result with up to 29% results with up to 10% decrease in measurement increase in measurement Recommend patients be collected for this test prior to administration of either drug. Alkaline Phosphatase 67 U/L 38-126 Normal (applies to non-num dusty results) [facility] can increase Alkaline Phosp le vels up to 2 times the normal adult value. Normal values for children and adolescents are 2 to 3 times the normal adult value. Total Protein 6.0-8.2 Normal (applies to non-numeric re sults) [facility] Albumin Level 3.4-5.0 Normal (applies to non-numeric re sults) [facility] ID Date Data Source [id number] 05/03/2020 12:38:00 PM EST [facility] Name Value Range Interpretation Code Description Data Keturah rce(s) Supporting Document(s) White Blood Count 3.5-10.5 Normal (applies to non-numeri c results) [facility] Red Blood Count 3.90-5.00 Normal (applies to non-numeric results) [facility] Hemoglobin 12.0-15.5 Below low normal [facility] Hematocrit 34.9-44.5 Normal (applies to non-numeric resul ts) [facility] Mean Corpuscular Volume 81.2-95.1 Normal (applies to non- numeric results) [facility] Mean Corpuscular Hgb 25.6-32.2 Normal (applies to non-num dusty results) [facility] Mean Corpuscular Hgb Conc 32.0-36.0 Below low normal [facility] Red Cell Distribution Width 11.9-15.5 Normal (appli es to non-numeric results) [facility] Platelet Count 204 x10 3/uL 150-450 Normal (applies to non-numeric results) [facility] Mean Platelet Volume 9.4-12.4 Normal (applies to non-num dusty results) [facility] Neutrophils% (Auto) 31.0-71.0 Normal (applies to non-nume cee results) [facility] Lymphocytes% (Auto) 20.0-55.0 Below low normal [facility] Monocytes% (Auto) 4.0-12.0 Above high normal [facility] Eosinophils% (Auto) 1.0-8.0 Below low normal [facility] Basophils% (Auto) 0.0-2.0 Normal (applies to non-numeri c results) [facility] Immature Granulocytes% (Auto) 0.0-2.0 Normal (corinna lies to non-numeric results) [facility] Neutrophils# (Auto) 1.50-6.20 Normal (applies to non-nume cee results) [facility] Lymphocytes# (Auto) 1.20-4.00 Below low normal [facility] Monocytes# (Auto) 0.00-0.90 Normal (applies to non-numeri c results) [facility] Eosinophils# (Auto) 0.00-0.50 Normal (applies to non-nume cee results) [facility] Basophils# (Auto) 0.00-0.20 Normal (applies to non-numeri c results) [facility] Immature Granulocytes# (Auto) 0.00-7.00 No rmal (applies to non-numeric results) [facility] ID Date Data Source [id number] 05/03/2020 12:09:00 PM EST [facility] Collected By: Nurse Initials: ah Time Collected: 1135 Collected By: Nurse Initials: ah Time Collected: 1135 Name Value Range Interpretation Code Description Data Keturah rce(s) Supporting Document(s) Color,Urine Colorl-Dk Y Normal (applies to non-numeric res ults) [facility] Clarity,Urine Clear Normal (applies to non-numeric re sults) [facility] Specific [place],Urine 1.005-1.030 Normal (applies to non- numeric results) [facility] pH,Urine 5.0-8.0 Normal (applies to non-numeric resul ts) [facility] Protein,Urine Negative [facility] Glucose,Urine Negative Normal (applies to non-numeric re sults) [facility] Ketones,Urine Negative Normal (applies to non-numeric re sults) [facility] Blood,Urine Negative Normal (applies to non-numeric resu lts) [facility] Bilirubin,Urine Negative Normal (applies to non-numeric results) [facility] Urobilinogen,Urine 0.2-1.0 Normal (applies to non-numer ic results) [facility] Leukocyte Esterase,Urine Negative [facility] Nitrite,Urine Negative Normal (applies to non-numeric re sults) [facility] ID Date Data Source [id number] 05/03/2020 12:09:00 PM [facility] Collected By: Nurse Initials: Time Collected: 1135 Collected By: Nurse Initials: Time Collected: 1135 Name Value Range Interpretation Code Description Data Keturah rce(s) Supporting Document(s) RBC,Urine None Seen Normal (applies to non-numeric resul ts) [facility] WBC,Urine None Seen [facility] Casts,Urine None Seen Normal (applies to non-numeric resu lts) [facility] Squamous Cells,Urine None Seen [facility] Transitional Cells,Ur None Seen [facility] Bacteria,Urine None Seen [facility] ital ID Date Data Source [id number] 04/30/2020 03:47:00 PM [facility] Name Value Range Interpretation Code Description Data Keturah rce(s) Supporting Document(s) PT 9.2-11.7 Above high normal [facility] INR Normal (applies to non-numeric results) [facility] The use of INR is restricted to patients on stable oral anticoagulant. Therapeutic Range: 2.0 - 3.0 High Risk Range: 2.5 - 3.5 ID Date Data Source [id number] 03/21/2020 04:46:00 PM [facility] Name Value Range Interpretation Code Description Data Keturah rce(s) Supporting Document(s) PT 9.2-11.7 Above high normal [facility] INR Normal (applies to non-numeric results) [facility] The use of INR is restricted to patients on stable oral anticoagulant. Therapeutic Range: 2.0 - 3.0 High Risk Range: 2.5 - 3.5 ID Date Data Source [id number] 03/15/2020 05:06:00 PM [facility] Name Value Range Interpretation Code Description Data Keturah rce(s) Supporting Document(s) PT 9.2-11.7 Above high normal [facility] Unable to calculate INR. INR [facility] DESIREE read back critical information [id number] [email or web address] The use of INR is restricted to patients on stable oral anticoagulant. Therapeutic Range: 2.0 - 3.0 High Risk Range: 2.5 - 3.5 ID Date Data Source [id number] 02/20/2020 04:11:00 PM EDT [facility] Name Value Range Interpretation Code Description Data Keturah rce(s) Supporting Document(s) PT 9.2-11.7 Above high normal [facility] INR Normal (applies to non-numeric results) [facility] The use of INR is restricted to patients on stable oral anticoagulant. Therapeutic Range: 2.0 - 3.0 High Risk Range: 2.5 - 3.5 ID Date Data Source [id number] 02/07/2020 03:45:00 PM EDT [facility] Name Value Range Interpretation Code Description Data Keturah rce(s) Supporting Document(s) PT 9.2-11.7 Above high normal [facility] INR Normal (applies to non-numeric results) [facility] The use of INR is restricted to patients on stable oral anticoagulant. Therapeutic Range: 2.0 - 3.0 High Risk Range: 2.5 - 3.5 ID Date Data Source [id number] [facility] Interpretation Code Description Data Keturah rce(s) Supporting Document(s) PT 9.2-11.7 Above high normal [facility] INR Normal (applies to non-numeric results) [facility] The use of INR is restricted to patients on stable oral anticoagulant. Therapeutic Range: 2.0 - 3.0 High Risk Range: 2.5 - 3.5 ID Date Data Source [id number] 11/08/2019 07:58:00 PM EDT [facility] Name Value Range Interpretation Code Description Data Keturah rce(s) Supporting Document(s) Vitamin B12 result [id number] Joyner [facility] Test Performed By: [facility] [address] [place] [address] Director: Chika Lewis MD ID Date Data Source [id number] 11/08/2019 07:58:00 PM EDT [facility] Name Value Range Interpretation Code Description Data Keturah rce(s) Supporting Document(s) Folate result 2.76-20.0 Joyner [facility] Test Performed By: [facility] [address] [place] [address] Director: Chika Lewis MD ID Date Data Source [id number] 11/08/2019 07:58:00 PM EDT [facility] Name Value Range Interpretation Code Description Data Keturah rce(s) Supporting Document(s) T3 result 60.0-181.0 Normal (applies to non-numeric resul ts) [facility] Test Performed By: [facility] [address] [place] [address] Director: Chika Lewis MD ID Date Data Source [id number] 11/08/2019 07:58:00 PM EDT [facility] Name Value Range Interpretation Code Description Data Keturah rce(s) Supporting Document(s) UMALB Urine Creatinine result Normal (applies t o non-numeric results) [facility] Interpret with care as there is no estab lished reference range associated with this assay's methodology that pertains to this particular sex and/or age. UMALB Microalbumin,Ur result <1.7 Joyner [facility] UMALB Alb/Cre Ratio,Ur result Normal (applies t o non-numeric results) [facility] Test Performed By: [facility] [address] [place] [address] Director: Chika Lewis MD Reference Ranges for Microalbumin,spot: Normal <30 ug/mg creatinine Microalbuminuria 30-300 ug/mg creatinine Clinical Albuminuria >300 ug/mg creatinine ID Date Data Source [id number] 11/08/2019 06:17:00 PM EDT [facility] Name Value Range Interpretation Code Description Data Keturah rce(s) Supporting Document(s) Vitamin B12 [phone] Above high normal [facility] Test Performed By: [facility] [address] [place] [address] Director: Chika Lewis MD ID Date Data Source [id number] 11/08/2019 06:17:00 PM EDT [facility] Name Value Range Interpretation Code Description Data Keturah rce(s) Supporting Document(s) Folate 2.76-20.0 Above high normal [facility] Test Performed By: [facility] [address] [place] [address] Director: Chika Lewis MD ID Date Data Source [id number] 11/08/2019 06:12:00 PM EDT [facility] Name Value Range Interpretation Code Description Data Keturah rce(s) Supporting Document(s) T3 (Tri-Iodothyronine) 60.0-181.0 Normal (applies to non-n umeric results) [facility] Test Performed By: [facility] [address] [place] [address] Director: Chika Lewis MD ID Date Data Source [id number] 11/08/2019 05:59:00 PM EDT [facility] Name Value Range Interpretation Code Description Data Keturah rce(s) Supporting Document(s) Creatinine,Urine Normal (applies to non-numeric results) [facility] Interpret with care as there is no estab lished reference range associated with this assay's methodology that pertains to this particular sex and/or age. Microalbumin,Urine <1.7 Above high normal [facility] Albumin/Creatinine Ratio,Urine Normal (applies to non-numeric results) [facility] Test Performed By: [facility] [address] [place] [address] Director: Chika Lewis MD Reference Ranges for Microalbumin,spot: Normal <30 ug/mg creatinine Microalbuminuria 30-300 ug/mg creatinine Clinical Albuminuria >300 ug/mg creatinine ID Date Data Source [id number] 11/08/2019 03:36:00 PM EDT [facility] Name Value Range Interpretation Code Description Data Keturah rce(s) Supporting Document(s) Sodium 143 mmol/L 136-145 Normal (applies to non-numeric resul ts) [facility] Potassium 3.5-5.1 Normal (applies to non-numeric resul ts) [facility] Chloride 104 mmol/L 98-107 Normal (applies to non-numeric resul ts) [facility] Carbon Dioxide CO2 21-32 Normal (applies to non-numer ic results) [facility] Anion Gap 5.0-16.0 Normal (applies to non-numeric resul ts) [facility] BUN 51 mg/dL 7-18 PH [facility] Belinda read back critical information [id number] [email or web address].[email or web address] Creatinine,Serum 0.7-1.2 Above high normal [facility] GFR 30 mL/min >60 Below low normal [facility] Glucose Level 126 mg/dL 60-99 Above high normal [facility] Reference range is only applicable when patient is fasting Note the following drug interference: Sulfasalazine Sulfapyridine Can see falsely depressed Can see falsely elevated result with up to 17% results with up to 11% decrease in measurement increase in measurement Recommend patients be collected for this test prior to administration of either drug. Calcium 8.5-10.1 Normal (applies to non-numeric resul ts) [facility] Bilirubin,Total 0.1-1.9 Normal (applies to non-numeric results) [facility] SGOT(AST) 17 U/L 15-37 Normal (applies to non-numeric resul ts) [facility] Note the following drug interference: Sulfasalazine Sulfapyridine Can see falsely depressed Can see falsely elevated result with up to 10% results with up to 10% decrease in measurement increase in measurement Recommend patients be collected for this test prior to administration of either drug. SGPT(ALT) 30 U/L 12-78 Normal (applies to non-numeric resul ts) [facility] Note the following drug interference: Sulfasalazine Sulfapyridine Can see falsely depressed Can see falsely elevated result with up to 29% results with up to 10% decrease in measurement increase in measurement Recommend patients be collected for this test prior to administration of either drug. Alkaline Phosphatase 72 U/L 38-126 Normal (applies to non-num dusty results) [facility] can increase Alkaline Phosp le vels up to 2 times the normal adult value. Normal values for children and adolescents are 2 to 3 times the normal adult value. Total Protein 6.0-8.2 Normal (applies to non-numeric re sults) [facility] Albumin Level 3.4-5.0 Normal (applies to non-numeric re sults) [facility] ID Date Data Source [id number] 11/08/2019 03:36:00 PM EDT [facility] Name Value Range Interpretation Code Description Data Keturah rce(s) Supporting Document(s) Triglycerides 87 mg/dL <150 Normal (applies to non-numeric re sults) [facility] Cholesterol 135 mg/dL 100-200 Normal (applies to non-numeric resu lts) [facility] LDL Cholesterol Calculated 72 0-130 Normal (applies to n on-numeric results) [facility] HDL Cholesterol 46 mg/dL 40-60 Normal (applies to non-numeric results) [facility] Cholesterol/HDL Ratio 3.6-6.7 Below low normal [facility] ID Date Data Source [id number] 11/08/2019 03:36:00 PM T [facility] Name Value Range Interpretation Code Description Data Keturah rce(s) Supporting Document(s) Free T4 (Free Thyroxine) 0.76-1.46 Normal (applies to non -numeric results) [facility] ID Date Data Source [id number] 11/08/2019 03:36:00 PM EDT [facility] Name Value Range Interpretation Code Description Data Keturah rce(s) Supporting Document(s) Thyroid Stimulate Hormone TSH 0.358-3.74 No rmal (applies to non-numeric results) [facility] ID Date Data Source [id number] 11/08/2019 03:22:00 PM EDT [facility] Name Value Range Interpretation Code Description Data Keturah rce(s) Supporting Document(s) Hemoglobin A1c 4.4-6.2 Normal (applies to non-numeric r esults) [facility] Estimated Avg Glucose 120 mg/dL 126-240 Below low normal [facility] ID Date Data Source [id number] 11/08/2019 03:11:00 PM EDT [facility] Name Value Range Interpretation Code Description Data Keturah rce(s) Supporting Document(s) PT 9.2-11.7 Above high normal [facility] INR Normal (applies to non-numeric results) [facility] The use of INR is restricted to patients on stable oral anticoagulant. Therapeutic Range: 2.0 - 3.0 High Risk Range: 2.5 - 3.5 ID Date Data Source [id number] 11/08/2019 02:58:00 PM EDT [facility] Name Value Range Interpretation Code Description Data Keturah rce(s) Supporting Document(s) White Blood Count 3.5-10.5 Normal (applies to non-numeri c results) [facility] Red Blood Count 3.90-5.00 Below low normal [facility] Hemoglobin 12.0-15.5 Below low normal [facility] Hematocrit 34.9-44.5 Normal (applies to non-numeric resul ts) [facility] Mean Corpuscular Volume 81.2-95.1 Normal (applies to non- numeric results) [facility] Mean Corpuscular Hgb 25.6-32.2 Normal (applies to non-num dusty results) [facility] Mean Corpuscular Hgb Conc 32.0-36.0 Normal (applies to no n-numeric results) [facility] Red Cell Distribution Width 11.9-15.5 Normal (appli es to non-numeric results) [facility] Platelet Count 290 x10 3/uL 150-450 Normal (applies to non-numeric results) [facility] Mean Platelet Volume 9.4-12.4 Normal (applies to non-num dusty results) [facility] Neutrophils% (Auto) 31.0-71.0 Normal (applies to non-nume cee results) [facility] Lymphocytes% (Auto) 20.0-55.0 Below low normal [facility] Monocytes% (Auto) 4.0-12.0 Normal (applies to non-numeri c results) [facility] Eosinophils% (Auto) 1.0-8.0 Normal (applies to non-nume cee results) [facility] Basophils% (Auto) 0.0-2.0 Normal (applies to non-numeri c results) [facility] Immature Granulocytes% (Auto) 0.0-2.0 Normal (corinna lies to non-numeric results) [facility] Neutrophils# (Auto) 1.50-6.20 Normal (applies to non-nume cee results) [facility] Lymphocytes# (Auto) 1.20-4.00 Normal (applies to non-nume cee results) [facility] Monocytes# (Auto) 0.00-0.90 Normal (applies to non-numeri c results) [facility] Eosinophils# (Auto) 0.00-0.50 Normal (applies to non-nume cee results) [facility] Basophils# (Auto) 0.00-0.20 Normal (applies to non-numeri c results) [facility] Immature Granulocytes# (Auto) 0.00-7.00 No rmal (applies to non-numeric results) [facility] ID Date Data Source [id number] 09/08/2019 09:23:00 AM EDT [facility] Name Value Range Interpretation Code Description Data Keturah rce(s) Supporting Document(s) PT 9.2-11.7 Above high normal [facility] INR Normal (applies to non-numeric results) [facility] The use of INR is restricted to patients on stable oral anticoagulant. Therapeutic Range: 2.0 - 3.0 High Risk Range: 2.5 - 3.5 ID Date Data Source [id number] 07/12/2019 04:29:00 PM EDT [facility] Name Value Range Interpretation Code Description Data Keturah rce(s) Supporting Document(s) PT 9.2-11.7 Above high normal [facility] INR Normal (applies to non-numeric results) [facility] The use of INR is restricted to patients on stable oral anticoagulant. Therapeutic Range: 2.0 - 3.0 High Risk Range: 2.5 - 3.5 ID Date Data Source [id number] 06/22/2019 05:23:00 AM [facility] Name Value Range Interpretation Code Description Data Keturah rce(s) Supporting Document(s) hsCRP result 0.00-3.00 Normal (applies to non-numeric res ults) [facility] Test Performed By: [facility] [address] [place] [address] Director: Chika Lewis MD ID Date Data Source [id number] 06/21/2019 09:32:[address] [facility] Value Range Interpretation Code Description Data Keturah rce(s) Supporting Document(s) hsCRP CARDIAC 0.00-3.00 Normal (applies to non-numeric re sults) [facility] Test Performed By: [facility] [address] [place] [address] Director: Chika Lewis MD ID Date Data Source [id number] 06/21/2019 04:43:00 PM [facility] Value Range Interpretation Code Description Data Keturah rce(s) Supporting Document(s) Erythrocyte Sedimentation rate 13 mm/hr 0-20 N ormal (applies to non-numeric results) [facility] ID Date Data Source [id number] 06/21/2019 04:43:00 PM [facility] Name Value Range Interpretation Code Description Data Keturah rce(s) Supporting Document(s) White Blood Count 3.5-10.5 Normal (applies to non-numeri c results) [facility] Red Blood Count 3.90-5.00 Below low normal [facility] Hemoglobin 12.0-15.5 Below low normal [facility] Hematocrit 34.9-44.5 Normal (applies to non-numeric resul ts) [facility] Mean Corpuscular Volume 81.2-95.1 Normal (applies to non- numeric results) [facility] Mean Corpuscular Hgb 25.6-32.2 Normal (applies to non-num dusty results) [facility] Mean Corpuscular Hgb Conc 32.0-36.0 Below low normal [facility] Red Cell Distribution Width 11.9-15.5 Normal (appli es to non-numeric results) [facility] Platelet Count 232 x10 3/uL 150-450 Normal (applies to non-numeric results) [facility] Mean Platelet Volume 9.4-12.4 Normal (applies to non-num dusty results) [facility] Neutrophils% (Auto) 31.0-71.0 Normal (applies to non-nume cee results) [facility] Lymphocytes% (Auto) 20.0-55.0 Below low normal [facility] Monocytes% (Auto) 4.0-12.0 Normal (applies to non-numeri c results) [facility] Eosinophils% (Auto) 1.0-8.0 Normal (applies to non-nume cee results) [facility] Basophils% (Auto) 0.0-2.0 Normal (applies to non-numeri c results) [facility] Immature Granulocytes% (Auto) 0.0-2.0 Normal (corinna lies to non-numeric results) [facility] Neutrophils# (Auto) 1.50-6.20 Normal (applies to non-nume cee results) [facility] Lymphocytes# (Auto) 1.20-4.00 Normal (applies to non-nume cee results) [facility] Monocytes# (Auto) 0.00-0.90 Normal (applies to non-numeri c results) [facility] Eosinophils# (Auto) 0.00-0.50 Normal (applies to non-nume cee results) [facility] Basophils# (Auto) 0.00-0.20 Normal (applies to non-numeri c results) [facility] Immature Granulocytes# (Auto) 0.00-7.00 No rmal (applies to non-numeric results) [facility] ID Date Data Source [id number] 06/21/2019 04:28:00 PM EST [facility] Name Value Range Interpretation Code Description Data Keturah rce(s) Supporting Document(s) Sodium 145 mmol/L 136-145 Normal (applies to non-numeric resul ts) [facility] Potassium 3.5-5.1 Normal (applies to non-numeric resul ts) [facility] Chloride 106 mmol/L 98-107 Normal (applies to non-numeric resul ts) [facility] Carbon Dioxide CO2 21-32 Normal (applies to non-numer ic results) [facility] Anion Gap 5.0-16.0 Normal (applies to non-numeric resul ts) [facility] BUN 43 mg/dL 7-18 Above high normal [facility] Creatinine,Serum 0.7-1.2 Above high normal [facility] GFR 38 mL/min >60 Below low normal [facility] Glucose Level 128 mg/dL 60-99 Above high normal [facility] Reference range is only applicable when patient is fasting Note the following drug interference: Sulfasalazine Sulfapyridine Can see falsely depressed Can see falsely elevated result with up to 17% results with up to 11% decrease in measurement increase in measurement Recommend patients be collected for this test prior to administration of either drug. Calcium 8.5-10.1 Normal (applies to non-numeric resul ts) [facility] Bilirubin,Total 0.1-1.9 Normal (applies to non-numeric results) [facility] SGOT(AST) 19 U/L 15-37 Normal (applies to non-numeric resul ts) [facility] Note the following drug interference: Sulfasalazine Sulfapyridine Can see falsely depressed Can see falsely elevated result with up to 10% results with up to 10% decrease in measurement increase in measurement Recommend patients be collected for this test prior to administration of either drug. SGPT(ALT) 38 U/L 12-78 Normal (applies to non-numeric resul ts) [facility] Note the following drug interference: Sulfasalazine Sulfapyridine Can see falsely depressed Can see falsely elevated result with up to 29% results with up to 10% decrease in measurement increase in measurement Recommend patients be collected for this test prior to administration of either drug. Alkaline Phosphatase 69 U/L 38-126 Normal (applies to non-num dusty results) [facility] can increase Alkaline Phosp le vels up to 2 times the normal adult value. Normal values for children and adolescents are 2 to 3 times the normal adult value. Total Protein 6.0-8.2 Normal (applies to non-numeric re sults) [facility] Albumin Level 3.4-5.0 Normal (applies to non-numeric re sults) [facility] ID Date Data Source [id number] 06/21/2019 04:27:00 PM [facility] Name Value Range Interpretation Code Description Data Keturah rce(s) Supporting Document(s) PT 9.2-11.7 Above high normal [facility] INR Normal (applies to non-numeric results) [facility] The use of INR is restricted to patients on stable oral anticoagulant. Therapeutic Range: 2.0 - 3.0 High Risk Range: 2.5 - 3.5 ID Date Data Source [id number] 06/17/2019 02:04:00 PM [facility] Imaging Services Department Imaging Report [address] [place] [id number] %(RAD)RES..mtdd.print.filter("line") Name: DIEGO ALBERT : 1935 Age/Sex: 83F Ordering Provider: Armen Meraz IV, RNP Med Rec #: [id number] Reg Status: REG REF Room #: Date of Service: 06/17/19 Report Number: [id number] cc:Armen Meraz IV, RNP Send Report To: [id number] XRP/XR T Spine Ap/Lat [Dorsal] Reason for [...] Date/Time: 06/17/19 1115 Transcribed Date/Time: 06/17/19 1404 Financial Advisor: PATTI Name Value Range Interpretation Code Description Data Keturah rce(s) Supporting Document(s) ID Date Data Source [id number] 06/17/2019 01:59:00 PM [facility] Imaging Services Department Imaging Report [address] [address] %(RAD)RES..mtdd.print.filter("line") Name: DIEGO ALBERT : 1935 Age/Sex: 83F Ordering Provider: Armen Meraz IV, RNP Med Rec #: [id number] Reg Status: REG REF Room #: Date of Service: 06/17/19 Report Number: [id number] cc:Armen Meraz IV, RNP Send Report To: [id number] XRP/XR L Spine 2 views Ap & [...] Date/Time: 06/17/19 1115 Transcribed Date/Time: 06/17/19 1359 Financial Advisor: PATTI Name Value Range Interpretation Code Description Data Keturah rce(s) Supporting Document(s) ID Date Data Source [id number] 06/17/2019 01:49:00 PM [facility] Imaging Services Department Imaging Report [address] [place] [address] %(RAD)RES..mtdd.print.filter("line") Name: DIEGO ALBERT : 1935 Age/Sex: 83F Ordering Provider: Armen Meraz IV, RNP Med Rec #: [id number] Reg Status: REG REF Room #: Date of Service: 06/17/19 Report Number: [id number] cc:Armen Meraz IV, RNP Send Report To: [id number] XRP/XR C Spin Ap,Lat &/or Odontoid Reason [...] Date/Time: 06/17/19 1115 Transcribed Date/Time: 06/17/19 1349 Financial Advisor: PATTI Name Value Range Interpretation Code Description Data Keturah rce(s) Supporting Document(s) ID Date Data Source [id number] 06/17/2019 01:56:00 PM [facility] Imaging Services Department Imaging Report [address], [place] [address] %(RAD)RES..mtdd.print.filter("line") Name: DEIGO ALBERT : 1935 Age/Sex: 83F Ordering Provider: Armen Meraz IV, RNP Med Rec #: [id number] Reg Status: REG REF Room #: Date of Service: 06/17/19 Report Number: [id number] cc:Armen Meraz IV, RNP Send Report To: [id number] XRP/XR Knee Rt 2 views Reason for [...] Date/Time: 06/17/19 1115 Transcribed Date/Time: 06/17/19 1356 Financial Advisor: PATTI Name Value Range Interpretation Code Description Data Keturah rce(s) Supporting Document(s) ID Date Data Source [id number] 06/17/2019 02:02:00 PM [facility] Imaging Services Department Imaging Report [address], [place] [address] %(RAD)RES..mtdd.print.filter("line") Name: DIEGO ALBERT : 1935 Age/Sex: 83F Ordering Provider: Armen Meraz IV, RNP Med Rec #: [id number] Reg Status: REG REF Room #: Date of Service: 06/17/19 Report Number: [id number] cc:Armen Meraz IV, RNP Send Report To: [id number] XRP/XR Hips Benny w Pelvis min 5 [...] Date/Time: 06/17/19 1115 Transcribed Date/Time: 06/17/19 1402 Financial Advisor: PATTI Name Value Range Interpretation Code Description Data Keturah rce(s) Supporting Document(s) ID Date Data Source [id number] 06/13/2019 08:06:00 AM EST [facility] Name Value Range Interpretation Code Description Data Keturah rce(s) Supporting Document(s) Sodium 145 mmol/L 136-145 Normal (applies to non-numeric resul ts) [facility] Potassium 3.5-5.1 Normal (applies to non-numeric resul ts) [facility] Chloride 106 mmol/L 98-107 Normal (applies to non-numeric resul ts) [facility] Carbon Dioxide CO2 21-32 Normal (applies to non-numer ic results) [facility] Anion Gap 5.0-16.0 Normal (applies to non-numeric resul ts) [facility] BUN 34 mg/dL 7-18 Above high normal [facility] Creatinine,Serum 0.7-1.2 Above high normal [facility] GFR 38 mL/min >60 Below low normal [facility] Glucose Level 153 mg/dL 60-99 Above high normal [facility] Reference range is only applicable when patient is fasting Note the following drug interference: Sulfasalazine Sulfapyridine Can see falsely depressed Can see falsely elevated result with up to 17% results with up to 11% decrease in measurement increase in measurement Recommend patients be collected for this test prior to administration of either drug. Calcium 8.5-10.1 Normal (applies to non-numeric resul ts) [facility] Bilirubin,Total 0.1-1.9 Normal (applies to non-numeric results) [facility] SGOT(AST) 20 U/L 15-37 Normal (applies to non-numeric resul ts) [facility] Note the following drug interference: Sulfasalazine Sulfapyridine Can see falsely depressed Can see falsely elevated result with up to 10% results with up to 10% decrease in measurement increase in measurement Recommend patients be collected for this test prior to administration of either drug. SGPT(ALT) 42 U/L 12-78 Normal (applies to non-numeric resul ts) [facility] Note the following drug interference: Sulfasalazine Sulfapyridine Can see falsely depressed Can see falsely elevated result with up to 29% results with up to 10% decrease in measurement increase in measurement Recommend patients be collected for this test prior to administration of either drug. Alkaline Phosphatase 72 U/L 38-126 Normal (applies to non-num dusty results) [facility] can increase Alkaline Phosp le vels up to 2 times the normal adult value. Normal values for children and adolescents are 2 to 3 times the normal adult value. Total Protein 6.0-8.2 Normal (applies to non-numeric re sults) [facility] Albumin Level 3.4-5.0 Normal (applies to non-numeric re sults) [facility] ID Date Data Source [id number] 06/13/2019 08:06:00 AM EST [facility] Name Value Range Interpretation Code Description Data Keturah rce(s) Supporting Document(s) Troponin I 0.000-0.056 Normal (applies to non-numeric resu lts) [facility] ID Date Data Source [id number] 06/13/2019 07:45:00 AM [facility] Name Value Range Interpretation Code Description Data Keturah rce(s) Supporting Document(s) White Blood Count 3.5-10.5 Normal (applies to non-numeri c results) [facility] Red Blood Count 3.90-5.00 Normal (applies to non-numeric results) [facility] Hemoglobin 12.0-15.5 Normal (applies to non-numeric resul ts) [facility] Hematocrit 34.9-44.5 Normal (applies to non-numeric resul ts) [facility] Mean Corpuscular Volume 81.2-95.1 Normal (applies to non- numeric results) [facility] Mean Corpuscular Hgb 25.6-32.2 Normal (applies to non-num dusty results) [facility] Mean Corpuscular Hgb Conc 32.0-36.0 Normal (applies to no n-numeric results) [facility] Red Cell Distribution Width 11.9-15.5 Normal (appli es to non-numeric results) [facility] Platelet Count 235 x10 3/uL 150-450 Normal (applies to non-numeric results) [facility] Mean Platelet Volume 9.4-12.4 Normal (applies to non-num dusty results) [facility] Neutrophils% (Auto) 31.0-71.0 Above high normal [facility] Lymphocytes% (Auto) 20.0-55.0 Below low normal [facility] Monocytes% (Auto) 4.0-12.0 Normal (applies to non-numeri c results) [facility] Eosinophils% (Auto) 1.0-8.0 Normal (applies to non-nume cee results) [facility] Basophils% (Auto) 0.0-2.0 Normal (applies to non-numeri c results) [facility] Immature Granulocytes% (Auto) 0.0-2.0 Normal (corinna lies to non-numeric results) [facility] Neutrophils# (Auto) 1.50-6.20 Normal (applies to non-nume cee results) [facility] Lymphocytes# (Auto) 1.20-4.00 Normal (applies to non-nume cee results) [facility] Monocytes# (Auto) 0.00-0.90 Normal (applies to non-numeri c results) [facility] Eosinophils# (Auto) 0.00-0.50 Normal (applies to non-nume cee results) [facility] Basophils# (Auto) 0.00-0.20 Normal (applies to non-numeri c results) [facility] Immature Granulocytes# (Auto) 0.00-7.00 No rmal (applies to non-numeric results) [facility] ID Date Data Source [id number] 06/13/2019 08:46:00 AM EST [facility] Imaging Services Department Imaging Report [address] [place], [place] [address] %(RAD)RES..mtdd.print.filter("line") Name: DIEGO ALBERT : 1935 Age/Sex: 83F Ordering Provider: HELEN Roberts Med Rec #: [id number] Reg Status: [facility] ER Room #: Date of Service: 06/13/19 Report Number: [id number] cc:Armen Meraz IV, REGISTRATION SPECIALIST Send Report To: [id number] CT/CT Cervical Spine No Contrast Reason for [...] Date/Time: 06/13/19 0742 Transcribed Date/Time: 06/13/19 0846 Financial Advisor: TYRON Name Value Range Interpretation Code Description Data Keturah rce(s) Supporting Document(s) ID Date Data Source [id number] 06/13/2019 08:55:00 AM EST [facility] Imaging Services Department Imaging Report [address], [place] [address] %(RAD)RES..mtdd.print.filter("line") Name: DIEGO ALBERT : 1935 Age/Sex: 83F Ordering Provider: HELEN Roberts Med Rec #: [id number] Reg Status: [facility] Room #: Date of Service: 06/13/19 Report Number: [id number] cc:Armen Meraz IV, VICTORINA Send Report To: [id number] CT/CT Orbits No Contrast Reason for exam: [...] Date/Time: 06/13/19 0742 Transcribed Date/Time: 06/13/19 0855 Financial Advisor: TYRON Name Value Range Interpretation Code Description Data Keturah rce(s) Supporting Document(s) ID Date Data Source [id number] 06/13/2019 08:40:00 AM [facility] Imaging Services Department Imaging Report [address], [place] [address] %(RAD)RES..mtdd.print.filter("line") Name: DIEGO ALBERT : 1935 Age/Sex: 83F Ordering Provider: HELEN Roberts Med Rec #: [id number] Reg Status: [facility] Room #: Date of Service: 06/13/19 Report Number: [id number] cc:Armen Meraz IV, REGISTRATION SPECIALIST Send Report To: [id number] CT/CT Head No Contrast Reason for exam: [...] 06/13/1932 Dictation Date/Time: 06/13/19741 Transcribed Date/Time: 06/13/19839 Financial Advisor: TYRON Name Value Range Interpretation Code Description Data Keturah rce(s) Supporting Document(s) ID Date Data Source [id number] 06/11/2019 03:56:00 PM [facility] Imaging Services Department Imaging Report [address], [place] [address] Name: DIEGO ALBERT : 1935 Age/Sex: 83F Ordering Provider: NICOLAS Ugarte Med Rec #: [id number] Date of Service: 06/10/19 Report Number: [id number] cc: Armen Meraz, IV, REGISTRATION SPECIALIST; NICOLAS Ugarte Send Report To: [id number] MAMMOSCR/Screening Digital Mammo Rt CAD Reason for [...] undergo routine screening mammography as per [employer] and [employer]. OVERALL FINAL ASSESSMENT OF FINDINGS: [...] Date/Time: 06/10/19 1559 Transcribed Date/Time: 06/11/19 155 Financial Advisor: KATHY Name Value Range Interpretation Code Description Data Keturah rce(s) Supporting Document(s) ID Date Data Source [id number] 06/06/2019 04:25:00 PM [facility] Name Value Range Interpretation Code Description Data Keturah rce(s) Supporting Document(s) PT 9.2-11.7 Above high normal [facility] INR Normal (applies to non-numeric results) [facility] The use of INR is restricted to patients on stable oral anticoagulant. Therapeutic Range: 2.0 - 3.0 High Risk Range: 2.5 - 3.5 ID Date Data Source [id number] 05/05/2019 05:19:00 PM [facility] Name Value Range Interpretation Code Description Data Keturah rce(s) Supporting Document(s) PT 9.2-11.7 Above high normal [facility] INR Normal (applies to non-numeric results) [facility] The use of INR is restricted to patients on stable oral anticoagulant. Therapeutic Range: 2.0 - 3.0 High Risk Range: 2.5 - 3.5 Procedure Vital Signs ID Date Data Source [id number] 05/31/2020 11:41:00 AM [facility] Name Value Range Interpretation Code Description Data Source(s) Weight Measurement Method 5 5 [facility] Weight (Calculated Kilograms) 61.23 61.23 [facility] Weight 2017.6 2017.6 [facility] Temperature Source 7 7 [facility] Temperature 98.1 98.1 [facility] Respiratory Effort 15 15 [facility] Respiratory Rate 16 16 [facility] Pulse Assessment Method 4 4 [facility] Pulse Rate 62 62 [facility] Height (Calculated Centimeters) 149.86 149. 86 [facility] Height 59 59 [facility] Blood Pressure 132/66 132/66 [facility] Body Mass Index (BMI) 27.2 27.2 [facility] Weight Measurement Method 5 5 [facility] Weight (Calculated Kilograms) 61.23 61.23 [facility] Weight 2017.6 2017.6 [facility] Temperature Source 7 7 [facility] Temperature 98.1 98.1 [facility] Respiratory Effort 15 15 [facility] Respiratory Rate 16 16 [facility] Pulse Assessment Method 4 4 [facility] Pulse Rate 62 62 [facility] Height (Calculated Centimeters) 149.86 149. 86 [facility] Height 59 59 [facility] Blood Pressure 132/66 132/66 [facility] Body Mass Index (BMI) 27.2 27.2 [facility] Weight Measurement Method 1 1 [facility] Weight (Calculated Kilograms) 61.23 61.23 [facility] Weight 2096 2096 [facility] Temperature Source 7 7 [facility] Temperature 98.6 98.6 [facility] Respiratory Effort 1 1 [facility] Respiratory Rate 18 18 [facility] Pulse Assessment Method 4 4 [facility] Pulse Rate 72 72 [facility] Height (Calculated Centimeters) 149.86 149. 86 [facility] Height 59 59 [facility] Blood Pressure 120/66 120/66 [facility] Body Mass Index (BMI) 27.2 27.2 [facility] Weight Measurement Method 5 5 [facility] Weight (Calculated Kilograms) 61.23 61.23 [facility] Weight 2176 2176 [facility] Temperature Source 7 7 [facility] Temperature 98 98 [facility] Respiratory Effort 1 1 [facility] Respiratory Rate 17 17 [facility] Pulse Assessment Method 4 4 [facility] Pulse Rate 58 58 [facility] Height (Calculated Centimeters) 149.86 149. 86 [facility] Height 59 59 [facility] Blood Pressure 121/67 121/67 [facility] Body Mass Index (BMI) 27.2 27.2 [facility] Weight Measurement Method 5 5 [facility] Weight (Calculated Kilograms) 61.23 61.23 [facility] Weight 2176 2176 [facility] Temperature Source 7 7 [facility] Temperature 98 98 [facility] Respiratory Effort 15 15 [facility] Respiratory Rate 18 18 [facility] Pulse Assessment Method 4 4 [facility] Pulse Rate 79 79 [facility] Height (Calculated Centimeters) 149.86 149. 86 [facility] Height 59 59 [facility] Blood Pressure 121/67 121/67 [facility] Body Mass Index (BMI) 27.2 27.2 [facility] Hospital ID Date Data Source [id number] 06/05/2020 08:24:00 AM EST [place] [facility] Name Value Range Interpretation Code Description Data Source(s) Weight Measurement Method 8 8 [facility] Weight 2320 2320 [facility] pital Temperature Source 7 7 [facility] Temperature 97 97 [facility] Respiratory Rate 18 18 [facility] Pulse Assessment Method 4 4 [facility] Weight Measurement Method 8 8 [facility] Weight 2320 2320 [facility] pital Temperature Source 7 7 [facility] Res[facility] Rate 18 18 [facility] Pulse Rate 63 63 [facility] 59 59 [facility] 136/71 136/71 [facility] Weight Measurement Method 8 8 [facility] Weight 2320 2320 [facility] pital Temperature Source 7 7 [facility] Temperature 97 97 [facility] Respiratory Rate 18 18 [facility] Pulse Rate 70 70 [facility] pital Height 59 59 [facility] Blood Pressure 142/71 142/71 [facility] ID Date Data Source [id number] 07/25/2019 02:17:00 PM EDT [place] [facility] Name Value Range Interpretation Code Description Data Source(s) Weight Measurement Method 8 8 [facility] Weight 2400 2400 [facility] pital Temperature Source 7 7 [facility] 16 16 [facility] Pulse Assessment Method 4 4 [facility] Pulse Rate 72 72 [facility] pital Height 59 59 [facility] Blood Pressure 154/88 154/88 [facility] Weight Measurement Method 8 8 [facility] Weight 2400 2400 [facility] pital Temperature Source 7 7 [facility] Temperature 97.2 97.2 [facility] Respiratory Rate 16 16 [facility] Pulse Assessment Method 4 4 [facility] Pulse Rate 72 72 [facility] Height 59 59 [facility] Blood Pressure 154/88 154/88 [facility] Weight Measurement Method 8 8 [facility] Weight 2400 2400 [facility] pital Temperature Source 7 7 [facility] Temperature 97.2 97.2 [facility] Respiratory Rate 17 17 [facility] Pulse Rate 65 65 [facility] pital Height 59 59 [facility] pital Blood Pressure 156/89 156/89 [facility] Weight Measurement Method 8 8 [facility] Weight 2400 2400 [facility] pital Temperature Source 7 7 [facility] Temperature 97.2 97.2 [place] [facility] Respiratory Rate 18 18 [facility] Pulse Rate 65 65 [facility] Height 59 59 [facility] Blood Pressure 156/89 156/89 [facility]
--- NOTE | 2020-06-22 20:00 | HPEPDOC ---
[facility] Medical History & Physical Date of Admission Jun 22, 2020 Date of Service: Jun 22, 2020 Attending Physician: CLAUDIA VIDAL MD History and Physical CHIEF COMPLAINT: History of worsening shortness of breath and active cough HISTORY OF PRESENT ILLNESS: Patient is a 58-year-old female who presented to the emergency department the evening of 06/22/20 with a chief complaint of worsening shortness of breath and productive cough for the last 2 days. Patient does carry a medical history significant for atrial fibrillation on Coumadin, hypertension, HLD, GERD, CHF and NIDDM. Patient shares that she was diagnosed with COVID 19 in the latter half of April 2020. She reports that she was hospitalized at [facility] for approximately 10 days, discharged on home oxygen. She states that she has been off her oxygen for approximately one week and a half at the recommendation of her PCP. However, over the last 48 hours she has had worsening dyspnea on exertion and productive cough with green/yellow colored sputum. She denies any fevers or chills, changes in weight or appetite. Denies any orthopnea PND. No chest pain or discomfort. Patient states that she discuss her symptoms with her primary care provider who had her get an x-ray performed. X-ray did demonstrate signs and symptoms of pneumonia and she was instructed to present to the emergency department. In the ED, patient was found be afebrile, pulse of 63, respiratory rate 25, normotensive maintaining saturation of 99% on room air. CBC without leukocytosis, H/H of 10.4/33.5. CMP demonstrated hypoglycemia blood glucose of 57, left was within normal limits, renal function within normal limits. Normal LFTs. ProBNP of 2357. PT/INR 17.5/1.40, subtherapeutic. Chest x-ray and CT consistent with postviral pneumonia. Patient was started on ceftriaxone and the hospitalist team was contacted to admit the patient for further evaluation and management. PAST MEDICAL HISTORY: Atrial fibrillation, Coumadin Hypertension GERD CHF Osteoporosis, status post L1 compression fracture, 12/13 History of breast cancer, S/P mastectomy History of concussion, fall in 07/13 PAST SURGICAL HISTORY: Left-sided mastectomy, section, 3 Hysterectomy Left foot fracture repair SOCIAL HISTORY: Marital status: Resides in: Currently living with her son Children: 3 boys Employment: Retired Tobacco use: Denies ever using nicotine ETOH: Denies alcohol use Illicit drug use: Denies illicit drug use including marijuana FAMILY HISTORY: Father: , coronary artery disease, [place] Mother: , breast cancer Siblings: Twin sister with breast cancer Children: 3 children, healthy Hereditary Diseases: Denies any other family history of cancer including prostate, colon, lung, pancreatic or endometrial ALLERGIES: Please see below. REVIEW OF SYSTEMS: CONSTITUTIONAL: Patient denies any recent fevers or chills, does report generalized fatigue, no changes in weight or appetite, no loss of smell or taste HEENT: Reports intermittent headache, resolved spontaneously, not currently present, no changes in vision or hearing, no difficulty swallowing CARDIOVASCULAR: Positive chest pain or tightness, no palpitations RESPIRATORY: As mentioned in HPI, patient reports a 48 hour history of worsening productive cough with green/yellow sputum. Reports shortness of breath on exertion, stable at rest. Denies orthopnea or PND GASTROINTESTINAL: Denies nausea or vomiting, abdominal pain, reports baseline level of constipation, no history of melena or hematochezia GENITOURINARY: Denies any dysuria, urinary frequency or urgency or hesitancy, hematuria SKIN: Denies any skin lesions, bruising or rashes MUSCULOSKELETAL: Denies any muscle/joint aches or pains PSYCHIATRIC: Denies any history of medically treated depression or anxiety HOME MEDICATIONS: Please see below. PHYSICAL EXAMINATION: VITAL SIGNS: Please see below GENERAL APPEARANCE: [facility] 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, though she does admit to some chronic memory loss HEENT: Normocephalic, atraumatic, EOMI, mucous membranes do appear moist, no tracheal deviation no cervical lymphadenopathy CARDIOVASCULAR: Irregularly irregular rhythm, no murmur appreciated LUNGS: Rhonchorous in the bases bilaterally no apparent crackles or wheezing, fair air movement throughout, ABDOMEN: Soft, nontender, nondistended, no peritoneal signs, no masses SKIN: Warm, no lesions or rashes MUSCULOSKELETAL: Able to move all of her extremities equally bilaterally, EXTREMITIES: trace edema peripherally, tenderness bilaterally, ET and radial pulses 2+ NEUROLOGICAL: Alert and oriented person and place and time, no facial droop, dysarthria or dysphasia PSYCHIATRIC: Mood and affect are appropriate LABORATORY DATA: See below. IMAGING: EKG (06/22/20): Atrial fibrillation, minimal voltage criteria for LVH, possible normal variant. Nonspecific T-wave abnormalities, no comparison tracing on file. Chest x-ray (06/22/20): Moderate cardiomegaly, extensive bilateral patchy interstitial and alveolar infiltrates consistent with pneumonia. Some pleural thickening on the right. Chest CT (06/22/20): Diffuse pneumonia with pattern suggestive of possible Covid 19, cardiomegaly, bilateral immediate renal lesions, in particular there is a 2.4 cm left kidney lesion anteriorly which could represent a renal cell carcinoma. Recommend a renal CT or MR. Thickening of the gastric mucosa that could relate to distention. Gastritis or other infiltrative disease excluded. Mild anterior compression deformity of L1. MICROBIOLOGY: Respiratory panel (06/22/20): Covid 19 negative via PCR Blood cultures (06/22/20): Pending ASSESSMENT: Patient is an 84-year-old female with past medical history of COVID-19 in 05/17, HTN, HLD, NIDDM, osteoporosis, left-sided breast cancer s/p mastectomy, CHF, who presented to the emergency department on 06/22/20 at the advice of her primary care provider after an outpatient x-ray indicated possible post viral pneumonia. Patient has been reporting two-day history of increasing cough, green/yellow colored sputum and generalized fatigue. She'll be admitted to the medical floor for monitoring and continued on IV antibiotics. PLAN: #Postviral pneumonia -CURB-65: 1 2/2 to age, PSI of 116, indicating risk class IV, recommend hospitalization. -Admit to floor. Blood cultures pending, sputum culture, pro-calcitonin pending -Rocephin and doxycycline, albuterol, incentive spirometry #Hypoglycemia -FSBS every 4 hours # fluid overload possibly due to CHF - switch from PO to IV lasix / f/u Echo # N anemia - f/u iron panel # Hypomagnesemia -mag oxide #Bilateral indeterminate renal lesions -Possible RCC, suggest renal CT or MR #Osteoporosis, Anterior compression deformity of L1, old -Diagnosed in 12/13 -Patient denies any pain or discomfort, currently on alendronate, vitamin D #History of Covid-19 -Diagnosed at the end of April, negative by PCR today -S/P 11 days in [facility], discharged with home oxygen, D/C approx 1.5 weeks ago. -Continue to monitor oxygen saturation and supplement as necessary. #Atrial fibrillation, rate controlled -Atenolol 100 mg, digoxin MWF, pending level -Coumadin for anticoagulation #Hypomagnesemia -IV replacement, continue to monitor #CHF, unspecified -Pt unable to provide accurate history, trace LE Edema, elevated BNP without known baseline -BB, ARB, statin -Echo in am #Normocytic anemia -Iron studies #GERD -c/w omeprazole 40 mg #NIDDM -Consistent carb diet -SSI DVT PROPHYLAXIS: Coumadin DISPOSITION: Anticipate >2 night stay Vital Signs Vital Signs Date Time Temp Pulse Resp B/P (MAP) Pulse Ox O2 Delivery O2 Flow Rate FiO2 06/22/20 18:30 18 147/70 (95) Nasal Cannula 2.0 06/22/20 18:27 68 97 06/22/20 14:43 98.2 Laboratory Data Labs 24H Laboratory Tests 2 06/22/20 15:39: Immature Granulocyte % (Auto) 1.3, Neutrophils (%) (Auto) 63.8, Lymphocytes (%) (Auto) 19.4L, Monocytes (%) (Auto) 13.3H, Eosinophils (%) (Auto) 1.3, Basophils (%) (Auto) 0.9, Neutrophils # (Auto) 4.8, Lymphocytes # (Auto) 1.5, Monocytes # (Auto) 1.0H, Eosinophils # (Auto) 0.1, Basophils # (Auto) 0.1, Nucleated Red Blood Cells % (auto) 0.0, Fibrinogen 565H, POC Troponin I (Misc) 0.02, Blood Gas Bicarbonate Standard 24.2, Venous Blood pH 7.362, Venous Blood Partial Pressure CO2 46.0, Venous Blood Partial Pressure O2 55.9H, Venous Blood Total Carbon Dioxide 26.9, Venous Blood HCO3 25.5, Venous Blood Oxygen Saturation 87.6H, Venous Blood Base Excess -0.2, Lactic Acid Level 1.1, Magnesium Level 1.7L, Ferritin 168, Total Bilirubin 0.2, Direct Bilirubin 0.1, Aspartate Amino Transf (AST/SGOT) 12, Alanine Aminotransferase (ALT/SGPT) 17, Alkaline Phosphatase 89, Lactate Dehydrogenase 251H, C-Reactive Protein, Quantitative 0.85H, FU-Kwc-A-Type Natriuretic Peptide 2357H, Total Protein 6.7, Albumin 3.0L, Albumin/Globulin Ratio 0.8L, Thyroid Stimulating Hormone (TSH) 1.470, Thyroxine (T4) 8.8 06/22/20 15:51: POC Glucose (Misc Panel) 100, POC Sodium (Misc Panel) 143, POC Potassium (Misc Panel) 3.8, POC Chloride (Misc Panel) 106, POC Total CO2 (Misc Panel) 26.0, POC Blood Urea Nitrogen (Misc Panel 24, POC Ionized Calcium (Misc Panel) 5.0, POC Creatinine (Misc Panel) 1.0, POC Hematocrit (Misc Panel) 32.0L 06/22/20 18:39: Bedside Glucose (Misc Panel) 43L 06/22/20 18:58: Bedside Glucose (Misc Panel) 57L CBC/BMP Laboratory Tests 06/22/20 15:39 Microbiology Microbiology 06/22/20 Respiratory Virus Panel (PCR) (JOSEFA) - Final, Complete 06/22/20 Blood Culture, Received Pending 06/22/20 Blood Culture, Received Pending Home Medications Scheduled Alendronate Sodium (Alendronate Sodium) 35 Mg Tablet, 35 MG PO Q7D thursday Atenolol (Atenolol) 100 Mg Tablet, 100 MG PO DAILY Azithromycin (Azithromycin) 250 Mg Tablet, 250 MG PO QHS STARTED 06/19/20 X 5 DAYS Cholecalciferol (Vitamin D3) (Vitamin D3) 1,000 Unit Tablet, 1,000 UNITS PO DAILY Digoxin (Digox) 125 Mcg Tablet, 125 MCG PO 3XW MON,WED,FRI Enalapril Maleate (Enalapril Maleate) 20 Mg Tablet, 20 MG PO BID Furosemide (Furosemide) 40 Mg Tablet, 40 MG PO DAILY Glipizide (Glipizide) 10 Mg Tablet, 10 MG PO BID Latanoprost/Pf (Latanoprost 0.005% Eye Drop) 7.5 Ml Drops, 1 DROP OU QHS Multivit-Min/FA/Lycopen/Lutein (Centrum Silver Tablet) 1 Each Tablet, 1 TAB PO DAILY Sleepy Eye-3/Dha/Epa/Fish Oil (Fish Oil 1,000 mg Softgel) 1 Each Capsule, 1 CAP PO DAILY Omeprazole (Omeprazole) 40 Mg Capsule.dr, 40 MG PO DAILY Simvastatin (Simvastatin) 10 Mg Tablet, 10 MG PO QHS Vit A/Vit C/Vit E/Zinc/Copper (Preservision Areds Tablet) 1 Each Tablet, 1 TAB PO QHS Warfarin Sodium (Warfarin Sodium) 1 Mg Tablet, 2 MG PO QHS Allergies Coded Allergies: No Known Allergies (Unverified , 12/02/18) A-FIB/CHADSVASC A-FIB History Current/History of A-Fib/PAF?: Yes Current PO Anticoag Therapy: Yes GME ATTESTATION GME ATTESTATION My faculty preceptor for this patient encounter was physically present during the encounter and was fully available. All aspects of the patient interview, examination, medical decision making process, and medical care plan development were reviewed and approved by the faculty preceptor. The faculty preceptor is aware and concurs with the plan as stated in the body of this note and will attest to such by his/her cosignature. ATTENDING NOTE time of service 1033pm is an 84 yr old w a hx of CKD, DM, HTN, A fib, breast cancer and osteoporosis; she had COVID in Apr and her first dose of her vaccine. Today she presented w c/o dyspnea and cough productive of yellow sputum, feeling like she is retaining water and BLE edema; she will be admitted for tx of # Post-viral PNA - abx # fluid overload possibly due to CHF - switch from PO to IV lasix / f/u Echo # N anemia - f/u iron panel # Hypomagnesemia -mag oxide # Renal Lesions - f/u w PCP for work up on out pt basis # gastric mucosal wall thickening - will ask day time team to touch base w Radiologist hotel front desk agent to get more info rest per 's H&P LEOBARDO YORK DO Jun 22, 2020 20:00 CLAUDIA VIDAL MD Jun 23, 2020 05:18
[2020-06-22] MEDS ORDERED: ALBUTEROL 90 MCG/ACT 8GM HFA INHALER INH PRN (20:30)
[2020-06-22] MEDS ORDERED: ACETAMINOPHEN TAB 650MG DOSE (2X325MG) PO PRN (20:30)
[2020-06-22] MEDS ORDERED: MOM 30ML SUSPENSION UDC PO PRN (20:30)
[2020-06-22] MEDS ORDERED: WARFARIN SOD 2MG TAB PO SCH (21:00)
[2020-06-22 21:01] LABS: INR 1.4; PROTHROMBIN TIME 17.5 SECONDS (12.5-14.3)
[2020-06-22 21:02] LABS: PARTIAL THROMBOPLASTIN TIME 30.1 SECONDS (24.2-38.5)
[2020-06-22 21:04] LABS: D-DIMER QUANT 1245.08 ng/ml (<500)
[2020-06-22 21:08] LABS: DIGOXIN LEVEL 0.7 NG/ML (0.5-2.0)
[2020-06-22 21:19] LABS: C REACTIVE PROTEIN QUANTITATIV 0.8 MG/DL (0.00-0.30); MAGNESIUM LEVEL 1.5 MG/DL (1.8-2.4)
[2020-06-22] MEDS ORDERED: GLUCAGON INJ 1MG VIAL SC PRN (22:15)
[2020-06-22] MEDS ORDERED: DEXTROSE 50% 50 ML SYRINGE IV PRN (22:15)
[2020-06-22] MEDS ORDERED: GLUCOSE 4GM CHEW TABLET PO PRN (22:15)
[2020-06-22 23:00] VITALS: BP 153/76
[2020-06-22] MEDS: DOCUSATE SODIUM 100MG CAPSULE PO SCH (23:09)
[2020-06-22] MEDS: ENALAPRIL MALEATE 10 MG TAB PO SCH (23:09)
[2020-06-22] MEDS: SIMVASTATIN 10 MG TAB PO SCH (23:09)
[2020-06-22] MEDS: HumaLOG INSULIN (NovoLOG) PER UNIT SC SCH (23:10)
[2020-06-23] MEDS: DOXYCYCLINE HYCLATE 100 MG in D5W MINI-BAG PLUS 100 ML IV SCH ×2 (00:55→12:55)
[2020-06-23 06:00] VITALS: BP 146/68
[2020-06-23 06:54] LABS: HEMATOCRIT 31.3 % (36.0-47.0); HEMOGLOBIN 9.8 g/dl (12.0-15.5); MEAN CORPUSCULAR HEMOGLOBIN 28.9 pg (27.0-33.0); MEAN CORPUSCULAR HGB CONC 31.3 g/dl (32.0-36.5); MEAN CORPUSCULAR VOLUME 92.3 fl (80.0-96.0); PLATELET COUNT, AUTOMATED 315 10^3/uL (150-450); RED BLOOD COUNT 3.39 10^6/uL (4.00-5.40); WHITE BLOOD COUNT 9.3 10^3/uL (4.0-10.0)
[2020-06-23 07:04] LABS: INR 1.43; PROTHROMBIN TIME 17.8 SECONDS (12.5-14.3)
[2020-06-23 07:21] LABS: ALBUMIN 2.7 GM/DL (3.2-5.2); ALT/SGPT 14 U/L (12-78); BILIRUBIN,TOTAL 0.4 MG/DL (0.2-1.0); BLOOD UREA NITROGEN 17 MG/DL (7-18); CALCIUM LEVEL 8.4 MG/DL (8.8-10.2); CARBON DIOXIDE LEVEL 25 MEQ/L (21-32); CHLORIDE LEVEL 109 MEQ/L (98-107); CREATININE FOR GFR 0.78 MG/DL (0.55-1.30); GLOMERULAR FILTRATION RATE > 60.0 (>32); GLUCOSE, FASTING 101 MG/DL (70-100); MAGNESIUM LEVEL 1.6 MG/DL (1.8-2.4); SODIUM LEVEL 142 MEQ/L (136-145)
[2020-06-23] MEDS: MAG SULF 1GM/100ML (MAG RUN) 1 GM in IV 1 EA IV SCH ×2 (07:38→09:32)
[2020-06-23] MEDS ORDERED: FUROSEMIDE 40MG/4ML VIAL (J1940) IV SCH (09:00)
[2020-06-23] MEDS ORDERED: FUROSEMIDE 40 MG TAB PO SCH (09:00)
[2020-06-23] MEDS ORDERED: atenoloL 50 MG TAB PO SCH (09:00)
[2020-06-23] MEDS: HumaLOG INSULIN (NovoLOG) PER UNIT SC SCH ×4 (09:02→20:21)
[2020-06-23] MEDS: OMEGA-3 1000MG CAPSULE PO SCH (09:31)
[2020-06-23] MEDS: VITAMIN D 1,000 INTERNATIONAL UNITS TABLET PO SCH (09:31)
[2020-06-23] MEDS: OMEPRAZOLE 20 MG CAP PO SCH (09:31)
[2020-06-23] MEDS: DOCUSATE SODIUM 100MG CAPSULE PO SCH ×2 (09:31→20:47)
[2020-06-23] MEDS: MULTIVITAMINS/MINERALS THERAP 1 TAB PO SCH (09:31)
[2020-06-23] MEDS: ENALAPRIL MALEATE 10 MG TAB PO SCH ×2 (09:32→20:48)
[2020-06-23 14:00] VITALS: BP 119/64
[2020-06-23] MEDS ORDERED: WARFARIN SOD 4MG TAB PO ONE (17:00)
[2020-06-23] MEDS: BENZONATATE 100 MG CAP PO SCH ×2 (17:32→20:47)
--- NOTE | 2020-06-23 17:32 | IPNPDOC ---
Subjective Date Seen The patient was seen on 06/23/20. Subjective Chief Complaint/HPI Mrs. Allen is an 84-year-old female with atrial fibrillation on Coumadin, CHF, and recent COVID infection presents with worsening dyspnea and productive cough. This morning she denies any chest pain with some dyspnea. Dyspnea is worse on exertion. In addition, she also also has orthopnea. She has bilateral pitting edema. Physical therapy worked with patient. Reported patient was saturating between 83% to 84% at room air at rest and could not recover past 87%. She required 1L of oxygen. Otherwise, she did desaturate to 82% with ambulation, but recovered to 90% after 2 mins. Otherwise, patient was bradycardic in the 40s this afternoon. She was resting in bed, asymptomatic. Obtained EKG which demonstrate slow atrial fibrillation. Will decrease atenolol from 100mg qD to 75mg qD Objective Physical Examination General Exam: Positive: Alert, Cooperative Eye Exam: Positive: EOMI; Negative: Sclera icteric ENT Exam: Positive: Atraumatic Neck Exam: Positive: Supple Chest Exam: Positive: Diminished, Other (crackles) Heart Exam: Positive: Bradycardic, Irregular Rhythm Abdomen Exam: Positive: Normal bowel sounds, Soft; Negative: Tenderness Extremity Exam: Positive: Edema (bilateral pitting) Neuro Exam: Positive: Normal Speech Psych Exam: Positive: Mental status NL, Mood NL Assessment /Plan Assessment Mrs. Allen is an 84-year-old female with atrial fibrillation on Coumadin, CHF, and recent COVID infection who is here for post-COVID symtpoms and possible CHF exacerbation. CT of the chest diffused pneumonia with a pattern suggestive of COVID pneumonia, cardiomegaly, and a 2.4 cm left kidney lesion anteriorly which could be a renal cell carcinoma. Procalcitonin returned, which was low/negative at <0.05. Antibiotics will be discontinued. She is most likely having post viral cough and symptoms. Will provide supportive care. CHF exacerbation is being worked up with echocardiogram and IV lasix. Will order MRI for left kidney lesion Patient will need a few more sessions with physical therapy Plan/VTE VTE Prophylaxis Ordered?: Yes Plan 1. Post-COVID symptoms -PCR negative for COVID -Procalcitonin low/negative at <0.05 -Discontinue antibiotics -Supportive care with Tessalon Perles and Mucinex -Incentive spirometry -Patient worked with physical therapy, still hypoxic. 2. CHF exacerbation -Orthopnea, exertional dyspnea, and pedal edema -On IV lasix -Continue atenolol, enalapril, and simvastatin -Pending echocardiogram 3. Hypoglycemia in DM type 2 -Patient is diabetic, on glipizide -Hold glipizide -Monitor blood glucose -Carbohydrate consistent diet 4. Bilateral indeterminate renal lesions -Will evaluate with MRI 5. Atrial fibrillation -Continue atenolol and digoxin -Digoxin level returned at 0.7 -Due to bradycardia, will decrease atenolol from 100mg qD to 75mg qD -On Coumadin, will monitor INR levels 6. GERD -Continue omeprazole 7. DVT ppx -On Warfarin Disposition: Pending improvement in blood glucose and respiratory status VS, I&O, [facility] V[facility] Signs/I&O Vital Signs Date Time Temp Pulse Resp B/P (MAP) Pulse Ox O2 Delivery O2 Flow Rate FiO2 06/23/20 14:00 98.6 58 16 119/64 (82) 93 Room Air 06/22/20 18:30 2.0 I&O- Last 24 Hours up to 6 AM 06/23/20 06:00 Intake Total 575 ml Output Total 500 ml Balance 75 ml Laboratory Data 24H LABS Laboratory Tests 2 06/22/20 18:39: Bedside Glucose (Misc Panel) 43L 06/22/20 18:58: Bedside Glucose (Misc Panel) 57L 06/22/20 20:41: Prothrombin Time 17.5H, Prothromb Time International Ratio 1.40, Activated Pa rtial Thromboplast Time 30.1, Fibrinogen 522H, D-Dimer, Quantitative 1245.08H, Magnesium Level 1.5L, Ferritin 154, Lactate Dehydrogenase 245, C-Reactive Protein, Quantitative 0.80H, Procalcitonin <0.05 06/22/20 23:09: Bedside Glucose (Misc Panel) 106 06/23/20 03:07: Bedside Glucose (Misc Panel) 105 06/23/20 06:26: Nucleated Red Blood Cells % (auto) 0.0, Prothrombin Time 17.8H, Prothromb Time International Ratio 1.43, Anion Gap 8, Glomerular Filtration Rate > 60.0, Calcium Level 8.4L, Magnesium Level 1.6L, Total Bilirubin 0.4#, Aspartate Amino Transf (AST/SGOT) 10, Alanine Aminotransferase (ALT/SGPT) 14, Alkaline Phosphatase 83, Total Protein 6.0L, Albumin 2.7L, Albumin/Globulin Ratio 0.8L 06/23/20 09:43: Bedside Glucose (Misc Panel) 106 06/23/20 16:57: Bedside Glucose (Misc Panel) 155H CBC/BMP Laboratory Tests 06/23/20 06:26 Microbiology Microbiology 06/22/20 Blood Culture, Received Pending 06/22/20 Blood Culture, Received Pending 06/22/20 Respiratory Virus Panel (PCR) (JOSEFA) - Final, Complete 06/22/20 Blood Culture - Preliminary, Resulted No growth after 24 hours . All specim... 06/22/20 Blood Culture - Preliminary, Resulted No growth after 24 hours . All specim... VELVET ABAD DO Jun 23, 2020 17:32
--- NOTE | 2020-06-23 20:35 | ECGEPIP ---
[facility] Test Date: 2020-06-23 Pat Name: DIEGO ALBERT Department: Room: [place] [address] Gender: Female Post Closer: ryan : 1935 Requested By: VELVET Chin Order Number: [id number] Reading MD: Mustapha March Measurements Intervals [place] Rate: 59 P: NC: QRS: 56 QRSD: 108 T: 26 QT: 406 QTc: 401 Interpretive Statements Atrial fibrillation with slow ventricular response Minimal voltage criteria for LVH, may be normal variant ( Ran product ) Nonspecific T wave abnormality Electronically Signed on 06-23-2020 20:35:09 EST by Mustapha March
[2020-06-23] MEDS: SIMVASTATIN 10 MG TAB PO SCH (20:47)
[2020-06-23] MEDS: guaiFENesin ER 600 MG TAB PO SCH (20:47)
[2020-06-23] MEDS ORDERED: cefTRIAXone SOD 2 GM in D5W MINI-BAG PLUS 50 ML IV SCH (21:00)
[2020-06-23 22:00] VITALS: BP 135/64
[2020-06-24 06:00] VITALS: BP 121/58
[2020-06-24 07:02] LABS: HEMATOCRIT 30.9 % (36.0-47.0); HEMOGLOBIN 9.7 g/dl (12.0-15.5); MEAN CORPUSCULAR HGB CONC 31.4 g/dl (32.0-36.5); MEAN CORPUSCULAR VOLUME 92.5 fl (80.0-96.0); PLATELET COUNT, AUTOMATED 297 10^3/uL (150-450); RED BLOOD COUNT 3.34 10^6/uL (4.00-5.40); WHITE BLOOD COUNT 8.2 10^3/uL (4.0-10.0)
[2020-06-24 07:12] LABS: INR 1.61; PROTHROMBIN TIME 19.5 SECONDS (12.5-14.3)
[2020-06-24 08:18] LABS: ALBUMIN 2.7 GM/DL (3.2-5.2); BILIRUBIN,TOTAL 0.5 MG/DL (0.2-1.0); CALCIUM LEVEL 8.7 MG/DL (8.8-10.2); CREATININE FOR GFR 1.01 MG/DL (0.55-1.30); GLOMERULAR FILTRATION RATE 55.3 (>32); MAGNESIUM LEVEL 2.2 MG/DL (1.8-2.4); POTASSIUM SERUM 4.1 MEQ/L (3.5-5.1); TOTAL PROTEIN 6.2 GM/DL (6.4-8.2)
[2020-06-24] MEDS: HumaLOG INSULIN (NovoLOG) PER UNIT SC SCH ×4 (08:35→21:00)
[2020-06-24] MEDS: MULTIVITAMINS/MINERALS THERAP 1 TAB PO SCH (09:58)
[2020-06-24] MEDS: DOCUSATE SODIUM 100MG CAPSULE PO SCH ×2 (09:58→22:56)
[2020-06-24] MEDS: OMEGA-3 1000MG CAPSULE PO SCH (09:58)
[2020-06-24] MEDS: FUROSEMIDE 40MG/4ML VIAL (J1940) IV SCH ×2 (09:58→16:26)
[2020-06-24] MEDS: BENZONATATE 100 MG CAP PO SCH ×3 (09:58→22:56)
[2020-06-24] MEDS: guaiFENesin ER 600 MG TAB PO SCH ×2 (09:58→22:56)
[2020-06-24] MEDS: OMEPRAZOLE 20 MG CAP PO SCH (09:58)
[2020-06-24] MEDS: VITAMIN D 1,000 INTERNATIONAL UNITS TABLET PO SCH (09:58)
[2020-06-24] MEDS: atenoloL 25 MG TAB PO SCH (09:59)
[2020-06-24] MEDS: ENALAPRIL MALEATE 10 MG TAB PO SCH ×2 (09:59→22:57)
[2020-06-24 14:00] VITALS: BP 124/68
--- NOTE | 2020-06-24 14:41 | IPNPDOC ---
Subjective Date Seen The patient was seen on 06/24/20. Subjective Chief Complaint/HPI Mrs. Allen is an 84-year-old female with atrial fibrillation on Coumadin, CHF, and recent COVID infection presents with worsening dyspnea and productive cough. This morning, she was seen gasping for air. She had just gotten back from the bathroom. Denies chest pain. Spoke with her about increasing her lasix dose. Objective Physical Examination General Exam: Positive: Alert, Cooperative Eye Exam: Positive: EOMI; Negative: Sclera icteric ENT Exam: Positive: Atraumatic Neck Exam: Positive: Supple Chest Exam: Positive: Diminished, Other (crackles) Heart Exam: Positive: Bradycardic, Irregular Rhythm Abdomen Exam: Positive: Normal bowel sounds, Soft; Negative: Tenderness Extremity Exam: Positive: Edema (bilateral pitting) Neuro Exam: Positive: Normal Speech Psych Exam: Positive: Mental status NL, Mood NL Assessment /Plan Assessment Mrs. Allen is an 84-year-old female with atrial fibrillation on Coumadin, CHF, and recent COVID infection who is here for post-COVID symtpoms and possible CHF exacerbation. CT of the chest diffused pneumonia with a pattern suggestive of COVID pneumonia, cardiomegaly, and a 2.4 cm left kidney lesion anteriorly which could be a renal cell carcinoma. Procalcitonin returned, which was low/negative at <0.05. Antibiotics will be discontinued. She is most likely having post viral cough and symptoms. Will provide supportive care. CHF exacerbation is being worked up with echocardiogram, and she will be given IV lasix. Pending MRI results for left kidney lesion Patient will need a few more sessions with physical therapy Plan/VTE VTE Prophylaxis Ordered?: Yes Plan 1. Post-COVID symptoms -PCR negative for COVID -Procalcitonin low/negative at <0.05 -Discontinue antibiotics -Supportive care with Tessalon Perles and Mucinex -Incentive spirometry -Patient worked with physical therapy, still hypoxic. 2. CHF exacerbation -Orthopnea, exertional dyspnea, and pedal edema -Increased IV lasix from once a day to twice a day -Continue atenolol, enalapril, and simvastatin -Pending echocardiogram 3. Hypoglycemia in DM type 2 -Patient is diabetic, on glipizide -Hold glipizide -Monitor blood glucose -Carbohydrate consistent diet -Sliding scale insulin and hypoglycemic protocol 4. Bilateral indeterminate renal lesions -Will evaluate with MRI. Pending results 5. Atrial fibrillation -Continue atenolol and digoxin -Digoxin level returned at 0.7 -Due to bradycardia, will decrease atenolol from 100mg qD to 75mg qD -On Coumadin, will monitor INR levels 6. GERD -Continue omeprazole 7. DVT ppx -On Warfarin Disposition: Pending improvement in respiratory status VS, I&O, 24H, Fishbone Vital Signs/I&O Vital Signs Date Time Temp Pulse Resp B/P (MAP) Pulse Ox O2 Delivery O2 Flow Rate FiO2 06/24/20 09:59 68 123/67 06/24/20 09:00 2.0 06/24/20 06:00 98.0 18 89 Nasal Cannula I&O- Last 24 Hours up to 6 AM 06/24/20 06:00 Intake Total 1300 ml Output Total 1700 ml Balance -400 ml Laboratory Data 24H LABS Laboratory Tests 2 06/23/20 16:57: Bedside Glucose (Misc Panel) 155H 06/23/20 20:00: Bedside Glucose (Misc Panel) 125H 06/24/20 06:51: Nucleated Red Blood Cells % (auto) 0.0, Prothrombin Time 19.5H, Prothromb Time International Ratio 1.61, Anion Gap 8, Glomerular Filtration Rate 55.3, Calcium Level 8.7L, Magnesium Level 2.2, Total Bilirubin 0.5, Aspartate Amino Transf (AST/SGOT) 7, Alanine Aminotransferase (ALT/SGPT) 14, Alkaline Phosphatase 82, Total Protein 6.2L, Albumin 2.7L, Albumin/Globulin Ratio 0.8L 06/24/20 11:38: Bedside Glucose (Misc Panel) 84 CBC/BMP Laboratory Tests 06/24/20 06:51 Microbiology Microbiology 06/22/20 Blood Culture - Preliminary, Resulted No growth after 24 hours . All specim... 06/22/20 Blood Culture - Preliminary, Resulted No growth after 24 hours . All specim... 06/22/20 Respiratory Virus Panel (PCR) (JOSEFA) - Final, Complete 06/22/20 Blood Culture - Preliminary, Resulted No growth after 24 hours . All specim... 06/22/20 Blood Culture - Preliminary, Resulted No growth after 24 hours . All specim... VELVET ABAD DO Jun 24, 2020 14:41
--- NOTE | 2020-06-24 15:27 | REP ---
INDICATION: CT demonstrated 2.4cm left kidney lesion, Eval for RCC. COMPARISON: CT chest 06/22/2020. TECHNIQUE: Multiple sequences obtained in the axial coronal planes prior to and following the intravenous administration of 6 cc ProHance. FINDINGS: In the anterior mid left kidney there is an oval parenchymal lesion. It measures 2.9 cm in diameter. It is minimally hyperintense on T2 weighted images and somewhat hypointense on T1 weighted images. There does appear to be enhancement following the intravenous administration of gadolinium. This is suspicious for renal cell carcinoma. Slightly more inferiorly in the left kidney anteriorly there is another similar appearing round nodule, 1.4 cm in diameter, demonstrating the same signal characteristics and internal enhancement, representing a 2nd suspicious lesion. In the lateral left kidney there is a nonenhancing cyst which measures 2.8 cm in diameter. A subcentimeter hemorrhagic cyst is seen in the upper pole of the left kidney. There is also a simple appearing subcentimeter cyst in the upper pole the left kidney. In the right kidney several nonenhancing cysts are seen throughout. The largest is in the lateral upper pole measuring 1.5 cm in diameter. Subcentimeter hemorrhagic cyst is seen in the posterior mid right kidney. There is no hydronephrosis bilaterally. I see no adenopathy or free fluid in the visualized abdomen. There is chronic dilatation of the common bile duct, measuring about 12 mm in maximum diameter. On an abdominal ultrasound of 10/24/2013 it measured 10 mm. The visualized portions of liver, spleen, adrenals and pancreas appear unremarkable. IMPRESSION: In the anterior mid left kidney there are 2 nodules which appear to enhance, suspicious for renal cell carcinoma, the larger measuring 2.9 cm in diameter, another just inferior to that measures 1.4 cm. Otherwise there are benign-appearing nonenhancing cysts in the remaining portions of bilateral kidneys. No adenopathy or free fluid in the visualized abdomen. <Electronically signed by Domingo aDs > 06/24/20 [id number]
[2020-06-24] MEDS ORDERED: WARFARIN SOD 3MG TAB PO ONE (17:00)
[2020-06-24 22:00] VITALS: BP 135/59
[2020-06-24] MEDS: SIMVASTATIN 10 MG TAB PO SCH (22:56)
[2020-06-25 06:00] VITALS: BP 131/60
[2020-06-25 06:26] LABS: HEMATOCRIT 30.1 % (36.0-47.0); HEMOGLOBIN 9.5 g/dl (12.0-15.5); MEAN CORPUSCULAR HEMOGLOBIN 28.8 pg (27.0-33.0); MEAN CORPUSCULAR HGB CONC 31.6 g/dl (32.0-36.5); MEAN CORPUSCULAR VOLUME 91.2 fl (80.0-96.0); PLATELET COUNT, AUTOMATED 304 10^3/uL (150-450); WHITE BLOOD COUNT 7.7 10^3/uL (4.0-10.0)
[2020-06-25 06:37] LABS: INR 1.91; PROTHROMBIN TIME 22.3 SECONDS (12.5-14.3)
[2020-06-25 06:52] LABS: ALBUMIN 2.6 GM/DL (3.2-5.2); BILIRUBIN,TOTAL 0.5 MG/DL (0.2-1.0); CALCIUM LEVEL 8.8 MG/DL (8.8-10.2); CREATININE FOR GFR 1.03 MG/DL (0.55-1.30); GLOMERULAR FILTRATION RATE 54.1 (>32)
[2020-06-25] MEDS: HumaLOG INSULIN (NovoLOG) PER UNIT SC SCH ×2 (07:30→11:44)
[2020-06-25 08:16] VITALS: BP 131/60
[2020-06-25] MEDS: OMEGA-3 1000MG CAPSULE PO SCH (08:16)
[2020-06-25] MEDS: FUROSEMIDE 40MG/4ML VIAL (J1940) IV SCH (08:16)
[2020-06-25] MEDS: atenoloL 25 MG TAB PO SCH (08:16)
[2020-06-25] MEDS: BENZONATATE 100 MG CAP PO SCH (08:16)
[2020-06-25] MEDS: guaiFENesin ER 600 MG TAB PO SCH (08:17)
[2020-06-25] MEDS: DOCUSATE SODIUM 100MG CAPSULE PO SCH (08:17)
[2020-06-25] MEDS: VITAMIN D 1,000 INTERNATIONAL UNITS TABLET PO SCH (08:17)
[2020-06-25] MEDS: OMEPRAZOLE 20 MG CAP PO SCH (08:17)
[2020-06-25] MEDS: ENALAPRIL MALEATE 10 MG TAB PO SCH (08:17)
[2020-06-25] MEDS: MULTIVITAMINS/MINERALS THERAP 1 TAB PO SCH (08:17)
[2020-06-25] MEDS ORDERED: DIGOXIN 0.125 MG TAB PO SCH (09:00)
[2020-06-25] MEDS ORDERED: MUCI600T31 PO (12:17)
[2020-06-25] MEDS ORDERED: BENZ-18 PO (12:17)
[2020-06-25] MEDS ORDERED: ATEN25TA PO (12:17)
--- NOTE | 2020-06-25 14:06 | ECHO ---
DATE OF PROCEDURE: 06/24/2020 Age: 84 Gender: Female Height: 150 cm Weight: 60 kg REFERRING PHYSICIAN: Dr. Saundra Russo. INDICATION: Localized edema, unspecified. MEASUREMENTS: 2D Measurements: Left atrium 5.4 cm Left atrial volume index 96 Aortic root 3.1 cm Intraventricular septum 1.38 cm Posterior wall 1.39 cm Left ventricle diastole 4.5 cm Right ventricle 4.4 cm Inferior vena cava 2.6 cm with more than 50% respiratory variation Doppler Measurements: Trace aortic regurgitation Mild aortic stenosis Aortic valve velocity 256 cm/s Peak aortic valve gradient 26 mmHg Mean aortic valve gradient 16 mmHg Aortic valve VTI 65.3 cm LVOT velocity 83.3 cm/s LVOT VTI 20.2 cm Moderate mitral regurgitation No mitral stenosis Very mild tricuspid regurgitation Estimated right ventricle systolic pressure 56-61 mmHg Estimated central venous pressure of 5-10 mmHg Mild pulmonic regurgitation Pulmonary artery acceleration time 82 msec DESCRIPTION: Rhythm was atrial fibrillation. Image quality was fair. This was a 2D, M-mode, color flow Doppler, and pulsed wave Doppler examination including mitral annular tissue Doppler. No pericardial effusion. CONCLUSIONS: 1. Mild concentric left ventricular hypertrophy. Normal regional LV wall motion and wall thickening. Normal LV systolic function. LVEF 60% by visual estimate. LV diastolic function could not be adequately determined in the setting of atrial fibrillation. 2. Severe left atrial dilatation. 3. Severe focal thickening and focal calcific deposits of 3-cusp aortic valve. Mild aortic stenosis. Trace aortic regurgitation. 4. Moderate mitral annular calcification. Moderate mitral regurgitation. No mitral stenosis. 5. Suggestive of moderate to severe elevation of estimated right ventricle systolic pressure (56-61 mmHg). Mild right ventricle dilatation. Normal right ventricle systolic function. Very mild tricuspid regurgitation. Severe right atrial dilatation. 6. Inferior vena cava dilatation. Suggestive of central venous pressure 5-10 mmHg at the time of the study. MTDD
--- NOTE | 2020-06-25 23:52 | DS.PDOC ---
Discharge Summary General Date of Admission Jun 22, 2020 at 19:38 Date of Discharge Jun 25, 2020 Discharge Summary PROCEDURES PERFORMED DURING STAY: None ADMITTING DIAGNOSES: 1. Postviral pneumonia 2. Hypoglycemia 3. Acute decompensated CHF 4. Bilateral indeterminate renal lesions 5. Osteoporosis 6. History of COVID 19 7. Atrial fibrillation 8. Hypomagnesemia 9. Normocytic anemia 10. GERD 11. NIDDM DISCHARGE DIAGNOSES: 1. Acute decompensated CHF with preserved EF 2. Hypoglycemia, induced by oral antiglycemics 3. 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 Left renal cell carcinoma 5. Osteoporosis 6. History of COVID 19 7. Atrial fibrillation 8. Hypomagnesemia 9. Normocytic anemia 10. GERD 11. NIDDM COMPLICATIONS/CHIEF COMPLAINT: Pneumonia. HISTORY OF PRESENT ILLNESS: Mrs. Allen is an 84 year old female with atrial fibrillation and diabetes mellitus who presents with dyspnea nd productive cough for 2 days. She was recently diagnosed with COVID 19 in the latter half of April 2020. She was hospitalized at [facility] for 10 days and was discharged home with oxygen. About 2 days ago, she started to have worsening dyspnea on exertion with green/yellow colored sputum. Work up in the ED was negative for leukocytosis, but did demonstrated BNP of 2357. CXR and CT chest was consistent with postviral pneumonia. Patient was admitted for postviral pneumonia. HOSPITAL COURSE: Procalcitonin was negative at <0.05. She was discontinued on antibiotics. She still required 2L of NC to maintain saturation. When she walked back from the bathroom, she was breathing hard. She had trouble completing sentences. Patient reported that she has some dyspnea lying flat on her back which started since she had COVID. Her legs were swollen. I increased her diuretics from Lasix 40mg IV once a day to Lasix 40mg IV BID. We removed 2L of fluid. Otherwise, her heart rate was low and atenolol was decreased from 100mg once a day to 75 mg once a day. The following day she was feeling much better. She worked with physical therapy. At room air, she was low at 83%, but responded to 2L. With ambulation, she did not desaturate. She was cleared by physical therapy for home. She felt ready for home and was subsequently discharge home. Otherwise, she had an MRI of the abdomen without and with contrast. It demonstrated 2 nodules suspicious for renal cell carcinoma on the left kidney. The larger one measured 2.9cm and the smaller one measured 1.4cm. I reached out to hematology/oncology, Dr. Loera. Recommended that patient be referred to Urology outpatient to discuss removal of the kidney. I discuss this with patient and daughter in law. Patient and family wanted to discuss this with nephrology before proceeding to urology. DISCHARGE MEDICATIONS: Please see below. ALLERGIES: Please see below. PHYSICAL EXAMINATION ON DISCHARGE: VITAL SIGNS: Please see below. GENERAL: Comfortable, in no apparent distress HEENT: Head normocephalic, atraumatic NECK: Supple CARDIOVASCULAR EXAMINATION: Rate controlled, but irregular RESPIRATORY EXAMINATION: Lungs clear to auscultation bilaterally ABDOMINAL EXAMINATION: Soft, non-tender, normal bowel sounds EXTREMITIES: Bilateral pitting edema, left worse than right SKIN: Warm and dry NEUROLOGICAL EXAMINATION: CN 3-12 grossly intact PSYCHIATRIC EXAMINATION: Normal mood and affect LABORATORY DATA: Please see below. IMAGING: Radiologist interpretation CT chest 1. Diffuse pneumonia with a pattern most suggestive of stage COVID pneumonia 2. Cardiomegaly. 3. Bilateral indeterminate renal lesions. In particular, there is a 2.4 cm lesion left kidney anteriorly that could represent a renal cell carcinoma. Dedicated renal CT or MR suggested. 4. Thickening of the gastric mucosa could be related to under distension. Gastritis or other infiltrative disease excluded. 5. Mild anterior compression deformity of L1. Abdomen MRI without and with contrast In the anterior mid left kidney there are 2 nodules which appear to enhance, suspicious for renal cell carcinoma, the larger measuring 2.9 cm in diameter, another just inferior to that measures 1.4 cm. Otherwise there are benign-appearing nonenhancing cysts in the remaining portions of bilateral kidneys. No adenopathy or free fluid in the visualized abdomen. PROGNOSIS: Good ACTIVITY: As tolerated. DIET: Carbohydrate consistent diet DISCHARGE PLAN: Home DISPOSITION: 01 Home, Self-Care. DISCHARGE INSTRUCTIONS: 1. Follow up with PCP within 1 week DISCHARGE CONDITION: Stable. Total time spent on discharge planning, discharge summary, and medication reconciliation: 55 minutes. Vital Signs/I&Os Vital Signs Date Time Temp Pulse Resp B/P (MAP) Pulse Ox O2 Delivery O2 Flow Rate FiO2 06/25/20 09:00 2.0 06/25/20 08:17 68 06/25/20 08:16 131/60 06/25/20 06:00 97.6 18 99 Nasal Cannula I&O- Last 24 Hours up to 6 AM 06/25/20 06:00 Intake Total 1440 ml Output Total 3975 ml Balance -2535 ml Laboratory Data Labs 24H Laboratory Tests 2 06/25/20 06:07: Nucleated Red Blood Cells % (auto) 0.0, Prothrombin Time 22.3H, Prothromb Time International Ratio 1.91, Anion Gap 7L, Glomerular Filtration Rate 54.1, Calcium Level 8.8, Total Bilirubin 0.5, Aspartate Amino Transf (AST/SGOT) 12, Alanine Aminotransferase (ALT/SGPT) 13, Alkaline Phosphatase 82, Total Protein 6.0L, Albumin 2.6L, Albumin/Globulin Ratio 0.8L 06/25/20 11:30: Bedside Glucose (Misc Panel) 87 CBC/BMP Laboratory Tests 06/25/20 06:07 FSBS Laboratory Tests Test 06/25/20 11:30 Range/Units Bedside Glucose (Misc Panel) 87 83-110 MG/DL Microbiology Microbiology 06/22/20 Blood Culture - Preliminary, Resulted No Growth after 72 hours. All specime... 06/22/20 Blood Culture - Preliminary, Resulted No Growth after 72 hours. All specime... 06/22/20 Respiratory Virus Panel (PCR) (JOSEFA) - Final, Complete 06/22/20 Blood Culture - Preliminary, Resulted No Growth after 72 hours. All specime... 06/22/20 Blood Culture - Preliminary, Resulted No Growth after 72 hours. All specime... Discharge Medications Scheduled Alendronate Sodium (Alendronate Sodium) 35 Mg Tablet, 35 MG PO Q7D, (Reported) thursday Atenolol (Atenolol) 25 Mg Tablet, 75 MG PO DAILY Benzonatate (Benzonatate) 100 Mg Capsule, 100 MG PO TID Cholecalciferol (Vitamin D3) (Vitamin D3) 1,000 Unit Tablet, 1,000 UNITS PO DAILY, (Reported) Digoxin (Digox) 125 Mcg Tablet, 125 MCG PO 3XW, (Reported) MON,WED,THU Enalapril Maleate (Enalapril Maleate) 20 Mg Tablet, 20 MG PO BID, (Reported) Furosemide (Furosemide) 40 Mg Tablet, 40 MG PO DAILY, (Reported) Glipizide (Glipizide) 10 Mg Tablet, 10 MG PO BID, (Reported) Guaifenesin (Mucinex) 600 Mg Tab.er.12h, 600 MG PO BID Latanoprost/Pf (Latanoprost 0.005% Eye Drop) 7.5 Ml Drops, 1 DROP OU QHS, ( Reported) Multivit-Min/FA/Lycopen/Lutein (Centrum Silver Tablet) 1 Each Tablet, 1 TAB PO DAILY, (Reported) [place]-3/Dha/Epa/Fish Oil (Fish Oil 1,000 mg Softgel) 1 Each Capsule, 1 CAP PO DAILY, (Reported) Omeprazole (Omeprazole) 40 Mg Capsule.dr, 40 MG PO DAILY, (Reported) Simvastatin (Simvastatin) 10 Mg Tablet, 10 MG PO QHS, (Reported) Vit A/Vit C/Vit E/Zinc/Copper (Preservision Areds Tablet) 1 Each Tablet, 1 TAB PO QHS, (Reported) Warfarin Sodium (Warfarin Sodium) 1 Mg Tablet, 2 MG PO QHS, (Reported) Allergies Coded Allergies: No Known Allergies (Unverified , 12/02/18) VELVET ABAD DO Jun 25, 2020 23:52
[2020-06-29] MEDS ORDERED: ALENDRONATE 35MG TABLET PO SCH (07:00)
== END 2020-06-25 14:37 | disposition home health service (06) | DRG 292 ==
LOC: M ED 14:42 → M ED INP 19:38 → M MSPAV 22:54
PROVIDERS: ADMIT Internal Medicine; ATTEND Internal Medicine
DX: I50.33 Acute on chronic diastolic (congestive) heart failure (principal); I48.20 Chronic atrial fibrillation, unspecified; R09.02 Hypoxemia; E11.649 Type 2 diabetes mellitus with hypoglycemia without coma; K21.9 Gastro-esophageal reflux disease without esophagitis; E83.42 Hypomagnesemia; Z79.899 Other long term (current) drug therapy; Z79.01 Long term (current) use of anticoagulants; Z85.3 Personal history of malignant neoplasm of breast; Z90.12 Acquired absence of left breast and nipple

== ENCOUNTER 2020-07-16 15:51 | Inpatient (IN) | payer MEDICARE ==
[~2020-07-16] VITALS: Ht 149.9 cm; Wt 73.5 kg
[~2020-07-16 15:51] MED LIST changes: +ATEN25TA PO; +AZIT-12 PO; +BENZ-18 PO; +D31000TA2 PO; +LATA0.0015 OU; +MUCI600T31 PO; +OCUVTAB4 PO; +WARF4TAB52 PO
--- NOTE | 2020-07-16 16:48 | REP ---
INDICATION: SOB. COMPARISON: 06/22/2020. TECHNIQUE: SINGLE PORTABLE AP VIEW OF THE CHEST WAS PERFORMED. FINDINGS: Diffuse parenchymal opacities bilaterally are stable. The heart is again noted to be enlarged. There is calcification and ectasia of the thoracic aorta. The mediastinal silhouette is unchanged. IMPRESSION: Stable bilateral parenchymal opacities diffusely. <Electronically signed by Domingo Das > 07/16/20 [id number]
[2020-07-16 17:25] LABS: BASO % 0.5 % (0.0-1.0); EOS # 0.4 10^3/uL (0.0-0.5); EOS % 4.1 % (0.0-3.0); HEMATOCRIT 35.8 % (36.0-47.0); HEMOGLOBIN 11.2 g/dl (12.0-15.5); LYMPH # 1.2 10^3/uL (1.5-5.0); LYMPH % 13.6 % (24.0-44.0); MEAN CORPUSCULAR HEMOGLOBIN 28.9 pg (27.0-33.0); MEAN CORPUSCULAR HGB CONC 31.3 g/dl (32.0-36.5); MEAN CORPUSCULAR VOLUME 92.3 fl (80.0-96.0); MONO # 0.8 10^3/uL (0.0-0.8); MONO % 8.8 % (2.0-8.0); NEUTROPHILS # 6.3 10^3/uL (1.5-8.5); NEUTROPHILS % 72.3 % (36.0-66.0); PLATELET COUNT, AUTOMATED 373 10^3/uL (150-450); RED BLOOD COUNT 3.88 10^6/uL (4.00-5.40); WHITE BLOOD COUNT 8.7 10^3/uL (4.0-10.0)
[2020-07-16 17:51] LABS: INR 1.35
[2020-07-16 17:59] LABS: ALBUMIN 3.2 GM/DL (3.2-5.2); ALT/SGPT 17 U/L (12-78); BILIRUBIN,DIRECT < 0.1 MG/DL (0.0-0.2); BILIRUBIN,TOTAL 0.3 MG/DL (0.2-1.0); BLOOD UREA NITROGEN 32 MG/DL (7-18); CALCIUM LEVEL 9.9 MG/DL (8.8-10.2); CARBON DIOXIDE LEVEL 32 MEQ/L (21-32); CHLORIDE LEVEL 103 MEQ/L (98-107); CK-MB VALUE MASS < 1.0 NG/ML (<3.6); CPK CREATINE PHOSPHOKINASE 23 U/L (26-192); GLOMERULAR FILTRATION RATE 37.9 (>32); GLUCOSE, FASTING 123 MG/DL (70-100); MB/CK RELATIVE INDEX 4.35 (< OR =4); NT-PRO BNP 1589 PG/ML (<450); POTASSIUM SERUM 5.1 MEQ/L (3.5-5.1); SODIUM LEVEL 140 MEQ/L (136-145); TOTAL PROTEIN 7.1 GM/DL (6.4-8.2); TROPONIN I < 0.02 NG/ML (< 0.10)
[2020-07-16] MEDS ORDERED: ISOVUE-370 76% 100ML VIAL As Ordered ONE (18:16)
--- NOTE | 2020-07-16 19:34 | REPVR ---
PROCEDURE INFORMATION: Exam: CT Angiography Chest With Contrast Exam date and time: 07/16/2020 6:22 PM Age: 85 years old Clinical indication: Chest pain; Additional info: Chest pain, SOB TECHNIQUE: Imaging protocol: Computed tomographic angiography of the chest with contrast. 3D rendering (Not supervised by radiologist): MIP and/or 3D reconstructed images were created by the technologist. Radiation optimization: All CT scans at this facility use at least one of these dose optimization techniques: automated exposure control; mA and/or kV adjustment per patient size (includes targeted exams where dose is matched to clinical indication); or iterative reconstruction. Contrast material: ISOVUE 370; Contrast volume: 75 ml; Contrast route: INTRAVENOUS (IV); COMPARISON: CT Chest without contrast 06/22/2020 6:01 PM FINDINGS: Pulmonary arteries: There is no evidence of filling defects within the pulmonary arterial circulation to suggest pulmonary embolism. Aorta: The ascending thoracic aorta measures 3.5 cm AP which is within normal limits as is the descending thoracic aorta which measures 2.7 cm AP. Atherosclerosis is again evident as is mitral annular calcification. Lungs: Probable pulmonary fibrosis and patchy areas of airspace filling are again seen throughout both lungs relatively similar to the prior study. Pleural spaces: As at time of prior imaging there may be a minimal right pleural effusion. Heart: Cardiomegaly is again apparent. There is no pericardial effusion. Lymph nodes: No mediastinal or hilar lymphadenopathy. Kidneys and ureters: A radiodense lesion is again seen in the upper pole of the left kidney and probable 1.7 cm cyst in the upper pole the right kidney. The kidneys are only partially imaged. Bones/joints: No acute fracture. Soft tissues: Unremarkable. IMPRESSION: 1. No evidence of pulmonary emboli. 2. Probable pulmonary fibrosis with likely superimposed pneumonia and/or edema similar in appearance to the prior study. 3. Cardiomegaly without reji congestive heart failure. COMMENTS: Consistent with the [employer]'s Incidental Findings Committee white paper (J Am Amy Radiol 2018): Any incidental renal lesion less than 1 cm or classified as too small to characterize, or any incidental cystic renal lesion characterized as simple-appearing, is likely benign. No follow-up imaging is recommended for these lesions per consensus recommendations based on imaging criteria. Electronically signed by: Arely Castillo On 07/16/2020 19:34:27 PM
[2020-07-16] MEDS ORDERED: PIPERACILLIN/TAZOBACTAM SOD 3.375 GM in D5W MINI-BAG PLUS 50 ML IV ONE (19:45)
[2020-07-16] MEDS ORDERED: FUROSEMIDE 40MG/4ML VIAL (J1940) IV ONE (19:45)
[2020-07-16] MEDS ORDERED: VANCOMYCIN HCL 1,000 MG, VIAL MATE ADAPTER 1 EACH in NS 250 ML IV ONE (19:45)
[2020-07-16] MEDS ORDERED: ATEN25TA PO (20:07)
[2020-07-16] MEDS ORDERED: FURO40TA2 PO (20:07)
[2020-07-16] MEDS ORDERED: POTA1TAB14 PO (20:07)
[2020-07-16] MEDS ORDERED: ACETAMINOPHEN TAB 650MG DOSE (2X325MG) PO PRN (20:35)
[2020-07-16] MEDS ORDERED: MAALOX 30 ML SUSP *UDC PO PRN (20:35)
--- NOTE | 2020-07-16 20:41 | HPEPDOC ---
[facility] Medical History & Physical Date of Admission Jul 16, 2020 Date of Service: Jul 16, 2020 Other Provider Caesar Meraz [facility] Attending Physician: CLAUDIA VIDAL MD History and Physical TIME OF SERVICE: 910pm CHIEF COMPLAINT: dyspnea HISTORY OF PRESENT ILLNESS: This 85 yr old F was diagnosed w COVID 19 on May 17, was hospitalized at [facility] for about 10 days and discharged home with O2. In the interim she had her first dose of her COVID vacine, but was re-hospitalized here at [facility] from Jun 22 to June 25 for post-viral PNA, and acute HFpEF. She continued to require oxygen intermittently at home after being discharged, but over the last 3 days she has been feeling more short of breath and has needed to use her O2 more frequently. Her chronic cough productive of clear sputum has not changed recently, she has begun to wheeze, occasionally has back pain when she takes deep breaths and denies any changes in her chronic BLE edema that is chronically worse on the LLE than the right. She was given Lasix IV Lasix in the ER, and has voided but continues to feel short of breath. REVIEW OF SYSTEMS: 12-point review of systems negative except as listed in HPI PMH/PSH Longstanding persistent atrial fibrillation Essential HTN GERD NIDDM Chronic HFpEF Moderate Pulm HTN PASP 56-61 CKD 4 Osteoporosis, status post L1 compression fracture, 12/13 Recently diagnosed Left renal cell carcinoma History of breast cancer, S/P mastectomy History of concussion, fall in 07/13 section, 3 Hysterectomy Left foot fracture repair SOCIAL HISTORY: Marital status: Resides in: Currently living with her son Children: 3 boys Employment: Retired Tobacco use: Denies ever using nicotine ETOH: Denies alcohol use Illicit drug use: Denies illicit drug use including marijuana FAMILY HISTORY: Father: , coronary artery disease, MD Mother: , breast cancer Siblings: Twin sister with breast cancer Children: 3 children, healthy ALLERGIES: Please see below. HOME MEDICATIONS: Please see below. PHYSICAL EXAMINATION: Vital Signs Date Time Temp Pulse Resp B/P (MAP) Pulse Ox O2 Delivery O2 Flow Rate FiO2 07/16/20 15:52 97.1 62 18 138/82 (100) 93 Room Air 2.0 GENERAL APPEARANCE: well nourished and developed /NAD HEENT: NC in place CARDIOVASCULAR: RRR/NMRG / + JVP / LLE edema >> RLE LUNGS: not using accessory muscles / able to speak full sentences w/o stopping / has prominent inspiratory crackles at the lung bases ABDOMEN: flat /soft MUSCULOSKELETAL: NCAT / QIAN x 4 INTEGUMENT: no cyanotic / not flushed NEUROLOGICAL: CN 2-12 grossly intact PSYCHIATRIC: A&O / able to understand and follow commands LABORATORY DATA: 07/16/20 16:14 Immature Granulocyte % (Auto) 0.7, Neutrophils (%) (Auto) 72.3H, Lymphocytes (%) (Auto) 13.6L, Monocytes (%) (Auto) 8.8H, Eosinophils (%) (Auto) 4.1H, Basophils (%) (Auto) 0.5, Neutrophils # (Auto) 6.3, Lymphocytes # (Auto) 1.2L, Monocytes # (Auto) 0.8, Eosinophils # (Auto) 0.4, Basophils # (Auto) 0.0, Nucleated Red Blood Cells % (auto) 0.0, Prothrombin Time 17.0H, Prothromb Time International Ratio 1.35, Anion Gap 5L, Glomerular Filtration Rate 37.9, Calcium Level 9.9, Total Bilirubin 0.3, Direct Bilirubin < 0.1, Aspartate Amino Transf (AST/SGOT) 14, Alanine Aminotransferase (ALT/SGPT) 17, Alkaline Phosphatase 78, Total Creatine Kinase 23L, Creatine Kinase MB < 1.0, Creatine Kinase MB Relative Index 4.35H, Troponin I < 0.02, ML-Gdk-W-Type Natriuretic Peptide 1589H, Total Protein 7.1, Albumin 3.2, Albumin/Globulin Ratio 0.8L, Thyroid Stimulating Hormone (TSH) 1.050 07/16/20 16:26: Activated Partial Thromboplast Time 39.2H, Digoxin Level 0.8 IMAGING: Chest xray IMPRESSION: Stable bilateral parenchymal opacities diffusely.: CT chest IMPRESSION: 1. No evidence of pulmonary emboli. 2. Probable pulmonary fibrosis with likely superimposed pneumonia and/or edema similar in appearance to the prior study. 3. Cardiomegaly without reji congestive heart failure. 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 See case report by Simeon et al 2020 DOI [email or web address] Plan: admit to medical floor / continuous pulse ox / c/w supplemental O2 / f/u 2 more trops to r/o silent MD which can present w dyspnea especially in diabetics / the day time team may consider Pulm consult +/- referral to a post COVID-19 care clinic (ie in [place]) for further work-up and to determine if she is a candidate for any clinical trials 2 SOHA on CKD 4 Plan: monitor UOP / f/u [place] for FENa or FEUrea prior to deciding if she needs more Lasix of IVF / renal US / hold Lasix, Enalapril & PPI for now 3 Chronic HFpEF/ Mod Pulm HTN Euvolemic Her BNP is lower than it was during her previous visit Plan: c/w BP meds / hold diuretics as above 4 Longstanding persistent atrial fibrillation INR is low today Plan: f/u INR in the morning and adjust warfarin dose if needed / Atenolol & Digoxin 5 Essential HTN Plan; atenolol 6 Recently diagnosed Left renal cell carcinoma Plan: based on the last d/c summary the plan was to f/u w Nephro prior to Uro referral 7 NIDDM Plan: diabetic diet / f/u accuchecks / hypoglycemia protocol / sliding scale insulin / hold oral anti-glycemic / f/u A1C (target A1C is 7.1 to 8.5% bc of her age and co-morbidities ) / hold Glipizide 8 Osteoporosis, status post L1 compression fracture, 12/13 Plan: Alendronate 9 N Anemia stable Plan: f/u CBC DVT px w Heparin Dispo: home after at least 2 midnights stay Home Medications Scheduled Alendronate Sodium (Alendronate Sodium) 35 Mg Tablet, 35 MG PO Q7D thursday Atenolol (Atenolol) 25 Mg Tablet, 75 MG PO DAILY Cholecalciferol (Vitamin D3) (Vitamin D3) 1,000 Unit Tablet, 1,000 UNITS PO DAILY Digoxin (Digox) 125 Mcg Tablet, 125 MCG PO 3XW MON,WED,FRI Enalapril Maleate (Enalapril Maleate) 20 Mg Tablet, 20 MG PO BID Furosemide (Furosemide) 40 Mg Tablet, 40 MG PO DAILY Furosemide (Furosemide) 40 Mg Tablet, 20 MG PO DAILY @ 1400 Glipizide (Glipizide) 10 Mg Tablet, 10 MG PO BID Latanoprost/Pf (Latanoprost 0.005% Eye Drop) 7.5 Ml Drops, 1 DROP OU QHS Multivit-Min/FA/Lycopen/Lutein (Centrum Silver Tablet) 1 Each Tablet, 1 TAB PO DAILY [place]-3/Dha/Epa/Fish Oil (Fish Oil 1,000 mg Softgel) 1 Each Capsule, 1 CAP PO DAILY Omeprazole (Omeprazole) 40 Mg Capsule.dr, 40 MG PO DAILY Potassium Chloride (Potassium Chloride) 20 Meq Tablet.er, 20 MEQ PO DAILY @ 1400 Simvastatin (Simvastatin) 10 Mg Tablet, 10 MG PO QHS Vit A/Vit C/Vit E/Zinc/Copper (Preservision Areds Tablet) 1 Each Tablet, 1 TAB PO BID Warfarin Sodium (Warfarin Sodium) 1 Mg Tablet, 2 MG PO QHS Allergies Coded Allergies: No Known Allergies (Unverified , 12/02/18) A-FIB/CHADSVASC A-FIB History Current/History of A-Fib/PAF?: Yes Current PO Anticoag Therapy: Yes CLAUDIA VIDAL MD Jul 16, 2020 20:41
[2020-07-16] MEDS: LATANOPROST 0.005% OPHTH SOLN 2.5 ML OU SCH (21:00)
[2020-07-16 22:11] LABS: OSMOLALITY SERUM 305 MOSM/KG (280-301)
[2020-07-16 22:15] LABS: TROPONIN I < 0.02 NG/ML (< 0.10)
[2020-07-16 22:22] VITALS: BP 148/64
[2020-07-16] MEDS: HEPARIN SOD (PORCINE) 5000UNITS/ML 1ML VIAL/SYRINGE SC SCH (22:38)
[2020-07-17] MEDS: WARFARIN SOD 2MG TAB PO SCH (04:04)
[2020-07-17] MEDS: SIMVASTATIN 10 MG TAB PO SCH ×2 (04:04→21:07)
[2020-07-17] MEDS ORDERED: GLUCAGON INJ 1MG VIAL SC PRN (04:15)
[2020-07-17] MEDS ORDERED: GLUCOSE 4GM CHEW TABLET PO PRN (04:15)
[2020-07-17] MEDS ORDERED: DEXTROSE 50% 50 ML SYRINGE IV PRN (04:15)
--- NOTE | 2020-07-17 05:13 | ECGEPIP ---
[facility] - ED Test Date: 2020-07-16 Pat Name: DIEGO ALBERT Department: Room: - Gender: Female [employer]: LOGANISIDRA : 1935 Requested By: MICHEL Clements Order Number: [id number] Reading MD: Johnathan Moody Measurements Intervals [place] Rate: 76 P: IN: QRS: 70 QRSD: 102 T: -14 QT: 364 QTc: 409 Interpretive Statements Atrial fibrillation Nonspecific T wave abnormality NONSPECIFIC T WAVE ABNORMALITY(S) SIMILAR TO 06/23/20 Electronically Signed on 07-17-2020 5:13:24 EDT by Johnathan Moody
[2020-07-17 06:00] VITALS: BP 145/64
[2020-07-17] MEDS: HEPARIN SOD (PORCINE) 5000UNITS/ML 1ML VIAL/SYRINGE SC SCH ×3 (06:00→21:07)
[2020-07-17 06:24] LABS: HEMATOCRIT 36.1 % (36.0-47.0); HEMOGLOBIN 11.2 g/dl (12.0-15.5); MEAN CORPUSCULAR HEMOGLOBIN 28.3 pg (27.0-33.0); MEAN CORPUSCULAR VOLUME 91.2 fl (80.0-96.0); PLATELET COUNT, AUTOMATED 373 10^3/uL (150-450); RED BLOOD COUNT 3.96 10^6/uL (4.00-5.40); WHITE BLOOD COUNT 6.5 10^3/uL (4.0-10.0)
[2020-07-17 06:34] LABS: INR 1.36
[2020-07-17 06:46] LABS: CALCIUM LEVEL 9.7 MG/DL (8.8-10.2); CREATININE FOR GFR 1.19 MG/DL (0.55-1.30); GLOMERULAR FILTRATION RATE 45.7 (>32); POTASSIUM SERUM 4.2 MEQ/L (3.5-5.1)
[2020-07-17 06:59] LABS: HEMOGLOBIN A1c 5.7 %
[2020-07-17] MEDS: HumaLOG INSULIN (NovoLOG) PER UNIT SC SCH ×4 (07:30→21:08)
[2020-07-17] MEDS: atenoloL 25 MG TAB PO SCH (09:00)
[2020-07-17] MEDS ORDERED: OMEPRAZOLE 20 MG CAP PO SCH (09:00)
[2020-07-17] MEDS ORDERED: FUROSEMIDE 40 MG TAB PO SCH (09:00)
[2020-07-17] MEDS ORDERED: ENALAPRIL MALEATE 10 MG TAB PO SCH (09:00)
--- NOTE | 2020-07-17 09:24 | REP ---
INDICATION: SOHA. COMPARISON: MRI 06/24/2020. TECHNIQUE: Real-time sonographic evaluation of the kidneys is performed. FINDINGS: Renal cortical echogenicity pattern is normal bilaterally and contours are smooth. There is no hydronephrosis bilaterally. Two cysts are seen in the upper pole the right kidney measuring 1.6 and 1.0 cm. A 1.1 cm cyst is seen in the lower pole the right kidney. A hypoechoic mass in the mid left kidney measures 3 cm in diameter. There is an adjacent hypoechoic nodule 1.1 cm in diameter. There is also a cyst in the lower pole 1.9 cm in diameter. The right kidney measures 10.5 x 4.9 x 4.1 cm. Left renal dimensions are 11.5 x 4.6 x 4.4 cm. Urinary bladder is not well distended and not well evaluated. IMPRESSION: No hydronephrosis bilaterally. Bilateral cysts and nodules as discussed above. <Electronically signed by Domingo Das > 07/17/20 0920
[2020-07-17] MEDS: OCUVITE 1 TAB PO SCH ×2 (09:33→21:07)
[2020-07-17] MEDS: VITAMIN D 1,000 INTERNATIONAL UNITS TABLET PO SCH (09:33)
[2020-07-17] MEDS: OMEGA-3 1000MG CAPSULE PO SCH (09:34)
[2020-07-17] MEDS: MULTIVITAMINS/MINERALS THERAP 1 TAB PO SCH (09:34)
[2020-07-17] MEDS ORDERED: methylPREDNISolone 40MG 1ML VIAL IV SCH (12:15)
[2020-07-17] MEDS: POTASSIUM CHLORIDE 10 MEQ SR TABLET PO SCH (13:18)
[2020-07-17] MEDS: FUROSEMIDE 40 MG TAB PO SCH (13:19)
[2020-07-17 14:00] VITALS: BP 133/68
--- NOTE | 2020-07-17 14:36 | IPNPDOC ---
Subjective Date Seen The patient was seen on 07/17/20. Subjective Chief Complaint/HPI Mrs. lAlen is an 85 year old female with history of COVID 19 hospitalization on May 17 for 10 days who presents with dyspnea. This morning, she denies chest pain. She still had dyspnea on exertion. I discussed the case with pulmonology, Dr. Quevedo, about possible pulmonary fibrosis secondary to COVID 19 infection. Pulmonology recommending steroids for 5 days prior to long steroid taper and outpatient follow up. Objective Physical Examination General Exam: Positive: Alert, Cooperative Eye Exam: Positive: EOMI; Negative: Sclera icteric Neck Exam: Positive: Supple Chest Exam: Positive: Clear to auscultation Heart Exam: Positive: Rate Normal, Irregular Rhythm Abdomen Exam: Positive: Normal bowel sounds, Soft; Negative: Tenderness Extremity Exam: Positive: Edema (Mild) Psych Exam: Positive: Mental status NL, Mood NL Assessment /Plan Assessment Mrs. Allen is an 85 year old female with history of COVID 19 hospitalization on May 17 for 10 days who presents with dyspnea. She did not improved with Lasix in the ED. Imaging is suggesting pulmonary fibrosis. Considering pulmonary fibrosis secondary to COVID 19 infection. I discussed the case with pulmonology, Dr. Quevedo, about the patient. Recommending 5 days of steroids before starting long steroid taper and outpatient follow up. Plan/VTE VTE Prophylaxis Ordered?: Yes Plan 1. Dyspnea 2/2 pulmonary fibrosis -Possibly secondary to COVID 19 infection -Discussed with Pulmonology, Dr. Quevedo. 5 days of steroids, then long steroid taper. Outpatient follow up -Continue with oxygen as needed 2. Acute kidney injury -Baseline creatinine around 1 -Creatinine on admission at 1.4 -Holding enalapril and PPI 3. HFpEF with moderate pulmonary HTN -BNP lower than prior, but still elevated -Continue with decreased dose of Lasix 4. Atrial fibrillation -Continue with atenolol and digoxin -AC with warfarin. INR low today. Will double regular warfarin dose and continue checking INR 5. Left renal cell carcinoma -Follow up outpatient with nephrology and urology 6. NIDDM -Hold Glipizide -Sliding scale insulin -Carbohydrate consistent diet 7. DVT ppx -Warfarin and heparin Disposition: Pending improvement in renal function and symptoms VS, I&O, 24H, Fishbone Vital Signs/I&O Vital Signs Date Time Temp Pulse Resp B/P (MAP) Pulse Ox O2 Delivery O2 Flow Rate FiO2 07/17/20 09:40 3.0 07/17/20 06:00 98.2 62 18 145/64 (91) 100 Nasal Cannula I&O- Last 24 Hours up to 6 AM 07/17/20 06:00 Intake Total 530 ml Output Total 900 ml Balance -370 ml Laboratory Data 24H LABS Laboratory Tests 2 07/16/20 16:14: Immature Granulocyte % (Auto) 0.7, Neutrophils (%) (Auto) 72.3H, Lymphocytes (%) (Auto) 13.6L, Monocytes (%) (Auto) 8.8H, Eosinophils (%) (Auto) 4.1H, Basophils (%) (Auto) 0.5, Neutrophils # (Auto) 6.3, Lymphocytes # (Auto) 1.2L, Monocytes # (Auto) 0.8, Eosinophils # (Auto) 0.4, Basophils # (Auto) 0.0, Nucleated Red Blood Cells % (auto) 0.0, Prothrombin Time 17.0H, Prothromb Time International Ratio 1.35, Anion Gap 5L, Glomerular Filtration Rate 37.9, Calcium Level 9.9, Total Bilirubin 0.3, Direct Bilirubin < 0.1, Aspartate Amino Transf (AST/SGOT) 14, Alanine Aminotransferase (ALT/SGPT) 17, Alkaline Phosphatase 78, Total Creatine Kinase 23L, Creatine Kinase MB < 1.0, Creatine Kinase MB Relative Index 4.35H, Troponin I < 0.02, TV-Vtv-T-Type Natriuretic Peptide 1589H, Total Protein 7.1, Albumin 3.2, Albumin/Globulin Ratio 0.8L, Thyroid Stimulating Hormone (TSH) 1.050 07/16/20 16:26: Activated Partial Thromboplast Time 39.2H, Digoxin Level 0.8 07/16/20 21:00: Troponin I < 0.02, Osmolality 305H 07/17/20 02:43: Troponin I < 0.02 07/17/20 05:41: Nucleated Red Blood Cells % (auto) 0.0, Prothrombin Time 17.0H, Prothromb Time International Ratio 1.36, Anion Gap 6L, Glomerular Filtration Rate 45.7, Estimated Mean Plasma Glucose 117H, Hemoglobin A1c 5.7, Calcium Level 9.7 07/17/20 10:20: Troponin I < 0.02 07/17/20 11:38: Bedside Glucose (Misc Panel) 156H CBC/BMP Laboratory Tests 07/16/20 16:14 07/17/20 05:41 Microbiology Microbiology 07/16/20 Blood Culture, Received Pending 07/16/20 Blood Culture, Received Pending VELVET ABAD 23, 2021 14:24
[2020-07-17] MEDS ORDERED: WARFARIN SOD 4MG TAB PO ONE (17:00)
[2020-07-17] MEDS: LATANOPROST 0.005% OPHTH SOLN 2.5 ML OU SCH (21:07)
[2020-07-17 22:00] VITALS: BP 145/67
[2020-07-18 00:52] LABS: POTASSIUM RANDOM URINE 54.3 MEQ/L; TOTAL PROTEIN,RANDOM URINE 15.2 MG/DL (0.0-12.0)
[2020-07-18 05:46] LABS: HEMATOCRIT 34.1 % (36.0-47.0); HEMOGLOBIN 10.7 g/dl (12.0-15.5); MEAN CORPUSCULAR HEMOGLOBIN 28.2 pg (27.0-33.0); MEAN CORPUSCULAR HGB CONC 31.4 g/dl (32.0-36.5); PLATELET COUNT, AUTOMATED 357 10^3/uL (150-450); RED BLOOD COUNT 3.79 10^6/uL (4.00-5.40); WHITE BLOOD COUNT 6.2 10^3/uL (4.0-10.0)
[2020-07-18 05:56] LABS: INR 1.42; PROTHROMBIN TIME 17.6 SECONDS (12.5-14.3)
[2020-07-18 06:00] VITALS: BP 142/66
[2020-07-18] MEDS: HEPARIN SOD (PORCINE) 5000UNITS/ML 1ML VIAL/SYRINGE SC SCH ×3 (06:06→20:42)
[2020-07-18 06:16] LABS: CALCIUM LEVEL 9.6 MG/DL (8.8-10.2); CREATININE FOR GFR 1.23 MG/DL (0.55-1.30); POTASSIUM SERUM 4.3 MEQ/L (3.5-5.1)
[2020-07-18] MEDS: VITAMIN D 1,000 INTERNATIONAL UNITS TABLET PO SCH (10:25)
[2020-07-18] MEDS: OMEGA-3 1000MG CAPSULE PO SCH (10:26)
[2020-07-18] MEDS: MULTIVITAMINS/MINERALS THERAP 1 TAB PO SCH (10:26)
[2020-07-18] MEDS: DIGOXIN 0.125 MG TAB PO SCH (10:26)
[2020-07-18] MEDS: predniSONE 20 MG TAB PO SCH (10:26)
[2020-07-18] MEDS: atenoloL 25 MG TAB PO SCH (10:26)
[2020-07-18] MEDS: HumaLOG INSULIN (NovoLOG) PER UNIT SC SCH ×4 (10:27→20:41)
[2020-07-18] MEDS: OCUVITE 1 TAB PO SCH ×2 (10:27→20:41)
[2020-07-18 11:07] LABS: ABG BASE EXCESS 2.7 (-2.0-2.0); ABG HCO3 27.8 MEQ/L (22.0-26.0); ABG O2 SATURATION 98.1 % (95.0-99.0); ABG PARTIAL PRESSURE CO2 44.8 mmHg (35.0-45.0); ABG PARTIAL PRESSURE O2 102.3 mmHg (75.0-100.0); ABG STANDARD HCO3 26.9 MEQ/L (22.0-26.0); ABG TOTAL CO2 29.2 MEQ/L (23.0-31.0); ABG pH (ARTERIAL) 7.411 UNITS (7.350-7.450)
--- NOTE | 2020-07-18 12:41 | REPVR ---
PROCEDURE INFORMATION: Exam: CT Head Without Contrast Exam date and time: 07/18/2020 11:09 AM Age: 85 years old Clinical indication: Pain; Headache; Additional info: AMS TECHNIQUE: Imaging protocol: Computed tomography of the head without contrast. Radiation optimization: All CT scans at this facility use at least one of these dose optimization techniques: automated exposure control; mA and/or kV adjustment per patient size (includes targeted exams where dose is matched to clinical indication); or iterative reconstruction. COMPARISON: No relevant prior studies available. FINDINGS: Brain: There is low attenuation abnormality in the periventricular white matter consistent with chronic microvascular ischemic changes. Cerebral ventricles: No ventriculomegaly. Bones/joints: Unremarkable. No acute fracture. Paranasal sinuses: Visualized sinuses are unremarkable. No fluid levels. Mastoid air cells: Visualized mastoid air cells are well aerated. Soft tissues: Unremarkable. IMPRESSION: There is low attenuation abnormality in the periventricular white matter consistent with chronic microvascular ischemic changes. If an acute infarct is a clinical concern, follow-up MRI with diffusion imaging is recommended. Electronically signed by: Yonas Gracia On 07/18/2020 12:41:23 PM
[2020-07-18] MEDS: POTASSIUM CHLORIDE 10 MEQ SR TABLET PO SCH (13:54)
[2020-07-18] MEDS: FUROSEMIDE 40 MG TAB PO SCH (13:55)
[2020-07-18 14:00] VITALS: BP 133/66
--- NOTE | 2020-07-18 15:29 | IPNPDOC ---
Subjective Date Seen The patient was seen on 07/18/20. Subjective Chief Complaint/HPI Mrs. Allen is an 85 year old female with history of COVID 19 hospitalization on May 17 for 10 days who presents with dyspnea. Yesterday, she was started on IV solumedrol. Afterwards, she has started to develop visual and auditory hallucinations intermittently. She has some insight in realizing that they are not real. Otherwise, she still had desaturations when she ambulates. Denies chest pain or resting dyspnea. Objective Physical Examination General Exam: Positive: Alert, Cooperative Eye Exam: Positive: EOMI; Negative: Sclera icteric Neck Exam: Positive: Supple Chest Exam: Positive: Clear to auscultation Heart Exam: Positive: Rate Normal, Irregular Rhythm Abdomen Exam: Positive: Normal bowel sounds, Soft; Negative: Tenderness Extremity Exam: Positive: Edema (Mild) Psych Exam: Positive: Mood NL; Negative: Mental status NL Assessment /Plan Assessment Mrs. Allen is an 85 year old female with history of COVID 19 hospitalization on May 17 for 10 days who presents with dyspnea. She did not improved with Lasix in the ED. Imaging is suggesting pulmonary fibrosis. Considering pulmonary fi brosis secondary to COVID 19 infection. I discussed the case with pulmonology, Dr. Quevedo, about the patient. Recommending 5 days of steroids before starting long steroid taper and outpatient follow up. Patient has been having hallucinations with solumedrol. Will try prednisone instead. Otherwise, will work up encephalopathy with CT head, UA, ammonia, and ABG Plan/VTE VTE Prophylaxis Ordered?: Yes Plan 1. Dyspnea 2/2 pulmonary fibrosis -Possibly secondary to COVID 19 infection -Discussed with Pulmonology, Dr. Quevedo. 5 days of steroids, then long steroid taper. Outpatient follow up -Continue with oxygen as needed 2. Acute kidney injury -Baseline creatinine around 1 -Creatinine on admission at 1.4 -Holding enalapril and PPI 3. HFpEF with moderate pulmonary HTN -BNP lower than prior, but still elevated -Continue with decreased dose of Lasix 4. Atrial fibrillation -Continue with atenolol and digoxin -AC with warfarin. INR low today. Will double regular warfarin dose and continue checking INR 5. Left renal cell carcinoma -Follow up outpatient with nephrology and urology 6. NIDDM -Hold Glipizide -Sliding scale insulin -Carbohydrate consistent diet 7. DVT ppx -Warfarin and heparin Disposition: Pending improvement in renal function and symptoms Disposition 1. Dyspnea 2/2 pulmonary fibrosis -Possibly secondary to COVID 19 infection -Discussed with Pulmonology, Dr. Quevedo. 5 days of steroids, then long steroid taper. Outpatient follow up -Continue with oxygen as needed -Switched steroids from IV solumedrol to PO prednisone 40mg qD. If too strong, can decrease to 30mg qD 2. Toxic encephalopathy -Most likely secondary to steroids -CT head negative for acute findings. ABG negative for CO2 narcosis, Ammonia within normal limits -Pending UA -Decrease steroids, supportive care and redirection 3. Acute kidney injury -Baseline creatinine around 1 -Creatinine on admission at 1.4 -Holding enalapril and PPI 4. HFpEF with moderate pulmonary HTN -BNP lower than prior, but still elevated -Continue with decreased dose of Lasix 4. Atrial fibrillation -Continue with atenolol and digoxin -AC with warfarin. INR low today. Will increase regular warfarin dose and continue checking INR 5. Left renal cell carcinoma -Follow up outpatient with nephrology and urology 6. NIDDM -Hold Glipizide -Sliding scale insulin -Carbohydrate consistent diet 7. DVT ppx -Warfarin and heparin Disposition: Pending improvement in renal function, psychosis, and respiratory symptoms VS, I&O, 24H, Fishbone Vital Signs/I&O Vital Signs Date Time Temp Pulse Resp B/P (MAP) Pulse Ox O2 Delivery O2 Flow Rate FiO2 07/18/20 14:00 97.4 67 16 133/66 (88) 97 Nasal Cannula 3.0 I&O- Last 24 Hours up to 6 AM 07/18/20 06:00 Intake Total 1110 ml Output Total 1200 ml Balance -90 ml Laboratory Data 24H LABS Laboratory Tests 2 07/17/20 16:48: Bedside Glucose (Misc Panel) 203H 07/17/20 20:04: Bedside Glucose (Misc Panel) 299H 07/18/20 05:29: Nucleated Red Blood Cells % (auto) 0.0, Prothrombin Time 17.6H, Prothromb Time International Ratio 1.42, Anion Gap 8, Glomerular Filtration Rate 44.0, Calcium Level 9.6 07/18/20 10:43: Ammonia 15 07/18/20 10:55: Blood Gas Bicarbonate Standard 26.9H, Arterial Blood pH 7.411, Arterial Blood Partial Pressure CO2 44.8, Arterial Blood Partial Pressure O2 102.3H, Arterial Blood Total CO2 29.2, Arterial Blood HCO3 27.8H, Arterial Blood Base Excess 2.7H, Arterial Blood Oxygen Saturation 98.1 07/18/20 11:50: Bedside Glucose (Misc Panel) 99 CBC/BMP Laboratory Tests 07/18/20 05:29 Microbiology Microbiology 07/16/20 Blood Culture - Preliminary, Resulted No growth after 24 hours . All specim... 07/16/20 Blood Culture - Preliminary, Resulted No growth after 24 hours . All specim... VELVET ABAD 24, 2021 15:29
[2020-07-18] MEDS ORDERED: WARFARIN SOD 3MG TAB PO ONE (17:00)
[2020-07-18] MEDS: SIMVASTATIN 10 MG TAB PO SCH (20:41)
[2020-07-18] MEDS: LATANOPROST 0.005% OPHTH SOLN 2.5 ML OU SCH (20:41)
[2020-07-18 22:00] VITALS: BP 136/65
[2020-07-19] MEDS: HEPARIN SOD (PORCINE) 5000UNITS/ML 1ML VIAL/SYRINGE SC SCH ×3 (05:41→21:21)
[2020-07-19 06:00] VITALS: BP 142/95
[2020-07-19 06:35] LABS: HEMATOCRIT 34.5 % (36.0-47.0); HEMOGLOBIN 10.7 g/dl (12.0-15.5); MEAN CORPUSCULAR HEMOGLOBIN 28.2 pg (27.0-33.0); MEAN CORPUSCULAR VOLUME 90.8 fl (80.0-96.0); PLATELET COUNT, AUTOMATED 383 10^3/uL (150-450); WHITE BLOOD COUNT 7.2 10^3/uL (4.0-10.0)
[2020-07-19 06:37] LABS: INR 1.62; PROTHROMBIN TIME 19.6 SECONDS (12.5-14.3)
[2020-07-19 06:46] LABS: CALCIUM LEVEL 9.5 MG/DL (8.8-10.2); CREATININE FOR GFR 1.03 MG/DL (0.55-1.30); POTASSIUM SERUM 4.5 MEQ/L (3.5-5.1)
[2020-07-19] MEDS: HumaLOG INSULIN (NovoLOG) PER UNIT SC SCH ×4 (07:30→21:00)
[2020-07-19 08:30] VITALS: BP 146/74
[2020-07-19] MEDS: OMEGA-3 1000MG CAPSULE PO SCH (10:02)
[2020-07-19] MEDS: atenoloL 25 MG TAB PO SCH (10:03)
[2020-07-19] MEDS: predniSONE 20 MG TAB PO SCH (10:04)
[2020-07-19] MEDS: VITAMIN D 1,000 INTERNATIONAL UNITS TABLET PO SCH (10:04)
[2020-07-19] MEDS: MULTIVITAMINS/MINERALS THERAP 1 TAB PO SCH (10:04)
[2020-07-19] MEDS: OCUVITE 1 TAB PO SCH ×2 (10:04→21:21)
--- NOTE | 2020-07-19 12:53 | IPNPDOC ---
Subjective Date Seen The patient was seen on 07/19/20. Subjective Chief Complaint/HPI Mrs. Allen is an 85 year old female with history of COVID 19 hospitalization on May 17 for 10 days who presents with dyspnea. This morning, she is A&Ox3 and appropriate. She started talking about her [id number]'s , but came to the conclusion that he was not here at hospital. Will continue monitoring for the confusion. Otherwise, denies chest pain or resting dyspnea. She desaturates with ambulation. Objective Physical Examination General Exam: Positive: Alert, Cooperative Eye Exam: Positive: EOMI; Negative: Sclera icteric Neck Exam: Positive: Supple Chest Exam: Positive: Clear to auscultation Heart Exam: Positive: Rate Normal, Irregular Rhythm Abdomen Exam: Positive: Normal bowel sounds, Soft; Negative: Tenderness Extremity Exam: Positive: Edema (Mild) Psych Exam: Positive: Mood NL; Negative: Mental status NL Assessment /Plan Assessment Mrs. Allen is an 85 year old female with history of COVID 19 hospitalization on May 17 for 10 days who presents with dyspnea. She did not improved with Lasix in the ED. Imaging is suggesting pulmonary fibrosis. Considering pulmonary fibrosis secondary to COVID 19 infection. I discussed the case with pulmonology, Dr. Quevedo, about the patient. Recommending 5 days of steroids before starting long steroid taper and outpatient follow up. Patient has been having hallucinations with solumedrol. Continue with prednisone 40mg qD today. If she continues to be confused, can decrease to 30mg qD. Plan/VTE VTE Prophylaxis Ordered?: Yes Plan 1. Dyspnea 2/2 pulmonary fibrosis -Possibly secondary to COVID 19 infection -Discussed with Pulmonology, Dr. Quevedo. 5 days of steroids, then long steroid taper. Outpatient follow up -Continue with oxygen as needed 2. Toxic encephalopathy -Secondary to solumedrol -CT head, ammonia, UA, and ABG did not explain AMS -Decrease steroid strength to prednisone 40mg qD. Can decrease to 30mg qD if continues to have confusion. 3. Acute kidney injury -Baseline creatinine around 1 -Creatinine on admission at 1.4 -Holding enalapril and PPI -Resolved 4. HFpEF with moderate pulmonary HTN -BNP lower than prior, but still elevated -Continue with decreased dose of Lasix 5. Atrial fibrillation -Continue with atenolol and digoxin -AC with warfarin. INR low today. Continue with increased dose of warfarin and monitoring INR 6. Left renal cell carcinoma -Follow up outpatient with nephrology and urology 7. NIDDM -Hold Glipizide -Sliding scale insulin -Carbohydrate consistent diet 8. DVT ppx -Warfarin and heparin Disposition: Pending reaching INR goal of 2 to 3 and improvement in confusion VS, I&O, 24H, Fishbone Vital Signs/I&O Vital Signs Date Time Temp Pulse Resp B/P (MAP) Pulse Ox O2 Delivery O2 Flow Rate FiO2 07/19/20 10:03 71 146/74 07/19/20 08:30 97.0 20 95 Nasal Cannula 3.0 I&O- Last 24 Hours up to 6 AM 07/19/20 06:00 Intake Total 1726 ml Output Total 600 ml Balance 1126 ml Laboratory Data 24H LABS Laboratory Tests 2 07/18/20 16:18: Bedside Glucose (Misc Panel) 203H 07/18/20 20:27: Bedside Glucose (Misc Panel) 272H 07/18/20 20:54: Urine Color YELLOW, Urine Appearance CLEAR, Urine pH 5.0, Urine Specific [place] 1.013, Urine Protein NEGATIVE, Urine Glucose (UA) NEGATIVE, Urine Ketones NEGATIVE, Urine Blood NEGATIVE, Urine Nitrite NEGATIVE, Urine Bilirubin NEGATIVE, Urine Urobilinogen 0.2, Urine Leukocyte Esterase NEGATIVE, Urine WBC (Auto) 1, Urine RBC (Auto) 0, Urine Hyaline Casts (Auto) 0, Urine Bacteria (Auto) NEGATIVE, Urine Squamous Epithelial Cells 1, Urine Mucus (Auto) SMALL, Urine Sperm (Auto) 07/19/20 05:44: Nucleated Red Blood Cells % (auto) 0.0, Prothrombin Time 19.6H, Prothromb Time International Ratio 1.62, Anion Gap 5L, Glomerular Filtration Rate 54.0, Calcium Level 9.5 07/19/20 11:37: Bedside Glucose (Misc Panel) 129H CBC/BMP Laboratory Tests 07/19/20 05:44 Microbiology Microbiology 07/16/20 Blood Culture - Preliminary, Resulted No Growth after 48 hours. All Specime... 07/16/20 Blood Culture - Preliminary, Resulted No Growth after 48 hours. All Specime... VELVET ABAD 25, 2021 12:53
[2020-07-19 14:00] VITALS: BP_SYST 133; BP_SYST 142; BP_DIAS 77; BP_DIAS 86
[2020-07-19] MEDS: FUROSEMIDE 40 MG TAB PO SCH (14:43)
[2020-07-19] MEDS: POTASSIUM CHLORIDE 10 MEQ SR TABLET PO SCH (14:44)
[2020-07-19] MEDS ORDERED: WARFARIN SOD 3MG TAB PO ONE (17:00)
[2020-07-19] MEDS: MOM 30ML SUSPENSION UDC PO PRN (17:31)
[2020-07-19] MEDS: SIMVASTATIN 10 MG TAB PO SCH (21:21)
[2020-07-19] MEDS: LATANOPROST 0.005% OPHTH SOLN 2.5 ML OU SCH (21:21)
[2020-07-19 22:00] VITALS: BP 146/60
[2020-07-20 06:00] VITALS: BP 147/61
[2020-07-20] MEDS ORDERED: ALENDRONATE 35MG TABLET PO SCH (06:00)
[2020-07-20] MEDS: HEPARIN SOD (PORCINE) 5000UNITS/ML 1ML VIAL/SYRINGE SC SCH ×3 (06:23→21:11)
[2020-07-20 06:51] LABS: HEMATOCRIT 35.7 % (36.0-47.0); HEMOGLOBIN 11.1 g/dl (12.0-15.5); MEAN CORPUSCULAR HEMOGLOBIN 28.5 pg (27.0-33.0); MEAN CORPUSCULAR HGB CONC 31.1 g/dl (32.0-36.5); MEAN CORPUSCULAR VOLUME 91.8 fl (80.0-96.0); PLATELET COUNT, AUTOMATED 332 10^3/uL (150-450); RED BLOOD COUNT 3.89 10^6/uL (4.00-5.40); WHITE BLOOD COUNT 6.8 10^3/uL (4.0-10.0)
[2020-07-20 07:11] LABS: CALCIUM LEVEL 9.5 MG/DL (8.8-10.2); CREATININE FOR GFR 0.95 MG/DL (0.55-1.30); GLOMERULAR FILTRATION RATE 59.2 (>32); POTASSIUM SERUM 4.6 MEQ/L (3.5-5.1)
[2020-07-20 07:12] LABS: INR 2.16; PROTHROMBIN TIME 24.6 SECONDS (12.5-14.3)
[2020-07-20] MEDS: HumaLOG INSULIN (NovoLOG) PER UNIT SC SCH ×4 (07:30→21:00)
[2020-07-20] MEDS: OCUVITE 1 TAB PO SCH ×2 (08:52→21:09)
[2020-07-20] MEDS: VITAMIN D 1,000 INTERNATIONAL UNITS TABLET PO SCH (08:52)
[2020-07-20] MEDS: MOM 30ML SUSPENSION UDC PO PRN (08:52)
[2020-07-20] MEDS: MULTIVITAMINS/MINERALS THERAP 1 TAB PO SCH (08:52)
[2020-07-20] MEDS: OMEGA-3 1000MG CAPSULE PO SCH (08:52)
[2020-07-20] MEDS: predniSONE 20 MG TAB PO SCH (08:53)
[2020-07-20 08:57] VITALS: BP 154/64
[2020-07-20] MEDS: atenoloL 25 MG TAB PO SCH ×2 (09:00)
[2020-07-20] MEDS: DIGOXIN 0.125 MG TAB PO SCH (09:00)
[2020-07-20] MEDS: FUROSEMIDE 40 MG TAB PO SCH (12:45)
[2020-07-20] MEDS: POTASSIUM CHLORIDE 10 MEQ SR TABLET PO SCH (12:45)
[2020-07-20 14:00] VITALS: BP 152/77
--- NOTE | 2020-07-20 18:03 | IPNPDOC ---
Subjective Date Seen The patient was seen on 07/20/20. Subjective Chief Complaint/HPI Mrs. Allen is an 85 year old female with history of COVID 19 hospitalization on May 17 for 10 days who presents with dyspnea. Last night, patient was not as confused. Patient was initially seen retail sales associate seasonal. She knew she was in the hospital, but did not know which hospital. I reminded her we are in [place], and she figured out it was [facility]. Otherwise, she knew year and president and was appropriate. Later in the morning, she was A&Ox3. Will decrease Prednisone from 40mg to 30mgs. Otherwise, she was able to walk in the room without dropping below 90. She felt well. Unfortunately she was going to go home alone. Placed order for HSE. Physical therapy spoke with daughter in law about home safety, and they will prepare for her to come home on Thursday. Objective Physical Examination General Exam: Positive: Alert, Cooperative Eye Exam: Positive: EOMI; Negative: Sclera icteric Neck Exam: Positive: Supple Chest Exam: Positive: Clear to auscultation Heart Exam: Positive: Rate Normal, Irregular Rhythm Abdomen Exam: Positive: Normal bowel sounds, Soft; Negative: Tenderness Extremity Exam: Positive: Edema (Mild) Psych Exam: Positive: Mental status NL, Mood NL, Oriented x 3 Assessment /Plan Assessment Mrs. Allen is an 85 year old female with history of COVID 19 hospitalization on May 17 for 10 days who presents with dyspnea. She did not improved with Lasix in the ED. Imaging is suggesting pulmonary fibrosis. Considering pulmonary fibrosis secondary to COVID 19 infection. I discussed the case with pulmonology, Dr. Quevedo, about the patient. Recommending 5 days of steroids before starting long steroid taper and outpatient follow up. Patient has been having hallucina tions with solumedrol. Mental status improved with Prednisone 40mg qD. She has a component of hospital psychosis (worsening cognition towards the end of the day). Will try her on Prednisone 30mg qD. Plan/VTE VTE Prophylaxis Ordered?: Yes Plan 1. Dyspnea 2/2 pulmonary fibrosis -Possibly secondary to COVID 19 infection -Discussed with Pulmonology, Dr. Quevedo. 5 days of steroids, then long steroid taper. Outpatient follow up -Continue with oxygen as needed 2. Toxic metabolic encephalopathy -Secondary to solumedrol -CT head, ammonia, UA, and ABG did not explain AMS -Decrease steroid strength to prednisone 40mg qD. Mentation improved with prednisone 40mg, but had a component of hospital psychosis. Will decrease prednisone to 30mg to see how she does. -Supportive care and redirecting. 3. Acute kidney injury -Baseline creatinine around 1 -Creatinine on admission at 1.4 -Resolved -Restarted enalapril 4. HFpEF with moderate pulmonary HTN -BNP lower than prior, but still elevated -Continue with decreased dose of Lasix 5. Atrial fibrillation -Continue with atenolol (reduced dose from bradycardia) and digoxin -AC with warfarin. At goal today. 6. Left renal cell carcinoma -Follow up outpatient with nephrology and urology 7. NIDDM -Hold Glipizide -Sliding scale insulin -Carbohydrate consistent diet 8. DVT ppx -Warfarin and heparin Disposition: Home on Thursday VS, I&O, 24H, Gallitobone Vital Signs/I&O Vital Signs Date Time Temp Pulse Resp B/P (MAP) Pulse Ox O2 Delivery O2 Flow Rate FiO2 07/20/20 14:00 97.6 71 18 152/77 (102) 91 Nasal Cannula 3.0 I&O- Last 24 Hours up to 6 AM 07/20/20 06:00 Intake Total 1860 ml Output Total 1225 ml Balance 635 ml Laboratory Data 24H LABS Laboratory Tests 2 07/19/20 20:06: Bedside Glucose (Misc Panel) 167H 07/20/20 06:37: Nucleated Red Blood Cells % (auto) 0.0, Prothrombin Time 24.6H, Prothromb Time International Ratio 2.16, Anion Gap 3L, Glomerular Filtration Rate 59.2, Calcium Level 9.5 07/20/20 11:34: Bedside Glucose (Misc Panel) 124H 07/20/20 16:56: Bedside Glucose (Misc Panel) 236H CBC/BMP Laboratory Tests 07/20/20 06:37 Microbiology Microbiology 07/16/20 Blood Culture - Preliminary, Resulted No Growth after 72 hours. All specime... 07/16/20 Blood Culture - Preliminary, Resulted No Growth after 72 hours. All specime... VELVET ABAD DO Jul 20, 2020 18:03
[2020-07-20] MEDS: ENALAPRIL MALEATE 10 MG TAB PO SCH (21:10)
[2020-07-20] MEDS: WARFARIN SOD 2MG TAB PO SCH (21:10)
[2020-07-20] MEDS: SIMVASTATIN 10 MG TAB PO SCH (21:10)
[2020-07-20] MEDS: LATANOPROST 0.005% OPHTH SOLN 2.5 ML OU SCH (21:11)
[2020-07-20 22:00] VITALS: BP 150/66
[2020-07-21] MEDS: HEPARIN SOD (PORCINE) 5000UNITS/ML 1ML VIAL/SYRINGE SC SCH (05:44)
[2020-07-21 06:00] VITALS: BP 156/76
[2020-07-21 06:06] LABS: HEMATOCRIT 34.4 % (36.0-47.0); HEMOGLOBIN 10.7 g/dl (12.0-15.5); MEAN CORPUSCULAR HEMOGLOBIN 28.5 pg (27.0-33.0); MEAN CORPUSCULAR HGB CONC 31.1 g/dl (32.0-36.5); MEAN CORPUSCULAR VOLUME 91.5 fl (80.0-96.0); PLATELET COUNT, AUTOMATED 302 10^3/uL (150-450); RED BLOOD COUNT 3.76 10^6/uL (4.00-5.40)
[2020-07-21 06:29] LABS: BLOOD UREA NITROGEN 28 MG/DL (7-18); CALCIUM LEVEL 9.2 MG/DL (8.8-10.2); CARBON DIOXIDE LEVEL 32 MEQ/L (21-32); CHLORIDE LEVEL 107 MEQ/L (98-107); CREATININE FOR GFR 0.81 MG/DL (0.55-1.30); GLOMERULAR FILTRATION RATE > 60.0 (>32); GLUCOSE, FASTING 78 MG/DL (70-100); POTASSIUM SERUM 4.6 MEQ/L (3.5-5.1); SODIUM LEVEL 141 MEQ/L (136-145)
[2020-07-21 06:30] LABS: INR 2.37; PROTHROMBIN TIME 26.4 SECONDS (12.5-14.3)
[2020-07-21] MEDS: HumaLOG INSULIN (NovoLOG) PER UNIT SC SCH ×4 (07:30→21:00)
[2020-07-21] MEDS: OMEGA-3 1000MG CAPSULE PO SCH (10:03)
[2020-07-21] MEDS: OCUVITE 1 TAB PO SCH ×2 (10:03→20:37)
[2020-07-21] MEDS: VITAMIN D 1,000 INTERNATIONAL UNITS TABLET PO SCH (10:04)
[2020-07-21] MEDS: ENALAPRIL MALEATE 10 MG TAB PO SCH ×2 (10:04→20:36)
[2020-07-21] MEDS: MULTIVITAMINS/MINERALS THERAP 1 TAB PO SCH (10:04)
[2020-07-21] MEDS: atenoloL 25 MG TAB PO SCH (10:05)
[2020-07-21] MEDS: predniSONE 20 MG TAB PO SCH (10:05)
[2020-07-21 10:10] VITALS: BP 136/80
--- NOTE | 2020-07-21 10:58 | IPNPDOC ---
Subjective Date Seen The patient was seen on 07/21/20. Subjective Chief Complaint/HPI Mrs. Allen is an 85 year old female with history of COVID 19 hospitalization on May 17 for 10 days who presents with dyspnea. No events last night. No confusion last night. This morning, she feels well. Denies chest pain or dyspnea. She is A&Ox3 Objective Physical Examination General Exam: Positive: Alert, Cooperative Eye Exam: Positive: EOMI; Negative: Sclera icteric Neck Exam: Positive: Supple Chest Exam: Positive: Clear to auscultation Heart Exam: Positive: Rate Normal, Irregular Rhythm Abdomen Exam: Positive: Normal bowel sounds, Soft; Negative: Tenderness Extremity Exam: Positive: Edema (Mild) Psych Exam: Positive: Mental status NL, Mood NL, Oriented x 3 Assessment /Plan Assessment Mrs. Allen is an 85 year old female with history of COVID 19 hospitalization on May 17 for 10 days who presents with dyspnea. She did not improved with Lasix in the ED. Imaging is suggesting pulmonary fibrosis. Considering pulmonary fibrosis secondary to COVID 19 infection. I discussed the case with pulmonology, Dr. Quevedo, about the patient. Recommending 5 days of steroids before starting long steroid taper and outpatient follow up. Patient has been having hallucinations with solumedrol. Mental status improved with Prednisone 40mg qD. Decreased dose to Prednisone 30mg qD and she is doing well at this dose. Plan/VTE VTE Prophylaxis Ordered?: Yes Plan 1. Dyspnea 2/2 pulmonary fibrosis -Possibly secondary to COVID 19 infection -Discussed with Pulmonology, Dr. Quevedo. 5 days of steroids, then long steroid taper. Outpatient follow up -Continue with oxygen as needed 2. Toxic metabolic encephalopathy -Secondary to solumedrol -CT head, ammonia, UA, and ABG did not explain AMS -Decrease steroid strength to prednisone 40mg qD. Mentation improved with prednisone 40mg, but had a component of hospital psychosis. Will decrease prednisone to 30mg to see how she does. -Supportive care and redirecting. 3. Acute kidney injury -Baseline creatinine around 1 -Creatinine on admission at 1.4 -Resolved -Restarted enalapril 4. HFpEF with moderate pulmonary HTN -BNP lower than prior, but still elevated -Continue with decreased dose of Lasix 5. Atrial fibrillation -Continue with atenolol (reduced dose from bradycardia) and digoxin -AC with warfarin. At goal today. 6. Left renal cell carcinoma -Follow up outpatient with nephrology and urology 7. NIDDM -Hold Glipizide -Sliding scale insulin -Carbohydrate consistent diet 8. DVT ppx -Warfarin and heparin Disposition: Home on Thursday. Will make ALC today VS, I&O, 24H, Fishbone Vital Signs/I&O Vital Signs Date Time Temp Pulse Resp B/P (MAP) Pulse Ox O2 Delivery O2 Flow Rate FiO2 07/21/20 10:10 96.6 68 20 136/80 (98) 100 Room Air 07/21/20 06:00 3.0 I&O- Last 24 Hours up to 6 AM 07/21/20 06:00 Intake Total 1130 ml Output Total 850 ml Balance 280 ml Laboratory Data 24H LABS Laboratory Tests 2 07/20/20 11:34: Bedside Glucose (Misc Panel) 124H 07/20/20 16:56: Bedside Glucose (Misc Panel) 236H 07/20/20 20:41: Bedside Glucose (Misc Panel) 227H 07/21/20 05:33: Nucleated Red Blood Cells % (auto) 0.0, Prothrombin Time 26.4H, Prothromb Time International Ratio 2.37, Anion Gap 2L, Glomerular Filtration Rate > 60.0, Calcium Level 9.2 CBC/BMP Laboratory Tests 07/21/20 05:33 Microbiology Microbiology 07/16/20 Blood Culture - Preliminary, Resulted No Growth after 72 hours. All specime... 07/16/20 Blood Culture - Preliminary, Resulted No Growth after 72 hours. All specime... VELVET ABAD DO Jul 21, 2020 10:58
[2020-07-21] MEDS: FUROSEMIDE 40 MG TAB PO SCH (14:33)
[2020-07-21] MEDS: POTASSIUM CHLORIDE 10 MEQ SR TABLET PO SCH (14:33)
[2020-07-21 18:00] VITALS: O2SAT 98
[2020-07-21] MEDS: LATANOPROST 0.005% OPHTH SOLN 2.5 ML OU SCH (20:35)
[2020-07-21] MEDS: SIMVASTATIN 10 MG TAB PO SCH (20:36)
[2020-07-21] MEDS: WARFARIN SOD 2MG TAB PO SCH (20:36)
[2020-07-22 06:00] VITALS: BP 143/63
[2020-07-22 06:02] LABS: HEMATOCRIT 33.1 % (36.0-47.0); HEMOGLOBIN 10.2 g/dl (12.0-15.5); MEAN CORPUSCULAR HEMOGLOBIN 27.9 pg (27.0-33.0); MEAN CORPUSCULAR HGB CONC 30.8 g/dl (32.0-36.5); MEAN CORPUSCULAR VOLUME 90.4 fl (80.0-96.0); PLATELET COUNT, AUTOMATED 281 10^3/uL (150-450); RED BLOOD COUNT 3.66 10^6/uL (4.00-5.40); WHITE BLOOD COUNT 6.4 10^3/uL (4.0-10.0)
[2020-07-22 06:13] LABS: INR 2.27; PROTHROMBIN TIME 25.6 SECONDS (12.5-14.3)
[2020-07-22 06:28] LABS: BLOOD UREA NITROGEN 28 MG/DL (7-18); CALCIUM LEVEL 9.2 MG/DL (8.8-10.2); CARBON DIOXIDE LEVEL 29 MEQ/L (21-32); CHLORIDE LEVEL 105 MEQ/L (98-107); CREATININE FOR GFR 0.87 MG/DL (0.55-1.30); GLOMERULAR FILTRATION RATE > 60.0 (>32); GLUCOSE, FASTING 108 MG/DL (70-100); POTASSIUM SERUM 5.2 MEQ/L (3.5-5.1); SODIUM LEVEL 137 MEQ/L (136-145)
[2020-07-22] MEDS: OMEGA-3 1000MG CAPSULE PO SCH (08:44)
[2020-07-22] MEDS: HumaLOG INSULIN (NovoLOG) PER UNIT SC SCH ×4 (08:44→21:00)
[2020-07-22] MEDS: predniSONE 20 MG TAB PO SCH (08:44)
[2020-07-22] MEDS: OCUVITE 1 TAB PO SCH ×2 (08:45→20:35)
[2020-07-22] MEDS: MULTIVITAMINS/MINERALS THERAP 1 TAB PO SCH (08:45)
[2020-07-22] MEDS: VITAMIN D 1,000 INTERNATIONAL UNITS TABLET PO SCH (08:45)
[2020-07-22] MEDS: ENALAPRIL MALEATE 10 MG TAB PO SCH ×2 (08:47→20:38)
[2020-07-22] MEDS: atenoloL 25 MG TAB PO SCH (08:48)
[2020-07-22 10:00] VITALS: O2SAT 92
[2020-07-22 14:35] LABS: CALCIUM LEVEL 9.2 MG/DL (8.8-10.2); CREATININE FOR GFR 1.23 MG/DL (0.55-1.30); POTASSIUM SERUM 4.9 MEQ/L (3.5-5.1)
[2020-07-22] MEDS: POTASSIUM CHLORIDE 10 MEQ SR TABLET PO SCH (14:49)
[2020-07-22] MEDS: FUROSEMIDE 40 MG TAB PO SCH (14:49)
[2020-07-22] MEDS: SIMVASTATIN 10 MG TAB PO SCH (20:38)
[2020-07-22] MEDS: LATANOPROST 0.005% OPHTH SOLN 2.5 ML OU SCH (20:38)
[2020-07-22] MEDS: WARFARIN SOD 2MG TAB PO SCH (20:43)
[2020-07-22] MEDS ORDERED: RAMELTEON 8 MG TAB (ROZEREM) PO SCH (21:00)
[2020-07-23 06:00] VITALS: BP 135/63
[2020-07-23] MEDS ORDERED: PRED10TA2 PO (09:19)
[2020-07-23] MEDS ORDERED: RAME8TAB2 PO (09:19)
[2020-07-23] MEDS ORDERED: ATEN50TA2 PO (09:19)
[2020-07-23] MEDS: HumaLOG INSULIN (NovoLOG) PER UNIT SC SCH (09:25)
[2020-07-23] MEDS: OMEGA-3 1000MG CAPSULE PO SCH (09:28)
[2020-07-23] MEDS: MULTIVITAMINS/MINERALS THERAP 1 TAB PO SCH (09:28)
[2020-07-23] MEDS: VITAMIN D 1,000 INTERNATIONAL UNITS TABLET PO SCH (09:28)
[2020-07-23 09:29] VITALS: BP 150/64
[2020-07-23] MEDS: atenoloL 25 MG TAB PO SCH (09:29)
[2020-07-23] MEDS: OCUVITE 1 TAB PO SCH (09:29)
[2020-07-23] MEDS: DIGOXIN 0.125 MG TAB PO SCH (09:29)
[2020-07-23] MEDS: ENALAPRIL MALEATE 10 MG TAB PO SCH (09:29)
[2020-07-23] MEDS: predniSONE 20 MG TAB PO SCH (09:30)
--- NOTE | 2020-07-23 23:36 | DS.PDOC ---
Discharge Summary General Date of Admission Jul 16, 2020 at 21:06 Date of Discharge Jul 23, 2020 Attending Physician: VELVET ABAD DO Discharge Summary PROCEDURES PERFORMED DURING STAY: None ADMITTING DIAGNOSES: 1. Acute exacerbation of pulmonary fibrosis 2. 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 Chronic HFpEF 4. Moderate pulmonary hypertension 5. Persistent atrial fibrillation 6. Recently diagnosed left renal cell carcinoma 7. NIDDM 8. Osteoporosis DISCHARGE DIAGNOSES: 1. Acute exacerbation of pulmonary fibrosis 2. 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 Chronic HFpEF 4. Moderate pulmonary hypertension 5. Persistent atrial fibrillation 6. Recently diagnosed left renal cell carcinoma 7. NIDDM 8. Osteoporosis 9. Toxic encephalopathy secondary to steroids COMPLICATIONS/CHIEF COMPLAINT: Dyspnea. HISTORY OF PRESENT ILLNESS: Mrs. Allen is an 85 year old female with diagnosed COVID 19 on May [address] [facility] for 10 days who arrives to the ED for increasing dyspnea. She is on oxygen as needed since her COVID hospitalization, but the past 3 days prior to admission, she had increasing use of oxygen and more dyspnea. In the ED, she was given Lasix. After voiding, she still felt magdaleno rt of breath. Patient was admitted for dyspnea secondary to acute pulmonary fibrosis exacerbation. HOSPITAL COURSE: Case was discussed with arcgis developer, Dr. Quevedo. Recommended 5 days of steroids, followed by a long steroid taper and follow up outpatient. Patient was started on Solumedrol 40mg qD. That night, patient had visual and audio hallucinations. Steroids were decreased to prednisone 40mg qD, and she did better at this dose. She still had confusion towards the end of the day, but by morning, symptoms were improved. Decreased prednisone to 30mg qD. Patient ambulated with baseline oxygen without dropping below 90%. Patient was A&Ox3. Otherwise, patient has been afebrile and had normal WBC throughout hospitalization. No signs of infection present. Initially, patient's INR was low, but at end of hospitalization, INR reached goal between 2 to 3. Patient was to return to daughter in law's home, but due to circumstances, patient would return to her own home to live independently. culinary worker and physical therapy worked with daughter in law in devising a plan for safe discharge home. On day of discharge, patient was feeling well. She felt ready for home and was subsequently discharged home with steroid taper. DISCHARGE MEDICATIONS: Please see below. ALLERGIES: Please see below. PHYSICAL EXAMINATION ON DISCHARGE: VITAL SIGNS: Please see below. GENERAL: Comfortable, in no apparent distress HEENT: Head normocephalic, atraumatic NECK: Supple CARDIOVASCULAR EXAMINATION: Irregular rhythm, but rate controlled RESPIRATORY EXAMINATION: Lungs clear to auscultation bilaterally ABDOMINAL EXAMINATION: Soft, non-tender, normal bowel sounds EXTREMITIES: Bilateral pitting edema SKIN: Warm and dry NEUROLOGICAL EXAMINATION: CN 3-12 grossly intact PSYCHIATRIC EXAMINATION: Normal mood and affect. A&Ox3 LABORATORY DATA: Please see below. IMAGING: Radiologist interpretation CT angio chest 1. No evidence of pulmonary emboli. 2. Probable pulmonary fibrosis with likely superimposed pneumonia and/or edema similar in appearance to the prior study. 3. Cardiomegaly without reji congestive heart failure. PROGNOSIS: Good ACTIVITY: As tolerated. DIET: Carbohydrate consistent diet DISCHARGE PLAN: Home with home services DISPOSITION: Home Health Service. DISCHARGE INSTRUCTIONS: 1. Follow up with PCP within 1 week 2. Referral to pulmonology 3. Continue steroid taper to completion DISCHARGE CONDITION: Stable. Total time spent on discharge planning, discharge summary, and medication reconciliation: 40 minutes Vital Signs/I&Os Vital Signs Date Time Temp Pulse Resp B/P (MAP) Pulse Ox O2 Delivery O2 Flow Rate FiO2 07/23/20 09:29 150/64 07/23/20 09:29 60 07/23/20 06:00 98.6 17 95 Room Air 07/22/20 06:00 3.0 I&O- Last 24 Hours up to 6 AM 07/23/20 06:00 Intake Total 1480 ml Output Total 1250 ml Balance 230 ml Laboratory Data Labs 24H Laboratory Tests 2 07/23/20 08:09: Bedside Glucose (Misc Panel) 183H FSBS Laboratory Tests Test 07/23/20 08:09 Range/Units Bedside Glucose (Misc Panel) 183 83-110 MG/DL Microbiology Microbiology 07/16/20 Blood Culture - Final, Complete NO GROWTH AFTER 5 DAYS 07/16/20 Blood Culture - Final, Complete NO GROWTH AFTER 5 DAYS Discharge Medications Scheduled Alendronate Sodium (Alendronate Sodium) 35 Mg Tablet, 35 MG PO Q7D, (Reported) thursday Atenolol (Atenolol) 50 Mg Tablet, 1 TAB PO DAILY Cholecalciferol (Vitamin D3) (Vitamin D3) 1,000 Unit Tablet, 1,000 UNITS PO DAILY, (Reported) Digoxin (Digox) 125 Mcg Tablet, 125 MCG PO 3XW, (Reported) MON,THU,THU Enalapril Maleate (Enalapril Maleate) 20 Mg Tablet, 20 MG PO BID, (Reported) Furosemide (Furosemide) 40 Mg Tablet, 20 MG PO DAILY, (Reported) @ 1400 Glipizide (Glipizide) 10 Mg Tablet, 10 MG PO BID, (Reported) Latanoprost/Pf (Latanoprost 0.005% Eye Drop) 7.5 Ml Drops, 1 DROP OU QHS, (Reported) Multivit-Min/FA/Lycopen/Lutein (Centrum Silver Tablet) 1 Each Tablet, 1 TAB PO DAILY, (Reported) [place]-3/Dha/Epa/Fish Oil (Fish Oil 1,000 mg Softgel) 1 Each Capsule, 1 CAP PO DAILY, (Reported) Omeprazole (Omeprazole) 40 Mg Capsule.dr, 40 MG PO DAILY, (Reported) Potassium Chloride (Potassium Chloride) 20 Meq Tablet.er, 20 MEQ PO DAILY, (Reported) @ 1400 Prednisone (Prednisone) 10 Mg Tablet, 1 TAB PO TAPER Take 2 tablets for 7 days. Then, take 1 tablet for 7 days. Then stop. Ramelteon (Ramelteon) 8 Mg Tablet, 8 MG PO QHS Simvastatin (Simvastatin) 10 Mg Tablet, 10 MG PO QHS, (Reported) Vit A/Vit C/Vit E/Zinc/Copper (Preservision Areds Tablet) 1 Each Tablet, 1 TAB PO BID, (Reported) Warfarin Sodium (Warfarin Sodium) 1 Mg Tablet, 2 MG PO QHS, (Reported) Allergies Coded Allergies: methylprednisolone (Verified Adverse Reaction, Unknown, confusion, 07/21/20) VELVET ABAD DO Jul 23, 2020 23:36
== END 2020-07-23 11:45 | disposition home health service (06) | DRG 196 ==
LOC: M ED 15:51 → M ED INP 21:06 → ENRESERV 21:24 → M MSPAV 22:27
PROVIDERS: ADMIT Internal Medicine; ATTEND Internal Medicine
DX: J84.10 Pulmonary fibrosis, unspecified (principal); G92 Toxic encephalopathy; I48.19 Other persistent atrial fibrillation; I50.32 Chronic diastolic (congestive) heart failure; N18.4 Chronic kidney disease, stage 4 (severe); C64.2 Malignant neoplasm of left kidney, except renal pelvis; N17.9 Acute kidney failure, unspecified; R06.00 Dyspnea, unspecified; R60.0 Localized edema; I11.0 Hypertensive heart disease with heart failure; K21.9 Gastro-esophageal reflux disease without esophagitis; E11.22 Type 2 diabetes mellitus with diabetic chronic kidney disease; M81.0 Age-related osteoporosis without current pathological fracture; Z85.3 Personal history of malignant neoplasm of breast; Z90.10 Acquired absence of unspecified breast and nipple; Z99.81 Dependence on supplemental oxygen; Z86.16 Personal history of COVID-19; D64.9 Anemia, unspecified; Z79.01 Long term (current) use of anticoagulants; Z79.899 Other long term (current) drug therapy; I27.20 Pulmonary hypertension, unspecified; T38.0X5A Adverse effect of glucocorticoids and synthetic analogues, initial encounter; Z79.84 Long term (current) use of oral hypoglycemic drugs

== ENCOUNTER → 2020-11-27 | Outpatient (REF) | payer MEDICARE ==
[~2020-11-27] MED LIST changes: -ALEN35TA54 PO; +ALEN35TA56 PO; +ATEN50TA2 PO; +OMEP40CA4 PO; -OMEP40CA97 PO; +POTA1TAB14 PO; +PRED10TA2 PO; +RAME8TAB2 PO
== END ==
LOC: M LAB REF 17:05
PROVIDERS: ATTEND Nurse Practitioner Family
DX: E83.42 Hypomagnesemia (principal)

== ENCOUNTER 2020-11-29 13:45 | Emergency (ER) | payer MEDICARE ==
[~2020-11-29] VITALS: Ht 147.3 cm; Wt 61.4 kg
[2020-11-29 15:34] LABS: BASO # 0.1 10^3/uL (0.0-0.2); BASO % 0.8 % (0.0-1.0); EOS # 0.3 10^3/uL (0.0-0.5); EOS % 5.2 % (0.0-3.0); HEMATOCRIT 38.4 % (36.0-47.0); HEMOGLOBIN 12.1 g/dl (12.0-15.5); LYMPH # 0.9 10^3/uL (1.5-5.0); LYMPH % 15.2 % (24.0-44.0); MEAN CORPUSCULAR HEMOGLOBIN 27.4 pg (27.0-33.0); MEAN CORPUSCULAR HGB CONC 31.5 g/dl (32.0-36.5); MEAN CORPUSCULAR VOLUME 87.1 fl (80.0-96.0); MONO # 0.9 10^3/uL (0.0-0.8); MONO % 14.3 % (2.0-8.0); NEUTROPHILS # 3.8 10^3/uL (1.5-8.5); NEUTROPHILS % 63.8 % (36.0-66.0); PLATELET COUNT, AUTOMATED 271 10^3/uL (150-450); RED BLOOD COUNT 4.41 10^6/uL (4.00-5.40); WHITE BLOOD COUNT 5.9 10^3/uL (4.0-10.0)
[2020-11-29 15:46] LABS: INR 2.02; PROTHROMBIN TIME 23.2 SECONDS (12.7-14.5)
[2020-11-29 15:59] LABS: ALBUMIN 3.4 GM/DL (3.2-5.2); ALT/SGPT 21 U/L (12-78); BILIRUBIN,DIRECT 0.1 MG/DL (0.0-0.2); BILIRUBIN,TOTAL 0.4 MG/DL (0.2-1.0); BLOOD UREA NITROGEN 42 MG/DL (7-18); CALCIUM LEVEL 9.6 MG/DL (8.8-10.2); CARBON DIOXIDE LEVEL 29 MEQ/L (21-32); CHLORIDE LEVEL 107 MEQ/L (98-107); CK-MB VALUE MASS < 1.0 NG/ML (<3.6); CPK CREATINE PHOSPHOKINASE 37 U/L (26-192); CREATININE FOR GFR 1.18 MG/DL (0.55-1.30); GLOMERULAR FILTRATION RATE 46.1 (>32); GLUCOSE, FASTING 116 MG/DL (70-100); POTASSIUM SERUM 4.3 MEQ/L (3.5-5.1); SODIUM LEVEL 143 MEQ/L (136-145); TROPONIN I < 0.02 NG/ML (< 0.10)
[2020-11-29] MEDS ORDERED: ISOVUE-370 76% 100ML VIAL As Ordered ONE (16:51)
[2020-11-29 18:54] VITALS: BP 154/96
== END 2020-11-29 19:19 | disposition home or self-care (01) ==
LOC: M ED 13:45
DX: R06.02 Shortness of breath (principal); I48.91 Unspecified atrial fibrillation; R91.8 Other nonspecific abnormal finding of lung field; I51.7 Cardiomegaly; E11.9 Type 2 diabetes mellitus without complications; I10 Essential (primary) hypertension; K21.9 Gastro-esophageal reflux disease without esophagitis; Z86.16 Personal history of COVID-19; Z79.01 Long term (current) use of anticoagulants; Z79.84 Long term (current) use of oral hypoglycemic drugs; Z79.899 Other long term (current) drug therapy; Z88.8 Allergy status to other drugs, medicaments and biological substances
CPT/HCPCS: 71045; 71275; 80048; 80076; 82550; 82553; 84484; 85025; 85610; 87040; 87077; 87186; 93005; 93041; 94760; 99285; Q9967

== ENCOUNTER → 2021-01-29 | Outpatient (REF) | payer MEDICARE | LOC: M LAB REF 12:39 | PROVIDERS: ATTEND Nurse Practitioner Family | DX: E83.42 Hypomagnesemia (principal) ==

== ENCOUNTER → 2023-06-03 | Outpatient (CLI) | payer MEDICARE ==
[~2023-06-03] MED LIST changes: -D31000TA2 PO; +ENAL1TAB52 PO; -ENAL20TA11 PO; +POTA-298 PO; -POTA1TAB14 PO; +VITA100093 PO
== END ==
LOC: M RAD 11:23
PROVIDERS: ATTEND Physician Assistant
DX: R22.41 Localized swelling, mass and lump, right lower limb (principal); M79.661 Pain in right lower leg